=== PATIENT | female | born 1970 | race Caucasian/White ===

== ENCOUNTER 2017-09-13 10:20 | Inpatient (IN) | payer MEDICARE, MEDICAID ==
[2017-09-13] MEDS ORDERED: Lorazepam 2 MG/ML VIAL ONE (10:28)
[2017-09-13] MEDS ORDERED: Albuterol Sulfate 2.5 mg/0.5 ml Neb ONE (10:34)
[2017-09-13] MEDS ORDERED: Dexamethasone 10 MG/ML VIAL ONE (10:40)
[2017-09-13] MEDS ORDERED: Magnesium Sulfate 2 GM/100 ML BAG ONE (10:40)
[2017-09-13 10:48] LABS: Actual Bicarbonate (HCO3a) 28.8 mEq/L (22-26); Base Excess (BEa) -0.8 mEq/L (0 (+/-) 2.5); Calcium, Ionized 1.1 mmol/L (1.12-1.30); Hematocrit-ABG 44.6 % (36.0-47.0); O2 Tension (PaO2) 104.3 mmHg (80.0-100.0)
[2017-09-13 10:51] LABS: ALV-art Gradient 6.055 (0-20); Analyzer IN Cardio ER; CO2 Tension 72.1 mmHg (35.0-45.0); Puncture Site RRA; pH, Arterial 7.22 (7.35-7.45)
[2017-09-13 11:01] LABS: #Basophils 0.1 thou/uL (0.0-0.2); #Lymphocytes 1.6 thou/uL (1.20-3.40); #Monocytes 0.7 thou/uL (0.11-0.59); #Neutrophils 9.8 thou/uL (1.40-6.50); %Basophils 0.6 % (0.0-1.0); %Lymphocytes 13.2 % (21.0-51.0); %Monocytes 5.9 % (0.0-10.0); %Neutrophils 80.2 % (42.0-75.0); Hemoglobin 14.3 g/dL (12.0-16.0); Mean Corpuscular HGB CONC 32.9 g/dL (32.0-36.0); Mean Corpuscular Hemoglobin 33.5 pg (27.0-31.0); Mean Platelet Volume 6.7 fL (7.4-10.4); Platelet Count 288 thou/uL (130-400); RBC Distribution Width 11.6 % (11.5-14.5); Red Blood Cell (RBC) Count 4.27 mill/uL (4.20-5.40); White Blood Cell (WBC) Count 12.2 thou/uL (4.8-10.8)
[2017-09-13 11:11] LABS: INR-International Normal Ratio 0.9; Prothrombin Time 12.2 SEC (12.0-14.7)
[2017-09-13 11:24] LABS: ALT (SGPT) 34 U/L (8-55); AST (SGOT) 43 U/L (5-34); Albumin 3.8 g/dL (3.5-5.0); Alkaline Phosphatase 70 U/L (40-150); Anion Gap 13 mmol/L (10-20); BUN (Urea Nitrogen) 7 mg/dL (7.0-18.7); Bilirubin, Total 0.3 mg/dL (0.2-1.2); CK (CPK) 96 U/L (29-168); Calc. Creatinine Clearance 0 mL/min (70-130); Calcium 8.2 mg/dL (7.8-10.44); Carbon Dioxide 25 mmol/L (22-29); Chloride 102 mmol/L (98-107); Estimated GFR-MDRD Greater than 90; Globulin 2.3 g/dL (2.4-3.5); Glucose 153 mg/dL (70-105); Lipase 16 U/L (8-78); Potassium 3.7 mmol/L (3.5-5.1); Protein, Total 6.1 g/dL (6.0-8.3); Sodium 136 mmol/L (136-145)
[2017-09-13 11:28] LABS: CKMB 5.1 ng/mL (0-6.6); Troponin I 0.014 ng/mL (< 0.028)
[2017-09-13 11:57] LABS: Actual Bicarbonate (HCO3a) 27.9 mEq/L (22-26); Base Excess (BEa) -0.7 mEq/L (0 (+/-) 2.5); Calcium, Ionized 1.1 mmol/L (1.12-1.30); Hematocrit-ABG 42.5 % (36.0-47.0); Hemoglobin (Hb) 13.1 g/dL (12.0-16.0); O2 Tension (PaO2) 101.1 mmHg (80.0-100.0)
[2017-09-13 11:59] LABS: pH, Arterial 7.25 (7.35-7.45)
[2017-09-13 12:00] LABS: ALV-art Gradient 18.005 (0-20); Analyzer IN Cardio ER; CO2 Tension 65.1 mmHg (35.0-45.0); Puncture Site RRA
--- NOTE | 2017-09-13 12:56 | RAD ---
CHEST 1 VIEW: DATE:: 09/13/17 HISTORY: Dyspnea. COMPARISON: Chest 2 views dated 09/11/17. FINDINGS: Lungs are hyperinflated. Blunting of both costophrenic sulci, likely from lung hyperinflation. Area o f extensive bullous formation and scarring. Cardiac silhouette and mediastinal contours within normal limits. IMPRESSION: Severe emphysema. POS: [facility]
[2017-09-13] MEDS ORDERED: Ondansetron HCl/PF 4 MG/2 ML Vial IVP PRN (13:06)
[2017-09-13] MEDS ORDERED: Sodium Chloride 0.9% 1,000 ML IV SCH (13:15)
[2017-09-13] MEDS ORDERED: Enoxaparin Sodium 40 MG/0.4 ML SYRINGE SC SCH (13:30)
[2017-09-13] MEDS: Midazolam HCl 2 mg/2 ml Vial ONE ×2 (14:26→14:27)
[2017-09-13] MEDS ORDERED: Propofol 1,000 MG/100 ML VIAL IV ONE (14:32)
[2017-09-13] MEDS ORDERED: Sedation Protocol FS ONE (15:15)
[2017-09-13] MEDS: Levofloxacin 750 mg/D5W 500 MG in Premix Bag 1 BAG IVPB SCH (15:20)
[2017-09-13] MEDS: Sodium Chloride 0.9% 1,000 ML IV SCH ×2 (15:21→23:51)
[2017-09-13] MEDS ORDERED: Lorazepam 2 MG/ML VIAL SLOW IVP PRN (15:32)
[2017-09-13] MEDS ORDERED: Propofol 1,000 MG/100 ML VIAL IV PRN (15:32)
[2017-09-13] MEDS ORDERED: Fentanyl 20 MCG/ML 250 ML IVPB SCH (15:32)
[2017-09-13] MEDS ORDERED: DISCONTINUE PREVIOUS NARCOTIC PAIN MEDICATIONS AND BENZODIAZEPINES FS SCH (15:32)
[2017-09-13] MEDS ORDERED: Morphine 2 MG/ML SYRINGE SLOW IVP PRN (15:33)
[2017-09-13 15:44] LABS: ALV-art Gradient 61.675 (0-20); Actual Bicarbonate (HCO3a) 24.4 mEq/L (22-26); CO2 Tension 53.7 mmHg (35.0-45.0); Calcium, Ionized 1.1 mmol/L (1.12-1.30); Hematocrit-ABG 39.1 % (36.0-47.0); Hemoglobin (Hb) 12.6 g/dL (12.0-16.0); O2 Tension (PaO2) 229.2 mmHg (80.0-100.0); Puncture Site RBA; pH, Arterial 7.27 (7.35-7.45)
[2017-09-13] MEDS ORDERED: Mometasone/Formoterol 120 PUFF INHALER INH SCH (18:30)
--- NOTE | 2017-09-13 19:15 | HP ---
REASON FOR ADMISSION: Acute respiratory failure, acute on chronic obstructive pulmonary disease exacerbation, failure to thrive. HISTORY OF PRESENT ILLNESS: The patient gives history of having shortness of breath and coughing spells with wheezing for the last 1 week or so. This has been progressively getting worse. On Thursday, she went to [facility] where she was prescribed dexamethasone tapering, along with azithromycin. The patient has history of smoking and continues to smoke 2 to 3 cigarettes a day. This morning, patient's shortness of breath got worse and she became diaphoretic. The called EMS and patient was taken to [facility] from where she was transferred here. The patient states she has gone to see Dr. Baker last week and had a stress test in his office, which was negative as far as she knows. 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 CURRENT MEDICATIONS: The patient is on albuterol inhaler q.6 hourly p.r.n., Symbicort 160/4.5 mcg 2 puffs twice daily, albuterol nebulizer q.6 hourly p.r.n. , Nexium 40 mg p.o. daily, azithromycin 250 mg p.o. daily from last 2 days, methylprednisolone is on a taper Dosepak from Thursday, Flexeril p.r.n. ALLERGIES: Allergic to SULFA and ULTRAM. PERSONAL HISTORY: Smokes one pack a day, does not abuse alcohol or drugs. Lives with her . FAMILY HISTORY: Mother of unknown cancer in her 60s. Father has history of hypertension, dyslipidemia, coronary artery disease and also abuses drugs. REVIEW OF SYSTEMS: The following complete review of systems was negative, unless otherwise mentioned in the HPI or below: Constitutional: Weight loss or gain, ability to conduct usual activities. Skin: Rash, itching. Eyes: Double vision, pain. ENT/Mouth: Nose bleeding, neck stiffness, pain, tenderness. Cardiovascular: Palpitations, dyspnea on exertion, orthopnea. Respiratory: Shortness of breath, wheezing, cough, hemoptysis, fever or night sweats. Gastrointestinal: Poor appetite, abdominal pain, heartburn, nausea, vomiting, constipation, or diarrhea. Genitourinary: Urgency, frequency, dysuria, nocturia. Musculoskeletal: Pain, swelling. Neurologic/Psychiatric: Anxiety, depression. Allergy/Immunologic: Skin rash, bleeding tendency. PHYSICAL EXAMINATION: GENERAL: The patient is a 47-year-old female who is currently on BiPAP. VITAL SIGNS: Blood pressure is 126/74, pulse 90 per minute, respiratory rate is 24 per minute, temperature 96.6 degrees Fahrenheit, saturating 77% on room air and 97% on BiPAP. NECK: Supple, no elevated JVD. HEENT: Eyes: Extraocular muscles intact. Pupils reacting to light. Oral cavity mucous membranes are dry. No exudates or congestion. CARDIOVASCULAR SYSTEM: S1, S2 heard. Regular rhythm. RESPIRATORY SYSTEM: Air entry 1+ bilateral. Scattered wheezes plus bilateral. ABDOMEN: Soft, bowel sounds heard. No tenderness, rigidity, or guarding. EXTREMITIES: There is peripheral edema 1+ bilateral. No ischemic ulcerations or gangrene. Peripheral pulses are 1+ bilateral. CENTRAL NERVOUS SYSTEM: No gross focal deficits seen. The patient is lethargic , but oriented well. PSYCHIATRIC SYSTEM: The patient is bit anxious, otherwise no hallucinations or delusions. LABORATORY DATA: White count of 12, H an H 14 and 43, platelet count 288 with 80% neutrophils, MCV is 102, blood gas done prior to patient being on BiPAP showed a pH of 7.22, pCO2 of 72, pO2 of 104 and now on BiPAP. Repeat blood gas done showed more or less similar pH of 7.25, pCO2 of 65, and pO2 of 101. BUN is 7, creatinine 0.5. Electrolytes are stable. Glucose 153, albumin is 3.8, troponin I is 0.01. BNP is 32, lipase is 16. Influenza A and B antigens are negative. Chest x-ray done shows severe emphysema. CLINICAL IMPRESSION AND PLAN: The patient will be admitted to ICU for severe chronic obstructive pulmonary disease exacerbation and acute respiratory failure. We will continue her BiPAP. If patient were to worsen, she likely will need intubation. She has severe chronic obstructive pulmonary disease. We will place her on Solu-Medrol 40 mg IV q.6 hourly along with gentle hydration and Levaquin 500 mg IV daily. She will be on DuoNebs q.6 hourly. The patient is also cachectic with weighing nearly only 40 kilos likely due to her end-stage chronic obstructive pulmonary disease. We will continue to closely monitor her in ICU. I have spoken to Dr. Ruggiero for Pulmonology and Critical Care consultation. [facility]
[2017-09-13] MEDS: Famotidine/PF 20 mg/2ml Vial SLOW IVP SCH (21:06)
--- NOTE | 2017-09-14 03:49 | CON ---
DATE OF CONSULTATION: 09/13/2017 HISTORY OF PRESENT ILLNESS: Ms. Franks is a 47-year-old female. She has been intubated in the past. Dr. Salinas cared for her the last admission. She is a smoker. She has significant obstructive brandt ng disease. She presented with shortness of breath today and was noninvasively ventilated. Blood ga s showed a respiratory acidosis that did not improve with noninvasive ventilation. She arrived in e Intermediate Care Unit initially. I have actually told the Hospitalist to tell the emergency room that she needed to be intubated based on what I was hearing from the respiratory therapist in the [facility] department. They admitted her to IMU and she was immediately transferred to the ICU for intubation. Apparently she has been short of breath for over a week. She continues to smoke unfortunately. She initially presented to [facility] Emergency Department and subsequently was transfer red here. PAST MEDICAL HISTORY: 1. Remarkable for reflux disease. 2. History of a . 3. Hypertension. 4. Ulcer disease in the past. 5. History of anxiety. MEDICATONS: She is on albuterol, Symbicort, Nexium, she recently had Zithromax prescribed. She was on a Medrol taper. ALLERGIES: She reports SULFA and ULTRAM intolerance. SOCIAL HISTORY: She is a pack a day smoker. She has smoked all of her life. She does not drink or abuse drugs. She is . Her arrived after she was intubated. FAMILY HISTORY: Negative for lung disease at an early age. There is a history of malignancies, hype rtension and vascular disease. REVIEW OF SYSTEMS: Ten point of systems was otherwise negative beyond the shortness of breath. She denies hemoptysis or chest discomfort. PHYSICAL EXAMINATION: GENERAL: She was sitting bolt upright in bed with her arms extended out in front of her, pushing on the bed. She was using her shoulder muscles and her neck muscles to assist with respiration, even th ough she was on BiPAP. VITAL SIGNS: Blood pressure 129/69, heart rate was in the 90s. She is afebrile, respiratory rate wa s in the 20s. HEENT: Pupils are equal. Sclerae is anicteric. NECK: Supple. LUNGS: Remarkable for distant breath sounds, very distant wheezes. She had a long expiratory phase. HEART: Regular rhythm. Distant S1 and S2. ABDOMEN: Soft, no guarding or tenderness. EXTREMITIES: Without asymmetry. LABORATORY AND X-RAY FINDINGS: Chest radiograph was reviewed by me. I see no alveolar infiltrates s uggestive of pneumonia. She has extensive bullous disease and hyperinflation. White count 12.2, hemoglobin 14.3, platelets 288. Electrolytes are normal. Creatinine is 0.5, AST 43, ALT 34. Albumin 3.8. IMPRESSION: Chronic obstructive pulmonary disease exacerbation with acute respiratory failure. I discussed intubation. She was willing to proceed with intubation, but was not really excited about it. I have explained to her that she could suddenly pass away. She has pronounced signs of muscle fatigue. First blood gas 7.22, CO2 72, and pO2 of 104. Second blood gas; 7.25, CO2 65, pO2 101. Even when she was intubated mechanically her pH was 7.27, CO2 of 53, pO2 29. This was a ventilatory rate of 20. We could not turn the rate up any faster because she could not completely exhale. I hav e recommended intubation. This has been done. The intubation will be dictated in a separate note. This is a critical care note encompassing 45 minutes critical care independent of the procedure and c onsulting with the nurses at the bedside.
--- NOTE | 2017-09-14 04:10 | OP ---
PROCEDURE PERFORMED: Fiberoptic intubation. FREIGHT BRAKE OPERATOR: Darrin Ruggiero MD INDICATION: Respiratory failure, need for therapeutic suctioning, diagnostic bronchoscopy and intuba tion. Her upper airway prepped with Cetacaine spray. Bronchoscope was lubricated. Bite block was placed i n her mouth. Noninvasive ventilation was removed. Bronchoscope was easily passed through into her m outh down through her cords quickly with 7.5 endotracheal tubing and secured above the omar. As I went into her trachea through her glottis, copious amounts of clear secretions were encountered. No doubt she was not strong enough to cough these through her glottis into her mouth. It is fortunate that we intubated her when we did. Entire tracheobronchial tree was quickly inspecte d. No endobronchial lesions were seen in the right lower lobe, right upper lobe, right middle lobe, left lower lobe or left upper lobe. She was connected to mechanical ventilation. She does have sign ificantly prolonged expiratory phase, so a pH greater than 7.2 with an elevated CO2 will be adequate for ventilation for now. She will receive steroids, nebulizer treatments, and sedation and paralytic s if necessary. She was sedated with 4 mg of Versed. She was bolused with IV fluids as she was bein g intubated, tolerated all of the above well.
[2017-09-14 04:14] LABS: Anion Gap 15 mmol/L (10-20); BUN (Urea Nitrogen) 11 mg/dL (7.0-18.7); Calc. Creatinine Clearance 0 mL/min (70-130); Calcium 8.6 mg/dL (7.8-10.44); Carbon Dioxide 20 mmol/L (22-29); Chloride 106 mmol/L (98-107); Estimated GFR-MDRD Greater than 90; Glucose 118 mg/dL (70-105); Sodium 137 mmol/L (136-145)
[2017-09-14 05:35] LABS: Band 10 % (5-11); Hemoglobin 12.9 g/dL (12.0-16.0); Lymphocytes 11 % (21-51); MDiff Complete? YES; Mean Corpuscular HGB CONC 33.8 g/dL (32.0-36.0); Mean Corpuscular Hemoglobin 33.5 pg (27.0-31.0); Mean Corpuscular Volume 99.2 fl (81.0-99.0); Mean Platelet Volume 6.8 fL (7.4-10.4); Monocytes 4 % (0-10); Neutrophil 75 % (42-75); Platelet Count 274 thou/uL (130-400); RBC Distribution Width 11.5 % (11.5-14.5); Red Blood Cell (RBC) Count 3.86 mill/uL (4.20-5.40); White Blood Cell (WBC) Count 5.8 thou/uL (4.8-10.8)
[2017-09-14] MEDS ORDERED: Enoxaparin Sodium 40 MG/0.4 ML SYRINGE SC SCH (06:00)
[2017-09-14] MEDS: Sodium Chloride 0.9% 1,000 ML IV SCH ×3 (06:05→21:23)
[2017-09-14 07:28] LABS: Actual Bicarbonate (HCO3a) 20.8 mEq/L (22-26); Base Excess (BEa) -1.5 mEq/L (0 (+/-) 2.5); CO2 Tension 28.2 mmHg (35.0-45.0); Calcium, Ionized 1.2 mmol/L (1.12-1.30); Hematocrit-ABG 37.2 % (36.0-47.0); Hemoglobin (Hb) 12.1 g/dL (12.0-16.0); O2 Tension (PaO2) 168.6 mmHg (80.0-100.0); pH, Arterial 7.49 (7.35-7.45)
[2017-09-14 07:29] LABS: Puncture Site RBA
--- NOTE | 2017-09-14 07:44 | PDOC.PULCC ---
CCU Progress Note: Subj/Obj - Subjective Date: 09/14/17 Time: 07:43 Subjective: Resting comfortably on mechanical ventilation. Able to follow commands - ROS Review of Systems: shortness of breath - Objective Allergies/Adverse Reactions: Allergies Allergy/AdvReac Type Severity Reaction Status Date / Time tramadol Allergy Unknown Itching Verified 05/20/16 00:23 Sulfa (Sulfonamide Allergy Verified 05/19/16 16:52 Antibiotics) Medications: Current Medications Acetaminophen (Tylenol) 650 mg PO Q4H PRN PRN Reason: Headache/Fever or Pain Albuterol/Ipratropium (Duoneb) 3 ml NEB [id number] EM Last Admin: 09/14/17 02:44 Dose: 3 ml Enoxaparin Sodium (Lovenox) 40 mg SC 0900 EM Famotidine (Pepcid) 20 mg SLOW IVP Q12HR EM Last Admin: 09/13/17 21:06 Dose: 20 mg Guaifenesin/Dextromethorphan (Robitussin Dm) 15 ml PO Q4H PRN PRN Reason: Cough Levofloxacin 500 mg/ Device 100 mls @ 100 mls/hr IVPB Q24HR EM Last Admin: 09/13/17 15:20 Dose: 100 mls Sodium Chloride (Normal Saline 0.9%) 1,000 mls @ 125 mls/hr IV .Q8H EM Last Admin: 09/14/17 06:05 Dose: 1,000 mls Fentanyl (Fentanyl Cadd) 250 mls @ 0 mls/hr IVPB INF EM; Titrate PRN Reason: Protocol Stop: 10/13/17 15:32 Fentanyl Citrate (Fentanyl Bolus) 250 mls @ 0 mls/hr IVPB PRN PRN; As Directed PRN Reason: Breakthrough pain Stop: 10/13/17 15:32 Lorazepam (Ativan) 2 mg SLOW IVP Q2H PRN PRN Reason: Anxiety to achieve Zhang 2-3 Stop: 10/13/17 15:32 Methylprednisolone Sodium Succinate (Solu-Medrol) 40 mg IVP Q6HR EM Last Admin: 09/14/17 05:58 Dose: 40 mg Morphine Sulfate (Morphine) 2 mg SLOW IVP Q2H PRN PRN Reason: Breakthrough pain Stop: 10/13/17 15:34 Ondansetron HCl (Zofran) 4 mg IVP Q6H PRN PRN Reason: Nausea/Vomiting Propofol (Diprivan) 1,000 mg IV INF PRN; Protocol PRN Reason: TO ACHIEVE ZHANG SCORE 2-3 Stop: 10/13/17 15:32 Last Admin: 09/14/17 01:39 Dose: 1,000 mg MAR Reviewed: Yes Vital Signs and I&O: Vital Signs Temp 99.3 F 09/14/17 07:00 Pulse 77 09/14/17 07:14 Resp 20 09/14/17 06:00 BP 128/87 09/14/17 07:14 Pulse Ox 100 09/14/17 02:44 Intake & Output 09/13/17 09/14/17 09/14/17 18:59 06:59 18:59 Intake Total 509.9 1586 Output Total 435 240 10 Balance 74.9 1346 -10 Intake: Intake, IV Amount 509.9 1586 Propofol 1000 mg (See 28.9 78 Protocol) IV INF PRN Rx#: [id number] Sodium Chloride 0.9% 1, 481 1508 000 ml @ 125 mls/hr IV . Q8H [facility] Rx#:[id number] Output: Output, [place] 435 240 10 Other: Voiding Method Indwelling Catheter Indwelling Catheter Vent Setting: CPAP 5 PS10 25% Spontaneous Breathing Test: done CCU Progress Note: Exam - Physical Exam HEENT: PERRLA, oral pharynx no lesions Neck: no nodes, no JVD, supple Cardiovascular: RRR Respiratory: clear to auscultation anteriorly, prolonged expiratory phase Gastrointestinal: soft, non-tender, positive bowel sounds Musculoskeletal: no edema, pulses present Neurological: non-focal, moves all 4 limbs Lymphatic: no nodes Skin: no rash - Labs Result Diagrams: 09/14/17 03:43 09/14/17 03:43 Lab results: Laboratory Results - last 24 hr 09/13/17 09/14/17 09/14/17 15:15 03:43 03:43 WBC 5.8 RBC 3.86 L Hgb 12.9 Hct 38.3 MCV 99.2 H MCH 33.5 H MCHC 33.8 RDW 11.5 Plt Count 274 MPV 6.8 L Neutrophils % (Manual) 75 Band Neuts % (Manual) 10 Lymphocytes % (Manual) 11 L Monocytes % (Manual) 4 Specimen Type ARTERIAL Puncture Site RBA Bicarbonate Actual 24.4 ABG pH 7.27 L ABG pCO2 53.7 H ABG pO2 229.2 H ABG O2 Sat Calc/Arthur 99.5 ABG O2 Content 17.7 ABG Base Excess -3.0 L ABG Hematocrit 39.1 ABG Hemoglobin 12.6 ABG Oxyhemoglobin 97.5 H ABG Carboxyhemoglobin 1.3 ABG Methemoglobin 0.7 ABG Deoxyhemoglobin 0.5 Landon Test NOT DONE A-a O2 Gradient 61.675 H Sodium 139 137 Potassium 4.4 4.0 Chloride 102 106 Ionized Calcium 1.1 L Mode of Support SIMV/PSV Mechanical Rate 20 Inspired O2 50 Tidal Volume 450 Pressure Support 10 PEEP or CPAP 5.0 Carbon Dioxide 20 L Anion Gap 15 BUN 11 Creatinine 0.55 L Estimated GFR (MDRD) Greater than 90 Glucose 118 H Calcium 8.6 09/14/17 07:15 WBC RBC Hgb Hct MCV MCH MCHC RDW Plt Count MPV Neutrophils % (Manual) Band Neuts % (Manual) Lymphocytes % (Manual) Monocytes % (Manual) Specimen Type ARTERIAL Puncture Site RBA Bicarbonate Actual 20.8 L ABG pH 7.49 H ABG pCO2 28.2 L ABG pO2 168.6 H ABG O2 Sat Calc/Arthur 99.3 ABG O2 Content 17.0 L ABG Base Excess -1.5 ABG Hematocrit 37.2 ABG Hemoglobin 12.1 ABG Oxyhemoglobin 97.9 H ABG Carboxyhemoglobin 0.9 ABG Methemoglobin 0.6 ABG Deoxyhemoglobin 0.7 Alndon Test NOT DONE A-a O2 Gradient 48.150 H Sodium 137 Potassium 3.6 L Chloride 102 Ionized Calcium 1.2 Mode of Support SIMV/PSV Mechanical Rate 20 Inspired O2 35 Tidal Volume 500 Pressure Support 10 PEEP or CPAP 5.0 Carbon Dioxide Anion Gap BUN Creatinine Estimated GFR (MDRD) Glucose Calcium CCU Progress Note: A/P - Problems (1) COPD exacerbation Current Visit: No Status: Acute Code(s): J44.1 - CHRONIC OBSTRUCTIVE PULMONARY DISEASE W (ACUTE) EXACERBATION (2) Acute respiratory failure with hypercapnia Current Visit: Yes Status: Acute Code(s): J96.02 - ACUTE RESPIRATORY FAILURE WITH HYPERCAPNIA - Time Spent with Patient Time: 30 min CC time - Plan Plan: Spontaneous breathing trial extubate if she tolerates continue steroids, nebs, and abx
[2017-09-14] MEDS ORDERED: DC Sedation Protocol FS ONE (07:51)
[2017-09-14] MEDS: ALPRAZolam 1 MG TAB PO PRN ×3 (09:31→23:45)
[2017-09-14] MEDS: Famotidine/PF 20 mg/2ml Vial SLOW IVP SCH ×2 (09:52→21:16)
[2017-09-14] MEDS: Enoxaparin Sodium 40 MG/0.4 ML SYRINGE SC SCH (09:52)
--- NOTE | 2017-09-14 10:28 | PDOC.PN ---
- Subjective Encounter Start Date: 09/14/17 Encounter Start Time: 09:10 Subjective: got extubated just a short while back -: oriented, a bit anxious - Objective Resuscitation Status: Resuscitation Status FULL:Full Resuscitation MAR Reviewed: Yes Vital Signs & Weight: Vital Signs (12 hours) Temp Pulse Resp BP Pulse Ox 09/14/17 09:06 89 26 H 95 09/14/17 08:00 85 15 94 L 09/14/17 07:18 99.3 F 77 10 L 99 09/14/17 07:14 77 128/87 09/14/17 07:00 99.3 F 09/14/17 06:00 20 09/14/17 04:00 98.7 F 20 09/14/17 02:46 84 116/78 09/14/17 02:44 84 20 100 09/14/17 02:00 20 09/14/17 00:00 98.0 F 20 09/13/17 22:28 86 119/76 Most Recent Monitor Data Heart Rate from ECG 99 NIBP 146/81 NIBP BP-Mean 101 Respiration from ECG 26 SpO2 90 I&O: 09/13/17 09/14/17 09/15/17 06:59 06:59 06:59 Intake Total 2095.9 Output Total 675 120 Balance 1420.9 -120 Result Diagrams: 09/14/17 03:43 09/14/17 03:43 Phys Exam - Physical Examination HEENT: PERRLA, sclera anicteric Neck: no JVD, supple Respiratory: no wheezing, no rales rhonchi++ Cardiovascular: RRR, no significant murmur Gastrointestinal: soft, non-tender, positive bowel sounds Musculoskeletal: pulses present, edema present Neurological: non-focal, moves all 4 limbs Psychiatric: A&O x 3 Dx/Plan (1) COPD exacerbation Code(s): J44.1 - CHRONIC OBSTRUCTIVE PULMONARY DISEASE W (ACUTE) EXACERBATION Status: Acute (2) Acute respiratory failure with hypercapnia Code(s): J96.02 - ACUTE RESPIRATORY FAILURE WITH HYPERCAPNIA Status: Acute (3) FTT (failure to thrive) in adult Status: Chronic (4) Tobacco abuse Code(s): Z72.0 - TOBACCO USE Status: Chronic (5) Pulmonary cachexia due to chronic obstructive pulmonary disease Code(s): J44.9 - CHRONIC OBSTRUCTIVE PULMONARY DISEASE, UNSPECIFIED; R64 - [place] Status: Chronic - Plan extubated, doing well -: xanax for anxiety -: is on solumedrol, nebs and levaquin -: gentle iv hydration -: ensure 1 can tid, dietary consult in am * . Review of Systems - Medications/Allergies Allergies/Adverse Reactions: Allergies Allergy/AdvReac Type Severity Reaction Status Date / Time tramadol Allergy Unknown Itching Verified 05/20/16 00:23 Sulfa (Sulfonamide Allergy Verified 05/19/16 16:52 Antibiotics) Medications: Current Medications Acetaminophen (Tylenol) 650 mg PO Q4H PRN PRN Reason: Headache/Fever or Pain Albuterol/Ipratropium (Duoneb) 3 ml NEB [id number] [facility] Last Admin: 09/14/17 09:06 Dose: 3 ml Alprazolam (Xanax) 1 mg PO Q6H PRN PRN Reason: Anxiety Last Admin: 09/14/17 09:31 Dose: 1 mg Enoxaparin Sodium (Lovenox) 40 mg SC 0900 [facility] Last Admin: 09/14/17 09:52 Dose: 40 mg Famotidine (Pepcid) 20 mg SLOW IVP Q12HR EM Last Admin: 09/14/17 09:52 Dose: 20 mg Guaifenesin/Dextromethorphan (Robitussin Dm) 15 ml PO Q4H PRN PRN Reason: Cough Levofloxacin 500 mg/ Device 100 mls @ 100 mls/hr IVPB Q24HR [facility] Last Admin: 09/13/17 15:20 Dose: 100 mls Sodium Chloride (Normal Saline 0.9%) 1,000 mls @ 125 mls/hr IV .Q8H [facility] Last Admin: 09/14/17 06:05 Dose: 1,000 mls Methylprednisolone Sodium Succinate (Solu-Medrol) 40 mg IVP Q6HR EM Last Admin: 09/14/17 05:58 Dose: 40 mg Ondansetron HCl (Zofran) 4 mg IVP Q6H PRN PRN Reason: Nausea/Vomiting
--- NOTE | 2017-09-14 10:36 | RAD ---
AP VIEW CHEST: Date: 09/14/17 HISTORY: Ventilator dependent patient. FINDINGS: Comparison made to previous exam from 09/13/17. AP view of chest demonstrates hyperaeration and air trapping compatible with changes of COPD. There i s a nasogastric tube in place. The patient is intubated. Endotracheal tube is above omar. There are diffuse fibrobullous changes throughout both lungs. No evidence of hemo or pneumothorax see n. No evidence of mediastinal shift is seen. IMPRESSION: Air trapping and changes of COPD> POS: [facility]
[2017-09-14] MEDS: Levofloxacin 750 mg/D5W 500 MG in Premix Bag 1 BAG IVPB SCH (13:18)
[2017-09-15 05:35] LABS: Anisocytosis SLIGHT = 6-15 cells (100X) (0-5/hpf); Band 2 % (5-11); Hemoglobin 13.8 g/dL (12.0-16.0); Lymphocytes 10 % (21-51); MDiff Complete? YES; Mean Corpuscular HGB CONC 33.8 g/dL (32.0-36.0); Mean Corpuscular Hemoglobin 34.4 pg (27.0-31.0); Mean Platelet Volume 6.8 fL (7.4-10.4); Monocytes 2 % (0-10); Neutrophil 86 % (42-75); Platelet Count 279 thou/uL (130-400); RBC Distribution Width 11.6 % (11.5-14.5); White Blood Cell (WBC) Count 6.9 thou/uL (4.8-10.8)
[2017-09-15] MEDS: Sodium Chloride 0.9% 1,000 ML IV SCH ×3 (06:04→22:32)
--- NOTE | 2017-09-15 07:39 | PDOC.PULCC ---
CCU Progress Note: Subj/Obj - Subjective Date: 09/15/17 Time: 07:37 Subjective: She had to wear BiPAP last night. Feels a little better this AM - ROS Review of Systems: cough - Objective Allergies/Adverse Reactions: Allergies Allergy/AdvReac Type Severity Reaction Status Date / Time tramadol Allergy Unknown Itching Verified 05/20/16 00:23 Sulfa (Sulfonamide Allergy Verified 05/19/16 16:52 Antibiotics) Medications: Current Medications Acetaminophen (Tylenol) 650 mg PO Q4H PRN PRN Reason: Headache/Fever or Pain Albuterol/Ipratropium (Duoneb) 3 ml NEB [id number] [facility] Last Admin: 09/15/17 01:44 Dose: 3 ml Alprazolam (Xanax) 1 mg PO Q6H PRN PRN Reason: Anxiety Last Admin: 09/14/17 23:45 Dose: 1 mg Enoxaparin Sodium (Lovenox) 40 mg SC 0900 [facility] Last Admin: 09/14/17 09:52 Dose: 40 mg Famotidine (Pepcid) 20 mg SLOW IVP Q12HR [facility] Last Admin: 09/14/17 21:16 Dose: 20 mg Guaifenesin/Dextromethorphan (Robitussin Dm) 15 ml PO Q4H PRN PRN Reason: Cough Levofloxacin 500 mg/ Device 100 mls @ 100 mls/hr IVPB Q24HR [facility] Last Admin: 09/14/17 13:18 Dose: 100 mls Ondansetron HCl (Zofran) 4 mg IVP Q6H PRN PRN Reason: Nausea/Vomiting MAR Reviewed: Yes Vital Signs and I&O: Vital Signs Temp 98.2 F 09/15/17 04:00 Pulse 74 09/15/17 01:46 Resp 20 09/15/17 01:44 BP 128/87 09/14/17 07:14 Pulse Ox 100 09/15/17 02:50 Intake & Output 09/14/17 09/15/17 09/15/17 18:59 06:59 18:59 Intake Total 516.7 420 Output Total 1125 485 Balance -608.3 -65 Intake: Intake, IV Amount 16.7 Propofol 1000 mg (See 16.7 Protocol) IV INF PRN Rx#: [id number] Oral 500 420 Output: Output, [place] 1125 485 Other: Voiding Method Indwelling Catheter Indwelling Catheter # Bowel Movements 778 Vent Setting: BiPAP 08/25 Spontaneous Breathing Test: BIPAP/IPAP CCU Progress Note: Exam - Physical Exam Deviation from normal: respiratory discomfort HEENT: PERRLA, moist MMs, sclera anicteric, oral pharynx no lesions Neck: no nodes, no JVD Cardiovascular: RRR Focused Respiratory Location: decreased breath sounds: Right, Left Gastrointestinal: soft, non-tender, no distention, positive bowel sounds Musculoskeletal: no edema Neurological: non-focal, moves all 4 limbs Lymphatic: no nodes Psychiatric: normal affect, A&O x 3 Skin: no rash - Labs Result Diagrams: 09/15/17 04:29 09/14/17 03:43 Lab results: Laboratory Results - last 24 hr 09/15/17 04:29 WBC 6.9 RBC 4.00 L Hgb 13.8 Hct 40.7 MCV 102.0 H MCH 34.4 H MCHC 33.8 RDW 11.6 Plt Count 279 MPV 6.8 L Neutrophils % (Manual) 86 H Band Neuts % (Manual) 2 L Lymphocytes % (Manual) 10 L Monocytes % (Manual) 2 Anisocytosis SLIGHT = 6-15 cells CCU Progress Note: A/P - Problems (1) COPD exacerbation Current Visit: No Status: Acute Code(s): J44.1 - CHRONIC OBSTRUCTIVE PULMONARY DISEASE W (ACUTE) EXACERBATION (2) Acute respiratory failure with hypercapnia Current Visit: Yes Status: Acute Code(s): J96.02 - ACUTE RESPIRATORY FAILURE WITH HYPERCAPNIA - Time Spent with Patient Time: 30 min CC time - Plan Plan: Try off BiPAP this AM Reduced steroid dose Continue Nebs and Abx Consult PT Decrease IVF Leave in CCU
--- NOTE | 2017-09-15 08:37 | RAD ---
SINGLE VIEW OF CHEST: Date: 09/15/17 COMPARISON: 09/14/17. HISTORY: Ventilated patient with respiratory failure. FINDINGS: Single view of the chest shows a normal sized cardiomediastinal silhouette. Hyperexpansion of the christi gs is likely secondary to COPD. The endotracheal tube and NG tubes have been removed. There is no vu dence of consolidation, mass, or pleural effusion. IMPRESSION: Stable exam status post extubation. POS: [facility]
[2017-09-15] MEDS: Enoxaparin Sodium 40 MG/0.4 ML SYRINGE SC SCH (09:36)
[2017-09-15] MEDS: Famotidine/PF 20 mg/2ml Vial SLOW IVP SCH ×2 (09:36→20:23)
--- NOTE | 2017-09-15 11:23 | PDOC.PN ---
- Subjective Encounter Start Date: 09/15/17 Encounter Start Time: 10:00 Subjective: breathing better, still sob with wheezing -: a bit lethargic this am -: was on bipap last night - Objective Resuscitation Status: Resuscitation Status FULL:Full Resuscitation MAR Reviewed: Yes Vital Signs & Weight: Vital Signs (12 hours) Temp Pulse Resp Pulse Ox 09/15/17 11:06 97 09/15/17 11:05 84 21 H 97 09/15/17 08:00 98.6 F 72 20 93 L 09/15/17 07:00 98.6 F 09/15/17 04:00 98.2 F 09/15/17 02:50 100 09/15/17 01:46 74 09/15/17 01:44 76 20 100 09/15/17 00:00 97.7 F Weight Admit Weight 88 lb 2.958 oz Most Recent Monitor Data Heart Rate from ECG 89 NIBP 112/68 NIBP BP-Mean 79 Respiration from ECG 19 SpO2 97 I&O: 09/14/17 09/15/17 09/16/17 06:59 06:59 06:59 Intake Total 2095.9 936.7 50 Output Total 675 1610 215 Balance 1420.9 -673.3 -165 Result Diagrams: 09/15/17 04:29 09/14/17 03:43 Phys Exam - Physical Examination HEENT: PERRLA, sclera anicteric Neck: no JVD, supple Respiratory: no rales, wheezing present Cardiovascular: RRR, no significant murmur Gastrointestinal: soft, non-tender, positive bowel sounds Musculoskeletal: no edema, pulses present Neurological: non-focal, moves all 4 limbs Dx/Plan (1) COPD exacerbation Code(s): J44.1 - CHRONIC OBSTRUCTIVE PULMONARY DISEASE W (ACUTE) EXACERBATION Status: Acute (2) Acute respiratory failure with hypercapnia Code(s): J96.02 - ACUTE RESPIRATORY FAILURE WITH HYPERCAPNIA Status: Acute Comment: extubated 09/14/2017 (3) FTT (failure to thrive) in adult Status: Chronic (4) Tobacco abuse Code(s): Z72.0 - TOBACCO USE Status: Chronic (5) Pulmonary cachexia due to chronic obstructive pulmonary disease Code(s): J44.9 - CHRONIC OBSTRUCTIVE PULMONARY DISEASE, UNSPECIFIED; R64 - [place] Status: Chronic - Plan is on levaquin, steroids, and nebs -: bipap prn -: likely has end stage copd and is still wheezing -: encourage po intake, incentive spirometry as tolerated * . Review of Systems - Medications/Allergies Allergies/Adverse Reactions: Allergies Allergy/AdvReac Type Severity Reaction Status Date / Time tramadol Allergy Unknown Itching Verified 05/20/16 00:23 Sulfa (Sulfonamide Allergy Verified 05/19/16 16:52 Antibiotics) Medications: Current Medications Acetaminophen (Tylenol) 650 mg PO Q4H PRN PRN Reason: Headache/Fever or Pain Albuterol/Ipratropium (Duoneb) 3 ml NEB [id number] [facility] Last Admin: 09/15/17 11:05 Dose: 3 ml Alprazolam (Xanax) 1 mg PO Q6H PRN PRN Reason: Anxiety Last Admin: 09/14/17 23:45 Dose: 1 mg Enoxaparin Sodium (Lovenox) 40 mg SC 0900 [facility] Last Admin: 09/15/17 09:36 Dose: 40 mg Famotidine (Pepcid) 20 mg SLOW IVP Q12HR [facility] Last Admin: 09/15/17 09:36 Dose: 20 mg Guaifenesin/Dextromethorphan (Robitussin Dm) 15 ml PO Q4H PRN PRN Reason: Cough Levofloxacin 500 mg/ Device 100 mls @ 100 mls/hr IVPB Q24HR [facility] Last Admin: 09/14/17 13:18 Dose: 100 mls Sodium Chloride (Normal Saline 0.9%) 1,000 mls @ 50 mls/hr IV .Q20H [facility] Last Admin: 09/15/17 09:36 Dose: 1,000 mls Methylprednisolone Sodium Succinate (Solu-Medrol) 20 mg IVP Q6HR EM Ondansetron HCl (Zofran) 4 mg IVP Q6H PRN PRN Reason: Nausea/Vomiting
[2017-09-15] MEDS: Levofloxacin 750 mg/D5W 500 MG in Premix Bag 1 BAG IVPB SCH (12:03)
[2017-09-15 13:10] VITALS: BMI 17.2
[2017-09-15] MEDS: ALPRAZolam 1 MG TAB PO PRN ×2 (16:07→22:06)
[2017-09-15] MEDS: Guaifenesin DM 100-10/5 ML UDCUP PO PRN (22:05)
[2017-09-16 04:44] LABS: Anion Gap 8 mmol/L (10-20); BUN (Urea Nitrogen) 9 mg/dL (7.0-18.7); Calc. Creatinine Clearance 88 mL/min (70-130); Calcium 8.9 mg/dL (7.8-10.44); Carbon Dioxide 35 mmol/L (22-29); Chloride 101 mmol/L (98-107); Estimated GFR-MDRD Greater than 90; Glucose 148 mg/dL (70-105); Potassium 3.6 mmol/L (3.5-5.1); Sodium 140 mmol/L (136-145)
[2017-09-16] MEDS: Acetaminophen 325 MG TAB PO PRN (05:34)
[2017-09-16 05:57] LABS: Band 3 % (5-11); Hemoglobin 12.9 g/dL (12.0-16.0); Lymphocytes 8 % (21-51); MDiff Complete? YES; Macrocytosis SLIGHT = 6-15 cells (100X) (0-5/hpf); Mean Corpuscular HGB CONC 32.3 g/dL (32.0-36.0); Mean Corpuscular Hemoglobin 32.9 pg (27.0-31.0); Mean Platelet Volume 6.6 fL (7.4-10.4); Monocytes 3 % (0-10); Neutrophil 86 % (42-75); Platelet Count 291 thou/uL (130-400); RBC Distribution Width 11.6 % (11.5-14.5); Red Blood Cell (RBC) Count 3.93 mill/uL (4.20-5.40); White Blood Cell (WBC) Count 8.1 thou/uL (4.8-10.8)
--- NOTE | 2017-09-16 08:45 | PRG ---
DATE OF SERVICE: 09/16/2017 The patient has done reasonably well overnight, did not require BiPAP during the day yesterday and di d not sleep with it last night. PHYSICAL EXAMINATION: VITAL SIGNS: Temperature is 98.3, pulse 70, blood pressure 150/72, O2 saturation 100% on nasal cannu la, 24-hour intake 3636, output 2905. HEENT: Unremarkable. NECK: No JVD. LUNGS: Occasional end expiratory wheeze. CARDIOVASCULAR: S1, S2 regular. ABDOMEN: Soft, nontender, nondistended. EXTREMITIES: No clubbing, cyanosis, or edema. NEUROLOGIC: Nonfocal. LABORATORY DATA: White blood cell count 8.1, hematocrit 40, platelet count 291. Sodium 140, potassi um 3.6, chloride 101, CO2 35, BUN 9, creatinine 0.5, glucose 148. ASSESSMENT: 1. Acute respiratory failure related to chronic obstructive pulmonary disease exacerbation. 2. Tobacco abuse. PLAN: She will be transferred to the medical floor. PT has been consulted. Continue the steroids a nd nebulization therapy.
[2017-09-16] MEDS: Famotidine 20 MG TAB PO SCH ×2 (09:16→21:00)
[2017-09-16] MEDS: Enoxaparin Sodium 40 MG/0.4 ML SYRINGE SC SCH (09:16)
[2017-09-16] MEDS: ALPRAZolam 1 MG TAB PO PRN ×2 (10:01→14:54)
--- NOTE | 2017-09-16 10:54 | PDOC.PN ---
- Subjective Encounter Start Date: 09/16/17 Encounter Start Time: 09:30 Subjective: has sob, but better -: is off bipap, did not want to wear last night per staff - Objective Resuscitation Status: Resuscitation Status FULL:Full Resuscitation MAR Reviewed: Yes Vital Signs & Weight: Vital Signs (12 hours) Temp Pulse Resp Pulse Ox 09/16/17 10:00 80 16 98 09/16/17 08:00 98 F 09/16/17 04:00 98.3 F 09/16/17 03:05 99 09/16/17 02:57 61 17 99 09/16/17 00:00 98.0 F Weight Admit Weight 88 lb 2.958 oz Weight 88 lb Most Recent Monitor Data Heart Rate from ECG 73 NIBP 133/77 NIBP BP-Mean 90 Respiration from ECG 22 SpO2 94 I&O: 09/15/17 09/16/17 09/17/17 06:59 06:59 06:59 Intake Total 936.7 3636 165 Output Total 1610 2095 Balance -673.3 1541 165 Result Diagrams: 09/16/17 03:24 09/16/17 03:24 Phys Exam - Physical Examination HEENT: PERRLA, sclera anicteric Neck: no JVD, supple Respiratory: no wheezing, wheezing present Cardiovascular: RRR, no significant murmur, no rub Gastrointestinal: soft, non-tender, positive bowel sounds Musculoskeletal: no edema, pulses present Neurological: non-focal, moves all 4 limbs Psychiatric: A&O x 3 Dx/Plan (1) COPD exacerbation Code(s): J44.1 - CHRONIC OBSTRUCTIVE PULMONARY DISEASE W (ACUTE) EXACERBATION Status: Acute (2) Acute respiratory failure with hypercapnia Code(s): J96.02 - ACUTE RESPIRATORY FAILURE WITH HYPERCAPNIA Status: Acute Comment: extubated 09/14/2017 (3) FTT (failure to thrive) in adult Status: Chronic (4) Tobacco abuse Code(s): Z72.0 - TOBACCO USE Status: Chronic (5) Pulmonary cachexia due to chronic obstructive pulmonary disease Code(s): J44.9 - CHRONIC OBSTRUCTIVE PULMONARY DISEASE, UNSPECIFIED; R64 - [place] Status: Chronic - Plan ensure 1 can tid -: PT to mobilize as tolerated with oxygen -: likely has end stage copd with cachexia -: revisisted code status with pt and , they want everything done for n -: -ow, dietary consult. Is on steroids, nebs and levaquin * . Review of Systems - Medications/Allergies Allergies/Adverse Reactions: Allergies Allergy/AdvReac Type Severity Reaction Status Date / Time tramadol Allergy Unknown Itching Verified 05/20/16 00:23 Sulfa (Sulfonamide Allergy Verified 05/19/16 16:52 Antibiotics) Medications: Current Medications Acetaminophen (Tylenol) 650 mg PO Q4H PRN PRN Reason: Headache/Fever or Pain Last Admin: 09/16/17 05:34 Dose: 650 mg Albuterol/Ipratropium (Duoneb) 3 ml NEB [id number] [facility] Last Admin: 09/16/17 10:00 Dose: 3 ml Alprazolam (Xanax) 1 mg PO Q6H PRN PRN Reason: Anxiety Last Admin: 09/16/17 10:01 Dose: 1 mg Enoxaparin Sodium (Lovenox) 40 mg SC 0900 [facility] Last Admin: 09/16/17 09:16 Dose: 40 mg Famotidine (Pepcid) 20 mg PO BID [facility] Last Admin: 09/16/17 09:16 Dose: 20 mg Guaifenesin/Dextromethorphan (Robitussin Dm) 15 ml PO Q4H PRN PRN Reason: Cough Last Admin: 09/15/17 22:05 Dose: 15 ml Levofloxacin 500 mg/ Device 100 mls @ 100 mls/hr IVPB Q24HR [facility] Last Admin: 09/15/17 12:03 Dose: 100 mls Methylprednisolone Sodium Succinate (Solu-Medrol) 20 mg IVP Q6HR [facility] Last Admin: 09/16/17 05:34 Dose: 20 mg Ondansetron HCl (Zofran) 4 mg IVP Q6H PRN PRN Reason: Nausea/Vomiting
[2017-09-16] MEDS: Levofloxacin 750 mg/D5W 500 MG in Premix Bag 1 BAG IVPB SCH (11:53)
[2017-09-17] MEDS: Acetaminophen 325 MG TAB PO PRN (08:20)
[2017-09-17] MEDS: Enoxaparin Sodium 40 MG/0.4 ML SYRINGE SC SCH (08:20)
[2017-09-17] MEDS: Famotidine 20 MG TAB PO SCH ×2 (08:20→21:18)
--- NOTE | 2017-09-17 09:06 | PDOC.PULPN ---
Progress Note: Subj/Obj - Subjective Date: 09/17/17 Time: 09:04 Subjective: Continues to slowly improve - ROS All systems: reviewed and no additional remarkable complaints except as stated Respiratory: congestion, cough - Objective Allergies/Adverse Reactions: Allergies Allergy/AdvReac Type Severity Reaction Status Date / Time tramadol Allergy Unknown Itching Verified 05/20/16 00:23 Sulfa (Sulfonamide Allergy Verified 05/19/16 16:52 Antibiotics) Medications: Current Medications Acetaminophen (Tylenol) 650 mg PO Q4H PRN PRN Reason: Headache/Fever or Pain Last Admin: 09/17/17 08:20 Dose: 650 mg Albuterol/Ipratropium (Duoneb) 3 ml NEB [id number] [facility] Last Admin: 09/17/17 05:42 Dose: 3 ml Alprazolam (Xanax) 1 mg PO Q6H PRN PRN Reason: Anxiety Last Admin: 09/16/17 14:54 Dose: 1 mg Arformoterol Tartrate (Brovana) 15 mcg NEB BID-RT EM Budesonide (Pulmicort Neb Solution) 0.5 mg INH BID-RT [facility] Enoxaparin Sodium (Lovenox) 40 mg SC 0900 [facility] Last Admin: 09/17/17 08:20 Dose: 40 mg Famotidine (Pepcid) 20 mg PO BID [facility] Last Admin: 09/17/17 08:20 Dose: 20 mg Guaifenesin/Dextromethorphan (Robitussin Dm) 15 ml PO Q4H PRN PRN Reason: Cough Last Admin: 09/15/17 22:05 Dose: 15 ml Levofloxacin 500 mg/ Device 100 mls @ 100 mls/hr IVPB 1200 [facility] Ondansetron HCl (Zofran) 4 mg IVP Q6H PRN PRN Reason: Nausea/Vomiting Prednisone (Prednisone) 20 mg PO BID [facility] MAR Reviewed: Yes Vital Signs: Vital Signs Temp 98.3 F 09/17/17 07:55 Pulse 73 09/17/17 07:55 Resp 18 09/17/17 07:55 BP 148/86 H 09/17/17 07:55 Pulse Ox 100 09/17/17 07:55 Intake & Output 09/16/17 09/17/17 09/17/17 18:59 06:59 18:59 Intake Total 1765 Output Total 2600 1450 Balance -835 -1450 Intake: Intake, IV Amount 765 Sodium Chloride 0.9% 1, 165 000 ml @ 50 mls/hr IV . Q20H [facility] Rx#:[id number] Oral 1000 Output: Output, [place] 2600 1450 Other: Voiding Method Indwelling Catheter Indwelling Catheter Progress Note: Exam - Physical Exam Constitutional: NAD HEENT: PERRLA, moist MMs, sclera anicteric Neck: no nodes, no JVD Cardiovascular: RRR, no significant murmur Respiratory: decreased breath sounds Gastrointestinal: soft, non-tender, positive bowel sounds Musculoskeletal: no edema Neurological: non-focal Lymphatic: no nodes Psychiatric: normal affect, A&O x 3 Skin: no rash - Labs Result Diagrams: 09/16/17 03:24 09/16/17 03:24 Progress Note: A/P - Problems (1) COPD exacerbation Current Visit: Yes Status: Acute Code(s): J44.1 - CHRONIC OBSTRUCTIVE PULMONARY DISEASE W (ACUTE) EXACERBATION (2) Acute respiratory failure with hypercapnia Current Visit: Yes Status: Acute Code(s): J96.02 - ACUTE RESPIRATORY FAILURE WITH HYPERCAPNIA - Time Spent with Patient Time: 50% of the time was spent in coordination of care (as documented) at patient's floor/unit and/or counseling patient. - Plan Plan: change to oral steroids needs aggressive PT may need rehab if qualifies smoking cessation continue nebs. Adding Brovana / pulmicort
--- NOTE | 2017-09-17 10:11 | PDOC.PN ---
- Subjective Encounter Start Date: 09/17/17 Encounter Start Time: 07:00 Subjective: breathing better, no palp -: has not amb yet - Objective Resuscitation Status: Resuscitation Status FULL:Full Resuscitation MAR Reviewed: Yes Vital Signs & Weight: Vital Signs (12 hours) Temp Pulse Resp BP Pulse Ox 09/17/17 09:30 73 16 97 09/17/17 08:00 98.3 F 73 16 97 09/17/17 07:55 98.3 F 73 18 148/86 H 100 09/17/17 05:42 71 16 96 09/17/17 04:00 98.3 F 71 20 150/89 H 99 09/17/17 01:51 72 16 97 09/17/17 00:35 96 09/17/17 00:00 98.0 F 73 20 136/87 99 Weight Admit Weight 88 lb 2.958 oz Weight 88 lb Most Recent Monitor Data Heart Rate from ECG 73 NIBP 133/77 NIBP BP-Mean 90 Respiration from ECG 22 SpO2 94 I&O: 09/16/17 09/17/17 09/18/17 06:59 06:59 06:59 Intake Total 3636 1765 Output Total 2095 4050 Balance 1541 -2285 Result Diagrams: 09/16/17 03:24 09/16/17 03:24 Phys Exam - Physical Examination HEENT: PERRLA, sclera anicteric Neck: no JVD, supple Respiratory: no rales, wheezing present Cardiovascular: RRR, no significant murmur Gastrointestinal: soft, non-tender, positive bowel sounds Musculoskeletal: no edema, pulses present Neurological: non-focal, moves all 4 limbs Psychiatric: A&O x 3 Dx/Plan (1) COPD exacerbation Code(s): J44.1 - CHRONIC OBSTRUCTIVE PULMONARY DISEASE W (ACUTE) EXACERBATION Status: Acute (2) Acute respiratory failure with hypercapnia Code(s): J96.02 - ACUTE RESPIRATORY FAILURE WITH HYPERCAPNIA Status: Acute Comment: extubated 09/14/2017 (3) FTT (failure to thrive) in adult Status: Chronic (4) Tobacco abuse Code(s): Z72.0 - TOBACCO USE Status: Chronic (5) Pulmonary cachexia due to chronic obstructive pulmonary disease Code(s): J44.9 - CHRONIC OBSTRUCTIVE PULMONARY DISEASE, UNSPECIFIED; R64 - [place] Status: Chronic - Plan on levaquin -: steroids, nebs -: rehab eval/swing bed -: PT to mobilize pt as tolerated -: to drink ensure tid, follow dietary rec * . Review of Systems - Medications/Allergies Allergies/Adverse Reactions: Allergies Allergy/AdvReac Type Severity Reaction Status Date / Time tramadol Allergy Unknown Itching Verified 05/20/16 00:23 Sulfa (Sulfonamide Allergy Verified 05/19/16 16:52 Antibiotics) Medications: Current Medications Acetaminophen (Tylenol) 650 mg PO Q4H PRN PRN Reason: Headache/Fever or Pain Last Admin: 09/17/17 08:20 Dose: 650 mg Albuterol/Ipratropium (Duoneb) 3 ml NEB [id number] [facility] Last Admin: 09/17/17 09:30 Dose: 3 ml Alprazolam (Xanax) 1 mg PO Q6H PRN PRN Reason: Anxiety Last Admin: 09/16/17 14:54 Dose: 1 mg Arformoterol Tartrate (Brovana) 15 mcg NEB BID-RT EM Budesonide (Pulmicort Neb Solution) 0.5 mg INH BID-RT EM Enoxaparin Sodium (Lovenox) 40 mg SC 0900 [facility] Last Admin: 09/17/17 08:20 Dose: 40 mg Famotidine (Pepcid) 20 mg PO BID [facility] Last Admin: 09/17/17 08:20 Dose: 20 mg Guaifenesin/Dextromethorphan (Robitussin Dm) 15 ml PO Q4H PRN PRN Reason: Cough Last Admin: 09/15/17 22:05 Dose: 15 ml Levofloxacin 500 mg/ Device 100 mls @ 100 mls/hr IVPB 1200 [facility] Ondansetron HCl (Zofran) 4 mg IVP Q6H PRN PRN Reason: Nausea/Vomiting Prednisone (Prednisone) 20 mg PO BID EM
[2017-09-17] MEDS: ALPRAZolam 1 MG TAB PO PRN (11:55)
[2017-09-17] MEDS: Arformoterol 15 MCG/2 ML NEB NEB SCH (20:33)
[2017-09-17] MEDS: Budesonide 0.5 MG/2 ML NEB INH SCH (20:34)
[2017-09-17] MEDS: predniSONE 20 MG TAB PO SCH (21:18)
[2017-09-18] MEDS: Guaifenesin DM 100-10/5 ML UDCUP PO PRN (05:00)
[2017-09-18] MEDS: Budesonide 0.5 MG/2 ML NEB INH SCH ×2 (06:02→18:18)
[2017-09-18] MEDS: Arformoterol 15 MCG/2 ML NEB NEB SCH ×2 (06:13→18:14)
[2017-09-18] MEDS: ALPRAZolam 1 MG TAB PO PRN (09:11)
[2017-09-18] MEDS: Famotidine 20 MG TAB PO SCH ×2 (09:11→20:16)
[2017-09-18] MEDS: Enoxaparin Sodium 40 MG/0.4 ML SYRINGE SC SCH (09:12)
[2017-09-18] MEDS: predniSONE 20 MG TAB PO SCH ×2 (09:12→20:16)
--- NOTE | 2017-09-18 11:29 | PDOC.PN ---
- Subjective Encounter Start Date: 09/18/17 Encounter Start Time: 08:40 Subjective: breathing better, has amb 20ft with PT - Objective Resuscitation Status: Resuscitation Status FULL:Full Resuscitation MAR Reviewed: Yes Vital Signs & Weight: Vital Signs (12 hours) Temp Pulse Resp BP Pulse Ox 09/18/17 09:52 75 16 97 09/18/17 07:40 97.8 F 80 16 132/90 98 09/18/17 06:13 75 16 98 09/18/17 06:02 71 16 98 09/18/17 00:33 95 Weight Admit Weight 88 lb 2.958 oz Weight 88 lb Most Recent Monitor Data Heart Rate from ECG 73 NIBP 133/77 NIBP BP-Mean 90 Respiration from ECG 22 SpO2 94 I&O: 09/17/17 09/18/17 09/19/17 06:59 06:59 06:59 Intake Total 1765 2250 Output Total 4050 4300 Balance -2284 -2049 Result Diagrams: 09/16/17 03:24 09/16/17 03:24 Phys Exam - Physical Examination HEENT: PERRLA, moist MMs Neck: no JVD, supple Respiratory: no wheezing, no rales rhonchi++ Cardiovascular: RRR, no significant murmur Gastrointestinal: soft, non-tender, positive bowel sounds Musculoskeletal: no edema, pulses present Neurological: non-focal, moves all 4 limbs Psychiatric: A&O x 3 Dx/Plan (1) COPD exacerbation Code(s): J44.1 - CHRONIC OBSTRUCTIVE PULMONARY DISEASE W (ACUTE) EXACERBATION Status: Acute (2) Acute respiratory failure with hypercapnia Code(s): J96.02 - ACUTE RESPIRATORY FAILURE WITH HYPERCAPNIA Status: Acute Comment: extubated 09/14/2017 (3) FTT (failure to thrive) in adult Status: Chronic (4) Tobacco abuse Code(s): Z72.0 - TOBACCO USE Status: Chronic (5) Pulmonary cachexia due to chronic obstructive pulmonary disease Code(s): J44.9 - CHRONIC OBSTRUCTIVE PULMONARY DISEASE, UNSPECIFIED; R64 - [place] Status: Chronic - Plan clinically better this morning -: idris rodriguez -: is on levaq, steroids and nebs -: slow improvement, has end stage copd -: encourage po intake, to amb more with PT, rehab eval * . Review of Systems - Medications/Allergies Allergies/Adverse Reactions: Allergies Allergy/AdvReac Type Severity Reaction Status Date / Time tramadol Allergy Unknown Itching Verified 05/20/16 00:23 Sulfa (Sulfonamide Allergy Verified 05/19/16 16:52 Antibiotics) Medications: Current Medications Acetaminophen (Tylenol) 650 mg PO Q4H PRN PRN Reason: Headache/Fever or Pain Last Admin: 09/17/17 08:20 Dose: 650 mg Albuterol/Ipratropium (Duoneb) 3 ml NEB [id number] [facility] Last Admin: 09/18/17 09:52 Dose: 3 ml Alprazolam (Xanax) 1 mg PO Q6H PRN PRN Reason: Anxiety Last Admin: 09/18/17 09:11 Dose: 1 mg Arformoterol Tartrate (Brovana) 15 mcg NEB BID-RT EM Last Admin: 09/18/17 06:13 Dose: 15 mcg Budesonide (Pulmicort Neb Solution) 0.5 mg INH BID-RT [facility] Last Admin: 09/18/17 06:02 Dose: 0.5 mg Enoxaparin Sodium (Lovenox) 40 mg SC 0900 [facility] Last Admin: 09/18/17 09:12 Dose: 40 mg Famotidine (Pepcid) 20 mg PO BID [facility] Last Admin: 09/18/17 09:11 Dose: 20 mg Guaifenesin/Dextromethorphan (Robitussin Dm) 15 ml PO Q4H PRN PRN Reason: Cough Last Admin: 09/18/17 05:00 Dose: 15 ml Levofloxacin (Levaquin) 500 mg PO 0900 [facility] Stop: 09/18/17 12:00 Last Admin: 09/18/17 09:17 Dose: 500 mg Levofloxacin (Levaquin) 500 mg PO 0600 [facility] Ondansetron HCl (Zofran) 4 mg IVP Q6H PRN PRN Reason: Nausea/Vomiting Prednisone (Prednisone) 20 mg PO BID [facility] Last Admin: 09/18/17 09:12 Dose: 20 mg
--- NOTE | 2017-09-18 12:18 | PRG ---
DATE OF SERVICE: 09/18/2017. SUBJECTIVE: Patient is doing marginally better. OBJECTIVE: VITAL SIGNS: Temperature 97.8, pulse 75, respirations 16, O2 sat 97% on 3 liters, blood pressure 132 /90. HEENT: Unremarkable. NECK: No JVD. CHEST: Clear without wheezing. CARDIAC: S1 and S2 regular. ABDOMEN: Soft. EXTREMITIES: No edema. ASSESSMENT: Chronic obstructive pulmonary disease exacerbation. PLAN: Mainly rehabilitation placement issue at this point, not much further to offer. I think she i s ready for rehab or discharged home at the discretion of the Hospitalist.
[2017-09-19] MEDS: Acetaminophen 325 MG TAB PO PRN (04:57)
[2017-09-19] MEDS: Budesonide 0.5 MG/2 ML NEB INH SCH ×2 (06:35→18:38)
[2017-09-19] MEDS: Arformoterol 15 MCG/2 ML NEB NEB SCH ×2 (06:35→18:37)
[2017-09-19] MEDS: Famotidine 20 MG TAB PO SCH ×2 (08:47→20:27)
[2017-09-19] MEDS: Enoxaparin Sodium 40 MG/0.4 ML SYRINGE SC SCH (08:47)
[2017-09-19] MEDS: predniSONE 20 MG TAB PO SCH ×2 (08:47→20:27)
--- NOTE | 2017-09-19 11:45 | PDOC.PN ---
- Subjective Encounter Start Date: 09/19/17 Encounter Start Time: 09:40 Subjective: breathing better -: has amb 90ft with PT yesterday -: eating better - Objective Resuscitation Status: Resuscitation Status FULL:Full Resuscitation MAR Reviewed: Yes Vital Signs & Weight: Vital Signs (12 hours) Temp Pulse Resp BP Pulse Ox 09/19/17 11:24 98.2 F 82 16 127/79 94 L 09/19/17 10:15 79 16 97 09/19/17 08:00 97.0 F L 79 16 97 09/19/17 07:59 97.0 F L 79 16 122/79 97 09/19/17 06:34 92 16 98 09/19/17 03:00 95 09/19/17 01:06 95 16 95 Weight Admit Weight 88 lb 2.958 oz Weight 88 lb Most Recent Monitor Data Heart Rate from ECG 73 NIBP 133/77 NIBP BP-Mean 90 Respiration from ECG 22 SpO2 94 I&O: 09/18/17 09/19/17 09/20/17 06:59 06:59 06:59 Intake Total 2250 1680 Output Total 4300 3050 Balance -2050 -1370 Result Diagrams: 09/16/17 03:24 09/16/17 03:24 Phys Exam - Physical Examination HEENT: PERRLA, moist MMs Neck: no JVD, supple Respiratory: no rales, wheezing present rhonchi++ Cardiovascular: RRR, no significant murmur Gastrointestinal: soft, non-tender, positive bowel sounds Musculoskeletal: no edema, pulses present Neurological: non-focal, moves all 4 limbs Psychiatric: A&O x 3 Dx/Plan (1) COPD exacerbation Code(s): J44.1 - CHRONIC OBSTRUCTIVE PULMONARY DISEASE W (ACUTE) EXACERBATION Status: Acute (2) Acute respiratory failure with hypercapnia Code(s): J96.02 - ACUTE RESPIRATORY FAILURE WITH HYPERCAPNIA Status: Acute Comment: extubated 09/14/2017 (3) FTT (failure to thrive) in adult Status: Chronic (4) Tobacco abuse Code(s): Z72.0 - TOBACCO USE Status: Chronic (5) Pulmonary cachexia due to chronic obstructive pulmonary disease Code(s): J44.9 - CHRONIC OBSTRUCTIVE PULMONARY DISEASE, UNSPECIFIED; R64 - [place] Status: Chronic - Plan awaiting swing/rehab placement -: is improving slowly -: on oral levaquin and prednisone -: is eating and drinking better now -: may dc anytime placement is ready * . Review of Systems - Medications/Allergies Allergies/Adverse Reactions: Allergies Allergy/AdvReac Type Severity Reaction Status Date / Time tramadol Allergy Unknown Itching Verified 05/20/16 00:23 Sulfa (Sulfonamide Allergy Verified 05/19/16 16:52 Antibiotics) Medications: Current Medications Acetaminophen (Tylenol) 650 mg PO Q4H PRN PRN Reason: Headache/Fever or Pain Last Admin: 09/19/17 04:57 Dose: 650 mg Albuterol/Ipratropium (Duoneb) 3 ml NEB [id number] EM Last Admin: 09/19/17 10:15 Dose: 3 ml Alprazolam (Xanax) 1 mg PO Q6H PRN PRN Reason: Anxiety Last Admin: 09/18/17 09:11 Dose: 1 mg Arformoterol Tartrate (Brovana) 15 mcg NEB BID-RT EM Last Admin: 09/19/17 06:35 Dose: 15 mcg Budesonide (Pulmicort Neb Solution) 0.5 mg INH BID-RT EM Last Admin: 09/19/17 06:35 Dose: 0.5 mg Enoxaparin Sodium (Lovenox) [address] [facility] Last Admin: 09/19/17 08:47 Dose: 40 mg Famotidine (Pepcid) [address] [facility] Last Admin: 09/19/17 08:47 Dose: 20 mg Guaifenesin/Dextromethorphan (Robitussin Dm) 15 ml PO Q4H PRN PRN Reason: Cough Last Admin: 09/18/17 05:00 Dose: 15 ml Levofloxacin (Levaquin) [address] [facility] Last Admin: 09/19/17 04:55 Dose: 500 mg Ondansetron HCl (Zofran) 4 mg IVP Q6H PRN PRN Reason: Nausea/Vomiting Prednisone (Prednisone) [address] [facility] Last Admin: 09/19/17 08:47 Dose: 20 mg
--- NOTE | 2017-09-19 13:35 | PRG ---
DATE OF SERVICE: 09/19/2017 SUBJECTIVE: The patient feels better, had no acute complaints. OBJECTIVE: VITAL SIGNS: Temperature is 98.2, pulse 80, respirations 16, O2 sat 94%, blood pressure 127/79. HEENT: Unremarkable. NECK: No JVD. CHEST: Clear without wheezing. CARDIAC: S1 and S2 regular. ABDOMEN: Soft. EXTREMITIES: No edema. ASSESSMENT: 1. CO2 exacerbation. 2. Status post respiratory failure. PLAN: She is stable enough to go to rehabilitation at any time. She needs to finish up 7-10 days of antibiotics, her steroids tapered over 2 weeks. No further recommendations. I will sign off.
[2017-09-20] MEDS: Acetaminophen 325 MG TAB PO PRN (02:27)
[2017-09-20] MEDS: Budesonide 0.5 MG/2 ML NEB INH SCH ×2 (06:47→18:44)
[2017-09-20] MEDS: Arformoterol 15 MCG/2 ML NEB NEB SCH ×2 (06:47→18:45)
[2017-09-20] MEDS: Famotidine 20 MG TAB PO SCH ×2 (08:19→20:18)
[2017-09-20] MEDS: Enoxaparin Sodium 40 MG/0.4 ML SYRINGE SC SCH (08:19)
[2017-09-20] MEDS: predniSONE 20 MG TAB PO SCH ×2 (08:19→20:18)
[2017-09-20] MEDS ORDERED: Docusate 100 MG CAP PO SCH (11:00)
--- NOTE | 2017-09-20 14:12 | PDOC.PN ---
- Subjective Encounter Start Date: 09/20/17 Encounter Start Time: 14:11 Patient seen and examined. No new complaints. No overnight events. feels better. - Objective Resuscitation Status: Resuscitation Status FULL:Full Resuscitation MAR Reviewed: Yes Vital Signs & Weight: Vital Signs (12 hours) Temp Pulse Resp BP Pulse Ox 09/20/17 11:06 83 16 98 09/20/17 08:00 97.9 F 85 16 100 09/20/17 07:46 97.9 F 85 16 124/81 100 09/20/17 06:46 84 16 99 09/20/17 03:15 98.5 F 85 18 122/71 98 Weight Admit Weight 88 lb 2.958 oz Weight 88 lb Most Recent Monitor Data Heart Rate from ECG 73 NIBP 133/77 NIBP BP-Mean 90 Respiration from ECG 22 SpO2 94 I&O: 09/19/17 09/20/17 09/21/17 06:59 06:59 06:59 Intake Total 1680 740 Output Total 3050 Balance -1370 740 Result Diagrams: 09/16/17 03:24 09/16/17 03:24 Phys Exam - Physical Examination Constitutional: NAD HEENT: sclera anicteric Neck: supple reduced breath sounds Cardiovascular: RRR Gastrointestinal: soft Musculoskeletal: no edema Neurological: non-focal, moves all 4 limbs Psychiatric: normal affect, A&O x 3 Skin: no rash Dx/Plan (1) Acute respiratory failure with hypercapnia Code(s): J96.02 - ACUTE RESPIRATORY FAILURE WITH HYPERCAPNIA Status: Acute Comment: extubated 09/14/2017 (2) COPD exacerbation Code(s): J44.1 - CHRONIC OBSTRUCTIVE PULMONARY DISEASE W (ACUTE) EXACERBATION Status: Acute (3) Pulmonary cachexia due to chronic obstructive pulmonary disease Code(s): J44.9 - CHRONIC OBSTRUCTIVE PULMONARY DISEASE, UNSPECIFIED; R64 - [place] Status: Chronic (4) Tobacco abuse Code(s): Z72.0 - TOBACCO USE Status: Chronic - Plan cont current plan of care, continue antibiotics, respiratory therapy * . continue po steroids Rehab screen DC planning.
[2017-09-20] MEDS: Docusate 100 MG CAP PO SCH (20:18)
[2017-09-21 05:09] LABS: Anion Gap 13 mmol/L (10-20); BUN (Urea Nitrogen) 6 mg/dL (7.0-18.7); Calc. Creatinine Clearance 73 mL/min (70-130); Calcium 9.5 mg/dL (7.8-10.44); Carbon Dioxide 34 mmol/L (22-29); Chloride 96 mmol/L (98-107); Estimated GFR-MDRD Greater than 90; Glucose 134 mg/dL (70-105); Potassium 4.8 mmol/L (3.5-5.1); Sodium 138 mmol/L (136-145)
[2017-09-21 05:48] LABS: Band 1 % (5-11); Hemoglobin 14.8 g/dL (12.0-16.0); Lymphocytes 12 % (21-51); MDiff Complete? YES; Mean Corpuscular HGB CONC 32.1 g/dL (32.0-36.0); Mean Corpuscular Hemoglobin 32.5 pg (27.0-31.0); Mean Platelet Volume 6.1 fL (7.4-10.4); Monocytes 4 % (0-10); Neutrophil 83 % (42-75); PLT Morphology Comment Appears Increased; Platelet Count 435 thou/uL (130-400); RBC Distribution Width 11.6 % (11.5-14.5); Red Blood Cell (RBC) Count 4.56 mill/uL (4.20-5.40); White Blood Cell (WBC) Count 16.9 thou/uL (4.8-10.8)
[2017-09-21] MEDS: Docusate 100 MG CAP PO SCH (08:36)
[2017-09-21] MEDS: Famotidine 20 MG TAB PO SCH (08:36)
[2017-09-21] MEDS: predniSONE 20 MG TAB PO SCH (08:36)
[2017-09-21] MEDS: Enoxaparin Sodium 40 MG/0.4 ML SYRINGE SC SCH (08:36)
[2017-09-21 08:44] VITALS: BP 144/84; TEMP 98.6
[2017-09-21] MEDS: Budesonide 0.5 MG/2 ML NEB INH SCH (10:31)
[2017-09-21] MEDS: Arformoterol 15 MCG/2 ML NEB NEB SCH (10:35)
--- NOTE | 2017-09-21 13:14 | PDOC.PN ---
- Subjective Encounter Start Date: 09/21/17 Encounter Start Time: 13:12 Patient seen and examined. No new complaints. No overnight events. feels better. - Objective Resuscitation Status: Resuscitation Status FULL:Full Resuscitation MAR Reviewed: Yes Vital Signs & Weight: Vital Signs (12 hours) Temp Pulse Resp BP Pulse Ox 09/21/17 10:35 83 20 100 09/21/17 10:31 83 20 100 09/21/17 10:29 83 20 100 09/21/17 08:00 98.6 F 83 20 09/21/17 07:25 98.6 F 83 16 144/84 H 100 09/21/17 01:38 94 16 94 L Weight Admit Weight 88 lb 2.958 oz Weight 88 lb Most Recent Monitor Data Heart Rate from ECG 73 NIBP 133/77 NIBP BP-Mean 90 Respiration from ECG 22 SpO2 94 I&O: 09/20/17 09/21/17 09/22/17 06:59 06:59 06:59 Intake Total 740 1750 Output Total 50 Balance 740 1700 Result Diagrams: 09/21/17 04:41 09/21/17 04:41 Phys Exam - Physical Examination Constitutional: NAD HEENT: sclera anicteric Neck: supple reduced breath sounds Cardiovascular: RRR Gastrointestinal: soft Musculoskeletal: no edema Neurological: non-focal, moves all 4 limbs Psychiatric: normal affect, A&O x 3 Skin: no rash Dx/Plan (1) Acute respiratory failure with hypercapnia Code(s): J96.02 - ACUTE RESPIRATORY FAILURE WITH HYPERCAPNIA Status: Acute Comment: extubated 09/14/2017 (2) COPD exacerbation Code(s): J44.1 - CHRONIC OBSTRUCTIVE PULMONARY DISEASE W (ACUTE) EXACERBATION Status: Acute (3) Pulmonary cachexia due to chronic obstructive pulmonary disease Code(s): J44.9 - CHRONIC OBSTRUCTIVE PULMONARY DISEASE, UNSPECIFIED; R64 - CACHEXIA Status: Chronic (4) Tobacco abuse Code(s): Z72.0 - TOBACCO USE Status: Chronic - Plan cont current plan of care, plan discussed w/ family * . Dc to [facility] rehab continue steroids and po abx. finish the abx for a total of 10 days. wean off steroids in 2 weeks. f/u with pulmonology at outpt. continue nebs and inhalers.
[2017-09-21] MEDS: Acetaminophen 325 MG TAB PO PRN (15:31)
--- NOTE | 2017-09-21 22:16 | DIS ---
DATE OF ADMISSION: 09/13/2017 DATE OF DISCHARGE: 09/21/2017 DISCHARGE DIAGNOSES: 1. Acute hypoxic respiratory failure. 2. Acute on chronic obstructive pulmonary disease exacerbations and failure to thrive. 3. Pulmonary cachexia. 4. Gastroesophageal reflux disease. 5. History of hypertension. 6. History of peptic ulcer disease. 7. History of anxiety disorder. 8. History of tobacco use. CONSULTS: Pulmonology team, Dr. Ruggiero and Dr. Salinas. PROCEDURES: None. PROCEDURE: Fiberoptic intubation. HOSPITAL COURSE: This is a 47-year-old female with past medical history of COPD, tobacco use who cam e to the hospital with shortness of breath and COPD exacerbation and was having coughing spells and s hortness of breath was progressively getting worse. The patient was seen in the ER before admission and was sent home on dexamethasone and Zithromax, but no significant improvement and her condition go t worse and she was taken to the ER. The patient was initially admitted and started on conservative measures and she needed intubation and was successfully extubated. The patient was continued on anti biotics, steroids, and inhalers and got better. Pulmonology also signed off to finish her antibiotic s in 7-10 days and taper her steroids in 2 weeks. The patient was feeling better and was wanting to have some rehabilitation and she was approved for inpatient rehab and was transferred to [facility] in stable condition. DISPOSITION: To [facility]. CONDITION ON DISCHARGE: Stable. DISCHARGE MEDICATIONS: 1. Cyclobenzaprine 10 p.o. daily. 2. Prednisone 20 p.o. b.i.d. to be tapered off in 2 weeks. 3. Levofloxacin 500 mg daily for 3-4 more days. 4. Lactulose p.r.n. 5. Robitussin DM. 6. Pepcid 20 mg p.o. b.i.d. 7. Docusate 100 mg p.o. b.i.d. 8. Pulmicort nebulizer 0.5 mg inhalation b.i.d. 9. Brovana 15 mcg nebulization b.i.d. 10. Tylenol regular strength 650 p.o. q.4 hours p.r.n. 11. Xanax 1 p.o. q.6 hours p.r.n. The patient was given counseling to quit smoking. DISCHARGE FOLLOWUP: With primary care physician in 1-2 weeks. Follow up with Pulmonology in 2-3 wee ks after discharge.
== END 2017-09-21 16:11 | DRG 208 ==
LOC: ERS 10:20 → IMCU/EMU 12:06 → CCU 14:14 → T4-A 09-16 09:05
PROVIDERS: ADMIT Internal Medicine; ATTEND Internal Medicine
PROC: 5A1935Z Respiratory Ventilation, Less than 24 Consecutive Hours (ICD-10-PCS; principal; 2017-09-13)
PROC: 0BH18EZ Insertion of Endotracheal Airway into Trachea, Via Natural or Artificial Opening Endoscopic (ICD-10-PCS; 2017-09-13)
PROC: 0BJ08ZZ Inspection of Tracheobronchial Tree, Via Natural or Artificial Opening Endoscopic (ICD-10-PCS; 2017-09-13)
PROC: 0BP1XDZ Removal of Intraluminal Device from Trachea, External Approach (ICD-10-PCS; 2017-09-14)
DX: J96.01 Acute respiratory failure with hypoxia (principal); J44.1 Chronic obstructive pulmonary disease with (acute) exacerbation; R64 Cachexia; Z68.1 Body mass index [BMI] 19.9 or less, adult; J96.02 Acute respiratory failure with hypercapnia; F17.210 Nicotine dependence, cigarettes, uncomplicated; I10 Essential (primary) hypertension; R62.7 Adult failure to thrive; Z87.11 Personal history of peptic ulcer disease; Z88.5 Allergy status to narcotic agent; Z88.2 Allergy status to sulfonamides; Z82.49 Family history of ischemic heart disease and other diseases of the circulatory system; Z83.3 Family history of diabetes mellitus; Z81.3 Family history of other psychoactive substance abuse and dependence
CPT/HCPCS: 36415; 71010; 80048; 80053; 82550; 82553; 82805; 83605; 83690; 83880; 84484; 85007; 85025; 85027; 85610; 85730; 87040; 87070; 87205; 93005; 94002; 94003; 94640; 94660; 96365; 96368; 96375; G8978-GP-CN; G8979-GP-CK; G8987-GO-CK; G8988-GO-CI; J1100; J1650; J1956; J2060; J2250; J2704; J2920; J3475; J7506; J7611; J7620; J7626; S0028

== ENCOUNTER 2017-10-02 08:16 | Inpatient (IN) | payer MEDICARE, MEDICAID ==
[2017-10-02] MEDS ORDERED: methylPREDNISolone Sod Succ/PF 125 MG/2 ML VIAL ONE (08:57)
--- NOTE | 2017-10-02 09:15 | RAD ---
SINGLE VIEW OF THE CHEST: COMPARISON: 09/15/17. HISTORY: Cough and right rib pain with breathing. FINDINGS: A single view of the chest shows a normal-size cardiomediastinal silhouette. There is extensive cons olidation in the right lower lobe. No other infiltrates are seen. No pleural effusion is seen. IMPRESSION: Right lower lobe pneumonia. POS: [facility]
[2017-10-02 09:19] LABS: Hemoglobin 14.6 g/dL (12.0-16.0); Mean Corpuscular HGB CONC 34.5 g/dL (32.0-36.0); Mean Corpuscular Volume 98.6 fl (81.0-99.0); Mean Platelet Volume 6.9 fL (7.4-10.4); Platelet Count 248 thou/uL (130-400); RBC Distribution Width 11.8 % (11.5-14.5); Red Blood Cell (RBC) Count 4.29 mill/uL (4.20-5.40); White Blood Cell (WBC) Count 9.3 thou/uL (4.8-10.8)
[2017-10-02 09:32] LABS: ALT (SGPT) 58 U/L (8-55); AST (SGOT) 45 U/L (5-34); Albumin 3.2 g/dL (3.5-5.0); Alkaline Phosphatase 81 U/L (40-150); Anion Gap 13 mmol/L (10-20); BUN (Urea Nitrogen) 11 mg/dL (7.0-18.7); Bilirubin, Total 1.1 mg/dL (0.2-1.2); CK (CPK) 28 U/L (29-168); Calc. Creatinine Clearance 0 mL/min (70-130); Calcium 9.7 mg/dL (7.8-10.44); Carbon Dioxide 29 mmol/L (22-29); Chloride 88 mmol/L (98-107); Estimated GFR-MDRD Greater than 90; Glucose 103 mg/dL (70-105); Potassium 4.5 mmol/L (3.5-5.1); Protein, Total 6.2 g/dL (6.0-8.3); Sodium 125 mmol/L (136-145)
[2017-10-02 09:37] LABS: CKMB 3.3 ng/mL (0-6.6); Troponin I Less than 0.010 ng/mL (< 0.028)
[2017-10-02 09:39] LABS: Actual Bicarbonate (HCO3a) 25.6 mEq/L (22-26); Base Excess (BEa) 0.5 mEq/L (0 (+/-) 2.5); CO2 Tension 42.8 mmHg (35.0-45.0); Hemoglobin (Hb) 11.5 g/dL (12.0-16.0); pH, Arterial 7.39 (7.35-7.45)
[2017-10-02 09:40] LABS: Analyzer IN Cardio ER; Calcium, Ionized 1.1 mmol/L (1.12-1.30); Puncture Site LRA
--- NOTE | 2017-10-02 09:40 | CT ---
CTA OF CHEST WITH CONTRAST: Date: 10/02/17 COMPARISON: None. HISTORY: Productive cough with shortness of breath and right lower chest pain. TECHNIQUE: Multiple contiguous axial images were obtained in a CTA of the chest with contrast per pulmonary embo lism protocol. 3D oblique MIP reformats and direct coronal reformats were performed. FINDINGS: Emphysematous changes are seen in the lungs. There is extensive consolidation in the right lower lobe involving a majority of the right lower lobe. There are also subtle infiltrates in the right middle lobe. No infiltrates are seen on the left. No significant pleural effusion is seen. The pulmonary arteries are well opacified without filling defects to suggest pulmonary emboli. The he art is normal in size without focal cardiac abnormality. There is a small pericardial effusion. The visualized subdiaphragmatic structures are unremarkable. Mild degenerative changes are seen in th e spine. The chest wall soft tissues are unremarkable. IMPRESSION: 1. No evidence of pulmonary thromboembolism. 2. Severe right-sided pneumonia. 3. Emphysema. 4. Small pericardial effusion. POS: [facility]
[2017-10-02 09:41] LABS: Band 41 % (5-11); Lymphocytes 2 % (21-51); MDiff Complete? YES; Metamyelocyte 2 % (0-0); Monocytes 9 % (0-10); Neutrophil 43 % (42-75); PLT Morphology Comment Appears Adequate; Reactive Lymphocytes 3 % (0-10); Toxic Granulation SLIGHT; Vacuoles MARKED
[2017-10-02 09:41] LABS: Hematocrit-ABG 39.4 % (36.0-47.0); O2 Tension (PaO2) 75.5 mmHg (80.0-100.0)
[2017-10-02] MEDS ORDERED: Piperacillin/Tazobactam 4.5 GM in Sodium Chloride 0.9% 100 ML IVPB SCH (10:30)
[2017-10-02] MEDS ORDERED: Ondansetron HCl/PF 4 MG/2 ML Vial IVP PRN (11:14)
--- NOTE | 2017-10-02 11:45 | HP ---
PRIMARY CARE PROVIDER: Dr. Fco Lyn CHIEF COMPLAINT: Referred to the [facility] by [facility] for pn eumonia and sepsis. HISTORY OF PRESENT ILLNESS: The patient states 5 days ago she felt a pull in her right lower chest. She said the pain in her right lower chest, pulling sensation has persisted. In the past week she h as developed a cough worse, foul multi-colored sputum with apparently blood tinged. She states her s hortness of breath has been worse. She has been using DuoNeb q.4h. She has had no fever, no chills, no sweats. PAST MEDICAL HISTORY: Pertinent for severe COPD, gastroesophageal reflux disease, hypertension, anxi ety disorder, peptic ulcer disease. She has a history of a . CURRENT MEDICATIONS: Prednisone 20 mg twice a day, Levaquin 500 mg a day, lactulose 20 grams p.o. q. 4 hours p.r.n., DuoNeb 3 mL q.4h., Pepcid 20 mg twice a day, Pulmicort 0.5 mg inhaled b.i.d., Brovana 50 mcg neb tab twice a day, Xanax 1 mg p.o. q.6h. p.r.n. ALLERGIES: TRAMADOL, SULFA. SOCIAL HISTORY: Smokes 1 pack a day, but quit 2 weeks ago. No alcohol or drugs. Lives with . CODE STATUS: Full. is surrogate decision maker. FAMILY HISTORY: Mother of unknown cancer in her 60s. Father has history of hypertension, dysli pidemia, coronary artery disease. REVIEW OF SYSTEMS: GENERAL: Remarkably negative. No dizziness, fainting, headache. EYES: No double vision, blurred vision, flashing lights. ENT: No ear pain or drainage. No nasal bleeding. No trouble swallowing. CARDIAC: No pressure, chest pain, orthopnea or paroxysmal nocturnal dyspnea. RESPIRATIONS: See present illness. GASTROINTESTINAL: No nausea, vomiting, abdominal pain, diarrhea or constipation. GENITOURINARY: No hematuria or dysuria. MUSCULOSKELETAL: No pain or swelling in her arms or legs at this time. NEUROLOGIC: No strokes, seizures or focal weakness. PSYCHIATRIC: No current anxiety, depression. SKIN: Some mild bruising, no rash, bruising occurs with minor trauma. HEME/LYMPH: No tender or swollen lymph nodes in axilla, inguinal or cervical area. PHYSICAL EXAMINATION: GENERAL: She is an alert lady. VITAL SIGNS: Her first blood pressure was 181/102 but currently 120/76, pulse is 100+ or minus, resp irations 24-28, temperature 98.3, O2 sat 94% on 3 liters of O2. HEENT: Pupils equal and round. Extraocular movements are intact. Sclerae white. Tympanic membrane s clear. Nose clear. Oral mucous membranes are dry. NECK: No jugular venous distention, adenopathy or thyromegaly. CHEST: Hyperresonant to percussion. Decreased breath sounds in general. Rales over the bottom one half of the right thorax. HEART: Regular rate and rhythm. First and second heart sounds are clear. No appreciated murmurs or gallops. ABDOMEN: Soft, bowel sounds are normal. No hepatosplenomegaly, no mass, no rebound, no bruits. EXTREMITIES: Reveal no cyanosis, clubbing or edema. PULSES: Carotid, radial, femoral pulses intact, symmetric. Pedal pulses diminished. SKIN: Warm and dry without any active bruising or rash. HEME/LYMPH: No tender or swollen lymph nodes in the cervical, inguinal or axillary area. NEUROLOGICAL: Cranial nerves II-XII are intact. Deep tendon reflexes symmetric. EKG: Regular sinus rhythm, no acute changes. Grossly normal. X-RAY FINDINGS: Chest x-ray: Severe COPD with hyperinflation and right-sided pneumonia at the lower half of the thorax, reviewed by me. LABORATORY: Sodium 125, potassium 4.5, chloride 88, CO2 29, BUN 11, creatinine 0.5. Liver function tests mildly elevated, AST 45, ALT 58. Lactic acid 1.7. Arterial blood gas shows a pH of 7.39, with a CO2 of 43. White count 9.3 with a left shift, hemoglobin 14.6, platelet count 248,000. ADMITTING DIAGNOSES: 1. Right-sided pneumonia. 2. Severe chronic obstructive pulmonary disease. 3. Acute respiratory failure with hypoxemia. 4. Hyponatremia. 5. Elevated liver function tests consistent with a pneumococcal pneumonia. ASSESSMENT: Extensive pneumonia in a compromised patient with respiratory failure. Initial antibiot ics using cefepime and Zithromax will be started. However, her tree wrapper, Dr. Fabio Salinas, babita l be consulted for assistance. She will be on O2 to keep her oxygen saturation 92 or better. She wi ll be on IV fluids normal saline because of her hyponatremia. She will also be on q.4h. nebs. She i s not actively wheezing at the present time and will continue her on prednisone 20 mg p.o. b.i.d., un less Dr. Salinas chooses to change that.
[2017-10-02] MEDS ORDERED: ISOVUE-370 76%-LOCM 1 ML ONE (12:15)
[2017-10-02] MEDS ORDERED: Cefepime 2 GM in Sodium Chloride 0.9% 100 ML IVPB SCH (13:00)
[2017-10-02] MEDS ORDERED: Azithromycin 500 MG in Sodium Chloride 0.9% 250 ML 250 ML IVPB SCH (14:00)
[2017-10-02 14:19] VITALS: BMI 15.6
[2017-10-02] MEDS: Cefepime 2 GM, Syringe 2.5 ML in Sterile Water 10 ML SLOW IVP SCH (14:52)
[2017-10-02] MEDS: Sodium Chloride 0.9% 1,000 ML IV SCH (14:54)
[2017-10-02] MEDS: Mometasone/Formoterol 120 PUFF INHALER INH SCH (19:32)
[2017-10-02] MEDS: Doxycycline 100 MG CAP PO SCH (20:10)
--- NOTE | 2017-10-02 23:15 | CON ---
DATE OF CONSULTATION: 10/02/2017 HISTORY OF PRESENT ILLNESS: The patient is a 47-year-old female who has seen Dr. Salinas in the past provided, who is recently discharged from the hospital. She now presents with symptoms of worsening shortness of breath, cough, and grossly purulent sputum. She denies any chest pain, chills, or sweats. Long-term smoker, quit smoking in August up to a pac k a day. She is cachectic. Even prior to her illness, she could barely walk 500 feet without gettin g markedly short of breath. No recent history of pneumonia. No prior history of TB or asthma. HOME MEDICATION: Particularly included Levaquin 500 for 5 days, which she has just finished. X-ray shows impressive right-sided pneumonia with what looks like a bronchogram, CAT scan confirmed t his. Additionally, she noticed extensive bullous disease. PAST MEDICAL HISTORY: Pertinent for COPD, reflux. PAST SURGICAL HISTORY: . ALCOHOL: None. TOBACCO: Just recently quit. ALLERGIES: SULFA, TRAMADOL. REVIEW OF SYSTEMS: Ten-point negative. PHYSICAL EXAMINATION: VITAL SIGNS: Blood pressure 117/74, sats 95% on 3 liters, respiratory rate of 24, temperature 96. CHEST: Reveals rhonchi, crackles, right greater than left. CARDIAC: Normal S1, S2. No gallops. ABDOMEN: Soft. No masses. LABORATORY DATA: White count 9000, hemoglobin and hematocrit 14 and 42, platelet count is 248, big l eft shift, 43 segs, 41 bands. Sodium is low at 125, ALT/AST 45 and 58. Blood gas showed adequate ox ygenation, pO2 of 75, pCO2 of 47, pH 7.39 on 3 liters. Influenza was negative. IMPRESSION: 1. Respiratory failure. 2. Right-sided pneumonia. 3. Cachexia. 4. Hyponatremia. PLAN: Adding an anti-staph drug, sputum is being sent for Gram stain and C&S. Otherwise, continue M axipime, Zithromax, doxycycline, and steroids. We will follow. Greater than 50% of the time of 70 minutes spent at the bedside.
[2017-10-03] MEDS: Cefepime 2 GM, Syringe 2.5 ML in Sterile Water 10 ML SLOW IVP SCH ×2 (01:11→12:15)
[2017-10-03] MEDS: Sodium Chloride 0.9% 1,000 ML IV SCH ×3 (01:12→20:37)
[2017-10-03 05:26] LABS: Band 57 % (5-11); Hemoglobin 12.5 g/dL (12.0-16.0); Lymphocytes 3 % (21-51); MDiff Complete? YES; Macrocytosis SLIGHT = 6-15 cells (100X) (0-5/hpf); Mean Corpuscular HGB CONC 32.5 g/dL (32.0-36.0); Mean Corpuscular Hemoglobin 32.6 pg (27.0-31.0); Mean Platelet Volume 6.8 fL (7.4-10.4); Monocytes 11 % (0-10); Neutrophil 28 % (42-75); PLT Morphology Comment Appears Adequate; Platelet Count 246 thou/uL (130-400); Reactive Lymphocytes 1 % (0-10); Red Blood Cell (RBC) Count 3.82 mill/uL (4.20-5.40); White Blood Cell (WBC) Count 19.9 thou/uL (4.8-10.8)
[2017-10-03 05:32] LABS: BUN (Urea Nitrogen) 9 mg/dL (7.0-18.7); Calc. Creatinine Clearance 98 mL/min (70-130); Calcium 9.2 mg/dL (7.8-10.44); Carbon Dioxide 27 mmol/L (22-29); Chloride 93 mmol/L (98-107); Estimated GFR-MDRD Greater than 90; Glucose 121 mg/dL (70-105); Potassium 4.5 mmol/L (3.5-5.1); Sodium 128 mmol/L (136-145)
[2017-10-03 06:37] LABS: Anion Gap 13 mmol/L (10-20)
[2017-10-03] MEDS: Doxycycline 100 MG CAP PO SCH ×2 (09:14→20:33)
[2017-10-03] MEDS: predniSONE 20 MG TAB PO SCH (09:14)
[2017-10-03] MEDS: Enoxaparin Sodium 40 MG/0.4 ML SYRINGE SC SCH (09:15)
[2017-10-03] MEDS: Mometasone/Formoterol 120 PUFF INHALER INH SCH ×2 (12:22→19:24)
[2017-10-03] MEDS ORDERED: Linezolid 600 MG TAB PO SCH (13:15)
--- NOTE | 2017-10-03 13:57 | PRG ---
DATE OF SERVICE: 10/03/2017 SUBJECTIVE: Tiny is weak, still coughing some purulent sputum, apparently is growing Staph. We wi ll deescalate the antibiotics once we have the final identification. In the meantime, I will start s ome Zyvox. PHYSICAL EXAMINATION: VITAL SIGNS: Blood pressure is 120/70, sats are 97, respirations 18, temperature 97. CHEST: Bilateral crackles. CARDIAC: Normal S1, S2. ABDOMEN: Soft, no masses. IMPRESSION: Right lung pneumonia, probably Staphylococcus, hospital-acquired, she is on Maxipime, Zy vox, doxy. Continue PT and supportive care. We will follow.
--- NOTE | 2017-10-03 16:57 | PDOC.PN ---
- Subjective Encounter Start Date: 10/03/17 Encounter Start Time: 16:55 sob better no n/v no cp - Objective Resuscitation Status: Resuscitation Status FULL:Full Resuscitation MAR Reviewed: Yes Vital Signs & Weight: Vital Signs (12 hours) Temp Pulse Resp BP Pulse Ox 10/03/17 16:39 97.8 F 90 16 154/89 H 91 L 10/03/17 16:20 95 20 10/03/17 12:22 95 16 10/03/17 12:21 95 16 10/03/17 11:45 97.7 F 95 16 121/75 97 10/03/17 09:30 90 12 10/03/17 08:02 97.2 F L 90 16 107/69 95 10/03/17 08:00 97.2 F L 90 16 95 Weight Admit Weight 88 lb Weight 88 lb 2.958 oz I&O: 10/02/17 10/03/17 10/04/17 06:59 06:59 06:59 Intake Total 2980 Balance 2980 Result Diagrams: 10/03/17 04:32 10/03/17 04:32 Phys Exam - Physical Examination Constitutional: NAD appears frails HEENT: PERRLA Neck: no JVD coarse bs Cardiovascular: no significant murmur Gastrointestinal: non-tender Musculoskeletal: pulses present Neurological: moves all 4 limbs Psychiatric: A&O x 3 Dx/Plan (1) Severe protein-calorie malnutrition Code(s): E43 - UNSPECIFIED SEVERE PROTEIN-CALORIE MALNUTRITION Status: Acute (2) PNA (pneumonia) Code(s): J18.9 - PNEUMONIA, UNSPECIFIED ORGANISM Status: Acute (3) Hyponatremia Code(s): E87.1 - HYPO-OSMOLALITY AND HYPONATREMIA Status: Acute (4) COPD exacerbation Code(s): J44.1 - CHRONIC OBSTRUCTIVE PULMONARY DISEASE W (ACUTE) EXACERBATION Status: Acute (5) Tobacco abuse Code(s): Z72.0 - TOBACCO USE Status: Chronic - Plan * continue current rx * pulm plan appreciated * pt has home o2
[2017-10-03] MEDS: Linezolid 600 MG TAB PO SCH (20:33)
[2017-10-04] MEDS: Cefepime 2 GM, Syringe 2.5 ML in Sterile Water 10 ML SLOW IVP SCH ×2 (00:12→11:54)
[2017-10-04] MEDS: Mometasone/Formoterol 120 PUFF INHALER INH SCH ×2 (06:21→20:34)
[2017-10-04] MEDS: Enoxaparin Sodium 40 MG/0.4 ML SYRINGE SC SCH (08:51)
[2017-10-04] MEDS: Doxycycline 100 MG CAP PO SCH ×2 (08:52→19:29)
[2017-10-04] MEDS: Linezolid 600 MG TAB PO SCH ×2 (08:52→19:29)
[2017-10-04] MEDS: Sodium Chloride 0.9% 1,000 ML IV SCH ×2 (08:52→19:30)
[2017-10-04] MEDS: predniSONE 20 MG TAB PO SCH (08:52)
--- NOTE | 2017-10-04 12:30 | PDOC.PN ---
- Subjective Encounter Start Date: 10/04/17 Encounter Start Time: 12:29 Patient seen and examined. No new complaints. No overnight events breathing better c/o chest wall pain - Objective Resuscitation Status: Resuscitation Status FULL:Full Resuscitation MAR Reviewed: Yes Vital Signs & Weight: Vital Signs (12 hours) Temp Pulse Resp BP Pulse Ox 10/04/17 11:36 97.9 F 95 16 118/79 94 L 10/04/17 10:37 92 16 10/04/17 08:00 98.1 F 92 20 10/04/17 07:57 98.1 F 92 20 122/76 96 10/04/17 06:21 91 16 10/04/17 06:11 91 16 98 10/04/17 04:44 98 10/04/17 02:06 85 18 98 Weight Admit Weight 88 lb Weight 88 lb 2.958 oz I&O: 10/03/17 10/04/17 10/05/17 06:59 06:59 06:59 Intake Total 2980 1560 Balance 2980 1560 Result Diagrams: 10/03/17 04:32 10/03/17 04:32 Phys Exam - Physical Examination Constitutional: NAD HEENT: PERRLA Neck: no JVD coarse bs Cardiovascular: no significant murmur Gastrointestinal: no distention Musculoskeletal: pulses present Neurological: moves all 4 limbs Psychiatric: A&O x 3 Dx/Plan (1) Severe protein-calorie malnutrition Code(s): E43 - UNSPECIFIED SEVERE PROTEIN-CALORIE MALNUTRITION Status: Acute (2) PNA (pneumonia) Code(s): J18.9 - PNEUMONIA, UNSPECIFIED ORGANISM Status: Acute Comment: mrsa pna (3) Hyponatremia Code(s): E87.1 - HYPO-OSMOLALITY AND HYPONATREMIA Status: Acute (4) COPD exacerbation Code(s): J44.1 - CHRONIC OBSTRUCTIVE PULMONARY DISEASE W (ACUTE) EXACERBATION Status: Acute (5) Tobacco abuse Code(s): Z72.0 - TOBACCO USE Status: Chronic - Plan * cont abx * symptomatic rx * f/u pulm plan
--- NOTE | 2017-10-04 16:33 | PRG ---
DATE OF SERVICE: 10/04/2017 SUBJECTIVE: Carline Franks remains very weak, very short of breath, minimal exertion, sputum is growi ng MRSA. OBJECTIVE: VITAL SIGNS: Saturation 95%, blood pressure 180/79, temperature 97. CHEST: Chest revealed crackles, right lung. Left lung unremarkable. CARDIAC: Normal S1, S2. No gallops. ABDOMEN: Soft. IMPRESSION: 1. Extensive right-sided pneumonia, necrotizing Staph methicillin-resistant staphylococcus aureus. 2. Baseline underlying severe chronic obstructive pulmonary disease. Continue Zyvox, doxycycline, and Maxipime. Dr. Salinas to follow tomorrow.
[2017-10-05] MEDS: Cefepime 2 GM, Syringe 2.5 ML in Sterile Water 10 ML SLOW IVP SCH ×2 (00:11→11:39)
[2017-10-05 05:28] LABS: Albumin 2.3 g/dL (3.5-5.0); Anion Gap 10 mmol/L (10-20); BUN (Urea Nitrogen) 8 mg/dL (7.0-18.7); Calc. Creatinine Clearance 107 mL/min (70-130); Calcium 8.8 mg/dL (7.8-10.44); Carbon Dioxide 34 mmol/L (22-29); Chloride 89 mmol/L (98-107); Estimated GFR-MDRD Greater than 90; Glucose 83 mg/dL (70-105); Magnesium 1.5 mg/dL (1.6-2.6); Phosphorus 2.6 mg/dL (2.3-4.7); Potassium 4.5 mmol/L (3.5-5.1); Sodium 128 mmol/L (136-145)
[2017-10-05 05:31] LABS: Band 5 % (5-11); Hemoglobin 11.4 g/dL (12.0-16.0); Lymphocytes 9 % (21-51); MDiff Complete? YES; Mean Corpuscular HGB CONC 34.2 g/dL (32.0-36.0); Mean Corpuscular Hemoglobin 34.3 pg (27.0-31.0); Metamyelocyte 1 % (0-0); Monocytes 1 % (0-10); Myelocyte 1 % (0-0); Neutrophil 83 % (42-75); PLT Morphology Comment Appears Adequate; Platelet Count 254 thou/uL (130-400); RBC Distribution Width 12.1 % (11.5-14.5); Red Blood Cell (RBC) Count 3.33 mill/uL (4.20-5.40); White Blood Cell (WBC) Count 15.4 thou/uL (4.8-10.8)
[2017-10-05] MEDS: Mometasone/Formoterol 120 PUFF INHALER INH SCH ×2 (05:55→19:13)
[2017-10-05] MEDS: Enoxaparin Sodium 40 MG/0.4 ML SYRINGE SC SCH (08:30)
[2017-10-05] MEDS: Doxycycline 100 MG CAP PO SCH ×2 (08:30→20:02)
[2017-10-05] MEDS: Linezolid 600 MG TAB PO SCH ×2 (08:30→20:02)
[2017-10-05] MEDS: predniSONE 20 MG TAB PO SCH (08:30)
[2017-10-05] MEDS: Sodium Chloride 0.9% 1,000 ML IV SCH (08:37)
--- NOTE | 2017-10-05 09:07 | PDOC.PULPN ---
Progress Note: Subj/Obj - Subjective Date: 10/05/17 Time: 09:05 Narrative: better than 2 days ago, but still SOB - ROS All systems: reviewed and no additional remarkable complaints except as stated Constitutional: weakness Respiratory: congestion, cough, chest soreness, short of breath - Objective Allergies/Adverse Reactions: Allergies Allergy/AdvReac Type Severity Reaction Status Date / Time tramadol Allergy Unknown Itching Verified 10/02/17 14:09 Sulfa (Sulfonamide Allergy Verified 10/02/17 14:09 Antibiotics) Medications: Current Medications Acetaminophen (Tylenol) 650 mg PO Q4H PRN PRN Reason: Headache/Fever or Pain Albuterol/Ipratropium (Duoneb) 3 ml NEB [id number] [facility] Last Admin: 10/05/17 05:52 Dose: 3 ml Doxycycline Hyclate (Vibramycin) 100 mg PO BID [facility] Stop: 10/09/17 21:01 Last Admin: 10/05/17 08:30 Dose: 100 mg Enoxaparin Sodium (Lovenox) 40 mg SC 0900 [facility] Last Admin: 10/05/17 08:30 Dose: 40 mg Sodium Chloride (Normal Saline 0.9%) 1,000 mls @ 70 mls/hr IV .[id number] [facility] Last Admin: 10/05/17 08:37 Dose: 1,000 mls Cefepime HCl 2 gm/ Syringe 2.5 (ml/ Sterile Water) 12.5 mls @ 150 mls/hr SLOW IVP 0100,1300 [facility] Last Admin: 10/05/17 00:11 Dose: 12.5 mls Linezolid (Zyvox) 600 mg PO Q12HR [facility] Last Admin: 10/05/17 08:30 Dose: 600 mg Mometasone Furoate/Formoterol Fumar (Dulera 200 Mcg/5 Mcg Inhaler) 2 puff INH BID-RT [facility] Last Admin: 10/05/17 05:55 Dose: 2 puff Ondansetron HCl (Zofran) 4 mg IVP Q6H PRN PRN Reason: Nausea/Vomiting Prednisone (Prednisone) 40 mg PO QAM-WM [facility] Last Admin: 10/05/17 08:30 Dose: 40 mg MAR Reviewed: Yes Vital Signs: Vital Signs Temp 98.4 F 10/05/17 07:49 Pulse 92 10/05/17 07:49 Resp 22 H 10/05/17 07:49 BP 114/73 10/05/17 07:49 Pulse Ox 93 L 10/05/17 07:49 Intake & Output 10/04/17 10/05/17 10/05/17 18:59 06:59 18:59 Intake Total 1640 1320 Balance 1640 1320 Intake: Intake, IV Amount 840 840 Oral 800 480 Other: Voiding Method Bedside Commode Bedside Commode # Unmeasured Voids 4 2 # Bowel Movements 0 Progress Note: Exam - Physical Exam Constitutional: NAD HEENT: PERRLA, sclera anicteric Neck: no nodes, no JVD Cardiovascular: RRR, no significant murmur Respiratory: rhonchi Gastrointestinal: soft, non-tender Musculoskeletal: no edema Neurological: non-focal, normal sensation, moves all 4 limbs Lymphatic: no nodes Psychiatric: normal affect, A&O x 3 Skin: no rash - Labs Result Diagrams: 10/05/17 04:38 10/05/17 04:38 Lab results: Laboratory Results - last 24 hr 10/05/17 10/05/17 04:38 04:38 WBC 15.4 H RBC 3.33 L Hgb 11.4 L Hct 33.4 L MCV 100.0 H MCH 34.3 H MCHC 34.2 RDW 12.1 Plt Count 254 MPV 7.0 L Neutrophils % (Manual) 83 H Band Neuts % (Manual) 5 Lymphocytes % (Manual) 9 L Monocytes % (Manual) 1 Metamyelocytes % (Man) 1 H Myelocytes % 1 H Plt Morphology Comment Appears Adequate Sodium 128 L Potassium 4.5 Chloride 89 L Carbon Dioxide 34 H Anion Gap 10 BUN 8 Creatinine Less than 0.40 L Estimated GFR (MDRD) Greater than 90 BUN/Creatinine Ratio TNP Glucose 83 Calcium 8.8 Phosphorus 2.6 Magnesium 1.5 L Albumin 2.3 L Progress Note: A/P - Problems (1) Pneumonia due to methicillin resistant Staphylococcus aureus Current Visit: Yes Status: Acute Code(s): J15.212 - PNEUMONIA DUE TO METHICILLIN RESISTANT STAPHYLOCOCCUS AUREUS (2) Hyponatremia Current Visit: Yes Status: Acute Code(s): E87.1 - HYPO-OSMOLALITY AND HYPONATREMIA (3) Chronic obstructive pulmonary disease Current Visit: Yes Status: Acute Qualifiers: COPD type: chronic bronchitis Chronic bronchitis type: simple Qualified Code(s): J41.0 - Simple chronic bronchitis - Plan Plan: Continue ABX Likely to need at least 14 days Not sure if she will need some type of SNF
[2017-10-05] MEDS ORDERED: Magnesium Oxide 400 MG TAB PO SCH (11:45)
--- NOTE | 2017-10-05 17:33 | PDOC.PN ---
- Subjective Encounter Start Date: 10/05/17 Encounter Start Time: 17:32 Patient seen and examined. No new complaints. No overnight events - Objective Resuscitation Status: Resuscitation Status FULL:Full Resuscitation MAR Reviewed: Yes Vital Signs & Weight: Vital Signs (12 hours) Temp Pulse Resp BP Pulse Ox Pulse Ox Pulse Ox 10/05/17 15:17 93 L 93 L 10/05/17 13:46 82 16 96 10/05/17 09:32 92 18 95 10/05/17 08:00 98.4 F 92 22 H 10/05/17 07:49 98.4 F 92 22 H 114/73 93 L 10/05/17 05:55 87 16 99 10/05/17 05:52 87 16 99 10/05/17 05:37 100 Weight Admit Weight 88 lb Weight 88 lb 2.958 oz I&O: 10/04/17 10/05/17 10/06/17 06:59 06:59 06:59 Intake Total 1560 2960 Balance 1560 2960 Result Diagrams: 10/05/17 04:38 10/05/17 04:38 Phys Exam - Physical Examination Constitutional: NAD HEENT: PERRLA coarse bs Cardiovascular: no significant murmur Gastrointestinal: non-tender Musculoskeletal: pulses present Neurological: moves all 4 limbs Psychiatric: A&O x 3 Dx/Plan (1) Severe protein-calorie malnutrition Code(s): E43 - UNSPECIFIED SEVERE PROTEIN-CALORIE MALNUTRITION Status: Acute (2) PNA (pneumonia) Code(s): J18.9 - PNEUMONIA, UNSPECIFIED ORGANISM Status: Acute Comment: mrsa pna (3) Hyponatremia Code(s): E87.1 - HYPO-OSMOLALITY AND HYPONATREMIA Status: Acute (4) COPD exacerbation Code(s): J44.1 - CHRONIC OBSTRUCTIVE PULMONARY DISEASE W (ACUTE) EXACERBATION Status: Acute (5) Tobacco abuse Code(s): Z72.0 - TOBACCO USE Status: Chronic - Plan * cont current rx * case mx to help with placement
[2017-10-05] MEDS: Magnesium Oxide 400 MG TAB PO SCH (20:02)
[2017-10-06] MEDS: Cefepime 2 GM, Syringe 2.5 ML in Sterile Water 10 ML SLOW IVP SCH (01:35)
[2017-10-06] MEDS: Sodium Chloride 0.9% 1,000 ML IV SCH (01:38)
[2017-10-06 05:34] LABS: Band 10 % (5-11); Eosinophils 1 % (0-10); Hemoglobin 11.5 g/dL (12.0-16.0); Lymphocytes 9 % (21-51); MDiff Complete? YES; Mean Corpuscular HGB CONC 34.3 g/dL (32.0-36.0); Mean Corpuscular Hemoglobin 34.1 pg (27.0-31.0); Mean Corpuscular Volume 99.3 fl (81.0-99.0); Mean Platelet Volume 6.5 fL (7.4-10.4); Metamyelocyte 1 % (0-0); Monocytes 4 % (0-10); Neutrophil 75 % (42-75); PLT Morphology Comment Appears Adequate; Platelet Count 283 thou/uL (130-400); Red Blood Cell (RBC) Count 3.37 mill/uL (4.20-5.40); Stomatocytes SLIGHT = 2-5 cells (100X) (0-1/hpf); White Blood Cell (WBC) Count 15.9 thou/uL (4.8-10.8)
[2017-10-06 05:40] LABS: Albumin 2.3 g/dL (3.5-5.0); Anion Gap 9 mmol/L (10-20); BUN (Urea Nitrogen) 6 mg/dL (7.0-18.7); Calc. Creatinine Clearance 107 mL/min (70-130); Calcium 8.1 mg/dL (7.8-10.44); Carbon Dioxide 34 mmol/L (22-29); Chloride 90 mmol/L (98-107); Estimated GFR-MDRD Greater than 90; Glucose 77 mg/dL (70-105); Phosphorus 2.6 mg/dL (2.3-4.7); Potassium 4.1 mmol/L (3.5-5.1); Sodium 129 mmol/L (136-145)
[2017-10-06] MEDS: Mometasone/Formoterol 120 PUFF INHALER INH SCH ×2 (05:51→18:09)
[2017-10-06] MEDS: Doxycycline 100 MG CAP PO SCH ×2 (07:47→21:43)
[2017-10-06] MEDS: Linezolid 600 MG TAB PO SCH ×2 (07:48→21:42)
[2017-10-06] MEDS: Magnesium Oxide 400 MG TAB PO SCH ×2 (07:48→21:43)
[2017-10-06] MEDS: predniSONE 20 MG TAB PO SCH (07:48)
[2017-10-06] MEDS: Enoxaparin Sodium 40 MG/0.4 ML SYRINGE SC SCH (07:49)
--- NOTE | 2017-10-06 10:38 | PRG ---
DATE OF SERVICE: 10/06/2017 SUBJECTIVE: She is feeling marginally better. She is trying to get out of bed this morning with p hysical therapy. OBJECTIVE: VITAL SIGNS: Temperature 98.4, pulse 79, respiration 16, O2 sat 95% on 2 liters, blood pressure 124/ 75. HEENT: Unremarkable. NECK: No JVD. LUNGS: A few rhonchi in the bases. CARDIAC: S1 and S2 regular. ABDOMEN: Soft. EXTREMITIES: No edema. LABORATORY DATA: White blood cell count 15.9, hematocrit 33.5, platelet count 283. Sodium 129, pota ssium 4.1, chloride 90, CO2 34, BUN 6, creatinine 0.4, glucose 77. Microbiology results are noted. ASSESSMENT: 1. Hospital-acquired pneumonia from methicillin-resistant Staphylococcus aureus. 2. Hyponatremia. 3. Chronic obstructive pulmonary disease. RECOMMENDATIONS: 1. I think it would be safe for her to go ahead and stop the IV fluids. 2. Sodium level needs to be followed closely. She is probably experiencing some effects of syndrome of inappropriate antidiuretic hormone secretion. 3. Continue antibiotics for at least 2 weeks. 4. Should be stable to [facility]. 5. I think cefepime could safely be stopped since her methicillin-resistant Staphylococcus aureus se nsitive to doxycycline and linezolid.
--- NOTE | 2017-10-06 12:57 | PQF ---
AVE VAUGHAN LUZMARIA BUENO [id number] CLINICAL DOCUMENTATION IMPROVEMENT CLARIFICATION FORM: ICD-10 Updated PLEASE DO AN ADDENDUM TO THE PROGRESS NOTE WITH ANY DOCUMENTATION UPDATES OR ADDITIONS AND CARRY THROUGH TO DC SUMMARY. THANK YOU. DATE: 10-06-15 ATTN: DR. BUENO / DR. SCHMIDT Please exercise your independent, professional judgment in responding to the clarification form. Clinical indicators are provided on the bottom of this form for your review Please check appropriate box(s) to clarify if the following diagnosis has been ruled in our ruled out: SEPSIS [ x ] SEPSIS Ruled in [ x ] Continue to treat [ ] Resolved [ ] SEPSIS Ruled out diagnosis [ ] Cannot rule out diagnosis [ x ] Other diagnosis __PRESENT ON ADMIT [ ] Unable to determine For continuity of documentation, please document condition throughout progress notes and discharge summary. Thank You. CLINICAL INDICATORS - SIGNS / SYMPTOMS / LABS * ER: PULSE 96 - 106 * RESP 20 - 27 * ER: RIGHT LL PNA; BANDEMIA; HYPOXIA; SEPSIS * TEMP - WNL * LABS: WBC 1-12 9.3 10-03 19.9 * RLL PNA; PROBABLY STAPHYLOCOCCUS, HOSPITAL ACQUIRED, SHE IS ON MAXIPIME, ZYVOX, DOXY - DR. WILSON 10-03 * PNA D/T MRSA - DR. DIEZ 10-05 * HOSPITAL ACQUIRED PNA FROM MRSA - DR. DIEZ 10-06 RISK FACTORS * RECENTLY DISCHARGED FROM HOSPITAL - DR. WILSON CONSULT LEVAQUIN 500 FOR 5 DAYS, WHICH SHE HAS JUST FINISHED * HX COPD TREATMENTS CPOE - MAR: ZYVOX 10-03 MAXIPIME 10-03 PULM CONSULT THANK YOU, AURORA (This form is maintained as a part of the permanent medical record) 2014 [employer]. All Rights Reserved Aurora Douglas RN, [email or web address] [facility]
[2017-10-06] MEDS ORDERED: Ipratropium Bromide 2.5 ml Neb NEB SCH (13:00)
[2017-10-06] MEDS ORDERED: Chloraseptic Spray 180 ml Bottle PO PRN (13:46)
[2017-10-06] MEDS ORDERED: Lidocaine Viscous Sol 2% 15 ml UD Cup SSP PRN (13:47)
--- NOTE | 2017-10-06 16:30 | PDOC.PN ---
- Subjective Encounter Start Date: 10/06/17 Encounter Start Time: 16:28 c/o some diarrhea no n/v no f/c sob better - Objective Resuscitation Status: Resuscitation Status FULL:Full Resuscitation MAR Reviewed: Yes Vital Signs & Weight: Vital Signs (12 hours) Temp Pulse Resp BP Pulse Ox Pulse Ox Pulse Ox 10/06/17 13:44 89 16 96 10/06/17 13:08 83 L 89 L 10/06/17 09:50 79 16 95 10/06/17 08:00 98.4 F 92 22 H 124/75 93 L 10/06/17 05:51 90 17 97 10/06/17 05:49 90 17 97 Pulse Ox 10/06/17 13:44 10/06/17 13:08 93 L 10/06/17 09:50 10/06/17 08:00 10/06/17 05:51 10/06/17 05:49 Weight Admit Weight 88 lb Weight 88 lb 2.958 oz I&O: 10/05/17 10/06/17 10/07/17 06:59 06:59 06:59 Intake Total 2960 2550 Balance 2960 2550 Result Diagrams: 10/06/17 04:53 10/06/17 04:53 Phys Exam - Physical Examination Constitutional: NAD HEENT: PERRLA Neck: no JVD coarse bs Cardiovascular: no significant murmur Gastrointestinal: non-tender Musculoskeletal: pulses present Neurological: moves all 4 limbs Psychiatric: A&O x 3 Dx/Plan (1) Severe protein-calorie malnutrition Code(s): E43 - UNSPECIFIED SEVERE PROTEIN-CALORIE MALNUTRITION Status: Acute (2) PNA (pneumonia) Code(s): J18.9 - PNEUMONIA, UNSPECIFIED ORGANISM Status: Acute Comment: mrsa pna (3) Hyponatremia Code(s): E87.1 - HYPO-OSMOLALITY AND HYPONATREMIA Status: Acute (4) COPD exacerbation Code(s): J44.1 - CHRONIC OBSTRUCTIVE PULMONARY DISEASE W (ACUTE) EXACERBATION Status: Acute (5) Tobacco abuse Code(s): Z72.0 - TOBACCO USE Status: Chronic - Plan * f/u lytes * pt/ot * cont current care * case mx to help with placement * f/u renal rec's for low sodium
[2017-10-06] MEDS ORDERED: Loperamide HCl 2 MG CAP PO SCH (18:30)
[2017-10-06] MEDS ORDERED: Mometasone/Formoterol 120 PUFF INHALER INH SCH (18:30)
[2017-10-06] MEDS: Megestrol Acetate 40 MG TAB PO SCH (21:43)
[2017-10-07] MEDS: Mometasone/Formoterol 120 PUFF INHALER INH SCH ×2 (06:11→20:36)
[2017-10-07 06:25] LABS: Albumin 2.3 g/dL (3.5-5.0); Anion Gap 11 mmol/L (10-20); BUN (Urea Nitrogen) 5 mg/dL (7.0-18.7); Calc. Creatinine Clearance 107 mL/min (70-130); Carbon Dioxide 33 mmol/L (22-29); Chloride 88 mmol/L (98-107); Estimated GFR-MDRD Greater than 90; Glucose 68 mg/dL (70-105); Phosphorus 2.8 mg/dL (2.3-4.7); Potassium 4.1 mmol/L (3.5-5.1); Sodium 128 mmol/L (136-145)
[2017-10-07] MEDS: Megestrol Acetate 40 MG TAB PO SCH ×2 (08:13→21:32)
[2017-10-07] MEDS: Magnesium Oxide 400 MG TAB PO SCH ×2 (08:13→21:32)
[2017-10-07] MEDS: predniSONE 20 MG TAB PO SCH (08:13)
[2017-10-07] MEDS: Enoxaparin Sodium 40 MG/0.4 ML SYRINGE SC SCH (08:14)
[2017-10-07] MEDS: Linezolid 600 MG TAB PO SCH ×2 (08:14→21:32)
[2017-10-07] MEDS: Doxycycline 100 MG CAP PO SCH ×2 (08:14→21:34)
[2017-10-07] MEDS: Acetaminophen 325 MG TAB PO PRN (10:06)
--- NOTE | 2017-10-07 11:16 | CON ---
DATE OF CONSULTATION: 10/07/2017 REASON FOR CONSULTATION: Hyponatremia. HISTORY OF PRESENT ILLNESS: This is a very pleasant 47-year-old female who was admitted on for pneumonia and sepsis. The patient had a sodium that has ranged anywhere from 125-128. The pat iecordelia is drinking excessively. The patient at this time denies any nausea, vomiting or chest pain. PAST MEDICAL HISTORY: Significant for COPD, GERD, hypertension, anxiety, peptic ulcer disease, C-sec tion. HOME MEDICATIONS: List reviewed. ALLERGIES: Reviewed. REVIEW OF SYSTEMS: Fifteen point review of systems was performed and was negative except for positiv es noted above. GENERAL: Weakness-. HEAD: Headache-. NECK: No swelling or lumps NOSE: No epistaxis or discharge. EYES: No diplopia or pain. RESPIRATORY: Dyspnea-. CARDIOVASCULAR: Chest pain-. GASTROINTESTINAL: Nausea-. /COMMERCIAL CR[employer]BER: Hematuria-. MUSCULOSKELETAL: No joint pain. NEUROPSYCHIATIC SYSTEMS: No suicidal ideation. No ideation. SKIN: Denies any rash or ulcer. CONSTITUTIONAL: No fever or chills. FAMILY HISTORY: Negative for ESRD. PHYSICAL EXAMINATION: GENERAL: Patient is awake, alert. VITAL SIGNS: Afebrile, pulse 80, breathing at 16, blood pressure 136/83. GENERAL APPEARANCE AND MENTAL STATUS: Fair. HEAD/NECK: Normocephalic. Atraumatic. EYES: EOMI. No deformity. EARS: Clear. No ulcers. NOSE: Intact. No lesions. MOUTH: Clear. No discharge. THROAT: Clear. No exudate. LUNGS: Clear. No crackles. CARDIAC: S1, S2. No rub. ABDOMEN: Benign. BS+. GENITALIA/RECTUM: Pacheco absent. BACK/EXTREMITIES: Edema 0+ Ulcer-. NEUROLOGICAL: Alert and motor intact. SKIN: Rash- Bruise- LYMPHATICS: Edema- Ulcer-. LABORATORY DATA: Show sodium 128, bicarbonate 30. ASSESSMENT AND RECOMMENDATIONS: 1. Stage 1 chronic kidney disease, stable. 2. Hyponatremia, most likely because of syndrome of inappropriate antidiuretic hormone secretion due to multiple illnesses and decreased protein intake. We would recommend increase protein intake and restrict the fluid to 1000 mL. No indication for hypertonic saline. We will recheck sodium twice a day.
--- NOTE | 2017-10-07 11:23 | PRG ---
DATE OF SERVICE: 10/07/2017 SUBJECTIVE: Ms. Franks seems to be doing reasonably well. OBJECTIVE: VITAL SIGNS: Temperature 97.8, pulse 89, respiration rate 16, O2 sat 94% on 2 liters, blood pressure 136/83. HEENT: Unremarkable. NECK: No JVD. LUNGS: Reduced breath sounds. CARDIAC: S1 and S2 regular. ABDOMEN: Soft. EXTREMITIES: No edema. LABORATORY DATA: Sodium 122, potassium 4.1, chloride 80, CO2 33, BUN 5, creatinine 0.4, glucose 68. ASSESSMENT: 1. Hospital-acquired pneumonia from methicillin-resistant Staphylococcus aureus. 2. Hyponatremia. 3. Chronic obstructive pulmonary disease. PLAN: We would finish out 2 weeks of antibiotics. She just be able to go to a [place] [facility] it at any time to finish this up. Her hyponatremia needs further evaluation by the [facility].
--- NOTE | 2017-10-07 13:46 | PDOC.PN ---
- Subjective Encounter Start Date: 10/07/17 Encounter Start Time: 12:45 -: old records requested/rev Pt seen and exmained, case discussed with pt, . Questions answered. Chart reviewed in its entirety, this is my first visit with this patient. Pt sees Dr Salinsa, he was in earlier Pt admitted with AECOPD, LLL pneumonia. Nebs, steroids, Abx. Still with significant BRAXTON, weakenss. Deneis F/c, no N/V/d/C, no CP, some right side cramps with deep inspiration. 10 point ROs performed and neg for all systems except as per hPI - Objective Resuscitation Status: Resuscitation Status FULL:Full Resuscitation MAR Reviewed: Yes Vital Signs & Weight: Vital Signs (12 hours) Temp Pulse Resp BP Pulse Ox Pulse Ox Pulse Ox 10/07/17 13:31 85 16 95 10/07/17 09:40 90 L 87 L 10/07/17 09:30 89 16 94 L 10/07/17 08:02 97.8 F 98 16 136/83 92 L 10/07/17 08:00 97.8 F 98 16 92 L 10/07/17 06:11 86 16 96 10/07/17 06:07 86 16 96 10/07/17 02:31 86 16 95 Pulse Ox 10/07/17 13:31 10/07/17 09:40 92 L 10/07/17 09:30 10/07/17 08:02 10/07/17 08:00 10/07/17 06:11 10/07/17 06:07 10/07/17 02:31 Weight Admit Weight 88 lb Weight 88 lb 2.958 oz I&O: 10/06/17 10/07/17 10/08/17 06:59 06:59 06:59 Intake Total 2550 1500 Balance 2550 1500 Result Diagrams: 10/06/17 04:53 10/07/17 04:39 Radiology Reviewed by me: Yes EKG Reviewed by me: Yes Phys Exam - Physical Examination Constitutional: NAD cachectic, chronically ill-appearing, older than stated age HEENT: PERRLA, moist MMs, sclera anicteric, oral pharynx no lesions Neck: no nodes, no JVD, supple, full ROM Respiratory: no rales, no rhonchi prolonged expiration, poor air movement, end exp wheezes Cardiovascular: RRR, no significant murmur, no rub Gastrointestinal: soft, non-tender, no distention, positive bowel sounds Musculoskeletal: pulses present, edema present Neurological: non-focal, normal sensation, moves all 4 limbs Lymphatic: no nodes Psychiatric: normal affect, A&O x 3 Skin: no rash, normal turgor, cap refill <2 seconds Dx/Plan (1) Chronic obstructive pulmonary disease Status: Chronic Qualifiers: COPD type: chronic bronchitis Chronic bronchitis type: simple Qualified Code(s): J41.0 - Simple chronic bronchitis (2) Hyponatremia Code(s): E87.1 - HYPO-OSMOLALITY AND HYPONATREMIA Status: Resolved (3) Pneumonia due to methicillin resistant Staphylococcus aureus Code(s): J15.212 - PNEUMONIA DUE TO METHICILLIN RESISTANT STAPHYLOCOCCUS AUREUS Status: Acute Qualifiers: Laterality: right Lung location: lower lobe of lung Qualified Code(s): J15.212 - Pneumonia due to Methicillin resistant Staphylococcus aureus (4) Severe protein-calorie malnutrition Code(s): E43 - UNSPECIFIED SEVERE PROTEIN-CALORIE MALNUTRITION Status: Chronic (5) COPD exacerbation Code(s): J44.1 - CHRONIC OBSTRUCTIVE PULMONARY DISEASE W (ACUTE) EXACERBATION Status: Acute Comment: continue nebs, steroids, abx. Pulm following. 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 - Plan cont current plan of care, plan discussed w/ family, continue antibiotics, PT/OT , respiratory therapy, out of bed/ambulate, DVT proph w/lovenox * .
[2017-10-07 18:28] LABS: Sodium 127 mmol/L (136-145)
[2017-10-08 04:22] LABS: Band 8 % (5-11); Hemoglobin 11.7 g/dL (12.0-16.0); Lymphocytes 10 % (21-51); MDiff Complete? YES; Mean Corpuscular Hemoglobin 31.6 pg (27.0-31.0); Mean Corpuscular Volume 98.9 fl (81.0-99.0); Mean Platelet Volume 6.6 fL (7.4-10.4); Monocytes 3 % (0-10); Neutrophil 79 % (42-75); Platelet Count 401 thou/uL (130-400); RBC Distribution Width 12.4 % (11.5-14.5); Red Blood Cell (RBC) Count 3.69 mill/uL (4.20-5.40); White Blood Cell (WBC) Count 21.6 thou/uL (4.8-10.8)
[2017-10-08 04:29] LABS: Anion Gap 9 mmol/L (10-20); BUN (Urea Nitrogen) 6 mg/dL (7.0-18.7); Calc. Creatinine Clearance 98 mL/min (70-130); Calcium 8.3 mg/dL (7.8-10.44); Carbon Dioxide 36 mmol/L (22-29); Chloride 89 mmol/L (98-107); Estimated GFR-MDRD Greater than 90; Glucose 91 mg/dL (70-105); Magnesium 1.9 mg/dL (1.6-2.6); Potassium 4.3 mmol/L (3.5-5.1); Sodium 130 mmol/L (136-145)
[2017-10-08] MEDS: Mometasone/Formoterol 120 PUFF INHALER INH SCH ×2 (07:04→18:22)
[2017-10-08] MEDS: Linezolid 600 MG TAB PO SCH ×2 (07:49→23:02)
[2017-10-08] MEDS: Megestrol Acetate 40 MG TAB PO SCH ×2 (07:49→23:01)
[2017-10-08] MEDS: Magnesium Oxide 400 MG TAB PO SCH ×2 (07:49→23:01)
[2017-10-08] MEDS: predniSONE 20 MG TAB PO SCH (07:50)
[2017-10-08] MEDS: Doxycycline 100 MG CAP PO SCH ×2 (07:50→23:02)
[2017-10-08] MEDS: Enoxaparin Sodium 40 MG/0.4 ML SYRINGE SC SCH (07:50)
[2017-10-08] MEDS: Acetaminophen 325 MG TAB PO PRN (07:50)
--- NOTE | 2017-10-08 09:08 | PRG ---
DATE OF SERVICE: 10/08/2017 She feels better. She is still having some pain on the side. PHYSICAL EXAMINATION: VITAL SIGNS: Temperature 98.1, pulse 91, respirations 16, O2 sat 93%, blood pressure 115/75. HEENT: Unremarkable. NECK: No JVD. CHEST: Fairly clear. CARDIAC: S1 and S2 regular. ABDOMEN: Soft. EXTREMITIES: No edema. LABORATORY DATA: White blood cell count 21.6, hematocrit 36.5, platelet count 401. Sodium 130, pota ssium 4.3, chloride 89, CO2 36, BUN 6, creatinine 0.4, glucose 91. ASSESSMENT: 1. Methicillin-resistant Staphylococcus aureus pneumonia. 2. Hyponatremia that is improved with fluid restrictions. 3. Chronic obstructive pulmonary disease. 4. Elevated white count which is probably in some part due to the steroids given that she is clinica lly improved from an infectious standpoint, PLAN: I will go ahead and reduce her steroid dose. I think she is near the point where she can be d ischarged or sent to rehab.
--- NOTE | 2017-10-08 12:12 | PDOC.PN ---
- Subjective Encounter Start Date: 10/08/17 Encounter Start Time: 09:40 Pt feels about the same, no fever sor chills, some sputum production, no blood, no N/V/D/C. CP to right lateral lower chest continues. occasional sharp pains. no other complaints, no acute events. pt willing to got to rehab. Inpt Rehab screen ordered 10 point ROS performed and neg for all systems except as above - Objective Resuscitation Status: Resuscitation Status FULL:Full Resuscitation MAR Reviewed: Yes Vital Signs & Weight: Vital Signs (12 hours) Temp Pulse Resp BP Pulse Ox 10/08/17 10:23 94 20 93 L 10/08/17 08:00 98.1 F 91 16 115/75 93 L 10/08/17 07:09 94 L 10/08/17 07:05 91 20 94 L 10/08/17 04:41 97 10/08/17 02:02 84 18 96 Weight Admit Weight 88 lb Weight 88 lb 2.958 oz I&O: 10/07/17 10/08/17 10/09/17 06:59 06:59 06:59 Intake Total 1500 770 Output Total 4 Balance 1500 766 Result Diagrams: 10/08/17 03:30 10/08/17 03:30 Radiology Reviewed by me: Yes EKG Reviewed by me: Yes Phys Exam - Physical Examination Constitutional: NAD HEENT: PERRLA, moist MMs, sclera anicteric, oral pharynx no lesions Neck: no nodes, supple, full ROM 4cm JVD Respiratory: no wheezing, no rales, no rhonchi, clear to auscultation bilateral slightly prolonged expiratory phase Cardiovascular: RRR, no significant murmur, no rub Gastrointestinal: soft, non-tender, no distention, positive bowel sounds Musculoskeletal: pulses present, edema present improved Neurological: non-focal, normal sensation, moves all 4 limbs Lymphatic: no nodes Psychiatric: normal affect, A&O x 3 Skin: no rash, normal turgor, cap refill <2 seconds Dx/Plan (1) Chronic obstructive pulmonary disease Status: Chronic Qualifiers: COPD type: chronic bronchitis Chronic bronchitis type: simple Qualified Code(s): J41.0 - Simple chronic bronchitis (2) Hyponatremia Code(s): E87.1 - HYPO-OSMOLALITY AND HYPONATREMIA Status: Resolved (3) Pneumonia due to methicillin resistant Staphylococcus aureus Code(s): J15.212 - PNEUMONIA DUE TO METHICILLIN RESISTANT STAPHYLOCOCCUS AUREUS Status: Acute Qualifiers: Laterality: right Lung location: lower lobe of lung Qualified Code(s): J15.212 - Pneumonia due to Methicillin resistant Staphylococcus aureus (4) Severe protein-calorie malnutrition Code(s): E43 - UNSPECIFIED SEVERE PROTEIN-CALORIE MALNUTRITION Status: Chronic Comment: may need to get nutritional support (5) COPD exacerbation Code(s): J44.1 - CHRONIC OBSTRUCTIVE PULMONARY DISEASE W (ACUTE) EXACERBATION Status: Acute Comment: continue nebs, steroids, abx. Pulm following. 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 - Plan cont current plan of care, continue antibiotics, PT/OT, respiratory therapy, out of bed/ambulate, DVT proph w/lovenox * . add muscle relaxer for side splinting, ensure shes on mucinex. Pulm following, follow up on rehab referral
[2017-10-08] MEDS ORDERED: guaiFENesin ER 600 MG TAB PO SCH (12:30)
[2017-10-08] MEDS: Cyclobenzaprine 10 MG TAB PO PRN (12:38)
--- NOTE | 2017-10-08 13:09 | RAD ---
FRONTAL VIEW CHEST: Comparison: 10-02-17 Clinical history: COPD, pleurisy, right sided chest pain. FINDINGS: Progressive pleural based density at the inferior right hemithorax superimposed upon alveolar opacifi cation of the mid to inferior right chest with interspersed areas of lucency. The right upper lung zo ne remains clear. No consolidation in the left lung. Cardiac silhouette is stable. IMPRESSION: Progressive pleural based density in the right hemithorax indicating pleural fluid which is superimpo sed upon prominent region of opacification of the mid to inferior right chest with interspersed areas of lucency. This indicates prominent region of necrotizing pneumonia. Pulmonary Medicine consultatio n is warranted. Telephone call placed to patient's physician, Don Hamilton, at 1255 hours 10-08-16. Code CR. POS: ANGUS
--- NOTE | 2017-10-08 13:49 | PRG ---
DATE OF SERVICE: 10/08/2017 SUBJECTIVE: This is a 47-year-old female being seen for hyponatremia and poor protein intake. The p atient denies any nausea, vomiting or chest pain. PHYSICAL EXAMINATION: GENERAL: Patient is awake, alert. VITAL SIGNS: Afebrile, pulse 95, breathing at 16, blood pressure 115/75. OBJECTIVE: See above. Awake, alert, in no acute distress. GENERAL APPEARANCE AND MENTAL STATUS: Fair. HEAD/NECK: Normocephalic. Atraumatic. EYES: EOMI. No deformity. EARS: Clear. No ulcers. NOSE: Intact. No lesions. MOUTH: Clear. No discharge. THROAT: Clear. No exudate. LUNGS: Clear. No crackles. CARDIAC: S1, S2. No rub. ABDOMEN: Benign. BS+. GENITALIA/RECTUM: Pacheco absent. BACK/EXTREMITIES: Edema 0+ Ulcer- NEUROLOGICAL: Alert and motor intact. SKIN: Rash- Bruise- LYMPHATICS: Edema- Ulcer- LABORATORY: Sodium 130. ASSESSMENT AND RECOMMENDATIONS: 1. Hyponatremia, improved. 2. Anemia, stable. 3. Medications based on glomerular filtration rate are appropriate. I will sign off on this patient. Would recommend 1000 mL fluid restriction. Please reconsult as nee ded.
[2017-10-08] MEDS: guaiFENesin ER 600 MG TAB PO SCH (23:01)
[2017-10-09] MEDS: Doxycycline 100 MG CAP PO SCH ×2 (07:24→19:42)
[2017-10-09] MEDS: guaiFENesin ER 600 MG TAB PO SCH ×2 (07:25→19:42)
[2017-10-09] MEDS: Megestrol Acetate 40 MG TAB PO SCH ×2 (07:25→19:43)
[2017-10-09] MEDS: Mometasone/Formoterol 120 PUFF INHALER INH SCH ×2 (07:25→18:12)
[2017-10-09] MEDS: Linezolid 600 MG TAB PO SCH ×2 (07:26→19:43)
[2017-10-09] MEDS: Magnesium Oxide 400 MG TAB PO SCH ×2 (07:32→19:43)
[2017-10-09] MEDS: Enoxaparin Sodium 40 MG/0.4 ML SYRINGE SC SCH (07:32)
[2017-10-09] MEDS: Acetaminophen 325 MG TAB PO PRN ×2 (07:41→23:23)
[2017-10-09] MEDS ORDERED: predniSONE 20 MG TAB PO SCH ×2 (08:00→10:00)
--- NOTE | 2017-10-09 09:20 | PDOC.PULPN ---
Progress Note: Subj/Obj - Subjective Date: 10/09/17 Time: 09:19 Narrative: Feels better, c/o sore tongue - ROS All systems: reviewed and no additional remarkable complaints except as stated Respiratory: cough - Objective Allergies/Adverse Reactions: Allergies Allergy/AdvReac Type Severity Reaction Status Date / Time tramadol Allergy Unknown Itching Verified 10/02/17 14:09 Sulfa (Sulfonamide Allergy Verified 10/02/17 14:09 Antibiotics) Medications: Current Medications Acetaminophen (Tylenol) 650 mg PO Q4H PRN PRN Reason: Headache/Fever or Pain Last Admin: 10/09/17 07:41 Dose: 650 mg Albuterol/Ipratropium (Duoneb) 3 ml NEB [id number] [facility] Last Admin: 10/09/17 07:27 Dose: 3 ml Cyclobenzaprine HCl (Flexeril) 10 mg PO TID PRN PRN Reason: Muscle Spasm Last Admin: 10/08/17 12:38 Dose: 10 mg Doxycycline Hyclate (Vibramycin) 100 mg PO BID [facility] Stop: 10/09/17 21:01 Last Admin: 10/09/17 07:24 Dose: 100 mg Enoxaparin Sodium (Lovenox) 40 mg SC 0900 [facility] Last Admin: 10/09/17 07:32 Dose: 40 mg Guaifenesin (Mucinex) 1,200 mg PO Q12HR [facility] Last Admin: 10/09/17 07:25 Dose: 1,200 mg Lidocaine HCl (Xylocaine 2% Viscous) 20 ml SSP PC PRN PRN Reason: PAIN IN MOUTH Last Admin: 10/06/17 16:22 Dose: 20 ml Linezolid (Zyvox) 600 mg PO Q12HR [facility] Last Admin: 10/09/17 07:26 Dose: 600 mg Loperamide HCl (Imodium) 2 mg PO .AFTER Bm EM Magnesium Oxide (Magnesium Oxide) 400 mg PO BID [facility] Last Admin: 10/09/17 07:32 Dose: 400 mg Megestrol Acetate (Megace) 20 mg PO BID [facility] Last Admin: 10/09/17 07:25 Dose: 20 mg Mometasone Furoate/Formoterol Fumar (Dulera 200 Mcg/5 Mcg Inhaler) 2 puff INH BID-RT [facility] Last Admin: 10/09/17 07:25 Dose: 2 puff Ondansetron HCl (Zofran) 4 mg IVP Q6H PRN PRN Reason: Nausea/Vomiting Phenol (Chloraseptic [place] 180 Ml Bot) 0 ml PO Q4H PRN PRN Reason: Sore Throat Last Admin: 10/06/17 16:21 Dose: 1 spr Prednisone (Prednisone) 20 mg PO QAM-WM EM Last Admin: 10/09/17 07:26 Dose: 20 mg MAR Reviewed: Yes Vital Signs: Vital Signs Temp 98.4 F 10/09/17 08:00 Pulse 85 10/09/17 08:00 Resp 20 10/09/17 08:00 BP 109/71 10/09/17 07:24 Pulse Ox 94 L 10/09/17 07:27 Intake & Output 10/08/17 10/09/17 10/09/17 18:59 06:59 18:59 Intake Total 770 Balance 770 Weight 88 lb 2.958 oz Intake: Intake, IV Amount 10 Oral 760 Other: Voiding Method Bedside Commode Bedside Commode Bedside Commode # Unmeasured Voids 1 # Bowel Movements 3 Progress Note: Exam - Physical Exam Constitutional: NAD Deviation from normal: thrush Neck: no nodes, no JVD Cardiovascular: RRR Focused Respiratory Location: rales: Right Gastrointestinal: soft, non-tender, positive bowel sounds Musculoskeletal: no edema Neurological: non-focal, moves all 4 limbs Lymphatic: no nodes Psychiatric: normal affect, A&O x 3 Skin: no rash Progress Note: Data - Labs Result Diagrams: 10/08/17 03:30 10/08/17 03:30 Lab results: Laboratory Results 10/07/17 10/07/17 10/07/17 10:52 12:30 18:08 WBC RBC Hgb Hct MCV MCH MCHC RDW Plt Count MPV Neutrophils % (Manual) Band Neuts % (Manual) Lymphocytes % (Manual) Monocytes % (Manual) Sodium 127 L Potassium Chloride Carbon Dioxide Anion Gap BUN Creatinine Estimated GFR (MDRD) Glucose Serum Osmolality 258 L Calcium Magnesium Urine Osmolality 329 10/08/17 10/08/17 03:30 03:30 WBC 21.6 H RBC 3.69 L Hgb 11.7 L Hct 36.5 MCV 98.9 MCH 31.6 H MCHC 32.0 RDW 12.4 Plt Count 401 H MPV 6.6 L Neutrophils % (Manual) 79 H Band Neuts % (Manual) 8 Lymphocytes % (Manual) 10 L Monocytes % (Manual) 3 Sodium 130 L Potassium 4.3 Chloride 89 L Carbon Dioxide 36 H Anion Gap 9 L BUN 6 L Creatinine 0.44 L Estimated GFR (MDRD) Greater than 90 Glucose 91 Serum Osmolality Calcium 8.3 Magnesium 1.9 Urine Osmolality - Radiology Interpretation Chest x-ray Status: image reviewed by me (RLL PNA) Progress Note: A/P - Problems (1) Pneumonia due to methicillin resistant Staphylococcus aureus Current Visit: Yes Status: Acute Code(s): J15.212 - PNEUMONIA DUE TO METHICILLIN RESISTANT STAPHYLOCOCCUS AUREUS Qualifiers: Laterality: right Lung location: lower lobe of lung Qualified Code(s): J15.212 - Pneumonia due to Methicillin resistant Staphylococcus aureus (2) Hyponatremia Current Visit: Yes Status: Resolved Code(s): E87.1 - HYPO-OSMOLALITY AND HYPONATREMIA (3) Chronic obstructive pulmonary disease Current Visit: Yes Status: Chronic Qualifiers: COPD type: chronic bronchitis Chronic bronchitis type: simple Qualified Code(s): J41.0 - Simple chronic bronchitis (4) Thrush, oral Current Visit: Yes Status: Acute Code(s): B37.0 - CANDIDAL STOMATITIS - Plan Plan: Add diflucan for thrush Continue ABX for PNA Should be OK to go to rehab or skilled
[2017-10-09] MEDS: Fluconazole 100 MG TAB PO SCH (10:21)
[2017-10-09] MEDS ORDERED: Lidocaine Viscous Sol 2% 15 ml UD Cup SSW PRN (11:37)
[2017-10-09 11:42] LABS: Anion Gap 12 mmol/L (10-20); BUN (Urea Nitrogen) 9 mg/dL (7.0-18.7); Calc. Creatinine Clearance 100 mL/min (70-130); Calcium 8.3 mg/dL (7.8-10.44); Carbon Dioxide 32 mmol/L (22-29); Chloride 91 mmol/L (98-107); Estimated GFR-MDRD Greater than 90; Glucose 104 mg/dL (70-105); Potassium 4.4 mmol/L (3.5-5.1); Sodium 131 mmol/L (136-145)
[2017-10-09] MEDS ORDERED: Albuterol Sulfate 2.5 mg/3 ml Neb NEB PRN (11:42)
--- NOTE | 2017-10-09 16:52 | PDOC.PN ---
- Subjective Encounter Start Date: 10/09/17 Encounter Start Time: 09:15 PT about the same, pain somewhat better. Up earlier. No f/C, no N/V/d/c, no SOB except when moving. Case discussed with Dr Salinas, cleared for rehab when arranged 10 point ROs performed and neg for all systems except as above - Objective Resuscitation Status: Resuscitation Status FULL:Full Resuscitation MAR Reviewed: Yes Vital Signs & Weight: Vital Signs (12 hours) Temp Pulse Resp BP Pulse Ox Pulse Ox Pulse Ox 10/09/17 14:53 85 20 95 10/09/17 14:15 90 L 86 L 10/09/17 10:54 90 16 94 L 10/09/17 08:00 98.4 F 85 20 10/09/17 07:27 85 20 94 L 10/09/17 07:25 85 20 94 L 10/09/17 07:24 98.4 F 80 16 109/71 98 Pulse Ox 10/09/17 14:53 10/09/17 14:15 94 L 10/09/17 10:54 10/09/17 08:00 10/09/17 07:27 10/09/17 07:25 10/09/17 07:24 Weight Admit Weight 88 lb Weight 88 lb 2.958 oz I&O: 10/08/17 10/09/17 10/10/17 06:59 06:59 06:59 Intake Total 770 770 Output Total 4 Balance 766 770 Result Diagrams: 10/08/17 03:30 10/09/17 10:53 Radiology Reviewed by me: Yes EKG Reviewed by me: Yes Phys Exam - Physical Examination Constitutional: NAD HEENT: PERRLA, moist MMs, sclera anicteric thrush stable Neck: no nodes, no JVD, supple Respiratory: no wheezing, no rales prolonged expiration, no rales Cardiovascular: RRR, no significant murmur, no rub Gastrointestinal: soft, non-tender, no distention, positive bowel sounds Musculoskeletal: pulses present, edema present Neurological: non-focal, normal sensation, moves all 4 limbs Lymphatic: no nodes Psychiatric: normal affect, A&O x 3 Skin: no rash, normal turgor, cap refill <2 seconds Dx/Plan (1) Pneumonia due to methicillin resistant Staphylococcus aureus Code(s): J15.212 - PNEUMONIA DUE TO METHICILLIN RESISTANT STAPHYLOCOCCUS AUREUS Status: Acute Qualifiers: Laterality: right Lung location: lower lobe of lung Qualified Code(s): J15.212 - Pneumonia due to Methicillin resistant Staphylococcus aureus Comment: necrotizing pneumonia, rpesent on admit. on zyvox and doxy. planning 14 days total abx rx. Bcx negative. pulm following (2) Chronic obstructive pulmonary disease Status: Chronic Qualifiers: COPD type: chronic bronchitis Chronic bronchitis type: simple Qualified Code(s): J41.0 - Simple chronic bronchitis Comment: with acute exacerbation (3) Severe protein-calorie malnutrition Code(s): E43 - UNSPECIFIED SEVERE PROTEIN-CALORIE MALNUTRITION Status: Chronic Comment: may need to get nutritional support. Ensure TID, removed from fluid count (4) COPD exacerbation Code(s): J44.1 - CHRONIC OBSTRUCTIVE PULMONARY DISEASE W (ACUTE) EXACERBATION Status: Acute Comment: continue nebs, steroids, abx. Pulm following. (5) Pulmonary cachexia due to chronic obstructive pulmonary disease Code(s): J44.9 - CHRONIC OBSTRUCTIVE PULMONARY DISEASE, UNSPECIFIED; R64 - CACHEXIA Status: Chronic (6) Tobacco abuse Code(s): Z72.0 - TOBACCO USE Status: Chronic Comment: no cigarettes since . (7) Hyponatremia Code(s): E87.1 - HYPO-OSMOLALITY AND HYPONATREMIA Status: Resolved - Plan * .
[2017-10-10] MEDS: Mometasone/Formoterol 120 PUFF INHALER INH SCH ×2 (06:43→18:34)
[2017-10-10] MEDS: Fluconazole 100 MG TAB PO SCH (08:04)
[2017-10-10] MEDS: guaiFENesin ER 600 MG TAB PO SCH ×2 (08:04→19:38)
[2017-10-10] MEDS: predniSONE 20 MG TAB PO SCH (08:05)
[2017-10-10] MEDS: Magnesium Oxide 400 MG TAB PO SCH ×2 (08:06→19:39)
[2017-10-10] MEDS: Enoxaparin Sodium 40 MG/0.4 ML SYRINGE SC SCH (08:06)
[2017-10-10] MEDS: Megestrol Acetate 40 MG TAB PO SCH ×2 (09:29→19:39)
[2017-10-10] MEDS: Linezolid 600 MG TAB PO SCH ×2 (09:29→19:39)
[2017-10-10] MEDS: Acetaminophen 325 MG TAB PO PRN (11:02)
[2017-10-10] MEDS: Cyclobenzaprine 10 MG TAB PO PRN (14:15)
--- NOTE | 2017-10-10 16:53 | PDOC.PN ---
- Subjective Encounter Start Date: 10/10/17 Encounter Start Time: 09:15 no newcoimpalitns, feels about the same. informed of pending [facility] [place]. No f/C, no N/V/D/C, drinking ensure more. right lateral CP a little better 10 point ROS performed and neg for all systems except as per hPI - Objective Resuscitation Status: Resuscitation Status FULL:Full Resuscitation MAR Reviewed: Yes Vital Signs & Weight: Vital Signs (12 hours) Temp Pulse Resp BP Pulse Ox 10/10/17 14:50 93 16 80 L 10/10/17 11:30 104 H 18 96 10/10/17 08:00 98.5 F 89 18 90 L 10/10/17 07:32 98.5 F 89 18 124/69 90 L 10/10/17 06:45 85 16 97 10/10/17 06:43 86 16 97 Weight Admit Weight 88 lb Weight 88 lb 2.958 oz I&O: 10/09/17 10/10/17 10/11/17 06:59 06:59 06:59 Intake Total 770 720 320 Balance 770 720 320 Result Diagrams: 10/08/17 03:30 10/09/17 10:53 Radiology Reviewed by me: Yes EKG Reviewed by me: Yes Phys Exam - Physical Examination Constitutional: NAD HEENT: PERRLA, moist MMs, sclera anicteric, TM's clear Neck: no nodes, no JVD, supple, full ROM Respiratory: no wheezing, no rales, no rhonchi, clear to auscultation bilateral alightly iproved air movement, symmetrical chest movement Cardiovascular: RRR, no significant murmur, no rub Gastrointestinal: soft, non-tender, no distention, positive bowel sounds Musculoskeletal: pulses present, edema present Neurological: non-focal, normal sensation, moves all 4 limbs Lymphatic: no nodes Psychiatric: normal affect, A&O x 3 Skin: no rash, normal turgor, cap refill <2 seconds Dx/Plan (1) Chronic obstructive pulmonary disease Status: Chronic Qualifiers: COPD type: chronic bronchitis Chronic bronchitis type: simple Qualified Code(s): J41.0 - Simple chronic bronchitis Comment: with acute exacerbation (2) Hyponatremia Code(s): E87.1 - HYPO-OSMOLALITY AND HYPONATREMIA Status: Resolved (3) Pneumonia due to methicillin resistant Staphylococcus aureus Code(s): J15.212 - PNEUMONIA DUE TO METHICILLIN RESISTANT STAPHYLOCOCCUS AUREUS Status: Acute Qualifiers: Laterality: right Lung location: lower lobe of lung Qualified Code(s): J15.212 - Pneumonia due to Methicillin resistant Staphylococcus aureus Comment: necrotizing pneumonia, rpesent on admit. on zyvox and doxy. planning 14 days total abx rx. Bcx negative. pulm following (4) Severe protein-calorie malnutrition Code(s): E43 - UNSPECIFIED SEVERE PROTEIN-CALORIE MALNUTRITION Status: Chronic Comment: may need to get nutritional support. Ensure TID, removed from fluid count (5) COPD exacerbation Code(s): J44.1 - CHRONIC OBSTRUCTIVE PULMONARY DISEASE W (ACUTE) EXACERBATION Status: Acute Comment: continue nebs, steroids, abx. Pulm following. 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 - Plan * .
[2017-10-11] MEDS: Cyclobenzaprine 10 MG TAB PO PRN (00:10)
[2017-10-11] MEDS: Mometasone/Formoterol 120 PUFF INHALER INH SCH ×2 (06:31→18:45)
[2017-10-11] MEDS: Linezolid 600 MG TAB PO SCH ×2 (07:54→21:07)
[2017-10-11] MEDS: Enoxaparin Sodium 40 MG/0.4 ML SYRINGE SC SCH (07:54)
[2017-10-11] MEDS: Megestrol Acetate 40 MG TAB PO SCH ×2 (07:55→21:06)
[2017-10-11] MEDS: Magnesium Oxide 400 MG TAB PO SCH ×2 (07:55→21:07)
[2017-10-11] MEDS: guaiFENesin ER 600 MG TAB PO SCH ×2 (07:55→21:07)
[2017-10-11] MEDS: Fluconazole 100 MG TAB PO SCH (07:55)
[2017-10-11] MEDS: predniSONE 20 MG TAB PO SCH (07:56)
[2017-10-11 07:58] LABS: Anion Gap 13 mmol/L (10-20); BUN (Urea Nitrogen) 8 mg/dL (7.0-18.7); Calc. Creatinine Clearance 105 mL/min (70-130); Calcium 8.3 mg/dL (7.8-10.44); Carbon Dioxide 26 mmol/L (22-29); Chloride 92 mmol/L (98-107); Estimated GFR-MDRD Greater than 90; Glucose 115 mg/dL (70-105); Magnesium 1.9 mg/dL (1.6-2.6); Potassium 4.8 mmol/L (3.5-5.1); Sodium 126 mmol/L (136-145)
[2017-10-11 08:16] LABS: Band 11 % (5-11); Hemoglobin 13.2 g/dL (12.0-16.0); Lymphocytes 3 % (21-51); MDiff Complete? YES; Mean Corpuscular HGB CONC 32.3 g/dL (32.0-36.0); Mean Corpuscular Hemoglobin 32.5 pg (27.0-31.0); Mean Platelet Volume 6.4 fL (7.4-10.4); Neutrophil 86 % (42-75); Platelet Count 540 thou/uL (130-400); RBC Distribution Width 12.7 % (11.5-14.5); Red Blood Cell (RBC) Count 4.07 mill/uL (4.20-5.40); White Blood Cell (WBC) Count 42.3 thou/uL (4.8-10.8)
--- NOTE | 2017-10-11 08:37 | RAD ---
SINGLE VIEW OF THE CHEST: COMPARISON: 10/08/17. HISTORY: COPD and worsening dyspnea. Necrotizing MRSA pneumonia. FINDINGS: A single view of the chest shows a normal size cardiomediastinal silhouette. There is enlargement of the right pleural effusion which is now moderate in size. An infiltrate is again seen in the right lower lobe. There appears to be lucency in this area of infiltration consistent with a necrotizing p rocess. IMPRESSION: Worsening right lower lobe pneumonia and pleural effusion. POS: [facility]
[2017-10-11] MEDS ORDERED: Magnesium 2 GM/NS 0.9% 100 ML 2 GM in Premix Bag 1 BAG IVPB SCH (12:15)
--- NOTE | 2017-10-11 12:15 | PDOC.PN ---
- Subjective Encounter Start Date: 10/11/17 Encounter Start Time: 08:00 Pt seen and examined earlier on rounds, since then i9 have revisited the patient and discussed the case face to face with Dr Ruggiero. Pt stated she didnt feel right today, more sOB, persistent BLE edema and now feels like her belly is full. right sided CP about the same. No F/C, no N/V/D/C, no chills or rigors. stat labs ordered and reviewed. After discussion with Dr Ruggiero, we decided to transfer her to the ICU for closer monitoring 10 point ROS performed and neg for all systems except as above - Objective Resuscitation Status: Resuscitation Status FULL:Full Resuscitation MAR Reviewed: Yes Vital Signs & Weight: Vital Signs (12 hours) Temp Pulse Resp BP Pulse Ox 10/11/17 11:45 98.7 F 96 21 H 97 10/11/17 08:00 97.5 F L 105 H 22 H 119/84 95 10/11/17 06:32 94 L 10/11/17 06:31 91 16 94 L 10/11/17 06:29 91 16 94 L 10/11/17 03:25 95 10/11/17 02:33 95 16 95 Weight Admit Weight 88 lb Weight 88 lb 2.958 oz Most Recent Monitor Data Heart Rate from ECG 99 NIBP 125/77 NIBP BP-Mean 93 Respiration from ECG 29 SpO2 94 I&O: 10/10/17 10/11/17 10/12/17 06:59 06:59 06:59 Intake Total 720 560 Balance 720 560 Result Diagrams: 10/11/17 07:37 10/11/17 07:37 Radiology Reviewed by me: Yes Phys Exam - Physical Examination mod resp distress, cold rag on her forhead, huffing HEENT: PERRLA, moist MMs, sclera anicteric thrush improved Neck: no nodes, supple, full ROM 4cm JVD Respiratory: wheezing present poor air movement, dullness to right lateral/base Cardiovascular: RRR, no significant murmur, no rub Gastrointestinal: soft, non-tender, no distention, positive bowel sounds no fluid wave, no shifting dullness Musculoskeletal: pulses present, edema present Neurological: non-focal, normal sensation, moves all 4 limbs Lymphatic: no nodes Psychiatric: normal affect, A&O x 3 Skin: no rash, normal turgor, cap refill <2 seconds Dx/Plan (1) Chronic obstructive pulmonary disease Status: Chronic Qualifiers: COPD type: chronic bronchitis Chronic bronchitis type: simple Qualified Code(s): J41.0 - Simple chronic bronchitis Comment: with acute exacerbation (2) Hyponatremia Code(s): E87.1 - HYPO-OSMOLALITY AND HYPONATREMIA Status: Resolved (3) Pneumonia due to methicillin resistant Staphylococcus aureus Code(s): J15.212 - PNEUMONIA DUE TO METHICILLIN RESISTANT STAPHYLOCOCCUS AUREUS Status: Acute Qualifiers: Laterality: right Lung location: lower lobe of lung Qualified Code(s): J15.212 - Pneumonia due to Methicillin resistant Staphylococcus aureus Comment: necrotizing pneumonia, rpesent on admit. on zyvox and doxy. planning 14 days total abx rx. Bcx negative. pulm following (4) Severe protein-calorie malnutrition Code(s): E43 - UNSPECIFIED SEVERE PROTEIN-CALORIE MALNUTRITION Status: Chronic Comment: may need to get nutritional support. Ensure TID, removed from fluid count (5) COPD exacerbation Code(s): J44.1 - CHRONIC OBSTRUCTIVE PULMONARY DISEASE W (ACUTE) EXACERBATION Status: Acute Comment: continue nebs, steroids, abx. Pulm following. 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 (8) Acute hypoxemic respiratory failure Code(s): J96.01 - ACUTE RESPIRATORY FAILURE WITH HYPOXIA Status: Acute (9) Empyema of right pleural space Code(s): J86.9 - PYOTHORAX WITHOUT FISTULA Status: Acute - Plan continue antibiotics, PT/OT, respiratory therapy * . transfer to ICU, tune up resp status, may need CT or decort
--- NOTE | 2017-10-11 13:38 | PRG ---
DATE OF SERVICE: 10/11/2017 SUBJECTIVE: Ms. Franks apparently did not do well overnight. I was contacted by Dr. Hamilton, and he asked me to look at her. He did a repeat radiograph this morning, which shows a loculated effusion o n the right. She was in more respiratory distress when I evaluated her. I recommended moving her back down to the Critical Care Unit. She was very tachypneic when I arrived to see her upstairs. OBJECTIVE: VITAL SIGNS: Afebrile, heart rate 105, respiratory rate was in the 30s, oximetry is 95 on 2.5 liters . LUNGS: She has decreased breath sounds on the right. Left lung was clear. HEART: Regular rhythm. Her expiratory phase is slightly prolonged. ABDOMEN: Soft and nontender. LABORATORY DATA: White count is up to 42.3, hemoglobin 13.2, platelets 540,000. Sodium 126, potassi um 4.8, chloride 92, bicarbonate 26, BUN 8, creatinine 0.41. IMPRESSION: 1. Chronic obstructive pulmonary disease. 2. Cachexia. 3. Recent pneumonia. 4. Organizing pleural effusion on the right. PLAN: She was transferred down to the Critical Care Unit. After she was reexamined, she actually lo oks more comfortable at this point in time. She will need central line placement. She is so cachect ic, I will most likely place a femoral vein line. We will continue with antimicrobial therapy. I will increase her steroids given her respiratory deco mpensation. She will continue with q.4 hour nebulizer treatments. She will receive 1 dose of IV mag nesium. Cardiothoracic surgery will likely need to be consulted. Based on the radiograph, I doubt a chest tube will lead a resolution of this problem, but it may be a first alternative. Critical care time was 30 minutes.
[2017-10-12 06:08] LABS: Anion Gap 14 mmol/L (10-20); BUN (Urea Nitrogen) 10 mg/dL (7.0-18.7); Calc. Creatinine Clearance 98 mL/min (70-130); Calcium 8.4 mg/dL (7.8-10.44); Carbon Dioxide 31 mmol/L (22-29); Chloride 90 mmol/L (98-107); Estimated GFR-MDRD Greater than 90; Glucose 171 mg/dL (70-105); Sodium 130 mmol/L (136-145)
[2017-10-12 06:28] LABS: Hemoglobin 10.4 g/dL (12.0-16.0); Mean Corpuscular HGB CONC 31.7 g/dL (32.0-36.0); Mean Corpuscular Hemoglobin 31.8 pg (27.0-31.0); Mean Platelet Volume 6.4 fL (7.4-10.4); Platelet Count 580 thou/uL (130-400); RBC Distribution Width 12.6 % (11.5-14.5); Red Blood Cell (RBC) Count 3.28 mill/uL (4.20-5.40)
[2017-10-12] MEDS: Mometasone/Formoterol 120 PUFF INHALER INH SCH ×2 (07:31→18:26)
[2017-10-12 07:44] LABS: Band 15 % (5-11); Lymphocytes 2 % (21-51); MDiff Complete? YES; Myelocyte 1 % (0-0); Neutrophil 82 % (42-75); PLT Morphology Comment Appears Increased; Toxic Granulation SLIGHT
[2017-10-12] MEDS ORDERED: VANCOMYCIN IVPB PRN (07:58)
--- NOTE | 2017-10-12 08:01 | PDOC.PULCC ---
CCU Progress Note: Subj/Obj - Subjective Date: 10/12/17 Time: 08:00 Narrative: Right sided chest pain. Anxious - ROS Review of Systems: cough, shortness of breath - Objective Allergies/Adverse Reactions: Allergies Allergy/AdvReac Type Severity Reaction Status Date / Time tramadol Allergy Unknown Itching Verified 10/02/17 14:09 Sulfa (Sulfonamide Allergy Verified 10/02/17 14:09 Antibiotics) Medications: Current Medications Acetaminophen (Tylenol) 650 mg PO Q4H PRN PRN Reason: Headache/Fever or Pain Last Admin: 10/10/17 11:02 Dose: 650 mg Albuterol Sulfate (Ventolin) 2.5 mg NEB Q2H PRN PRN Reason: Wheezing Albuterol/Ipratropium (Duoneb) 3 ml NEB [id number] [facility] Last Admin: 10/12/17 07:31 Dose: 3 ml Cyclobenzaprine HCl (Flexeril) 10 mg PO TID PRN PRN Reason: Muscle Spasm Last Admin: 10/11/17 00:10 Dose: 10 mg Enoxaparin Sodium (Lovenox) 40 mg SC 0900 [facility] Last Admin: 10/11/17 07:54 Dose: 40 mg Guaifenesin (Mucinex) 1,200 mg PO Q12HR EM Last Admin: 10/11/17 21:07 Dose: 1,200 mg Lidocaine HCl (Xylocaine 2% Viscous) 20 ml SSP PC PRN PRN Reason: PAIN IN MOUTH Last Admin: 10/06/17 16:22 Dose: 20 ml Lidocaine HCl (Xylocaine 2% Viscous) 15 ml SSW Q4H PRN PRN Reason: odynophagia Loperamide HCl (Imodium) 2 mg PO .AFTER Bm [facility] Last Admin: 10/10/17 19:39 Dose: 2 mg Magnesium Oxide (Magnesium Oxide) 400 mg PO BID [facility] Last Admin: 10/11/17 21:07 Dose: 400 mg Megestrol Acetate (Megace) 20 mg PO BID [facility] Last Admin: 10/11/17 21:06 Dose: 20 mg Methylprednisolone Sodium Succinate (Solu-Medrol) 20 mg IVP Q8HR [facility] Last Admin: 10/12/17 06:12 Dose: 20 mg Mometasone Furoate/Formoterol Fumar (Dulera 200 Mcg/5 Mcg Inhaler) 2 puff INH BID-RT [facility] Last Admin: 10/12/17 07:31 Dose: 2 puff Ondansetron HCl (Zofran) 4 mg IVP Q6H PRN PRN Reason: Nausea/Vomiting Phenol (Chloraseptic [place] 180 Ml Bot) 0 ml PO Q4H PRN PRN Reason: Sore Throat Last Admin: 10/06/17 16:21 Dose: 1 spr MAR Reviewed: Yes Vital Signs and I&O: Vital Signs Temp 98.1 F 10/12/17 04:00 Pulse 93 10/12/17 07:31 Resp 17 10/12/17 07:31 BP 119/84 10/11/17 08:00 Pulse Ox 97 10/12/17 07:32 Intake & Output 10/11/17 10/12/17 10/12/17 18:59 06:59 18:59 Intake Total 200 540 Output Total 675 620 Balance -475 -80 Intake: Intake, IV Amount 100 Magnesium 2 GM/NS 0.9% 100 100 ML 2 gm In Premix Bag 1 bag @ 400 mls/hr IVPB NOW [facility] Rx#:[id number] Oral 100 540 Output: Output, [place] 675 620 Other: Voiding Method Indwelling Catheter Indwelling Catheter Vent Setting: Last recorded order % Fraction of Inspired Oxygen 30 (FIO2) CCU Progress Note: Exam - Physical Exam Constitutional: NAD HEENT: PERRLA, sclera anicteric Neck: no nodes, no JVD Cardiovascular: RRR Focused Respiratory Location: decreased breath sounds: Right, dullness to percussion: Right Gastrointestinal: soft, non-tender Musculoskeletal: no edema Neurological: non-focal, normal sensation, moves all 4 limbs Lymphatic: no nodes Psychiatric: normal affect, A&O x 3 Skin: no rash CCU Progress Note: Data - Labs Result Diagrams: 10/12/17 05:15 10/12/17 05:15 Lab results: Laboratory Results 10/11/17 10/11/17 10/11/17 07:37 07:37 07:37 WBC 42.3 H* RBC 4.07 L Hgb 13.2 Hct 40.9 MCV 100.0 H MCH 32.5 H MCHC 32.3 RDW 12.7 Plt Count 540 H MPV 6.4 L Neutrophils % (Manual) 86 H Band Neuts % (Manual) 11 Lymphocytes % (Manual) 3 L Myelocytes % Toxic Granulation Plt Morphology Comment Sodium 126 L Potassium 4.8 Chloride 92 L Carbon Dioxide 26 Anion Gap 13 BUN 8 Creatinine 0.41 L Estimated GFR (MDRD) Greater than 90 Glucose 115 H Calcium 8.3 Magnesium 1.9 B-Natriuretic Peptide 25.6 10/12/17 10/12/17 05:15 05:15 WBC 35.0 H RBC 3.28 L Hgb 10.4 L Hct 32.9 L MCV 100.0 H MCH 31.8 H MCHC 31.7 L RDW 12.6 Plt Count 580 H MPV 6.4 L Neutrophils % (Manual) 82 H Band Neuts % (Manual) 15 H Lymphocytes % (Manual) 2 L Myelocytes % 1 H Toxic Granulation SLIGHT Plt Morphology Comment Appears Increased H Sodium 130 L Potassium 5.0 Chloride 90 L Carbon Dioxide 31 H Anion Gap 14 BUN 10 Creatinine 0.44 L Estimated GFR (MDRD) Greater than 90 Glucose 171 H Calcium 8.4 Magnesium 2.0 B-Natriuretic Peptide - ABG Interpretation ABG Results: ABG pH 7.39 (7.35-7.45) 10/02/17 09:19 ABG pCO2 42.8 mmHg (35.0-45.0) 10/02/17 09:19 ABG O2 Sat Calc/Arthur 95.3 % (94.0-100.0) 10/02/17 09:19 ABG Base Excess 0.5 mEq/L (0 (+/-) 2.5) 10/02/17 09:19 - Radiology Interpretation Chest x-ray Status: image reviewed by me (loculated, but layering Right effusion) CCU Progress Note: A/P - Problems (1) Pneumonia due to methicillin resistant Staphylococcus aureus Current Visit: Yes Status: Acute Code(s): J15.212 - PNEUMONIA DUE TO METHICILLIN RESISTANT STAPHYLOCOCCUS AUREUS Qualifiers: Laterality: right Lung location: lower lobe of lung Qualified Code(s): J15.212 - Pneumonia due to Methicillin resistant Staphylococcus aureus (2) Hyponatremia Current Visit: Yes Status: Resolved Code(s): E87.1 - HYPO-OSMOLALITY AND HYPONATREMIA (3) Chronic obstructive pulmonary disease Current Visit: Yes Status: Chronic Qualifiers: COPD type: chronic bronchitis Chronic bronchitis type: simple Qualified Code(s): J41.0 - Simple chronic bronchitis (4) Thrush, oral Current Visit: Yes Status: Acute Code(s): B37.0 - CANDIDAL STOMATITIS (5) Empyema of right pleural space Current Visit: Yes Status: Acute Code(s): J86.9 - PYOTHORAX WITHOUT FISTULA - Time Spent with Patient Time (minutes): 30 (cc time) - Plan Plan: Discussed with Dr. Rodriguez. Pt has loculated R effusion from MRSA pneumonia. Will need thorascopic decortication. Discussed with patient and she understands that she may need to remain intubated post-op I have changed ABX to zosyn and vanc Keep in CCU
[2017-10-12] MEDS: Lorazepam 2 MG/ML VIAL SLOW IVP PRN (08:39)
[2017-10-12] MEDS: guaiFENesin ER 600 MG TAB PO SCH (08:43)
[2017-10-12] MEDS: Megestrol Acetate 40 MG TAB PO SCH (08:43)
[2017-10-12] MEDS: Enoxaparin Sodium 40 MG/0.4 ML SYRINGE SC SCH (08:43)
[2017-10-12] MEDS: Magnesium Oxide 400 MG TAB PO SCH (08:43)
[2017-10-12] MEDS: Vancomycin HCl 500 MG in Sodium Chloride 0.9% 100 ML IVPB SCH ×2 (09:12→16:45)
[2017-10-12] MEDS ORDERED: Midazolam HCl 2 mg/2 ml Vial ONE (09:33)
[2017-10-12] MEDS ORDERED: Fentanyl 100 MCG/2 ML VIAL ONE (09:33)
[2017-10-12] MEDS ORDERED: Bupivacaine 0.25% HCL 30 ML VIAL ONE (09:53)
--- NOTE | 2017-10-12 10:06 | RAD ---
SINGLE VIEW OF THE CHEST: COMPARISON: 10/11/17. HISTORY: Necrotizing MRSA pneumonia. FINDINGS: A single view of the chest shows a normal-size cardiomediastinal silhouette. There is again worsenin g of the previously seen right lower lobe infiltrate with significant enlargement of the right pleura l effusion. This may be loculated on the lateral aspect of the right chest wall. IMPRESSION: Worsening right pleural effusion and adjacent infiltrate. POS: OFF
--- NOTE | 2017-10-12 10:07 | PDOC.PN ---
- Subjective Encounter Start Date: 10/12/17 Encounter Start Time: 13:08 CC: dyspnea Sub: Pt had thoracoscopy done this am. currently on vent support - Objective Resuscitation Status: Resuscitation Status FULL:Full Resuscitation Vital Signs & Weight: Vital Signs (12 hours) Temp Pulse Resp Pulse Ox 10/12/17 07:32 97 10/12/17 07:31 93 17 97 10/12/17 07:00 98.6 F 10/12/17 04:00 98.1 F 10/12/17 03:00 94 L 10/12/17 00:00 98.4 F Weight Admit Weight 88 lb Weight 88 lb 2.958 oz Most Recent Monitor Data Heart Rate from ECG 97 NIBP 120/69 NIBP BP-Mean 92 Respiration from ECG 16 SpO2 91 I&O: 10/11/17 10/12/17 10/13/17 06:59 06:59 06:59 Intake Total 560 740 Output Total 1295 110 Balance 560 -555 -110 Result Diagrams: 10/12/17 05:15 10/12/17 05:15 Phys Exam - Physical Examination Constitutional: NAD HEENT: moist MMs Neck: no JVD positive crackles, positive chest tube, positive rhonchi Gastrointestinal: soft, non-tender no guarding Musculoskeletal: no edema Neurological: non-focal lethargic Skin: no rash Dx/Plan - Plan (1) Chronic obstructive pulmonary disease Status: Chronic Qualifiers: COPD type: chronic bronchitis Chronic bronchitis type: simple Qualified Code(s): J41.0 - Simple chronic bronchitis Comment: with acute exacerbation Management per pulmonary, appreciate their input (2) Hyponatremia Code(s): E87.1 - HYPO-OSMOLALITY AND HYPONATREMIA Status: Resolved (3) Pneumonia due to methicillin resistant Staphylococcus aureus Code(s): J15.212 - PNEUMONIA DUE TO METHICILLIN RESISTANT STAPHYLOCOCCUS AUREUS Status: Acute Qualifiers: Laterality: right Lung location: lower lobe of lung Qualified Code(s): J15.212 - Pneumonia due to Methicillin resistant Staphylococcus aureus Comment: necrotizing pneumonia, present on admit. Off zyvox. Continue zosyn s/o thoracotomy, CTVS on board (4) Severe protein-calorie malnutrition Code(s): E43 - UNSPECIFIED SEVERE PROTEIN-CALORIE MALNUTRITION Status: Chronic Comment: may need to get nutritional support. Ensure TID, removed from fluid count (5) COPD exacerbation Code(s): J44.1 - CHRONIC OBSTRUCTIVE PULMONARY DISEASE W (ACUTE) EXACERBATION Status: Acute Comment: continue nebs, steroids, abx. Pulm following. 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 (8) Acute hypoxemic respiratory failure Code(s): J96.01 - ACUTE RESPIRATORY FAILURE WITH HYPOXIA Status: Acute (9) Empyema of right pleural space Code(s): J86.9 - PYOTHORAX WITHOUT FISTULA Status: Acute - Plan continue antibiotics, PT/OT, respiratory therapy
--- NOTE | 2017-10-12 10:46 | CON ---
DATE OF CONSULTATION: 10/12/2017 HISTORY OF PRESENT ILLNESS: This is a 47-year-old female who appears chronically ill, who was hospit alized in August following a hospitalization and then transferred to rehabilitation. Her hospital stay in August was due to respiratory insufficiency with severe COPD. She required intubation at t hat time. She was placed on antibiotics and steroids, sent to rehabilitation; however, after initial ly doing well, she began to decline functionally complaining of right-sided chest pain and weight los s from her normal weight of 89 to about 80 pounds. She was admitted to this hospital where her initi al chest x-ray was suggestive of right lung pneumonia with no pleural effusion by CT scan. Her white count bridget to about 40,000 and chest x-ray showed pleural fluid yesterday and today appeared to be l oculated. She continues to complain of some right-sided chest pain. MEDICATIONS: Prior to admission included prednisone 20 b.i.d., Levaquin, DuoNeb, Pepcid, Brovana, an d Pulmicort inhalers. Currently, she is on inhalers, Solu-Medrol 20 mg IV q.8 hours, piperacillin q. 6 hours and vancomycin 3 times a day. ALLERGIES: She reports allergies to TRAMADOL and SULFA. PAST SURGICAL HISTORY: Includes . PHYSICAL EXAMINATION: GENERAL: She is a thin lady appearing much much older than her stated age. NECK: Without adenopathy or carotid bruits. LUNGS: Bilateral expiratory wheezes. CARDIAC: Distant heart sounds. No murmur. ABDOMEN: Scaphoid. EXTREMITIES: She has 1-2+ edema in both lower extremities below the knees. She has palpable femoral and popliteal pulses and I do not palpate pedal pulses, but she does have significant edema. IMAGING: Cardiac echo shows normal left ventricular systolic function. Chest x-ray shows a loculate d right pleural effusion with basilar infiltrate and probable emphysematous lung disease with a marke dly increased AP diameter. PLAN: At this time is for thoracoscopy/thoracotomy, placement of a central line and informed consent has been obtained from the patient and son.
[2017-10-12] MEDS: Piperacillin/Tazobactam 3.375 GM in Sodium Chloride 0.9% 100 ML IVPB SCH ×2 (11:34→18:07)
--- NOTE | 2017-10-12 12:26 | OP ---
PREOPERATIVE DIAGNOSIS: Loculated empyema, right chest. POSTOPERATIVE DIAGNOSIS: Loculated empyema, right chest. PROCEDURE: Right thoracoscopy with total lung decortication. DESCRIPTION OF PROCEDURE: After adequate anesthesia had been obtained with a double lumen tube, the patient was placed in the left lateral decubitus position with padding. Trocar site was selected and performed. A 10 mm trocar and scope were then inserted. A second site was chosen for instrumentati on and using grasping forceps, the multiple areas of loculation and debris were freed up. Between ir rigation and removal of loose debris, after about 3 liters of irrigation, the chest cavity appeared t o be clear. There were no further loculations. Specimens were sent for culture. Two chest tubes we re then placed, one at the diaphragm and one at the apex, following which Marcaine was used to infilt rate the trocar sites and chest tubes were then secured to the skin. The patient tolerated the proce dure.
[2017-10-12] MEDS ORDERED: HYDROcodone/Acetaminophen 5/325 mg Tablet PO PRN (13:11)
[2017-10-12] MEDS ORDERED: Fentanyl 100 MCG/2 ML VIAL SLOW IVP PRN (13:11)
[2017-10-12] MEDS: Sodium Chloride 0.9% 1,000 ML IV SCH (13:44)
[2017-10-12 13:57] LABS: Actual Bicarbonate (HCO3a) 32.6 mEq/L (22-26); Base Excess (BEa) 6.7 mEq/L (0 (+/-) 2.5); CO2 Tension 53.5 mmHg (35.0-45.0); Hematocrit-ABG 35.3 % (36.0-47.0); Hemoglobin (Hb) 10.1 g/dL (12.0-16.0); O2 Tension (PaO2) 87.2 mmHg (80.0-100.0)
[2017-10-12 13:58] LABS: ALV-art Gradient 129.125 (0-20); Calcium, Ionized 1.1 mmol/L (1.12-1.30); Puncture Site ALINE
--- NOTE | 2017-10-12 15:34 | RAD ---
PORTABLE SUPINE CHEST: HISTORY: Assess line placement. Post decortication. COMPARISON: Comparison is made to the film earlier this morning taken at 5:20 a.m. FINDINGS: An ET tube is in place with tip well above omar. There are 2 right-sided chest tubes now in place. A central line via the right subclavian vein has its tip overlying the right atrium. There continu es to be opacification of the right lung base and evidence of right effusion. The loculated fluid al claire the right lateral chest wall noted on the earlier film is no longer present. No evidence of sign ificant pneumothorax. The left lung remains clear. IMPRESSION: Post decortication changes as described above. POS: [facility]
[2017-10-12] MEDS ORDERED: PROPOFOL 200 MG/20 ML VIAL ONE (15:55)
[2017-10-12] MEDS ORDERED: Hydrocortisone Sod Succ/PF 100 mg/2 ml Vial ONE (15:55)
[2017-10-12] MEDS ORDERED: Lidocaine 1% PF 5 ML VIAL ONE (15:55)
[2017-10-12] MEDS ORDERED: Glycopyrrolate 0.2 MG/ML 5 ML SYRINGE ONE (15:55)
[2017-10-12] MEDS ORDERED: Ondansetron HCl/PF 4 MG/2 ML Vial ONE (15:55)
[2017-10-12] MEDS ORDERED: Sedation Protocol FS ONE (16:10)
[2017-10-12] MEDS ORDERED: Lorazepam 2 MG/ML VIAL SLOW IVP PRN (16:14)
[2017-10-12] MEDS ORDERED: Propofol 1,000 MG/100 ML VIAL IV PRN (16:14)
[2017-10-12] MEDS ORDERED: Morphine 2 MG/ML SYRINGE SLOW IVP PRN (16:14)
[2017-10-12] MEDS ORDERED: DISCONTINUE PREVIOUS NARCOTIC PAIN MEDICATIONS AND BENZODIAZEPINES FS SCH (16:14)
[2017-10-12] MEDS ORDERED: Fentanyl BOLUS 250 ML IVPB PRN (16:14)
[2017-10-13] MEDS: Piperacillin/Tazobactam 3.375 GM in Sodium Chloride 0.9% 100 ML IVPB SCH ×4 (00:28→17:45)
[2017-10-13] MEDS: guaiFENesin ER 600 MG TAB PO SCH ×3 (01:06→21:19)
[2017-10-13] MEDS: Magnesium Oxide 400 MG TAB PO SCH ×3 (01:06→21:19)
[2017-10-13] MEDS: Megestrol Acetate 40 MG TAB PO SCH ×3 (01:06→21:22)
[2017-10-13] MEDS: Vancomycin HCl 500 MG in Sodium Chloride 0.9% 100 ML IVPB SCH ×2 (01:45→09:24)
[2017-10-13 05:04] LABS: Anion Gap 12 mmol/L (10-20); BUN (Urea Nitrogen) 16 mg/dL (7.0-18.7); Calc. Creatinine Clearance 95 mL/min (70-130); Calcium 8.2 mg/dL (7.8-10.44); Carbon Dioxide 31 mmol/L (22-29); Chloride 94 mmol/L (98-107); Estimated GFR-MDRD Greater than 90; Glucose 128 mg/dL (70-105); Potassium 4.8 mmol/L (3.5-5.1); Sodium 132 mmol/L (136-145)
[2017-10-13 05:07] LABS: Band 7 % (5-11); Hemoglobin 9.4 g/dL (12.0-16.0); Lymphocytes 2 % (21-51); MDiff Complete? YES; Mean Corpuscular HGB CONC 32.2 g/dL (32.0-36.0); Mean Corpuscular Volume 99.2 fl (81.0-99.0); Mean Platelet Volume 6.5 fL (7.4-10.4); Myelocyte 2 % (0-0); Neutrophil 89 % (42-75); Platelet Count 547 thou/uL (130-400); RBC Distribution Width 12.5 % (11.5-14.5); Red Blood Cell (RBC) Count 2.94 mill/uL (4.20-5.40); White Blood Cell (WBC) Count 22.4 thou/uL (4.8-10.8)
[2017-10-13] MEDS: Mometasone/Formoterol 120 PUFF INHALER INH SCH ×2 (06:44→18:55)
[2017-10-13 07:00] LABS: Actual Bicarbonate (HCO3a) 31.9 mEq/L (22-26); Base Excess (BEa) 7.8 mEq/L (0 (+/-) 2.5); O2 Tension (PaO2) 82.2 mmHg (80.0-100.0); pH, Arterial 7.49 (7.35-7.45)
[2017-10-13 07:01] LABS: Calcium, Ionized 1.1 mmol/L (1.12-1.30); Hematocrit-ABG 30.4 % (36.0-47.0); Hemoglobin (Hb) 8.8 g/dL (12.0-16.0); Puncture Site ALINE
[2017-10-13] MEDS ORDERED: DC Sedation Protocol FS ONE (07:39)
--- NOTE | 2017-10-13 07:58 | PRG ---
DATE OF SERVICE: 10/13/2017 SUBJECTIVE: The patient was extubated on the protocol around 7:00 a.m. this morning, and has so far done well. She is awake and alert. OBJECTIVE: VITAL SIGNS: On exam, temperature 99.0, pulse 85, blood pressure 138/63. A 24-hour intake 1435 and output 1062. HEENT: Unremarkable. NECK: No JVD. LUNGS: Clear to auscultation without wheezing. She has 2 chest tubes on the right. CARDIOVASCULAR: S1, S2, slightly tachycardic. ABDOMEN: Soft, nontender. EXTREMITIES: No clubbing, cyanosis, or edema. LABORATORY DATA: White blood cell count 22.4, hemoglobin 9.4, hematocrit 29.1, platelet count 547, p H 7.49, pCO2 of 43, PO2 of 82. Sodium 132, potassium 4.8, chloride 94, CO2 of 31, BUN 16, creatinine 0.4, glucose 128. Micro fluid shows no growth to date. ASSESSMENT: 1. Right-sided empyema. 2. Methicillin-resistant Staphylococcus aureus pneumonia. 3. Severe underlying chronic obstructive pulmonary disease. 4. Acute respiratory failure postoperatively. PLAN: 1. Extubation was performed without difficulty. 2. Continue antibiotics. 3. Increase activity. 4. Continue chest tube drainage. 5. Follow up micro results.
--- NOTE | 2017-10-13 08:22 | RAD ---
FRONTAL RADIOGRAPH CHEST: Date: 10-13-17 Comparison: 10-12-17 History: Re-evaluate lung parenchyma. History of empyema. FINDINGS: Two right sided chest tubes are in stable position. Stable endotracheal tube and right vascular shaka ter. There is increased linear interstitial densities throughout both lungs. There is hazy increased density in the right lung base, stable, which may be on the basis of right ba silar pleural or parenchymal opacity. Aeration in the right lung base has improved since the 10-12-17 exam. Continued follow up is advised. Osseous structures are stable. IMPRESSION: Lines and tubes as above. Persistent density noted in the right lung base suggesting a combination of pleural and parenchymal opacity, improved. Continued follow up advised. POS: [facility]
[2017-10-13 08:24] LABS: Vancomycin, Trough 6.9 ug/mL
[2017-10-13] MEDS: Enoxaparin Sodium 40 MG/0.4 ML SYRINGE SC SCH (09:20)
[2017-10-13] MEDS: Vancomycin HCl 1 GM in Premix Bag 1 BAG IVPB SCH ×3 (10:16→17:16)
[2017-10-13] MEDS: Sodium Chloride 0.9% 1,000 ML IV SCH (10:16)
[2017-10-14] MEDS: Piperacillin/Tazobactam 3.375 GM in Sodium Chloride 0.9% 100 ML IVPB SCH ×6 (00:07→23:46)
[2017-10-14] MEDS: Vancomycin HCl 1 GM in Premix Bag 1 BAG IVPB SCH (01:43)
[2017-10-14 04:51] LABS: Anion Gap 10 mmol/L (10-20); BUN (Urea Nitrogen) 10 mg/dL (7.0-18.7); Calc. Creatinine Clearance 105 mL/min (70-130); Calcium 7.8 mg/dL (7.8-10.44); Carbon Dioxide 32 mmol/L (22-29); Chloride 92 mmol/L (98-107); Estimated GFR-MDRD Greater than 90; Glucose 217 mg/dL (70-105); Potassium 4.3 mmol/L (3.5-5.1); Sodium 130 mmol/L (136-145)
[2017-10-14 05:29] LABS: Band 11 % (5-11); Hemoglobin 8.6 g/dL (12.0-16.0); Lymphocytes 6 % (21-51); MDiff Complete? YES; Mean Corpuscular HGB CONC 32.3 g/dL (32.0-36.0); Mean Corpuscular Hemoglobin 32.2 pg (27.0-31.0); Mean Corpuscular Volume 99.5 fl (81.0-99.0); Mean Platelet Volume 6.3 fL (7.4-10.4); Monocytes 1 % (0-10); Neutrophil 82 % (42-75); Platelet Count 510 thou/uL (130-400); RBC Distribution Width 12.6 % (11.5-14.5); Red Blood Cell (RBC) Count 2.66 mill/uL (4.20-5.40); White Blood Cell (WBC) Count 12.7 thou/uL (4.8-10.8)
[2017-10-14] MEDS: Sodium Chloride 0.9% 1,000 ML IV SCH (06:52)
--- NOTE | 2017-10-14 07:55 | PDOC.PULPN ---
Progress Note: Subj/Obj - Subjective Date: 10/14/17 Time: 07:54 Narrative: not much pain. breathing well - ROS All systems: reviewed and no additional remarkable complaints except as stated - Objective Allergies/Adverse Reactions: Allergies Allergy/AdvReac Type Severity Reaction Status Date / Time tramadol Allergy Unknown Itching Verified 10/02/17 14:09 Sulfa (Sulfonamide Allergy Verified 10/02/17 14:09 Antibiotics) Medications: Current Medications Acetaminophen (Tylenol) 650 mg PO Q4H PRN PRN Reason: Headache/Fever or Pain Last Admin: 10/10/17 11:02 Dose: 650 mg Hydrocodone Bitart/Acetaminophen ([place] 5/325) 1 tab PO Q4H PRN PRN Reason: Pain 1ST LINE Hydrocodone Bitart/Acetaminophen ([place] 5/325) 2 tab PO Q4H PRN PRN Reason: Pain 2ND LINE Albuterol Sulfate (Ventolin) 2.5 mg NEB Q2H PRN PRN Reason: Wheezing Albuterol/Ipratropium (Duoneb) 3 ml NEB [id number] [facility] Last Admin: 10/14/17 03:13 Dose: 3 ml Cyclobenzaprine HCl (Flexeril) 10 mg PO TID PRN PRN Reason: Muscle Spasm Last Admin: 10/11/17 00:10 Dose: 10 mg Enoxaparin Sodium (Lovenox) 40 mg SC 0900 [facility] Last Admin: 10/13/17 09:20 Dose: 40 mg Fentanyl (Sublimaze) 25 mcg SLOW IVP Q2H PRN PRN Reason: Pain 3RD LINE Guaifenesin (Mucinex) 1,200 mg PO Q12HR [facility] Last Admin: 10/13/17 21:19 Dose: 1,200 mg Piperacillin Sod/Tazobactam (Sod 3.375 gm/ Sodium Chloride) 100 mls @ 200 mls/ hr IVPB Q6HR [facility] Last Admin: 10/14/17 05:04 Dose: 100 mls Sodium Chloride (Normal Saline 0.9%) 1,000 mls @ 50 mls/hr IV .Q20H [facility] Last Admin: 10/14/17 06:52 Dose: Not Given Vancomycin HCl 1 gm/ Device 200 mls @ 200 mls/hr IVPB 0200,1000,1800 [facility] Lidocaine HCl (Xylocaine 2% Viscous) 20 ml SSP PC PRN PRN Reason: PAIN IN MOUTH Last Admin: 10/06/17 16:22 Dose: 20 ml Lidocaine HCl (Xylocaine 2% Viscous) 15 ml SSW Q4H PRN PRN Reason: odynophagia Loperamide HCl (Imodium) 2 mg PO .AFTER Bm [facility] Last Admin: 10/10/17 19:39 Dose: 2 mg Lorazepam (Ativan) 1 mg SLOW IVP Q4H PRN PRN Reason: Anxiety/Agitation Last Admin: 10/12/17 08:39 Dose: 1 mg Magnesium Oxide (Magnesium Oxide) 400 mg PO BID [facility] Last Admin: 10/13/17 21:19 Dose: 400 mg Megestrol Acetate (Megace) 20 mg PO BID [facility] Last Admin: 10/13/17 21:22 Dose: 20 mg Methylprednisolone Sodium Succinate (Solu-Medrol) 20 mg IVP Q8HR [facility] Last Admin: 10/14/17 05:04 Dose: 20 mg Miscellaneous Medication (Pharmacy To Dose) 0 each IVPB DAILYPRN PRN PRN Reason: LABS Mometasone Furoate/Formoterol Fumar (Dulera 200 Mcg/5 Mcg Inhaler) 2 puff INH BID-RT [facility] Last Admin: 10/13/17 18:55 Dose: 2 puff Ondansetron HCl (Zofran) 4 mg IVP Q6H PRN PRN Reason: Nausea/Vomiting Last Admin: 10/13/17 13:23 Dose: 4 mg Phenol (Chloraseptic [address] 180 Ml Bot) 0 ml PO Q4H PRN PRN Reason: Sore Throat Last Admin: 10/06/17 16:21 Dose: 1 spr MAR Reviewed: Yes Vital Signs: Vital Signs Temp 97.7 F 10/14/17 07:00 Pulse 89 10/14/17 03:13 Resp 22 H 10/14/17 03:13 BP 126/75 10/13/17 10:31 Pulse Ox 98 10/14/17 03:13 Intake & Output 10/13/17 10/14/17 10/14/17 18:59 06:59 18:59 Intake Total 3166 1870 Output Total 1005 1530 450 Balance 2161 340 -450 Weight 88 lb 2.958 oz Intake: Intake, IV Amount 2025 1269 Piperacillin/Tazobactam 3 200 100 .375 gm In Sodium Chloride 0.9% 100 ml @ 200 mls/hr IVPB Q6HR [facility] Rx#:[id number] Sodium Chloride 0.9% 1, 1326 1170 000 ml @ 50 mls/hr IV . Q20H [facility] Rx#:[id number] Vancomycin HCl 1 gm In 400 Premix Bag 1 bag @ 200 mls/hr IVPB 0200,1000, 1800 [facility] Rx#:[id number] Vancomycin HCl 500 mg In 100 Sodium Chloride 0.9% 100 ml @ 100 mls/hr IVPB 0100 ,0900,1700 [facility] Rx#: [id number] Oral 1140 600 Output: Chest Tube Drainage 270 150 0 Right Lower Mid-Axillary 270 150 0 Chest Output, [place] 735 1380 450 Other: Voiding Method Indwelling Catheter Indwelling Catheter Progress Note: Exam - Physical Exam Constitutional: NAD HEENT: PERRLA, sclera anicteric Neck: no nodes, no JVD Cardiovascular: RRR, no significant murmur Respiratory: clear to auscultation bilaterally Gastrointestinal: soft, no distention Musculoskeletal: no edema Neurological: non-focal, moves all 4 limbs Lymphatic: no nodes Psychiatric: normal affect, A&O x 3 Skin: no rash Progress Note: Data - Labs Result Diagrams: 10/14/17 04:20 10/14/17 04:20 Lab results: Laboratory Results 10/12/17 10/12/17 10/13/17 09:20 13:50 04:20 WBC 22.4 H RBC 2.94 L Hgb 9.4 L Hct 29.1 L MCV 99.2 H MCH 32.0 H MCHC 32.2 RDW 12.5 Plt Count 547 H MPV 6.5 L Neutrophils % (Manual) 89 H Band Neuts % (Manual) 7 Lymphocytes % (Manual) 2 L Monocytes % (Manual) Myelocytes % 2 H Specimen Type ARTERIAL Puncture Site ALVIN Bicarbonate Actual 32.6 H ABG pH 7.40 ABG pCO2 53.5 H ABG pO2 87.2 ABG O2 Sat Calc/Arthur 97.2 ABG O2 Content 13.6 L ABG Base Excess 6.7 H ABG Hematocrit 35.3 L ABG Hemoglobin 10.1 L ABG Oxyhemoglobin 95.1 ABG Carboxyhemoglobin 1.5 ABG Methemoglobin 0.6 A-a O2 Gradient 129.125 H Sodium 130 L Potassium 4.5 Chloride 91 L Ionized Calcium 1.1 L Mode of Support SIMV Mechanical Rate 12 Spontaneous Rate Inspired O2 40 Tidal Volume 400 Spontaneous Tidal Vol Pressure Support 10 PEEP or CPAP 5.0 Carbon Dioxide Anion Gap BUN Creatinine Estimated GFR (MDRD) Glucose Calcium Vancomycin Trough Blood Type A POSITIVE Antibody Screen NEGATIVE 10/13/17 10/13/17 10/13/17 04:20 06:45 08:00 WBC RBC Hgb Hct MCV MCH MCHC RDW Plt Count MPV Neutrophils % (Manual) Band Neuts % (Manual) Lymphocytes % (Manual) Monocytes % (Manual) Myelocytes % Specimen Type ARTERIAL Puncture Site ALVIN Bicarbonate Actual 31.9 H ABG pH 7.49 H ABG pCO2 43.0 ABG pO2 82.2 ABG O2 Sat Calc/Arthur 97.3 ABG O2 Content 11.9 L ABG Base Excess 7.8 H ABG Hematocrit 30.4 L ABG Hemoglobin 8.8 L ABG Oxyhemoglobin 95.2 ABG Carboxyhemoglobin 1.6 ABG Methemoglobin 0.6 A-a O2 Gradient 90.610 H Sodium 132 L 131 L Potassium 4.8 4.5 Chloride 94 L 93 L Ionized Calcium 1.1 L Mode of Support PSV Mechanical Rate Spontaneous Rate 12 Inspired O2 32 Tidal Volume Spontaneous Tidal Vol 512 Pressure Support 10 PEEP or CPAP 5.0 Carbon Dioxide 31 H Anion Gap 12 BUN 16 Creatinine 0.45 L Estimated GFR (MDRD) Greater than 90 Glucose 128 H Calcium 8.2 Vancomycin Trough 6.9 Blood Type Antibody Screen 10/14/17 10/14/17 10/14/17 01:57 04:20 04:20 WBC 12.7 H RBC 2.66 L Hgb 8.6 L Hct 26.5 L MCV 99.5 H MCH 32.2 H MCHC 32.3 RDW 12.6 Plt Count 510 H MPV 6.3 L Neutrophils % (Manual) 82 H Band Neuts % (Manual) 11 Lymphocytes % (Manual) 6 L Monocytes % (Manual) 1 Myelocytes % Specimen Type Puncture Site Bicarbonate Actual ABG pH ABG pCO2 ABG pO2 ABG O2 Sat Calc/Arthur ABG O2 Content ABG Base Excess ABG Hematocrit ABG Hemoglobin ABG Oxyhemoglobin ABG Carboxyhemoglobin ABG Methemoglobin A-a O2 Gradient Sodium 130 L Potassium 4.3 Chloride 92 L Ionized Calcium Mode of Support Mechanical Rate Spontaneous Rate Inspired O2 Tidal Volume Spontaneous Tidal Vol Pressure Support PEEP or CPAP Carbon Dioxide 32 H Anion Gap 10 BUN 10 Creatinine 0.41 L Estimated GFR (MDRD) Greater than 90 Glucose 217 H Calcium 7.8 Vancomycin Trough 12.0 Blood Type Antibody Screen Progress Note: A/P - Problems (1) Pneumonia due to methicillin resistant Staphylococcus aureus Current Visit: Yes Status: Acute Code(s): J15.212 - PNEUMONIA DUE TO METHICILLIN RESISTANT STAPHYLOCOCCUS AUREUS Qualifiers: Laterality: right Lung location: lower lobe of lung Qualified Code(s): J15.212 - Pneumonia due to Methicillin resistant Staphylococcus aureus Assessment and Plan: Improved. Continuing IV ABX (2) Hyponatremia Current Visit: Yes Status: Resolved Code(s): E87.1 - HYPO-OSMOLALITY AND HYPONATREMIA (3) Chronic obstructive pulmonary disease Current Visit: Yes Status: Chronic Qualifiers: COPD type: chronic bronchitis Chronic bronchitis type: simple Qualified Code(s): J41.0 - Simple chronic bronchitis (4) Thrush, oral Current Visit: Yes Status: Acute Code(s): B37.0 - CANDIDAL STOMATITIS (5) Empyema of right pleural space Current Visit: Yes Status: Acute Code(s): J86.9 - PYOTHORAX WITHOUT FISTULA Assessment and Plan: Continuing Chest tube drainage - Plan Plan: Transfer to floor when GATO Rodriguez
[2017-10-14] MEDS: Mometasone/Formoterol 120 PUFF INHALER INH SCH ×2 (08:17→19:25)
[2017-10-14] MEDS: Magnesium Oxide 400 MG TAB PO SCH ×2 (08:57→21:43)
[2017-10-14] MEDS: guaiFENesin ER 600 MG TAB PO SCH ×2 (08:57→21:43)
[2017-10-14] MEDS: Megestrol Acetate 40 MG TAB PO SCH ×2 (08:57→21:47)
[2017-10-14] MEDS: Enoxaparin Sodium 40 MG/0.4 ML SYRINGE SC SCH (08:58)
[2017-10-14 09:47] LABS: Vancomycin, Random 10.1 ug/mL (See Comment)
[2017-10-14] MEDS ORDERED: Vancomycin HCl 1 GM in Premix Bag 1 BAG IVPB SCH (10:00)
[2017-10-14] MEDS: Vancomycin HCl 750 MG in Sodium Chloride 0.9% 250 ML 250 ML IVPB SCH ×3 (11:07→22:23)
[2017-10-14] MEDS ORDERED: Pantoprazole 40 MG VIAL IVP SCH (11:15)
[2017-10-14] MEDS: HYDROcodone/Acetaminophen 5/325 mg Tablet PO PRN ×2 (12:25→21:41)
[2017-10-14] MEDS: Calcium Carbonate 500 MG ChewTAB PO PRN ×2 (12:25→21:41)
--- NOTE | 2017-10-14 16:28 | PDOC.PN ---
- Subjective Encounter Start Date: 10/13/17 Encounter Start Time: 10:00 Patient is Extubated this morning she is doing fine, no other Concenr snoted. She tolerated breakfast . - Objective Resuscitation Status: Resuscitation Status FULL:Full Resuscitation MAR Reviewed: Yes Vital Signs & Weight: Vital Signs (12 hours) Temp Pulse Pulse Pulse Pulse Resp BP 10/14/17 14:41 82 19 10/14/17 12:00 98.3 F 10/14/17 11:04 92 91 91 117/63 10/14/17 10:31 86 17 10/14/17 08:19 10/14/17 08:15 85 24 H 10/14/17 07:25 97.7 F 78 20 10/14/17 07:00 97.7 F BP BP Pulse Ox Pulse Ox Pulse Ox Pulse Ox 10/14/17 14:41 99 10/14/17 12:00 10/14/17 11:04 97/75 116/62 90 L 95 92 L 10/14/17 10:31 98 10/14/17 08:19 96 10/14/17 08:15 98 10/14/17 07:25 98 10/14/17 07:00 Weight Admit Weight 88 lb Weight 88 lb 2.958 oz Most Recent Monitor Data Heart Rate from ECG 87 NIBP 116/65 NIBP BP-Mean 78 Respiration from ECG 18 SpO2 98 I&O: 10/13/17 10/14/17 10/15/17 06:59 06:59 06:59 Intake Total 1435 5036 940 Output Total 1062 2535 1407 Balance 373 1627 -521 Result Diagrams: 10/14/17 04:20 10/14/17 04:20 Radiology Reviewed by me: Yes Phys Exam - Physical Examination HEENT: PERRLA, moist MMs Neck: no nodes, no JVD Respiratory: no rales (Reduced breath soudns to Right Lung with Chest tube with Suction) Cardiovascular: RRR, no significant murmur Gastrointestinal: soft, non-tender Musculoskeletal: no edema Neurological: non-focal, normal sensation Lymphatic: no nodes Psychiatric: normal affect, A&O x 3 Dx/Plan (1) Pneumonia due to methicillin resistant Staphylococcus aureus Code(s): J15.212 - PNEUMONIA DUE TO METHICILLIN RESISTANT STAPHYLOCOCCUS AUREUS Status: Acute Qualifiers: Laterality: right Lung location: lower lobe of lung Qualified Code(s): J15.212 - Pneumonia due to Methicillin resistant Staphylococcus aureus Comment: necrotizing pneumonia, rpesent on admit. on zyvox and doxy. planning 14 days total abx rx. Bcx negative. pulm following (2) Acute hypoxemic respiratory failure Code(s): J96.01 - ACUTE RESPIRATORY FAILURE WITH HYPOXIA Status: Acute Comment: improving now, with Extubation and on nsal canula, pt saturating well. (3) Empyema of right pleural space Code(s): J86.9 - PYOTHORAX WITHOUT FISTULA Status: Acute Comment: Pt has chest Tube with Suction underwater seal. (4) Chronic obstructive pulmonary disease Status: Chronic Qualifiers: COPD type: chronic bronchitis Chronic bronchitis type: simple Qualified Code(s): J41.0 - Simple chronic bronchitis Comment: with acute exacerbation (5) Severe protein-calorie malnutrition Code(s): E43 - UNSPECIFIED SEVERE PROTEIN-CALORIE MALNUTRITION Status: Chronic Comment: may need to get nutritional support. Ensure TID, removed from fluid count (6) Hyponatremia Code(s): E87.1 - HYPO-OSMOLALITY AND HYPONATREMIA Status: Resolved - Plan cont current plan of care, plan discussed w/ family, continue antibiotics, PT/OT , social work specialist, respiratory therapy, incentive spirometry, DVT proph w/ lovenox * . - Discharge Day Encounter end time: 10:35 Review of Systems - Review of Systems Constitutional: negative: fever, chills, sweats, weakness, malaise, other Eyes: negative: Pain, Vision Change, Conjunctivae Inflammation, Eyelid Inflammation, Redness, Other ENT: negative: Ear Pain, Ear Discharge, Nose Pain, Nose Discharge, Nose Congestion, Mouth Pain, Mouth Swelling, Throat Pain, Throat Swelling, Other Respiratory: Cough, Shortness of Breath, Pleuritic Pain Cardiovascular: negative: chest pain, palpitations, orthopnea, paroxysmal nocturnal dyspnea, edema, light headedness, other Gastrointestinal: negative: Nausea, Vomiting, Abdominal Pain, Diarrhea, Constipation, Melena, Hematochezia, Other Genitourinary: negative: Dysuria, Frequency, Incontinence, Hematuria, Retention , Other Musculoskeletal: negative: Neck Pain, Shoulder Pain, Arm Pain, Back Pain, Hand Pain, Leg Pain, Foot Pain, Other Skin: negative: Rash, Lesions, Jun, Bruising, Other - Medications/Allergies Allergies/Adverse Reactions: Allergies Allergy/AdvReac Type Severity Reaction Status Date / Time tramadol Allergy Unknown Itching Verified 10/02/17 14:09 Sulfa (Sulfonamide Allergy Verified 10/02/17 14:09 Antibiotics) Medications: Current Medications Acetaminophen (Tylenol) 650 mg PO Q4H PRN PRN Reason: Headache/Fever or Pain Last Admin: 10/10/17 11:02 Dose: 650 mg Hydrocodone Bitart/Acetaminophen ([place] 5/325) 1 tab PO Q4H PRN PRN Reason: Pain 1ST LINE Last Admin: 10/14/17 12:25 Dose: 1 tab Hydrocodone Bitart/Acetaminophen ([place] 5/325) 2 tab PO Q4H PRN PRN Reason: Pain 2ND LINE Albuterol Sulfate (Ventolin) 2.5 mg NEB Q2H PRN PRN Reason: Wheezing Albuterol/Ipratropium (Duoneb) 3 ml NEB [id number] [facility] Last Admin: 10/14/17 14:41 Dose: 3 ml Calcium Carbonate (Tums) 1,000 mg PO Q6H PRN PRN Reason: INDIGESTION Last Admin: 10/14/17 12:25 Dose: 1,000 mg Cyclobenzaprine HCl (Flexeril) 10 mg PO TID PRN PRN Reason: Muscle Spasm Last Admin: 10/11/17 00:10 Dose: 10 mg Enoxaparin Sodium (Lovenox) 40 mg SC 0900 [facility] Last Admin: 10/14/17 08:58 Dose: 40 mg Fentanyl (Sublimaze) 25 mcg SLOW IVP Q2H PRN PRN Reason: Pain 3RD LINE Guaifenesin (Mucinex) 1,200 mg PO Q12HR [facility] Last Admin: 10/14/17 08:57 Dose: 1,200 mg Piperacillin Sod/Tazobactam (Sod 3.375 gm/ Sodium Chloride) 100 mls @ 200 mls/ hr IVPB Q6HR [facility] Last Admin: 10/14/17 12:25 Dose: 100 mls Vancomycin HCl 750 mg/ Sodium (Chloride) 250 mls @ 250 mls/hr IVPB 0500,1100, 1700,2300 [facility] Last Admin: 10/14/17 11:07 Dose: 250 mls Lidocaine HCl (Xylocaine 2% Viscous) 15 ml SSW Q4H PRN PRN Reason: odynophagia Loperamide HCl (Imodium) 2 mg PO .AFTER Bm [facility] Last Admin: 10/10/17 19:39 Dose: 2 mg Lorazepam (Ativan) 1 mg SLOW IVP Q4H PRN PRN Reason: Anxiety/Agitation Last Admin: 10/12/17 08:39 Dose: 1 mg Magnesium Oxide (Magnesium Oxide) 400 mg PO BID [facility] Last Admin: 10/14/17 08:57 Dose: 400 mg Megestrol Acetate (Megace) 20 mg PO BID [facility] Last Admin: 10/14/17 08:57 Dose: 20 mg Methylprednisolone Sodium Succinate (Solu-Medrol) 20 mg IVP Q12HR [facility] Miscellaneous Medication (Pharmacy To Dose) 0 each IVPB DAILYPRN PRN PRN Reason: LABS Mometasone Furoate/Formoterol Fumar (Dulera 200 Mcg/5 Mcg Inhaler) 2 puff INH BID-RT [facility] Last Admin: 10/14/17 08:17 Dose: 2 puff Ondansetron HCl (Zofran) 4 mg IVP Q6H PRN PRN Reason: Nausea/Vomiting Last Admin: 10/13/17 13:23 Dose: 4 mg Pantoprazole Sodium (Protonix) 40 mg IVP DAILY [facility] Phenol (Chloraseptic [place] 180 Ml Bot) 0 ml PO Q4H PRN PRN Reason: Sore Throat Last Admin: 10/06/17 16:21 Dose: 1 spr
--- NOTE | 2017-10-14 16:31 | PDOC.PN ---
- Subjective Encounter Start Date: 10/14/17 Encounter Start Time: 15:00 Patient is seen today, Doing much better with persistant right Chest pain pleuritic type. No diarrhea. - Objective Resuscitation Status: Resuscitation Status FULL:Full Resuscitation MAR Reviewed: Yes Vital Signs & Weight: Vital Signs (12 hours) Temp Pulse Pulse Pulse Pulse Resp BP 10/14/17 14:41 82 19 10/14/17 12:00 98.3 F 10/14/17 11:04 92 91 91 117/63 10/14/17 10:31 86 17 10/14/17 08:19 10/14/17 08:15 85 24 H 10/14/17 07:25 97.7 F 78 20 10/14/17 07:00 97.7 F BP BP Pulse Ox Pulse Ox Pulse Ox Pulse Ox 10/14/17 14:41 99 10/14/17 12:00 10/14/17 11:04 97/75 116/62 90 L 95 92 L 10/14/17 10:31 98 10/14/17 08:19 96 10/14/17 08:15 98 10/14/17 07:25 98 10/14/17 07:00 Weight Admit Weight 88 lb Weight 88 lb 2.958 oz Most Recent Monitor Data Heart Rate from ECG 87 NIBP 116/65 NIBP BP-Mean 78 Respiration from ECG 18 SpO2 98 I&O: 10/13/17 10/14/17 10/15/17 06:59 06:59 06:59 Intake Total 1435 5036 940 Output Total 1062 2535 1407 Balance 373 0611 -467 Result Diagrams: 10/14/17 04:20 10/14/17 04:20 Radiology Reviewed by me: Yes Phys Exam - Physical Examination HEENT: PERRLA, moist MMs Neck: no nodes, no JVD Respiratory: wheezing present Cardiovascular: RRR, no significant murmur Gastrointestinal: soft, non-tender Musculoskeletal: no edema, pulses present Neurological: non-focal, normal sensation Lymphatic: no nodes Psychiatric: normal affect, A&O x 3 Dx/Plan (1) Hyponatremia Code(s): E87.1 - HYPO-OSMOLALITY AND HYPONATREMIA Status: Resolved Comment: Persistant, Will start on NS at 75 Ml/hr, 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 (2) Pneumonia due to methicillin resistant Staphylococcus aureus Code(s): J15.212 - PNEUMONIA DUE TO METHICILLIN RESISTANT STAPHYLOCOCCUS AUREUS Status: Acute Qualifiers: Laterality: right Lung location: lower lobe of lung Qualified Code(s): J15.212 - Pneumonia due to Methicillin resistant Staphylococcus aureus Comment: necrotizing pneumonia, rpesent on admit. on zyvox and doxy. planning 14 days total abx rx. Bcx negative. pulm following (3) Acute hypoxemic respiratory failure Code(s): J96.01 - ACUTE RESPIRATORY FAILURE WITH HYPOXIA Status: Acute Comment: improving now, with Extubation and on nsal canula, pt saturating well. (4) Empyema of right pleural space Code(s): J86.9 - PYOTHORAX WITHOUT FISTULA Status: Acute Comment: Pt has chest Tube with Suction underwater seal. (5) Chronic obstructive pulmonary disease Status: Chronic Qualifiers: COPD type: chronic bronchitis Chronic bronchitis type: simple Qualified Code(s): J41.0 - Simple chronic bronchitis Comment: with acute exacerbation (6) Severe protein-calorie malnutrition Code(s): E43 - UNSPECIFIED SEVERE PROTEIN-CALORIE MALNUTRITION Status: Chronic Comment: may need to get nutritional support. Ensure TID, removed from fluid count - Plan * . - Discharge Day Encounter end time: 15:35 Review of Systems - Review of Systems Eyes: negative: Pain, Vision Change, Conjunctivae Inflammation, Eyelid Inflammation, Redness, Other ENT: negative: Ear Pain, Ear Discharge, Nose Pain, Nose Discharge, Nose Congestion, Mouth Pain, Mouth Swelling, Throat Pain, Throat Swelling, Other Respiratory: Cough, Pleuritic Pain Cardiovascular: negative: chest pain, palpitations, orthopnea, paroxysmal nocturnal dyspnea, edema, light headedness, other Gastrointestinal: negative: Nausea, Vomiting, Abdominal Pain, Diarrhea, Constipation, Melena, Hematochezia, Other Genitourinary: negative: Dysuria, Frequency, Incontinence, Hematuria, Retention , Other Musculoskeletal: negative: Neck Pain, Shoulder Pain, Arm Pain, Back Pain, Hand Pain, Leg Pain, Foot Pain, Other Neurological: negative: Weakness, Numbness, Incoordination, Change in Speech, Confusion, Seizures, Other - Medications/Allergies Allergies/Adverse Reactions: Allergies Allergy/AdvReac Type Severity Reaction Status Date / Time tramadol Allergy Unknown Itching Verified 10/02/17 14:09 Sulfa (Sulfonamide Allergy Verified 10/02/17 14:09 Antibiotics) Medications: Current Medications Acetaminophen (Tylenol) 650 mg PO Q4H PRN PRN Reason: Headache/Fever or Pain Last Admin: 10/10/17 11:02 Dose: 650 mg Hydrocodone Bitart/Acetaminophen ([place] 5/325) 1 tab PO Q4H PRN PRN Reason: Pain 1ST LINE Last Admin: 10/14/17 12:25 Dose: 1 tab Hydrocodone Bitart/Acetaminophen ([place] 5/325) 2 tab PO Q4H PRN PRN Reason: Pain 2ND LINE Albuterol Sulfate (Ventolin) 2.5 mg NEB Q2H PRN PRN Reason: Wheezing Albuterol/Ipratropium (Duoneb) 3 ml NEB [id number] [facility] Last Admin: 10/14/17 14:41 Dose: 3 ml Calcium Carbonate (Tums) 1,000 mg PO Q6H PRN PRN Reason: INDIGESTION Last Admin: 10/14/17 12:25 Dose: 1,000 mg Cyclobenzaprine HCl (Flexeril) 10 mg PO TID PRN PRN Reason: Muscle Spasm Last Admin: 10/11/17 00:10 Dose: 10 mg Enoxaparin Sodium (Lovenox) 40 mg SC 0900 [facility] Last Admin: 10/14/17 08:58 Dose: 40 mg Fentanyl (Sublimaze) 25 mcg SLOW IVP Q2H PRN PRN Reason: Pain 3RD LINE Guaifenesin (Mucinex) 1,200 mg PO Q12HR [facility] Last Admin: 10/14/17 08:57 Dose: 1,200 mg Piperacillin Sod/Tazobactam (Sod 3.375 gm/ Sodium Chloride) 100 mls @ 200 mls/ hr IVPB Q6HR [facility] Last Admin: 10/14/17 12:25 Dose: 100 mls Vancomycin HCl 750 mg/ Sodium (Chloride) 250 mls @ 250 mls/hr IVPB 0500,1100, 1700,2300 [facility] Last Admin: 10/14/17 11:07 Dose: 250 mls Lidocaine HCl (Xylocaine 2% Viscous) 15 ml SSW Q4H PRN PRN Reason: odynophagia Loperamide HCl (Imodium) 2 mg PO .AFTER Bm [facility] Last Admin: 10/10/17 19:39 Dose: 2 mg Lorazepam (Ativan) 1 mg SLOW IVP Q4H PRN PRN Reason: Anxiety/Agitation Last Admin: 10/12/17 08:39 Dose: 1 mg Magnesium Oxide (Magnesium Oxide) 400 mg PO BID [facility] Last Admin: 10/14/17 08:57 Dose: 400 mg Megestrol Acetate (Megace) 20 mg PO BID [facility] Last Admin: 10/14/17 08:57 Dose: 20 mg Methylprednisolone Sodium Succinate (Solu-Medrol) 20 mg IVP Q12HR [facility] Miscellaneous Medication (Pharmacy To Dose) 0 each IVPB DAILYPRN PRN PRN Reason: LABS Mometasone Furoate/Formoterol Fumar (Dulera 200 Mcg/5 Mcg Inhaler) 2 puff INH BID-RT [facility] Last Admin: 10/14/17 08:17 Dose: 2 puff Ondansetron HCl (Zofran) 4 mg IVP Q6H PRN PRN Reason: Nausea/Vomiting Last Admin: 10/13/17 13:23 Dose: 4 mg Pantoprazole Sodium (Protonix) 40 mg IVP DAILY [facility] Phenol (Chloraseptic [place] 180 Ml Bot) 0 ml PO Q4H PRN PRN Reason: Sore Throat Last Admin: 10/06/17 16:21 Dose: 1 spr
[2017-10-14 16:37] LABS: Vancomycin, Random 8.1 ug/mL (See Comment)
[2017-10-15 05:59] LABS: Band 3 % (5-11); Hemoglobin 9.7 g/dL (12.0-16.0); Lymphocytes 5 % (21-51); MDiff Complete? YES; Macrocytosis MODERATE=16-30 cells (100X) (0-5/hpf); Mean Corpuscular HGB CONC 32.3 g/dL (32.0-36.0); Mean Corpuscular Hemoglobin 32.5 pg (27.0-31.0); Mean Platelet Volume 6.3 fL (7.4-10.4); Monocytes 2 % (0-10); Neutrophil 90 % (42-75); Nucleated RBC 1 % (0); Platelet Count 565 thou/uL (130-400); RBC Distribution Width 12.4 % (11.5-14.5); Red Blood Cell (RBC) Count 2.99 mill/uL (4.20-5.40); Vancomycin, Trough 10.9 ug/mL; White Blood Cell (WBC) Count 13.6 thou/uL (4.8-10.8)
[2017-10-15 06:00] LABS: Anion Gap 7 mmol/L (10-20); BUN (Urea Nitrogen) 9 mg/dL (7.0-18.7); Calc. Creatinine Clearance 105 mL/min (70-130); Carbon Dioxide 37 mmol/L (22-29); Chloride 93 mmol/L (98-107); Estimated GFR-MDRD Greater than 90; Glucose 141 mg/dL (70-105); Potassium 4.5 mmol/L (3.5-5.1); Sodium 132 mmol/L (136-145)
[2017-10-15] MEDS: Piperacillin/Tazobactam 3.375 GM in Sodium Chloride 0.9% 100 ML IVPB SCH (06:08)
[2017-10-15] MEDS: Vancomycin HCl 1 GM in Premix Bag 1 BAG IVPB SCH ×4 (06:54→23:48)
[2017-10-15] MEDS: Vancomycin HCl 750 MG in Sodium Chloride 0.9% 250 ML 250 ML IVPB SCH (07:36)
--- NOTE | 2017-10-15 08:34 | RAD ---
CHEST 1 VIEW: Date: 10/15/17 HISTORY: Empyema. Follow-up. COMPARISON: 10/13/17. FINDINGS: Cardiac silhouette is magnified by projection. Lungs remain hyperinflated. Parenchymal opacity at the right base is similar in appearance to the prior study. Two right thoracostomy tubes remain in place . No significant residual pneumothorax is apparent. Endotracheal catheter is no longer visible. Other lines and tubes are unchanged in position. IMPRESSION: Interval extubation. Otherwise stable post-traumatic appearance of the chest. POS: ANGUS
[2017-10-15] MEDS: guaiFENesin ER 600 MG TAB PO SCH ×2 (08:51→21:31)
[2017-10-15] MEDS: Magnesium Oxide 400 MG TAB PO SCH ×2 (08:51→21:31)
[2017-10-15] MEDS: Megestrol Acetate 40 MG TAB PO SCH ×2 (08:51→21:31)
[2017-10-15] MEDS: Enoxaparin Sodium 40 MG/0.4 ML SYRINGE SC SCH (08:51)
[2017-10-15] MEDS ORDERED: Pantoprazole 40 MG VIAL IVP SCH (09:00)
[2017-10-15] MEDS: Mometasone/Formoterol 120 PUFF INHALER INH SCH ×2 (09:39→19:16)
--- NOTE | 2017-10-15 09:45 | PRG ---
DATE OF SERVICE: 10/15/2017 The patient is feeling better. She wants to go home. PHYSICAL EXAMINATION: VITAL SIGNS: Temperature 97.3, pulse 86, respiration 16, O2 sat 92%, blood pressure 126/69. HEENT: Unremarkable. NECK: No JVD. CHEST: Fairly clear. She has chest tubes in place. CARDIAC: S1 and S2 regular. ABDOMEN: Soft. EXTREMITIES: Trace edema. LABORATORY DATA: White blood cell count 13.6, hemoglobin 9.7, hematocrit 30, platelet count 565. So dium 132, potassium 4.5, chloride 93, CO2 37, BUN 9, creatinine 0.4, glucose 141. ASSESSMENT: 1. Status post evacuation of a right-sided empyema. 2. Status post acute respiratory failure. 3. Pneumonia. 4. Underlying severe chronic obstructive pulmonary disease. 5. Hyponatremia. PLAN: 1. Continue Pleurovac drainage. 2. Methicillin-resistant Staphylococcus aureus is growing from her cultures. Therefore, I think we can continue the vancomycin and stop the Zosyn. 3. Consider rehab placement. 4. She will need at least 14 total days of vancomycin.
[2017-10-15 10:22] LABS: Fungus Stain Final report (.)
[2017-10-15] MEDS: HYDROcodone/Acetaminophen 5/325 mg Tablet PO PRN (21:52)
[2017-10-16 05:21] LABS: Vancomycin, Trough 15.1 ug/mL
[2017-10-16] MEDS: Vancomycin HCl 1 GM in Premix Bag 1 BAG IVPB SCH ×3 (05:56→17:58)
--- NOTE | 2017-10-16 07:42 | RAD ---
CHEST 1 VIEW: Date: 10/16/17 HISTORY: Empyema. COMPARISON: Chest 1 view from prior day. FINDINGS: There are two thoracostomy tubes in place, similar appearance. No large pneumothorax. There is volume loss right lower and right middle lobes. Small effusion. Left lung base has some atelectasis. Cardiac silhouette and mediastinal contour similar. Central venous catheter tip in cavoatrial junctio n. IMPRESSION: Similar appearance of the chest. POS: [facility]
[2017-10-16] MEDS: Megestrol Acetate 40 MG TAB PO SCH ×2 (08:08→20:34)
[2017-10-16] MEDS: Enoxaparin Sodium 40 MG/0.4 ML SYRINGE SC SCH (08:09)
[2017-10-16] MEDS: guaiFENesin ER 600 MG TAB PO SCH ×2 (08:09→20:35)
[2017-10-16] MEDS: Magnesium Oxide 400 MG TAB PO SCH ×2 (08:09→20:35)
[2017-10-16] MEDS: Mometasone/Formoterol 120 PUFF INHALER INH SCH ×2 (09:13→19:55)
--- NOTE | 2017-10-16 09:52 | PRG ---
DATE OF SERVICE: 10/16/2017 SUBJECTIVE: She is in good spirit, so she is starting to feel much better. OBJECTIVE: VITAL SIGNS: Temperature is 98.5, pulse 92, respiration 20, O2 saturation 92% on 2.5 liters, and blo od pressure 115/66. HEENT: Unremarkable. NECK: No JVD. LUNGS: Clear, two chest tubes are place in the right. CARDIAC: S1 and S2, regular. ABDOMEN: Soft. EXTREMITIES: No edema. IMAGING: Chest x-ray is stable. LABORATORY DATA: No new labs were done today. ASSESSMENT: 1. Status post evacuation of a right-sided empyema that is methicillin-resistant staphylococcus nato us. 2. Underlying severe chronic obstructive pulmonary disease. 3. Status post acute respiratory failure. PLAN: The patient will remain in the hospital until the chest tubes are out. She is continuing the vancomycin. She will likely need vancomycin for a total of 14 days and this may need to be done in t he rehabilitation setting, following with you.
--- NOTE | 2017-10-16 15:45 | PDOC.PN ---
- Subjective Encounter Start Date: 10/15/17 Encounter Start Time: 09:00 Patient is seen today , hiuband at Bedside, No other concenrsnoted, pt with chest tube with pleurovac. - Objective Resuscitation Status: Resuscitation Status FULL:Full Resuscitation MAR Reviewed: Yes Vital Signs & Weight: Vital Signs (12 hours) Temp Pulse Resp BP BP Pulse Ox 10/16/17 15:20 98.8 F 105 H 16 114/65 95 10/16/17 12:08 100 24 H 10/16/17 11:47 98.5 F 101 H 20 115/69 94 L 10/16/17 09:13 92 20 95 10/16/17 09:00 95 10/16/17 08:57 92 20 95 10/16/17 08:09 98.5 F 80 16 97 10/16/17 08:08 98.5 F 80 16 115/66 97 10/16/17 04:18 98.9 F 80 17 120/76 99 Weight Admit Weight 88 lb Weight 88 lb 2.958 oz Most Recent Monitor Data Heart Rate from ECG 87 NIBP 116/65 NIBP BP-Mean 78 Respiration from ECG 18 SpO2 98 I&O: 10/15/17 10/16/17 10/17/17 06:59 06:59 06:59 Intake Total 1190 2613 640 Output Total 1567 4690 1300 [facility] -377 -2077 -660 Result Diagrams: 10/15/17 04:10 10/15/17 04:10 Radiology Reviewed by me: Yes Phys Exam - Physical Examination HEENT: PERRLA, moist MMs Neck: no nodes, no JVD Respiratory: wheezing present Cardiovascular: RRR, no significant murmur Gastrointestinal: soft, non-tender Musculoskeletal: no edema, pulses present Neurological: non-focal, normal sensation Lymphatic: no nodes Dx/Plan (1) Hyponatremia Code(s): E87.1 - HYPO-OSMOLALITY AND HYPONATREMIA Status: Resolved Comment: Persistant, Will continue on NS at 75 Ml/hr, 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 (2) Pneumonia due to methicillin resistant Staphylococcus aureus Code(s): J15.212 - PNEUMONIA DUE TO METHICILLIN RESISTANT STAPHYLOCOCCUS AUREUS Status: Acute Qualifiers: Laterality: right Lung location: lower lobe of lung Qualified Code(s): J15.212 - Pneumonia due to Methicillin resistant Staphylococcus aureus Comment: necrotizing pneumonia, rpesent on admit. on zyvox and doxy. planning 14 days total abx rx. Bcx negative. pulm following (3) Acute hypoxemic respiratory failure Code(s): J96.01 - ACUTE RESPIRATORY FAILURE WITH HYPOXIA Status: Acute Comment: improving now, with Extubation and on nsal canula, pt saturating well. (4) Empyema of right pleural space Code(s): J86.9 - PYOTHORAX WITHOUT FISTULA Status: Acute Comment: Pt has chest Tube with Suction underwater seal. (5) Chronic obstructive pulmonary disease Status: Chronic Qualifiers: COPD type: chronic bronchitis Chronic bronchitis type: simple Qualified Code(s): J41.0 - Simple chronic bronchitis Comment: with acute exacerbation (6) Severe protein-calorie malnutrition Code(s): E43 - UNSPECIFIED SEVERE PROTEIN-CALORIE MALNUTRITION Status: Chronic Comment: may need to get nutritional support. Ensure TID, removed from fluid count - Plan cont current plan of care, plan discussed w/ family, continue antibiotics, PT/OT , social research assistant, incentive spirometry, DVT proph w/lovenox * . - Discharge Day Encounter end time: 09:35 Review of Systems - Review of Systems Eyes: negative: Pain, Vision Change, Conjunctivae Inflammation, Eyelid Inflammation, Redness, Other ENT: negative: Ear Pain, Ear Discharge, Nose Pain, Nose Discharge, Nose Congestion, Mouth Pain, Mouth Swelling, Throat Pain, Throat Swelling, Other Respiratory: negative: Cough, Dry, Shortness of Breath, Hemoptysis, SOB with Excertion, Pleuritic Pain, Sputum, Wheezing Cardiovascular: negative: chest pain, palpitations, orthopnea, paroxysmal nocturnal dyspnea, edema, light headedness, other Gastrointestinal: negative: Nausea, Vomiting, Abdominal Pain, Diarrhea, Constipation, Melena, Hematochezia, Other Musculoskeletal: negative: Neck Pain, Shoulder Pain, Arm Pain, Back Pain, Hand Pain, Leg Pain, Foot Pain, Other - Medications/Allergies Allergies/Adverse Reactions: Allergies Allergy/AdvReac Type Severity Reaction Status Date / Time tramadol Allergy Unknown Itching Verified 10/02/17 14:09 Sulfa (Sulfonamide Allergy Verified 10/02/17 14:09 Antibiotics) Medications: Current Medications Acetaminophen (Tylenol) 650 mg PO Q4H PRN PRN Reason: Headache/Fever or Pain Last Admin: 10/10/17 11:02 Dose: 650 mg Hydrocodone Bitart/Acetaminophen ([place] 5/325) 1 tab PO Q4H PRN PRN Reason: Pain 1ST LINE Last Admin: 10/15/17 21:52 Dose: 1 tab Hydrocodone Bitart/Acetaminophen ([place] 5/325) 2 tab PO Q4H PRN PRN Reason: Pain 2ND LINE Albuterol Sulfate (Ventolin) 2.5 mg NEB Q2H PRN PRN Reason: Wheezing Albuterol/Ipratropium (Duoneb) 3 ml NEB [id number] [facility] Last Admin: 10/16/17 12:08 Dose: 3 ml Calcium Carbonate (Tums) 1,000 mg PO Q6H PRN PRN Reason: INDIGESTION Last Admin: 10/14/17 21:41 Dose: 1,000 mg Cyclobenzaprine HCl (Flexeril) 10 mg PO TID PRN PRN Reason: Muscle Spasm Last Admin: 10/11/17 00:10 Dose: 10 mg Enoxaparin Sodium (Lovenox) 40 mg SC 0900 [facility] Last Admin: 10/16/17 08:09 Dose: 40 mg Fentanyl (Sublimaze) 25 mcg SLOW IVP Q2H PRN PRN Reason: Pain 3RD LINE Guaifenesin (Mucinex) 1,200 mg PO Q12HR [facility] Last Admin: 10/16/17 08:09 Dose: 1,200 mg Vancomycin HCl 1 gm/ Device 200 mls @ 200 mls/hr IVPB Q6HR [facility] Last Admin: 10/16/17 12:45 Dose: 200 mls Lidocaine HCl (Xylocaine 2% Viscous) 15 ml SSW Q4H PRN PRN Reason: odynophagia Loperamide HCl (Imodium) 2 mg PO .AFTER Bm [facility] Last Admin: 10/10/17 19:39 Dose: 2 mg Lorazepam (Ativan) 1 mg SLOW IVP Q4H PRN PRN Reason: Anxiety/Agitation Last Admin: 10/12/17 08:39 Dose: 1 mg Magnesium Oxide (Magnesium Oxide) 400 mg PO BID [facility] Last Admin: 10/16/17 08:09 Dose: 400 mg Megestrol Acetate (Megace) 20 mg PO BID [facility] Last Admin: 10/16/17 08:08 Dose: 20 mg Methylprednisolone Sodium Succinate (Solu-Medrol) 20 mg IVP Q12HR [facility] Last Admin: 10/16/17 08:08 Dose: 20 mg Miscellaneous Medication (Pharmacy To Dose) 0 each IVPB DAILYPRN PRN PRN Reason: LABS Mometasone Furoate/Formoterol Fumar (Dulera 200 Mcg/5 Mcg Inhaler) 2 puff INH BID-RT [facility] Last Admin: 10/16/17 09:13 Dose: 2 puff Ondansetron HCl (Zofran) 4 mg IVP Q6H PRN PRN Reason: Nausea/Vomiting Last Admin: 10/13/17 13:23 Dose: 4 mg Pantoprazole Sodium (Protonix) 40 mg PO DAILY [facility] Last Admin: 10/16/17 08:08 Dose: 40 mg Phenol (Chloraseptic [place] 180 Ml Bot) 0 ml PO Q4H PRN PRN Reason: Sore Throat Last Admin: 10/06/17 16:21 Dose: 1 spr
--- NOTE | 2017-10-16 15:47 | PDOC.PN ---
- Subjective Encounter Start Date: 10/16/17 Encounter Start Time: 11:00 Patient is seen today, alert and oriented. No other concenr snoted. Discussed with her explained about blood cultures needing to make sure no sytemic infection. - Objective Resuscitation Status: Resuscitation Status FULL:Full Resuscitation MAR Reviewed: Yes Vital Signs & Weight: Vital Signs (12 hours) Temp Pulse Resp BP BP Pulse Ox 10/16/17 15:20 98.8 F 105 H 16 114/65 95 10/16/17 12:08 100 24 H 10/16/17 11:47 98.5 F 101 H 20 115/69 94 L 10/16/17 09:13 92 20 95 10/16/17 09:00 95 10/16/17 08:57 92 20 95 10/16/17 08:09 98.5 F 80 16 97 10/16/17 08:08 98.5 F 80 16 115/66 97 10/16/17 04:18 98.9 F 80 17 120/76 99 Weight Admit Weight 88 lb Weight 88 lb 2.958 oz Most Recent Monitor Data Heart Rate from ECG 87 NIBP 116/65 NIBP BP-Mean 78 Respiration from ECG 18 SpO2 98 I&O: 10/15/17 10/16/17 10/17/17 06:59 06:59 06:59 Intake Total 1190 2613 640 Output Total 1567 4690 1300 Balance -377 -2077 -660 Result Diagrams: 10/15/17 04:10 10/15/17 04:10 Radiology Reviewed by me: Yes Phys Exam - Physical Examination HEENT: PERRLA, moist MMs Neck: no nodes, no JVD Respiratory: wheezing present (crackles in right lung) Cardiovascular: RRR, no significant murmur Gastrointestinal: soft Musculoskeletal: no edema, pulses present Neurological: non-focal, normal sensation Psychiatric: normal affect, A&O x 3 Dx/Plan (1) Hyponatremia Code(s): E87.1 - HYPO-OSMOLALITY AND HYPONATREMIA Status: Resolved Comment: Persistant, Will continue on NS at 75 Ml/hr, 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 (2) Pneumonia due to methicillin resistant Staphylococcus aureus Code(s): J15.212 - PNEUMONIA DUE TO METHICILLIN RESISTANT STAPHYLOCOCCUS AUREUS Status: Acute Qualifiers: Laterality: right Lung location: lower lobe of lung Qualified Code(s): J15.212 - Pneumonia due to Methicillin resistant Staphylococcus aureus Comment: necrotizing pneumonia, rpesent on admit. on zyvox and doxy. planning 14 days total abx rx. Bcx negative. pulm following, will do blood Cultures today. (3) Acute hypoxemic respiratory failure Code(s): J96.01 - ACUTE RESPIRATORY FAILURE WITH HYPOXIA Status: Acute Comment: improving now, with Extubation and on nsal canula, pt saturating well. (4) Empyema of right pleural space Code(s): J86.9 - PYOTHORAX WITHOUT FISTULA Status: Acute Comment: Pt has chest Tube with Suction underwater seal. (5) Chronic obstructive pulmonary disease Status: Chronic Qualifiers: COPD type: chronic bronchitis Chronic bronchitis type: simple Qualified Code(s): J41.0 - Simple chronic bronchitis Comment: with acute exacerbation (6) Severe protein-calorie malnutrition Code(s): E43 - UNSPECIFIED SEVERE PROTEIN-CALORIE MALNUTRITION Status: Chronic Comment: may need to get nutritional support. Ensure TID, removed from fluid count - Plan cont current plan of care, plan discussed w/ family, continue antibiotics, PT/OT , incentive spirometry, DVT proph w/lovenox * . - Discharge Day Encounter end time: 11:35 Review of Systems - Review of Systems Constitutional: negative: fever, chills, sweats, weakness, malaise, other Eyes: negative: Pain, Vision Change, Conjunctivae Inflammation, Eyelid Inflammation, Redness, Other ENT: negative: Ear Pain, Ear Discharge, Nose Pain, Nose Discharge, Nose Congestion, Mouth Pain, Mouth Swelling, Throat Pain, Throat Swelling, Other Respiratory: Cough, Shortness of Breath, Pleuritic Pain, Wheezing Cardiovascular: negative: chest pain, palpitations, orthopnea, paroxysmal nocturnal dyspnea, edema, light headedness, other Musculoskeletal: negative: Neck Pain, Shoulder Pain, Arm Pain, Back Pain, Hand Pain, Leg Pain, Foot Pain, Other Skin: negative: Rash, Lesions, Jun, Bruising, Other - Medications/Allergies Allergies/Adverse Reactions: Allergies Allergy/AdvReac Type Severity Reaction Status Date / Time tramadol Allergy Unknown Itching Verified 10/02/17 14:09 Sulfa (Sulfonamide Allergy Verified 10/02/17 14:09 Antibiotics) Medications: Current Medications Acetaminophen (Tylenol) 650 mg PO Q4H PRN PRN Reason: Headache/Fever or Pain Last Admin: 10/10/17 11:02 Dose: 650 mg Hydrocodone Bitart/Acetaminophen ([place] 5/325) 1 tab PO Q4H PRN PRN Reason: Pain 1ST LINE Last Admin: 10/15/17 21:52 Dose: 1 tab Hydrocodone Bitart/Acetaminophen ([place] 5/325) 2 tab PO Q4H PRN PRN Reason: Pain 2ND LINE Albuterol Sulfate (Ventolin) 2.5 mg NEB Q2H PRN PRN Reason: Wheezing Albuterol/Ipratropium (Duoneb) 3 ml NEB [id number] [facility] Last Admin: 10/16/17 12:08 Dose: 3 ml Calcium Carbonate (Tums) 1,000 mg PO Q6H PRN PRN Reason: INDIGESTION Last Admin: 10/14/17 21:41 Dose: 1,000 mg Cyclobenzaprine HCl (Flexeril) 10 mg PO TID PRN PRN Reason: Muscle Spasm Last Admin: 10/11/17 00:10 Dose: 10 mg Enoxaparin Sodium (Lovenox) 40 mg SC 0900 [facility] Last Admin: 10/16/17 08:09 Dose: 40 mg Fentanyl (Sublimaze) 25 mcg SLOW IVP Q2H PRN PRN Reason: Pain 3RD LINE Guaifenesin (Mucinex) 1,200 mg PO Q12HR [facility] Last Admin: 10/16/17 08:09 Dose: 1,200 mg Vancomycin HCl 1 gm/ Device 200 mls @ 200 mls/hr IVPB Q6HR [facility] Last Admin: 10/16/17 12:45 Dose: 200 mls Lidocaine HCl (Xylocaine 2% Viscous) 15 ml SSW Q4H PRN PRN Reason: odynophagia Loperamide HCl (Imodium) 2 mg PO .AFTER Bm [facility] Last Admin: 10/10/17 19:39 Dose: 2 mg Lorazepam (Ativan) 1 mg SLOW IVP Q4H PRN PRN Reason: Anxiety/Agitation Last Admin: 10/12/17 08:39 Dose: 1 mg Magnesium Oxide (Magnesium Oxide) 400 mg PO BID [facility] Last Admin: 10/16/17 08:09 Dose: 400 mg Megestrol Acetate (Megace) 20 mg PO BID [facility] Last Admin: 10/16/17 08:08 Dose: 20 mg Methylprednisolone Sodium Succinate (Solu-Medrol) 20 mg IVP Q12HR [facility] Last Admin: 10/16/17 08:08 Dose: 20 mg Miscellaneous Medication (Pharmacy To Dose) 0 each IVPB DAILYPRN PRN PRN Reason: LABS Mometasone Furoate/Formoterol Fumar (Dulera 200 Mcg/5 Mcg Inhaler) 2 puff INH BID-RT [facility] Last Admin: 10/16/17 09:13 Dose: 2 puff Ondansetron HCl (Zofran) 4 mg IVP Q6H PRN PRN Reason: Nausea/Vomiting Last Admin: 10/13/17 13:23 Dose: 4 mg Pantoprazole Sodium (Protonix) 40 mg PO DAILY [facility] Last Admin: 10/16/17 08:08 Dose: 40 mg Phenol (Chloraseptic [place] 180 Ml Bot) 0 ml PO Q4H PRN PRN Reason: Sore Throat Last Admin: 10/06/17 16:21 Dose: 1 spr
[2017-10-16] MEDS: HYDROcodone/Acetaminophen 5/325 mg Tablet PO PRN (20:37)
[2017-10-16] MEDS: Cyclobenzaprine 10 MG TAB PO PRN (20:37)
[2017-10-17] MEDS: Vancomycin HCl 1 GM in Premix Bag 1 BAG IVPB SCH ×5 (00:16→23:08)
--- NOTE | 2017-10-17 08:36 | RAD ---
CHEST 1 VIEW: Date: 10/17/17 HISTORY: Empyema. COMPARISON: Chest 1 view prior day. FINDINGS: The two right thoracostomy tubes are similar. Opacity in the right mid lung is similar. Small effusio ns. No large pneumothorax is appreciated. Central venous catheter tip unchanged in position. There appear to be emphysematous changes of the lungs. IMPRESSION: No significant change in radiographic appearance of the chest. POS: [facility]
[2017-10-17] MEDS: Mometasone/Formoterol 120 PUFF INHALER INH SCH ×2 (09:34→19:57)
[2017-10-17] MEDS: HYDROcodone/Acetaminophen 5/325 mg Tablet PO PRN ×2 (09:49→14:38)
[2017-10-17] MEDS: guaiFENesin ER 600 MG TAB PO SCH ×2 (09:50→20:11)
[2017-10-17] MEDS: Magnesium Oxide 400 MG TAB PO SCH ×2 (09:50→20:11)
[2017-10-17] MEDS: Megestrol Acetate 40 MG TAB PO SCH ×2 (09:50→20:11)
[2017-10-17] MEDS: Enoxaparin Sodium 40 MG/0.4 ML SYRINGE SC SCH (09:51)
[2017-10-17 11:21] LABS: Vancomycin, Trough 18.2 ug/mL
--- NOTE | 2017-10-17 11:44 | PRG ---
DATE OF SERVICE: 10/17/2017 SUBJECTIVE: The patient is doing okay except for developing air leak yesterday. OBJECTIVE: VITAL SIGNS: Temperature 98.3, pulse 106, respirations 24, O2 sat 96% on 2.5 liters. HEENT: Unremarkable. NECK: No JVD. LUNGS: Clear, but distant breath sounds. CARDIAC: S1 and S2, regular. ABDOMEN: Soft. EXTREMITIES: No edema. Chest x-ray demonstrates the 2 chest tubes in the right are still in place. I do not see any pneumot horax. LABORATORY DATA: No labs were obtained today. ASSESSMENT: 1. Status post decortication for empyema caused by methicillin-resistant Staphylococcus aureus. 2. Small bronchopleural fistula. PLAN: Await healing of the fistula before removing chest tube.
--- NOTE | 2017-10-17 14:52 | PDOC.PN ---
- Subjective Encounter Start Date: 10/17/17 Encounter Start Time: 10:00 Patient is seen today, alert and oriented. No other concerns noted. pt is receive total 2 weeks of IV abntiobiotics for MRSA pneumonia. blood cultures are pending. - Objective Resuscitation Status: Resuscitation Status FULL:Full Resuscitation MAR Reviewed: Yes Vital Signs & Weight: Vital Signs (12 hours) Temp Pulse Resp BP BP Pulse Ox 10/17/17 12:40 100 24 H 10/17/17 11:15 98 F 112 H 16 116/76 94 L 10/17/17 09:34 106 H 24 H 96 10/17/17 09:21 96 10/17/17 09:18 106 H 24 H 96 10/17/17 07:50 98.3 F 106 H 24 H 96 10/17/17 07:00 98.3 F 89 14 104/66 95 10/17/17 04:33 99.6 F 94 16 109/70 97 10/17/17 02:52 98 20 95 Weight Admit Weight 88 lb Weight 88 lb 2.958 oz Most Recent Monitor Data Heart Rate from ECG 87 NIBP 116/65 NIBP BP-Mean 78 Respiration from ECG 18 SpO2 98 I&O: 10/16/17 10/17/17 10/18/17 06:59 06:59 06:59 Intake Total 2613 3020 240 Output Total 4604 6628 Balance -0690 -5773 240 Result Diagrams: 10/15/17 04:10 10/15/17 04:10 Radiology Reviewed by me: Yes Phys Exam - Physical Examination HEENT: PERRLA, moist MMs Neck: no nodes, no JVD Respiratory: wheezing present Cardiovascular: RRR, no significant murmur Gastrointestinal: soft, non-tender Musculoskeletal: no edema, pulses present Dx/Plan (1) Hyponatremia Code(s): E87.1 - HYPO-OSMOLALITY AND HYPONATREMIA Status: Resolved Comment: Persistant, Will continue on NS at 75 Ml/hr, 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 (2) Pneumonia due to methicillin resistant Staphylococcus aureus Code(s): J15.212 - PNEUMONIA DUE TO METHICILLIN RESISTANT STAPHYLOCOCCUS AUREUS Status: Acute Qualifiers: Laterality: right Lung location: lower lobe of lung Qualified Code(s): J15.212 - Pneumonia due to Methicillin resistant Staphylococcus aureus Comment: necrotizing pneumonia, rpesent on admit. on zyvox and doxy. planning 14 days total abx rx. Bcx negative. pulm following, will do blood Cultures today. (3) Acute hypoxemic respiratory failure Code(s): J96.01 - ACUTE RESPIRATORY FAILURE WITH HYPOXIA Status: Acute Comment: improving now, with Extubation and on nsal canula, pt saturating well. (4) Empyema of right pleural space Code(s): J86.9 - PYOTHORAX WITHOUT FISTULA Status: Acute Comment: Pt has chest Tube with Suction underwater seal. (5) Chronic obstructive pulmonary disease Status: Chronic Qualifiers: COPD type: chronic bronchitis Chronic bronchitis type: simple Qualified Code(s): J41.0 - Simple chronic bronchitis Comment: with acute exacerbation (6) Severe protein-calorie malnutrition Code(s): E43 - UNSPECIFIED SEVERE PROTEIN-CALORIE MALNUTRITION Status: Chronic Comment: may need to get nutritional support. Ensure TID, removed from fluid count - Plan cont current plan of care, rodriguez catheter, continue antibiotics, PT/OT, high school social studies teacher, respiratory therapy, incentive spirometry, out of bed/ambulate, DVT proph w/lovenox * . - Discharge Day Encounter end time: 10:35 Review of Systems - Review of Systems Constitutional: negative: fever, chills, sweats, weakness, malaise, other Eyes: negative: Pain, Vision Change, Conjunctivae Inflammation, Eyelid Inflammation, Redness, Other ENT: negative: Ear Pain, Ear Discharge, Nose Pain, Nose Discharge, Nose Congestion, Mouth Pain, Mouth Swelling, Throat Pain, Throat Swelling, Other Respiratory: Cough, Shortness of Breath Cardiovascular: negative: chest pain, palpitations, orthopnea, paroxysmal nocturnal dyspnea, edema, light headedness, other Gastrointestinal: negative: Nausea, Vomiting, Abdominal Pain, Diarrhea, Constipation, Melena, Hematochezia, Other Genitourinary: negative: Dysuria, Frequency, Incontinence, Hematuria, Retention , Other Musculoskeletal: negative: Neck Pain, Shoulder Pain, Arm Pain, Back Pain, Hand Pain, Leg Pain, Foot Pain, Other Skin: negative: Rash, Lesions, Jun, Bruising, Other - Medications/Allergies Allergies/Adverse Reactions: Allergies Allergy/AdvReac Type Severity Reaction Status Date / Time tramadol Allergy Unknown Itching Verified 10/02/17 14:09 Sulfa (Sulfonamide Allergy Verified 01/12/18 14:09 Antibiotics) Medications: Current Medications Acetaminophen (Tylenol) 650 mg PO Q4H PRN PRN Reason: Headache/Fever or Pain Last Admin: 10/10/17 11:02 Dose: 650 mg Hydrocodone Bitart/Acetaminophen ([place] 5/325) 1 tab PO Q4H PRN PRN Reason: Pain 1ST LINE Last Admin: 10/17/17 14:38 Dose: 1 tab Hydrocodone Bitart/Acetaminophen ([place] 5/325) 2 tab PO Q4H PRN PRN Reason: Pain 2ND LINE Albuterol Sulfate (Ventolin) 2.5 mg NEB Q2H PRN PRN Reason: Wheezing Albuterol/Ipratropium (Duoneb) 3 ml NEB [id number] [facility] Last Admin: 10/17/17 12:40 Dose: 3 ml Calcium Carbonate (Tums) 1,000 mg PO Q6H PRN PRN Reason: INDIGESTION Last Admin: 10/14/17 21:41 Dose: 1,000 mg Cyclobenzaprine HCl (Flexeril) 10 mg PO TID PRN PRN Reason: Muscle Spasm Last Admin: 10/16/17 20:37 Dose: 10 mg Enoxaparin Sodium (Lovenox) 40 mg SC 0900 [facility] Last Admin: 10/17/17 09:51 Dose: 40 mg Fentanyl (Sublimaze) 25 mcg SLOW IVP Q2H PRN PRN Reason: Pain 3RD LINE Guaifenesin (Mucinex) 1,200 mg PO Q12HR [facility] Last Admin: 10/17/17 09:50 Dose: 1,200 mg Vancomycin HCl 1 gm/ Device 200 mls @ 200 mls/hr IVPB Q6HR [facility] Last Admin: 10/17/17 12:29 Dose: 200 mls Lidocaine HCl (Xylocaine 2% Viscous) 15 ml SSW Q4H PRN PRN Reason: odynophagia Loperamide HCl (Imodium) 2 mg PO .AFTER Bm [facility] Last Admin: 10/10/17 19:39 Dose: 2 mg Lorazepam (Ativan) 1 mg SLOW IVP Q4H PRN PRN Reason: Anxiety/Agitation Last Admin: 10/12/17 08:39 Dose: 1 mg Magnesium Oxide (Magnesium Oxide) 400 mg PO BID [facility] Last Admin: 10/17/17 09:50 Dose: 400 mg Megestrol Acetate (Megace) 20 mg PO BID [facility] Last Admin: 10/17/17 09:50 Dose: 20 mg Methylprednisolone Sodium Succinate (Solu-Medrol) 20 mg IVP Q12HR [facility] Last Admin: 10/17/17 09:50 Dose: 20 mg Miscellaneous Medication (Pharmacy To Dose) 0 each IVPB DAILYPRN PRN PRN Reason: LABS Mometasone Furoate/Formoterol Fumar (Dulera 200 Mcg/5 Mcg Inhaler) 2 puff INH BID-RT [facility] Last Admin: 10/17/17 09:34 Dose: 2 puff Ondansetron HCl (Zofran) 4 mg IVP Q6H PRN PRN Reason: Nausea/Vomiting Last Admin: 10/13/17 13:23 Dose: 4 mg Pantoprazole Sodium (Protonix) 40 mg PO DAILY [facility] Last Admin: 10/17/17 09:50 Dose: 40 mg Phenol (Chloraseptic [place] 180 Ml Bot) 0 ml PO Q4H PRN PRN Reason: Sore Throat Last Admin: 10/06/17 16:21 Dose: 1 spr
[2017-10-18] MEDS: Vancomycin HCl 1 GM in Premix Bag 1 BAG IVPB SCH (05:44)
[2017-10-18] MEDS: Enoxaparin Sodium 40 MG/0.4 ML SYRINGE SC SCH (08:25)
[2017-10-18] MEDS: guaiFENesin ER 600 MG TAB PO SCH ×2 (08:26→21:19)
[2017-10-18] MEDS: Magnesium Oxide 400 MG TAB PO SCH ×2 (08:26→21:19)
[2017-10-18] MEDS: Megestrol Acetate 40 MG TAB PO SCH ×2 (08:26→21:19)
[2017-10-18] MEDS: Mometasone/Formoterol 120 PUFF INHALER INH SCH ×2 (09:17→22:41)
[2017-10-18 11:23] LABS: Vancomycin, Trough 21.5 ug/mL
[2017-10-18] MEDS: Vancomycin HCl 750 MG in Sodium Chloride 0.9% 250 ML 250 ML IVPB SCH ×3 (12:26→23:57)
--- NOTE | 2017-10-18 13:54 | PDOC.PN ---
- Subjective Encounter Start Date: 10/18/17 Encounter Start Time: 10:30 patient is seen today, alert an oriebnted. at the bedside, pt has suction removed from mpleurovac. likely remove Chest tube tomorrow. - Objective Resuscitation Status: Resuscitation Status FULL:Full Resuscitation MAR Reviewed: Yes Vital Signs & Weight: Vital Signs (12 hours) Temp Pulse Resp BP BP Pulse Ox 10/18/17 12:39 96 24 H 10/18/17 12:37 98.4 F 99 18 126/75 94 L 10/18/17 09:17 84 24 H 96 10/18/17 09:00 96 10/18/17 08:54 84 24 H 96 10/18/17 08:40 98.5 F 84 24 H 96 10/18/17 08:31 98.5 F 93 16 124/74 96 10/18/17 03:20 98.4 F 90 16 111/71 96 10/18/17 02:39 89 20 97 Weight Admit Weight 88 lb Weight 88 lb 2.958 oz Most Recent Monitor Data Heart Rate from ECG 87 NIBP 116/65 NIBP BP-Mean 78 Respiration from ECG 18 SpO2 98 I&O: 10/17/17 10/18/17 10/19/17 06:59 06:59 06:59 Intake Total 3020 1960 Output Total 6695 4330 Balance -9267 -4786 Result Diagrams: 10/15/17 04:10 10/15/17 04:10 Radiology Reviewed by me: Yes Phys Exam - Physical Examination HEENT: PERRLA, moist MMs Neck: no nodes, no JVD Respiratory: no wheezing, no rales, no rhonchi Cardiovascular: RRR, no significant murmur Gastrointestinal: soft, non-tender Musculoskeletal: no edema, pulses present Neurological: non-focal, normal sensation Lymphatic: no nodes Psychiatric: normal affect, A&O x 3 Skin: no rash Dx/Plan (1) Hyponatremia Code(s): E87.1 - HYPO-OSMOLALITY AND HYPONATREMIA Status: Resolved Comment: Persistant, Will continue on NS at 75 Ml/hr, 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 (2) Pneumonia due to methicillin resistant Staphylococcus aureus Code(s): J15.212 - PNEUMONIA DUE TO METHICILLIN RESISTANT STAPHYLOCOCCUS AUREUS Status: Acute Qualifiers: Laterality: right Lung location: lower lobe of lung Qualified Code(s): J15.212 - Pneumonia due to Methicillin resistant Staphylococcus aureus Comment: necrotizing pneumonia, rpesent on admit. on zyvox and doxy. planning 14 days total abx rx. Bcx negative. pulm following, Cultures from Blood no growth. (3) Acute hypoxemic respiratory failure Code(s): J96.01 - ACUTE RESPIRATORY FAILURE WITH HYPOXIA Status: Acute Comment: Pt has home oxygen , can go to ehab once chest tube is out to continue IV Vamncomyin for total 14 days (4) Empyema of right pleural space Code(s): J86.9 - PYOTHORAX WITHOUT FISTULA Status: Acute Comment: Pt has chest Tube with Suction underwater seal. Suction is removed by pulmonary today. likel remove chest tube on thursday. (5) Chronic obstructive pulmonary disease Status: Resolved Qualifiers: COPD type: chronic bronchitis Chronic bronchitis type: simple Qualified Code(s): J41.0 - Simple chronic bronchitis Comment: with acute exacerbation (6) Severe protein-calorie malnutrition Code(s): E43 - UNSPECIFIED SEVERE PROTEIN-CALORIE MALNUTRITION Status: Chronic Comment: may need to get nutritional support. Ensure TID, removed from fluid count - Plan cont current plan of care, plan discussed w/ family, continue antibiotics, PT/OT , social media content specialist, respiratory therapy, incentive spirometry, DVT proph w/ lovenox * . - Discharge Day Encounter end time: 10:50 Review of Systems - Review of Systems Constitutional: negative: fever, chills, sweats, weakness, malaise, other Eyes: negative: Pain, Vision Change, Conjunctivae Inflammation, Eyelid Inflammation, Redness, Other ENT: negative: Ear Pain, Ear Discharge, Nose Pain, Nose Discharge, Nose Congestion, Mouth Pain, Mouth Swelling, Throat Pain, Throat Swelling, Other Respiratory: Cough, Shortness of Breath Cardiovascular: negative: chest pain, palpitations, orthopnea, paroxysmal nocturnal dyspnea, edema, light headedness, other Gastrointestinal: negative: Nausea, Vomiting, Abdominal Pain, Diarrhea, Constipation, Melena, Hematochezia, Other Genitourinary: negative: Dysuria, Frequency, Incontinence, Hematuria, Retention , Other Musculoskeletal: negative: Neck Pain, Shoulder Pain, Arm Pain, Back Pain, Hand Pain, Leg Pain, Foot Pain, Other Skin: negative: Rash, Lesions, Jun, Bruising, Other - Medications/Allergies Allergies/Adverse Reactions: Allergies Allergy/AdvReac Type Severity Reaction Status Date / Time tramadol Allergy Unknown Itching Verified 10/02/17 14:09 Sulfa (Sulfonamide Allergy Verified 10/02/17 14:09 Antibiotics) Medications: Current Medications Acetaminophen (Tylenol) 650 mg PO Q4H PRN PRN Reason: Headache/Fever or Pain Last Admin: 10/10/17 11:02 Dose: 650 mg Hydrocodone Bitart/Acetaminophen ([place] 5/325) 1 tab PO Q4H PRN PRN Reason: Pain 1ST LINE Last Admin: 10/17/17 14:38 Dose: 1 tab Hydrocodone Bitart/Acetaminophen ([place] 5/325) 2 tab PO Q4H PRN PRN Reason: Pain 2ND LINE Albuterol Sulfate (Ventolin) 2.5 mg NEB Q2H PRN PRN Reason: Wheezing Albuterol/Ipratropium (Duoneb) 3 ml NEB [id number] [facility] Last Admin: 10/18/17 12:39 Dose: 3 ml Calcium Carbonate (Tums) 1,000 mg PO Q6H PRN PRN Reason: INDIGESTION Last Admin: 10/14/17 21:41 Dose: 1,000 mg Cyclobenzaprine HCl (Flexeril) 10 mg PO TID PRN PRN Reason: Muscle Spasm Last Admin: 10/16/17 20:37 Dose: 10 mg Enoxaparin Sodium (Lovenox) 40 mg SC 0900 [facility] Last Admin: 10/18/17 08:25 Dose: 40 mg Fentanyl (Sublimaze) 25 mcg SLOW IVP Q2H PRN PRN Reason: Pain 3RD LINE Guaifenesin (Mucinex) 1,200 mg PO Q12HR [facility] Last Admin: 10/18/17 08:26 Dose: 1,200 mg Vancomycin HCl 750 mg/ Sodium (Chloride) 250 mls @ 250 mls/hr IVPB Q6HR [facility] Last Admin: 10/18/17 12:26 Dose: 250 mls Lidocaine HCl (Xylocaine 2% Viscous) 15 ml SSW Q4H PRN PRN Reason: odynophagia Loperamide HCl (Imodium) 2 mg PO .AFTER Bm [facility] Last Admin: 10/10/17 19:39 Dose: 2 mg Lorazepam (Ativan) 1 mg SLOW IVP Q4H PRN PRN Reason: Anxiety/Agitation Last Admin: 10/12/17 08:39 Dose: 1 mg Magnesium Oxide (Magnesium Oxide) 400 mg PO BID [facility] Last Admin: 10/18/17 08:26 Dose: 400 mg Megestrol Acetate (Megace) 20 mg PO BID [facility] Last Admin: 10/18/17 08:26 Dose: 20 mg Methylprednisolone Sodium Succinate (Solu-Medrol) 20 mg IVP Q12HR [facility] Last Admin: 10/18/17 08:26 Dose: 20 mg Miscellaneous Medication (Pharmacy To Dose) 0 each IVPB DAILYPRN PRN PRN Reason: LABS Mometasone Furoate/Formoterol Fumar (Dulera 200 Mcg/5 Mcg Inhaler) 2 puff INH BID-RT [facility] Last Admin: 10/18/17 09:17 Dose: 2 puff Ondansetron HCl (Zofran) 4 mg IVP Q6H PRN PRN Reason: Nausea/Vomiting Last Admin: 10/13/17 13:23 Dose: 4 mg Pantoprazole Sodium (Protonix) 40 mg PO DAILY [facility] Last Admin: 10/18/17 08:25 Dose: 40 mg Phenol (Chloraseptic [place] 180 Ml Bot) 0 ml PO Q4H PRN PRN Reason: Sore Throat Last Admin: 10/06/17 16:21 Dose: 1 spr
--- NOTE | 2017-10-18 15:00 | PRG ---
DATE OF SERVICE: 10/18/2017 SUBJECTIVE: The patient is about the same, had no acute complaints. PHYSICAL EXAMINATION: VITAL SIGNS: Temperature is 98.4, pulse 96, respirations 24, O2 sat 94%, blood pressure 126/75. HEENT: Unremarkable. NECK: No JVD. LUNGS: Fairly clear. CARDIAC: S1 and S2 regular. ABDOMEN: Soft. EXTREMITIES: No edema. She has small air leak noted when she coughs. ASSESSMENT: Small air leak unchanged from yesterday. PLAN: Continuing chest tube drainage. She is continuing vancomycin.
[2017-10-18] MEDS: Lorazepam 2 MG/ML VIAL SLOW IVP PRN (17:08)
[2017-10-19] MEDS: Vancomycin HCl 750 MG in Sodium Chloride 0.9% 250 ML 250 ML IVPB SCH ×3 (05:32→17:59)
[2017-10-19 06:05] LABS: Vancomycin, Trough 15.1 ug/mL
[2017-10-19] MEDS: guaiFENesin ER 600 MG TAB PO SCH ×2 (08:59→22:05)
[2017-10-19] MEDS: Enoxaparin Sodium 40 MG/0.4 ML SYRINGE SC SCH (08:59)
[2017-10-19] MEDS: Magnesium Oxide 400 MG TAB PO SCH ×2 (08:59→22:04)
[2017-10-19] MEDS: Megestrol Acetate 40 MG TAB PO SCH (08:59)
--- NOTE | 2017-10-19 09:20 | RAD ---
FRONTAL VIEW CHEST: COMPARISON: Several radiographs of chest dating back to 10/08/17. CLINICAL HISTORY: Status post decortication. FINDINGS: Two right chest tubes and right subclavian venous catheter remain. There is a complex region of cons olidation of the right lower lung zone containing internal air locules compatible with previously andrae gnosed necrotizing pneumonia. No pneumothorax of significance visualized. Mediastinum remains at mi dline. Nipple shadow overlies the left lower chest. IMPRESSION: Redemonstration of right side necrotizing pneumonia with numerous internal air locules remaining with in dense consolidation. POS: [facility]
--- NOTE | 2017-10-19 10:17 | PRG ---
DATE OF SERVICE: 10/19/2017 SUBJECTIVE: The patient is doing okay. Still having a little bit of air leak when she coughs. X-ra y shows small apical pneumothorax on the right. OBJECTIVE: HEENT: Unremarkable. NECK: Supple. No JVD. CHEST: Clear. CARDIAC: S1 and S2 regular. ABDOMEN: Soft. EXTREMITIES: No edema. ASSESSMENT: 1. Status post decortication for empyema. 2. Staphylococcal pneumonia. PLAN: She is continuing antibiotics and chest tube drainage.
[2017-10-19] MEDS: Mometasone/Formoterol 120 PUFF INHALER INH SCH ×2 (10:38→20:22)
--- NOTE | 2017-10-19 15:43 | PDOC.PN ---
- Subjective Encounter Start Date: 10/19/17 Encounter Start Time: 15:42 Subjective: feels better but still very weak.breathing better - Objective Resuscitation Status: Resuscitation Status FULL:Full Resuscitation MAR Reviewed: Yes Vital Signs & Weight: Vital Signs (12 hours) Temp Pulse Resp BP BP Pulse Ox Pulse Ox 10/19/17 13:21 98 F 104 H 18 156/72 H 97 10/19/17 11:20 94 L 10/19/17 10:36 89 20 98 10/19/17 08:45 98.1 F 89 20 98 10/19/17 08:44 98.1 F 87 16 120/77 98 10/19/17 04:16 98.1 F 93 16 120/74 94 L Pulse Ox Pulse Ox 10/19/17 13:21 10/19/17 11:20 90 L 96 10/19/17 10:36 10/19/17 08:45 10/19/17 08:44 10/19/17 04:16 Weight Admit Weight 88 lb Weight 88 lb 2.958 oz Most Recent Monitor Data Heart Rate from ECG 87 NIBP 116/65 NIBP BP-Mean 78 Respiration from ECG 18 SpO2 98 I&O: 10/18/17 10/19/17 10/20/17 06:59 06:59 06:59 Intake Total 1960 3860 Output Total 4330 4270 Balance -2370 -410 Result Diagrams: 10/15/17 04:10 10/15/17 04:10 Additional Labs: Microbiology 10/12/17 11:32 Pleural fluid Body Fluid Culture - Final Methicillin resistant S.aureus 10/06/17 13:30 Stool Stool Culture - Final Yeast species 10/06/17 13:30 Stool Campylobacter Antigen Assay - Final 10/06/17 13:30 Stool Shiga Toxin Test - Final 10/06/17 13:30 Stool C. difficile GDH Antigen & Toxins - Final 10/02/17 16:50 Sputum Respiratory Culture - Final Methicillin resistant S.aureus Yeast species 10/02/17 10:10 Nasal swab Influenza Types A,B Direct EIA - Final 10/02/17 09:06 Venous blood - Left Hand Blood Culture - Final NO GROWTH IN 5 DAYS 10/02/17 08:56 Venous blood - Right Arm Blood Culture - Final NO GROWTH IN 5 DAYS 10/16/17 11:38 Venous blood - Left Arm Blood Culture - Preliminary NO GROWTH AT 48 HOURS 10/16/17 10:30 A-Line - Right Subclavian Vein Blood Culture - Preliminary NO GROWTH AT 48 HOURS Dx/Plan (1) Acute hypoxemic respiratory failure Code(s): J96.01 - ACUTE RESPIRATORY FAILURE WITH HYPOXIA Status: Acute Comment: Pt has home oxygen , can go to ehab once chest tube is out to continue IV Vamncomyin for total 14 days (2) Empyema of right pleural space Code(s): J86.9 - PYOTHORAX WITHOUT FISTULA Status: Acute Comment: Pt has chest Tube with Suction underwater seal. Suction is removed by pulmonary today. likel remove chest tube today.CTS following (3) Pneumonia due to methicillin resistant Staphylococcus aureus Code(s): J15.212 - PNEUMONIA DUE TO METHICILLIN RESISTANT STAPHYLOCOCCUS AUREUS Status: Acute Qualifiers: Laterality: right Lung location: lower lobe of lung Qualified Code(s): J15.212 - Pneumonia due to Methicillin resistant Staphylococcus aureus Comment: necrotizing pneumonia, rpesent on admit. on Iv vancomycin. planning 14 days total abx rx. Bcx negative. pulm following, Cultures from Blood no growth. (4) Severe protein-calorie malnutrition Code(s): E43 - UNSPECIFIED SEVERE PROTEIN-CALORIE MALNUTRITION Status: Chronic Comment: may need to get nutritional support. Ensure TID, removed from fluid count (5) COPD exacerbation Code(s): J44.1 - CHRONIC OBSTRUCTIVE PULMONARY DISEASE W (ACUTE) EXACERBATION Status: Acute Comment: continue nebs, steroids, abx. Pulm following. (6) FTT (failure to thrive) in adult Status: Chronic (7) Tobacco abuse Code(s): Z72.0 - TOBACCO USE Status: Chronic Comment: no cigarettes since . - Plan PT/OT, social service agency director, incentive spirometry, out of bed/ambulate, DVT proph w/ SCDs CT per CTS.PCCM following.Cont IV Vancomycin. -: DC to rehab when CT is out.cont supportive care -: nebs,O2 ,stroids. etc. -: AM labs.sodium has improved. * . Review of Systems - Review of Systems Constitutional: weakness, malaise Respiratory: SOB with Excertion. negative: Cough, Dry, Shortness of Breath, Hemoptysis, Pleuritic Pain, Sputum, Wheezing Cardiovascular: negative: chest pain, palpitations, orthopnea, paroxysmal nocturnal dyspnea, edema, light headedness, other Gastrointestinal: negative: Nausea, Vomiting, Abdominal Pain, Diarrhea, Constipation, Melena, Hematochezia, Other Genitourinary: negative: Dysuria, Frequency, Incontinence, Hematuria, Retention , Other Musculoskeletal: negative: Neck Pain, Shoulder Pain, Arm Pain, Back Pain, Hand Pain, Leg Pain, Foot Pain, Other Neurological: negative: Weakness, Numbness, Incoordination, Change in Speech, Confusion, Seizures, Other - Medications/Allergies Allergies/Adverse Reactions: Allergies Allergy/AdvReac Type Severity Reaction Status Date / Time tramadol Allergy Unknown Itching Verified 10/02/17 14:09 Sulfa (Sulfonamide Allergy Verified 10/02/17 14:09 Antibiotics) Medications: Current Medications Acetaminophen (Tylenol) 650 mg PO Q4H PRN PRN Reason: Headache/Fever or Pain Last Admin: 10/10/17 11:02 Dose: 650 mg Hydrocodone Bitart/Acetaminophen ([place] 5/325) 1 tab PO Q4H PRN PRN Reason: Pain 1ST LINE Last Admin: 10/17/17 14:38 Dose: 1 tab Hydrocodone Bitart/Acetaminophen ([place] 5/325) 2 tab PO Q4H PRN PRN Reason: Pain 2ND LINE Albuterol Sulfate (Ventolin) 2.5 mg NEB Q2H PRN PRN Reason: Wheezing Albuterol/Ipratropium (Duoneb) 3 ml NEB [id number] [facility] Last Admin: 10/19/17 10:36 Dose: 3 ml Calcium Carbonate (Tums) 1,000 mg PO Q6H PRN PRN Reason: INDIGESTION Last Admin: 10/14/17 21:41 Dose: 1,000 mg Cyclobenzaprine HCl (Flexeril) 10 mg PO TID PRN PRN Reason: Muscle Spasm Last Admin: 10/16/17 20:37 Dose: 10 mg Enoxaparin Sodium (Lovenox) 40 mg SC 0900 [facility] Last Admin: 10/19/17 08:59 Dose: 40 mg Fentanyl (Sublimaze) 25 mcg SLOW IVP Q2H PRN PRN Reason: Pain 3RD LINE Guaifenesin (Mucinex) 1,200 mg PO Q12HR [facility] Last Admin: 10/19/17 08:59 Dose: 1,200 mg Vancomycin HCl 750 mg/ Sodium (Chloride) 250 mls @ 250 mls/hr IVPB Q6HR [facility] Last Admin: 10/19/17 11:21 Dose: 250 mls Lidocaine HCl (Xylocaine 2% Viscous) 15 ml SSW Q4H PRN PRN Reason: odynophagia Loperamide HCl (Imodium) 2 mg PO .AFTER Bm [facility] Last Admin: 10/10/17 19:39 Dose: 2 mg Lorazepam (Ativan) 1 mg SLOW IVP Q4H PRN PRN Reason: Anxiety/Agitation Last Admin: 10/18/17 17:08 Dose: 1 mg Magnesium Oxide (Magnesium Oxide) 400 mg PO BID [facility] Last Admin: 10/19/17 08:59 Dose: 400 mg Megestrol Acetate (Megace) 20 mg PO BID [facility] Last Admin: 10/19/17 08:59 Dose: 20 mg Methylprednisolone Sodium Succinate (Solu-Medrol) 20 mg IVP Q12HR [facility] Last Admin: 10/19/17 09:00 Dose: 20 mg Miscellaneous Medication (Pharmacy To Dose) 0 each IVPB DAILYPRN PRN PRN Reason: LABS Mometasone Furoate/Formoterol Fumar (Dulera 200 Mcg/5 Mcg Inhaler) 2 puff INH BID-RT [facility] Last Admin: 10/19/17 10:38 Dose: 2 puff Ondansetron HCl (Zofran) 4 mg IVP Q6H PRN PRN Reason: Nausea/Vomiting Last Admin: 10/13/17 13:23 Dose: 4 mg Pantoprazole Sodium (Protonix) 40 mg PO DAILY [facility] Last Admin: 10/19/17 08:59 Dose: 40 mg Phenol (Chloraseptic [place] 180 Ml Bot) 0 ml PO Q4H PRN PRN Reason: Sore Throat Last Admin: 10/06/17 16:21 Dose: 1 spr
[2017-10-19] MEDS: HYDROcodone/Acetaminophen 5/325 mg Tablet PO PRN (22:03)
[2017-10-20] MEDS: Megestrol Acetate 40 MG TAB PO SCH ×3 (00:17→20:57)
[2017-10-20] MEDS: Vancomycin HCl 750 MG in Sodium Chloride 0.9% 250 ML 250 ML IVPB SCH ×4 (00:17→17:47)
[2017-10-20 05:51] LABS: Vancomycin, Trough 15.8 ug/mL
[2017-10-20 05:53] LABS: Anion Gap 7 mmol/L (10-20); BUN (Urea Nitrogen) 9 mg/dL (7.0-18.7); Calc. Creatinine Clearance 102 mL/min (70-130); Calcium 7.9 mg/dL (7.8-10.44); Carbon Dioxide 32 mmol/L (22-29); Chloride 96 mmol/L (98-107); Estimated GFR-MDRD Greater than 90; Glucose 169 mg/dL (70-105); Sodium 131 mmol/L (136-145)
[2017-10-20 06:03] LABS: Band 14 % (5-11); Hemoglobin 9.3 g/dL (12.0-16.0); Lymphocytes 9 % (21-51); MDiff Complete? YES; Mean Corpuscular HGB CONC 33.1 g/dL (32.0-36.0); Mean Corpuscular Volume 99.7 fl (81.0-99.0); Mean Platelet Volume 6.2 fL (7.4-10.4); Metamyelocyte 3 % (0-0); Monocytes 4 % (0-10); Neutrophil 70 % (42-75); PLT Morphology Comment Appears Increased; Platelet Count 512 thou/uL (130-400); Red Blood Cell (RBC) Count 2.82 mill/uL (4.20-5.40); White Blood Cell (WBC) Count 17.8 thou/uL (4.8-10.8)
[2017-10-20] MEDS: Mometasone/Formoterol 120 PUFF INHALER INH SCH ×2 (07:39→22:01)
[2017-10-20] MEDS: Magnesium Oxide 400 MG TAB PO SCH ×2 (09:01→20:56)
[2017-10-20] MEDS: guaiFENesin ER 600 MG TAB PO SCH ×2 (09:01→20:56)
[2017-10-20] MEDS: Enoxaparin Sodium 40 MG/0.4 ML SYRINGE SC SCH (09:01)
[2017-10-20] MEDS: Acetaminophen 325 MG TAB PO PRN ×2 (09:07→20:58)
--- NOTE | 2017-10-20 10:12 | PRG ---
DATE OF SERVICE: 10/20/2017 The patient is doing reasonably well. She still has an air leak. PHYSICAL EXAMINATION: VITAL SIGNS: Temperature 98.2, pulse 95, respirations 15, O2 sat 95%, blood pressure 125/76. HEENT: Unremarkable. NECK: No JVD. LUNGS: Clear. CARDIAC: S1 and S2 regular. ABDOMEN: Soft. EXTREMITIES: No edema. ASSESSMENT: 1. Status post necrotizing pneumonia. 2. Continued air leak. PLAN: 1. Continue chest tube drainage. 2. Continue antibiotics.
--- NOTE | 2017-10-20 17:23 | PDOC.PN ---
- Subjective Encounter Start Date: 10/20/17 Encounter Start Time: 17:21 Subjective: pain at CT site and SOB .no new complaints - Objective Resuscitation Status: Resuscitation Status FULL:Full Resuscitation MAR Reviewed: Yes Vital Signs & Weight: Vital Signs (12 hours) Temp Pulse Resp BP Pulse Ox Pulse Ox Pulse Ox 10/20/17 15:54 98.7 F 99 14 122/70 96 10/20/17 15:00 100 14 10/20/17 13:35 94 L 84 L 10/20/17 12:12 98.4 F 96 16 127/76 95 10/20/17 10:33 110 H 16 10/20/17 08:50 98.2 F 95 15 95 10/20/17 08:10 98.2 F 95 15 125/76 95 10/20/17 07:39 90 14 Pulse Ox 10/20/17 15:54 10/20/17 15:00 10/20/17 13:35 94 L 10/20/17 12:12 10/20/17 10:33 10/20/17 08:50 10/20/17 08:10 10/20/17 07:39 Weight Admit Weight 88 lb Weight 88 lb 2.958 oz Most Recent Monitor Data Heart Rate from ECG 87 NIBP 116/65 NIBP BP-Mean 78 Respiration from ECG 18 SpO2 98 I&O: 10/19/17 10/20/17 10/21/17 06:59 06:59 06:59 Intake Total 3860 1690 Output Total 4270 2670 Balance -410 -980 Result Diagrams: 10/20/17 05:00 10/20/17 05:00 Additional Labs: Microbiology 10/12/17 11:32 Pleural fluid Body Fluid Culture - Final Methicillin resistant S.aureus 10/06/17 13:30 Stool Stool Culture - Final Yeast species 10/06/17 13:30 Stool Campylobacter Antigen Assay - Final 10/06/17 13:30 Stool Shiga Toxin Test - Final 10/06/17 13:30 Stool C. difficile GDH Antigen & Toxins - Final 10/02/17 16:50 Sputum Respiratory Culture - Final Methicillin resistant S.aureus Yeast species 10/02/17 10:10 Nasal swab Influenza Types A,B Direct EIA - Final 10/02/17 09:06 Venous blood - Left Hand Blood Culture - Final NO GROWTH IN 5 DAYS 10/02/17 08:56 Venous blood - Right Arm Blood Culture - Final NO GROWTH IN 5 DAYS 10/16/17 11:38 Venous blood - Left Arm Blood Culture - Preliminary NO GROWTH AT 48 HOURS 10/16/17 10:30 A-Line - Right Subclavian Vein Blood Culture - Preliminary NO GROWTH AT 48 HOURS Phys Exam - Physical Examination Constitutional: NAD cachectic HEENT: PERRLA, moist MMs, sclera anicteric, oral pharynx no lesions Neck: no JVD Respiratory: wheezing present R Chest tube Cardiovascular: RRR, no significant murmur Gastrointestinal: soft, non-tender, no distention, positive bowel sounds Musculoskeletal: no edema, pulses present Neurological: non-focal, normal sensation, moves all 4 limbs Psychiatric: normal affect, A&O x 3 Dx/Plan (1) Acute hypoxemic respiratory failure Code(s): J96.01 - ACUTE RESPIRATORY FAILURE WITH HYPOXIA Status: Acute Comment: Pt has home oxygen , can go to rehab once chest tube is out to continue IV Vamncomyin for total 14 days (2) Empyema of right pleural space Code(s): J86.9 - PYOTHORAX WITHOUT FISTULA Status: Acute Comment: Pt has chest Tube with Suction underwater seal. Suction is removed by pulmonary today. likel remove chest tube today.CTS following (3) Pneumonia due to methicillin resistant Staphylococcus aureus Code(s): J15.212 - PNEUMONIA DUE TO METHICILLIN RESISTANT STAPHYLOCOCCUS AUREUS Status: Acute Qualifiers: Laterality: right Lung location: lower lobe of lung Qualified Code(s): J15.212 - Pneumonia due to Methicillin resistant Staphylococcus aureus Comment: necrotizing pneumonia, rpesent on admit. on Iv vancomycin. planning 14 days total abx rx. Bcx negative. pulm following, Cultures from Blood no growth. (4) Severe protein-calorie malnutrition Code(s): E43 - UNSPECIFIED SEVERE PROTEIN-CALORIE MALNUTRITION Status: Chronic Comment: may need to get nutritional support. Ensure TID, removed from fluid count (5) COPD exacerbation Code(s): J44.1 - CHRONIC OBSTRUCTIVE PULMONARY DISEASE W (ACUTE) EXACERBATION Status: Acute Comment: continue nebs, steroids, abx. Pulm following. (6) FTT (failure to thrive) in adult Status: Chronic (7) Tobacco abuse Code(s): Z72.0 - TOBACCO USE Status: Chronic Comment: no cigarettes since . - Plan PT/OT, social sciences department chair, respiratory therapy, incentive spirometry, DVT proph w/ SCDs Cont CT per CTS.small PTX.PCCM following as well -: cont IV Vancomycin Xtotal 14 days. -: rehab when Ct is out.cont OT,PT.nebs,O2 prn -: meds as below. am labs * . Review of Systems - Review of Systems Constitutional: weakness, malaise. negative: fever, chills, sweats, other Respiratory: Shortness of Breath, SOB with Excertion. negative: Cough, Dry, Hemoptysis, Pleuritic Pain, Sputum, Wheezing Cardiovascular: negative: chest pain, palpitations, orthopnea, paroxysmal nocturnal dyspnea, edema, light headedness, other Gastrointestinal: negative: Nausea, Vomiting, Abdominal Pain, Diarrhea, Constipation, Melena, Hematochezia, Other Genitourinary: negative: Dysuria, Frequency, Incontinence, Hematuria, Retention , Other Musculoskeletal: Other. negative: Neck Pain, Shoulder Pain, Arm Pain, Back Pain , Hand Pain, Leg Pain, Foot Pain Neurological: negative: Weakness, Numbness, Incoordination, Change in Speech, Confusion, Seizures, Other - Medications/Allergies Allergies/Adverse Reactions: Allergies Allergy/AdvReac Type Severity Reaction Status Date / Time tramadol Allergy Unknown Itching Verified 10/02/17 14:09 Sulfa (Sulfonamide Allergy Verified 10/02/17 14:09 Antibiotics) Medications: Current Medications Acetaminophen (Tylenol) 650 mg PO Q4H PRN PRN Reason: Headache/Fever or Pain Last Admin: 10/20/17 09:07 Dose: 650 mg Hydrocodone Bitart/Acetaminophen ([place] 5/325) 1 tab PO Q4H PRN PRN Reason: Pain 1ST LINE Last Admin: 10/19/17 22:03 Dose: 1 tab Hydrocodone Bitart/Acetaminophen ([place] 5/325) 2 tab PO Q4H PRN PRN Reason: Pain 2ND LINE Albuterol Sulfate (Ventolin) 2.5 mg NEB Q2H PRN PRN Reason: Wheezing Albuterol/Ipratropium (Duoneb) 3 ml NEB [id number] Last Admin: 10/20/17 15:00 Dose: 3 ml Calcium Carbonate (Tums) 1,000 mg PO Q6H PRN PRN Reason: INDIGESTION Last Admin: 10/14/17 21:41 Dose: 1,000 mg Cyclobenzaprine HCl (Flexeril) 10 mg PO TID PRN PRN Reason: Muscle Spasm Last Admin: 10/16/17 20:37 Dose: 10 mg Enoxaparin Sodium (Lovenox) 40 mg SC 0900 [facility] Last Admin: 10/20/17 09:01 Dose: 40 mg Fentanyl (Sublimaze) 25 mcg SLOW IVP Q2H PRN PRN Reason: Pain 3RD LINE Guaifenesin (Mucinex) 1,200 mg PO Q12HR [facility] Last Admin: 10/20/17 09:01 Dose: 1,200 mg Vancomycin HCl 750 mg/ Sodium (Chloride) 250 mls @ 250 mls/hr IVPB Q6HR [facility] Last Admin: 10/20/17 12:21 Dose: 250 mls Lidocaine HCl (Xylocaine 2% Viscous) 15 ml SSW Q4H PRN PRN Reason: odynophagia Loperamide HCl (Imodium) 2 mg PO .AFTER Bm [facility] Last Admin: 10/10/17 19:39 Dose: 2 mg Lorazepam (Ativan) 1 mg SLOW IVP Q4H PRN PRN Reason: Anxiety/Agitation Last Admin: 10/18/17 17:08 Dose: 1 mg Magnesium Oxide (Magnesium Oxide) 400 mg PO BID [facility] Last Admin: 10/20/17 09:01 Dose: 400 mg Megestrol Acetate (Megace) 20 mg PO BID [facility] Last Admin: 10/20/17 09:02 Dose: 20 mg Methylprednisolone Sodium Succinate (Solu-Medrol) 20 mg IVP Q12HR [facility] Last Admin: 10/20/17 09:01 Dose: 20 mg Miscellaneous Medication (Pharmacy To Dose) 0 each IVPB DAILYPRN PRN PRN Reason: LABS Mometasone Furoate/Formoterol Fumar (Dulera 200 Mcg/5 Mcg Inhaler) 2 puff INH BID-RT [facility] Last Admin: 10/20/17 07:39 Dose: 2 puff Ondansetron HCl (Zofran) 4 mg IVP Q6H PRN PRN Reason: Nausea/Vomiting Last Admin: 10/13/17 13:23 Dose: 4 mg Pantoprazole Sodium (Protonix) 40 mg PO DAILY [facility] Last Admin: 10/20/17 09:01 Dose: 40 mg Phenol (Chloraseptic [place] 180 Ml Bot) 0 ml PO Q4H PRN PRN Reason: Sore Throat Last Admin: 10/06/17 16:21 Dose: 1 spr
[2017-10-20] MEDS: Cyclobenzaprine 10 MG TAB PO PRN (20:58)
[2017-10-21] MEDS: Vancomycin HCl 750 MG in Sodium Chloride 0.9% 250 ML 250 ML IVPB SCH ×5 (00:08→23:12)
[2017-10-21 06:21] LABS: Anion Gap 8 mmol/L (10-20); BUN (Urea Nitrogen) 10 mg/dL (7.0-18.7); Calc. Creatinine Clearance 95 mL/min (70-130); Calcium 8.1 mg/dL (7.8-10.44); Carbon Dioxide 31 mmol/L (22-29); Chloride 97 mmol/L (98-107); Estimated GFR-MDRD Greater than 90; Glucose 108 mg/dL (70-105); Potassium 4.3 mmol/L (3.5-5.1); Sodium 132 mmol/L (136-145)
[2017-10-21 06:51] LABS: Anisocytosis SLIGHT = 6-15 cells (100X) (0-5/hpf); Band 4 % (5-11); Hemoglobin 11.5 g/dL (12.0-16.0); Lymphocytes 10 % (21-51); MDiff Complete? YES; Macrocytosis SLIGHT = 6-15 cells (100X) (0-5/hpf); Mean Corpuscular HGB CONC 32.2 g/dL (32.0-36.0); Mean Corpuscular Hemoglobin 32.6 pg (27.0-31.0); Mean Platelet Volume 6.6 fL (7.4-10.4); Monocytes 3 % (0-10); Neutrophil 83 % (42-75); PLT Morphology Comment Appears Increased; Platelet Count 458 thou/uL (130-400); RBC Distribution Width 14.6 % (11.5-14.5); Red Blood Cell (RBC) Count 3.53 mill/uL (4.20-5.40); White Blood Cell (WBC) Count 22.1 thou/uL (4.8-10.8)
--- NOTE | 2017-10-21 07:37 | RAD ---
CHEST ONE VIEW: History: Chest tube. Follow up. Comparison: 10-19-17 FINDINGS: Cardiac silhouette is magnified. Lungs remain hyperinflated. Right thoracostomy tubes are in place, u nchanged in position. Right chest wall gas remains. No significant residual pneumothorax. Parenchymal opacity at the right base is stable. Right subclavian central venous catheter is unchanged in position. IMPRESSION: Stable radiographic appearance of the chest. POS: [facility]
[2017-10-21] MEDS: Mometasone/Formoterol 120 PUFF INHALER INH SCH ×2 (08:22→19:28)
[2017-10-21] MEDS: guaiFENesin ER 600 MG TAB PO SCH ×2 (08:52→20:26)
[2017-10-21] MEDS: Megestrol Acetate 40 MG TAB PO SCH ×2 (08:52→20:27)
[2017-10-21] MEDS: Magnesium Oxide 400 MG TAB PO SCH ×2 (08:53→20:27)
[2017-10-21] MEDS: Enoxaparin Sodium 40 MG/0.4 ML SYRINGE SC SCH (08:53)
[2017-10-21] MEDS: Lorazepam 2 MG/ML VIAL SLOW IVP PRN (08:53)
--- NOTE | 2017-10-21 11:25 | PDOC.PN ---
- Subjective Encounter Start Date: 10/21/17 Encounter Start Time: 08:15 Subjective: no sob, feels better - Objective Resuscitation Status: Resuscitation Status FULL:Full Resuscitation MAR Reviewed: Yes Vital Signs & Weight: Vital Signs (12 hours) Temp Pulse Resp BP BP Pulse Ox 10/21/17 08:18 96 19 10/21/17 07:45 98.5 F 91 20 112/73 97 10/21/17 04:52 83 20 100 10/21/17 04:25 99.0 F 88 19 120/74 96 10/21/17 00:00 99.2 F 92 16 128/44 L 96 Weight Admit Weight 88 lb Weight 88 lb 2.958 oz Most Recent Monitor Data Heart Rate from ECG 87 NIBP 116/65 NIBP BP-Mean 78 Respiration from ECG 18 SpO2 98 I&O: 10/20/17 10/21/17 10/22/17 06:59 06:59 06:59 Intake Total 1690 3100 Output Total 2670 4400 Balance -980 -1300 Result Diagrams: 10/21/17 05:30 10/21/17 05:30 Phys Exam - Physical Examination HEENT: PERRLA, moist MMs Neck: no JVD, supple Respiratory: no wheezing, no rales right chest tube in place Cardiovascular: RRR, no significant murmur Gastrointestinal: soft, non-tender, positive bowel sounds Musculoskeletal: no edema, pulses present Neurological: non-focal, moves all 4 limbs Psychiatric: A&O x 3 Dx/Plan (1) Empyema of right pleural space Code(s): J86.9 - PYOTHORAX WITHOUT FISTULA Status: Acute (2) Pneumonia due to methicillin resistant Staphylococcus aureus Code(s): J15.212 - PNEUMONIA DUE TO METHICILLIN RESISTANT STAPHYLOCOCCUS AUREUS Status: Acute Qualifiers: Laterality: right Lung location: lower lobe of lung Qualified Code(s): J15.212 - Pneumonia due to Methicillin resistant Staphylococcus aureus Comment: necrotizing pneumonia, pesent on admit. on IV vancomycin. planning 14 days total abx rx. Bcx negative. pulm following, Cultures from Blood no growth. (3) Severe protein-calorie malnutrition Code(s): E43 - UNSPECIFIED SEVERE PROTEIN-CALORIE MALNUTRITION Status: Chronic Comment: may need to get nutritional support. Ensure TID (4) Chronic obstructive pulmonary disease Status: Chronic Qualifiers: COPD type: chronic bronchitis Chronic bronchitis type: simple Qualified Code(s): J41.0 - Simple chronic bronchitis (5) Hyponatremia Code(s): E87.1 - HYPO-OSMOLALITY AND HYPONATREMIA Status: Chronic (6) FTT (failure to thrive) in adult Status: Chronic (7) Pulmonary cachexia due to chronic obstructive pulmonary disease Code(s): J44.9 - CHRONIC OBSTRUCTIVE PULMONARY DISEASE, UNSPECIFIED; R64 - [place] Status: Chronic (8) Tobacco abuse Code(s): Z72.0 - TOBACCO USE Status: Chronic Comment: no cigarettes since . - Plan wbc around 22k -: likely will have chest tube removed today -: on vanc 750mg iv q6h -: duonebs, megace, is eating well now -: norco, fentanyl prn pain * . Review of Systems - Medications/Allergies Allergies/Adverse Reactions: Allergies Allergy/AdvReac Type Severity Reaction Status Date / Time tramadol Allergy Unknown Itching Verified 10/02/17 14:09 Sulfa (Sulfonamide Allergy Verified 10/02/17 14:09 Antibiotics) Medications: Current Medications Acetaminophen (Tylenol) 650 mg PO Q4H PRN PRN Reason: Headache/Fever or Pain Last Admin: 10/20/17 20:58 Dose: 650 mg Hydrocodone Bitart/Acetaminophen ([place] 5/325) 1 tab PO Q4H PRN PRN Reason: Pain 1ST LINE Last Admin: 10/19/17 22:03 Dose: 1 tab Hydrocodone Bitart/Acetaminophen ([place] 5/325) 2 tab PO Q4H PRN PRN Reason: Pain 2ND LINE Albuterol Sulfate (Ventolin) 2.5 mg NEB Q2H PRN PRN Reason: Wheezing Albuterol/Ipratropium (Duoneb) 3 ml NEB [id number] Last Admin: 10/21/17 08:18 Dose: 3 ml Calcium Carbonate (Tums) 1,000 mg PO Q6H PRN PRN Reason: INDIGESTION Last Admin: 10/14/17 21:41 Dose: 1,000 mg Cyclobenzaprine HCl (Flexeril) 10 mg PO TID PRN PRN Reason: Muscle Spasm Last Admin: 10/20/17 20:58 Dose: 10 mg Enoxaparin Sodium (Lovenox) 40 mg SC 0900 [facility] Last Admin: 10/21/17 08:53 Dose: 40 mg Fentanyl (Sublimaze) 25 mcg SLOW IVP Q2H PRN PRN Reason: Pain 3RD LINE Guaifenesin (Mucinex) 1,200 mg PO Q12HR [facility] Last Admin: 10/21/17 08:52 Dose: 1,200 mg Vancomycin HCl 750 mg/ Sodium (Chloride) 250 mls @ 250 mls/hr IVPB Q6HR [facility] Last Admin: 10/21/17 05:46 Dose: 250 mls Lidocaine HCl (Xylocaine 2% Viscous) 15 ml SSW Q4H PRN PRN Reason: odynophagia Loperamide HCl (Imodium) 2 mg PO .AFTER Bm [facility] Last Admin: 10/10/17 19:39 Dose: 2 mg Lorazepam (Ativan) 1 mg SLOW IVP Q4H PRN PRN Reason: Anxiety/Agitation Last Admin: 10/21/17 08:53 Dose: 1 mg Magnesium Oxide (Magnesium Oxide) 400 mg PO BID [facility] Last Admin: 10/21/17 08:53 Dose: 400 mg Megestrol Acetate (Megace) 20 mg PO BID [facility] Last Admin: 10/21/17 08:52 Dose: 20 mg Methylprednisolone Sodium Succinate (Solu-Medrol) 20 mg IVP Q12HR [facility] Last Admin: 10/21/17 08:54 Dose: 20 mg Miscellaneous Medication (Pharmacy To Dose) 0 each IVPB DAILYPRN PRN PRN Reason: LABS Mometasone Furoate/Formoterol Fumar (Dulera 200 Mcg/5 Mcg Inhaler) 2 puff INH BID-RT [facility] Last Admin: 10/21/17 08:22 Dose: 2 puff Ondansetron HCl (Zofran) 4 mg IVP Q6H PRN PRN Reason: Nausea/Vomiting Last Admin: 10/13/17 13:23 Dose: 4 mg Pantoprazole Sodium (Protonix) 40 mg PO DAILY [facility] Last Admin: 10/21/17 08:52 Dose: 40 mg Phenol (Chloraseptic [place] 180 Ml Bot) 0 ml PO Q4H PRN PRN Reason: Sore Throat Last Admin: 10/06/17 16:21 Dose: 1 spr
[2017-10-21 11:43] LABS: Vancomycin, Trough 15.6 ug/mL
[2017-10-22] MEDS: Vancomycin HCl 750 MG in Sodium Chloride 0.9% 250 ML 250 ML IVPB SCH ×3 (06:24→17:56)
[2017-10-22] MEDS: Mometasone/Formoterol 120 PUFF INHALER INH SCH ×2 (08:57→18:31)
--- NOTE | 2017-10-22 08:57 | RAD ---
PORTABLE CHEST 1 VIEW: Date: 10/22/17 Time: 0746 hours HISTORY: Chest tube removal. FINDINGS/IMPRESSION: There has been interval removal of two right-sided chest tubes since the previous day's exam. Right s ubclavian central line remains in place. The heart size is normal. Changes of COPD are again seen. Op acity in the right lower lung is again noted. There has been interval improvement in the subcutaneous emphysema in the right chest wall. No definite pneumothorax is seen. POS: [facility]
[2017-10-22] MEDS: Magnesium Oxide 400 MG TAB PO SCH ×2 (09:40→20:32)
[2017-10-22] MEDS: Megestrol Acetate 40 MG TAB PO SCH ×2 (09:41→20:32)
[2017-10-22] MEDS: guaiFENesin ER 600 MG TAB PO SCH ×2 (09:41→20:32)
[2017-10-22] MEDS: Enoxaparin Sodium 40 MG/0.4 ML SYRINGE SC SCH (09:51)
--- NOTE | 2017-10-22 10:55 | PRG ---
DATE OF SERVICE: 10/22/2017 She is complaining of yeast infection on her tongue. PHYSICAL EXAMINATION: VITAL SIGNS: One exam temperature is 98.5, pulse 93, respiration rate 16, O2 sat 99% on 2 liters. HEENT: Remarkable for oral thrush. NECK: No adenopathy or JVD. LUNGS: Clear. Chest tubes were removed on the right. CARDIAC: S1, S2 regular. ABDOMEN: Soft. EXTREMITIES: No edema. ASSESSMENT: Methicillin-resistant Staphylococcus aureus empyema. RECOMMENDATIONS: Complete 2 total weeks of antibiotics - I assume she has probably got 3-4 more days left to make her 14. Other than that, I think she is clear for discharge. I have written for 3 day s of Diflucan.
[2017-10-22] MEDS ORDERED: Fluconazole 100 MG TAB PO SCH (11:00)
[2017-10-22] MEDS: Sodium Chloride 0.9% 30 ML ONE (20:35)
[2017-10-23] MEDS: Sodium Chloride 0.9% 30 ML ONE (00:15)
[2017-10-23] MEDS: Vancomycin HCl 750 MG in Sodium Chloride 0.9% 250 ML 250 ML IVPB SCH ×3 (00:15→12:57)
--- NOTE | 2017-10-23 07:20 | PDOC.PN ---
- Subjective Encounter Start Date: 10/22/17 Encounter Start Time: 11:00 Subjective: pt chest tube was removed yesterday evening, she has been using ICS approx -: 800cc consistently per her report. family @ bedside. no new c/o, still feel -: overall rather weak. understands plan for rehab - Objective Resuscitation Status: Resuscitation Status FULL:Full Resuscitation Vital Signs & Weight: Vital Signs (12 hours) Temp Pulse Resp BP Pulse Ox 10/23/17 04:00 98.7 F 90 14 130/77 98 10/23/17 03:08 98 10/23/17 00:00 99.3 F 97 19 128/78 97 10/22/17 22:26 96 20 99 10/22/17 20:00 98.6 F 97 19 127/72 98 Weight Admit Weight 88 lb Weight 88 lb 2.958 oz Most Recent Monitor Data Heart Rate from ECG 87 NIBP 116/65 NIBP BP-Mean 78 Respiration from ECG 18 SpO2 98 I&O: 10/22/17 10/23/17 10/24/17 06:59 06:59 06:59 Intake Total 1300 2790 Output Total 2430 Balance -1130 2790 Result Diagrams: 10/21/17 05:30 10/21/17 05:30 Phys Exam - Physical Examination Constitutional: NAD thin HEENT: PERRLA slightly dry mm Respiratory: no wheezing, no rales, no rhonchi coarse and diminished throughout Cardiovascular: RRR, no significant murmur, no rub Gastrointestinal: soft, non-tender, no distention, positive bowel sounds Musculoskeletal: no edema, pulses present Psychiatric: normal affect, A&O x 3 Dx/Plan (1) Empyema of right pleural space Code(s): J86.9 - PYOTHORAX WITHOUT FISTULA Status: Acute (2) PNA (pneumonia) Code(s): J18.9 - PNEUMONIA, UNSPECIFIED ORGANISM Status: Acute Qualifiers: Pneumonia type: due to methicillin-resistant Staphylococcus aureus (MRSA) Laterality: right Lung location: lower lobe of lung Qualified Code(s): J15.212 - Pneumonia due to Methicillin resistant Staphylococcus aureus Comment: mrsa pna (3) Pneumonia due to methicillin resistant Staphylococcus aureus Code(s): J15.212 - PNEUMONIA DUE TO METHICILLIN RESISTANT STAPHYLOCOCCUS AUREUS Status: Acute Qualifiers: Laterality: right Lung location: lower lobe of lung Qualified Code(s): J15.212 - Pneumonia due to Methicillin resistant Staphylococcus aureus Comment: necrotizing pneumonia, pesent on admit. on IV vancomycin. planning 14 days total abx rx. Bcx negative. pulm following, Cultures from Blood no growth. (4) Thrush, oral Code(s): B37.0 - CANDIDAL STOMATITIS Status: Acute (5) Chronic obstructive pulmonary disease Status: Chronic Qualifiers: COPD type: chronic bronchitis Chronic bronchitis type: simple Qualified Code(s): J41.0 - Simple chronic bronchitis (6) Hyponatremia Code(s): E87.1 - HYPO-OSMOLALITY AND HYPONATREMIA Status: Chronic (7) Severe protein-calorie malnutrition Code(s): E43 - UNSPECIFIED SEVERE PROTEIN-CALORIE MALNUTRITION Status: Chronic Comment: may need to get nutritional support. Ensure TID (8) Acute respiratory failure with hypercapnia Code(s): J96.02 - ACUTE RESPIRATORY FAILURE WITH HYPERCAPNIA Status: Acute Comment: extubated 09/14/2017 (9) COPD exacerbation Code(s): J44.1 - CHRONIC OBSTRUCTIVE PULMONARY DISEASE W (ACUTE) EXACERBATION Status: Acute Comment: continue nebs, steroids, abx. Pulm following. (10) Streptococcus pneumoniae Status: Acute - Plan cont current plan of care, plan discussed w/ family, continue antibiotics * initial presentation of necrotizing pneumonia with concern for both streptococcus and MRSA as causative organisms complicated by a pulmonary empyema for which chest tube was placed and removed 10/21 * continue with IV abx for a total 14d course * will need continued physical therapy and respiratory therapy for severe deconditioning related to the severe inpatient illness as above * continue incentive spirometry and to wean O2 as tolerated * * diet: encourage, as tolerated * activity: PT . Review of Systems - Medications/Allergies Allergies/Adverse Reactions: Allergies Allergy/AdvReac Type Severity Reaction Status Date / Time tramadol Allergy Unknown Itching Verified 10/02/17 14:09 Sulfa (Sulfonamide Allergy Verified 10/02/17 14:09 Antibiotics) Medications: Current Medications Acetaminophen (Tylenol) 650 mg PO Q4H PRN PRN Reason: Headache/Fever or Pain Last Admin: 10/20/17 20:58 Dose: 650 mg Hydrocodone Bitart/Acetaminophen ([place] 5/325) 1 tab PO Q4H PRN PRN Reason: Pain 1ST LINE Last Admin: 10/19/17 22:03 Dose: 1 tab Hydrocodone Bitart/Acetaminophen ([place] 5/325) 2 tab PO Q4H PRN PRN Reason: Pain 2ND LINE Albuterol Sulfate (Ventolin) 2.5 mg NEB Q2H PRN PRN Reason: Wheezing Albuterol/Ipratropium (Duoneb) 3 ml NEB [id number] [facility] Last Admin: 10/23/17 03:08 Dose: 3 ml Calcium Carbonate (Tums) 1,000 mg PO Q6H PRN PRN Reason: INDIGESTION Last Admin: 10/14/17 21:41 Dose: 1,000 mg Cyclobenzaprine HCl (Flexeril) 10 mg PO TID PRN PRN Reason: Muscle Spasm Last Admin: 10/20/17 20:58 Dose: 10 mg Enoxaparin Sodium (Lovenox) 40 mg SC 0900 [facility] Last Admin: 10/22/17 09:51 Dose: 40 mg Fentanyl (Sublimaze) 25 mcg SLOW IVP Q2H PRN PRN Reason: Pain 3RD LINE Fluconazole (Diflucan) 200 mg PO DAILY [facility] Stop: 10/24/17 09:01 Guaifenesin (Mucinex) 1,200 mg PO Q12HR [facility] Last Admin: 10/22/17 20:32 Dose: 1,200 mg Vancomycin HCl 750 mg/ Sodium (Chloride) 250 mls @ 250 mls/hr IVPB Q6HR [facility] Last Admin: 10/23/17 06:13 Dose: 250 mls Lidocaine HCl (Xylocaine 2% Viscous) 15 ml SSW Q4H PRN PRN Reason: odynophagia Loperamide HCl (Imodium) 2 mg PO .AFTER Bm [facility] Last Admin: 10/10/17 19:39 Dose: 2 mg Magnesium Oxide (Magnesium Oxide) 400 mg PO BID [facility] Last Admin: 10/22/17 20:32 Dose: 400 mg Megestrol Acetate (Megace) 20 mg PO BID [facility] Last Admin: 10/22/17 20:32 Dose: 20 mg Methylprednisolone Sodium Succinate (Solu-Medrol) 20 mg IVP Q12HR [facility] Last Admin: 10/22/17 20:33 Dose: 20 mg Miscellaneous Medication (Pharmacy To Dose) 0 each IVPB DAILYPRN PRN PRN Reason: LABS Mometasone Furoate/Formoterol Fumar (Dulera 200 Mcg/5 Mcg Inhaler) 2 puff INH BID-RT [facility] Last Admin: 10/22/17 18:31 Dose: 2 puff Ondansetron HCl (Zofran) 4 mg IVP Q6H PRN PRN Reason: Nausea/Vomiting Last Admin: 10/13/17 13:23 Dose: 4 mg Pantoprazole Sodium (Protonix) 40 mg PO DAILY [facility] Last Admin: 10/22/17 09:40 Dose: 40 mg Phenol (Chloraseptic [place] 180 Ml Bot) 0 ml PO Q4H PRN PRN Reason: Sore Throat Last Admin: 10/06/17 16:21 Dose: 1 spr
[2017-10-23] MEDS ORDERED: Fluconazole 100 MG TAB PO SCH (09:00)
[2017-10-23] MEDS: Magnesium Oxide 400 MG TAB PO SCH (09:10)
[2017-10-23] MEDS: guaiFENesin ER 600 MG TAB PO SCH (09:10)
[2017-10-23] MEDS: Enoxaparin Sodium 40 MG/0.4 ML SYRINGE SC SCH (09:10)
[2017-10-23] MEDS: Megestrol Acetate 40 MG TAB PO SCH (09:11)
--- NOTE | 2017-10-23 10:23 | PRG ---
DATE OF SERVICE: 10/23/2017 She feels better. She is having some transudative drainage out of her chest tube site. PHYSICAL EXAMINATION: VITAL SIGNS: Temperature 99.1, pulse 76, respirations 20, O2 saturation 97% on 2 liters, blood press ure 131/77. HEENT: Unremarkable. NECK: No JVD. CHEST: Clear without wheezing. CARDIAC: S1 and S2 regular. ABDOMEN: Soft. EXTREMITIES: No edema. ASSESSMENT: Staphylococcal empyema. PLAN: She is transferring to a swing bed. She will complete 14 days of vancomycin. Her central yulissa e can be pulled out and she can use a peripheral line.
[2017-10-23] MEDS: Mometasone/Formoterol 120 PUFF INHALER INH SCH (10:30)
[2017-10-23 12:42] VITALS: BP 146/81; TEMP 97.7
--- NOTE | 2017-10-26 13:24 | DIS ---
DISCHARGE DIAGNOSES: 1. Complicated pneumonia with methicillin-resistant Staphylococcus aureus. 2. Empyema of the right pleural space, status post chest tube placement and removal. 3. Chronic obstructive pulmonary disease exacerbation, improved. 4. Acute respiratory failure with hypercapnia, resolved. 5. Streptococcal pneumonia. 6. Severe protein calorie malnutrition. 7. Hyponatremia, resolved. 8. Oral thrush. BRIEF SUMMARY OF HOSPITAL COURSE: This is a 47-year-old female with a known history of COPD, who initially presented with shortness of breath. Please see the original history and physical for full details surrounding admission. At the time of discharge, the patient in retrospect found to have sustained a pneumonia with causative organism concern for both MRSA and Streptococcus. She had developed a necrotizing pneumonia with pulmonary empyema for which a chest tube was placed and subsequently removed on 10/21/2017. She was seen also by CT Surgery in consultation. The patient was placed on IV vancomycin initially along with IV Solu-Medrol. At the time of discharge, the patient does have continued deconditioning and weakness; however, from a respiratory standpoint, she is improved and able to tolerate using incentive spirometry as well. At the time of discharge, the patient is discharged to an inpatient swing bed. CONSULTATIONS: 1. CT surgery. 2. Pulmonary Critical Care. DISCHARGE MEDICATIONS: Please see the EMR for full detail. The patient's discharge medications including her home regimen with the addition of doxycycline 100 mg p.o. b.i.d., fluconazole 100 mg p.o. daily and linezolid 600 mg p.o. q.12 hours along with prednisone 10 mg p.o. q.a.m. to complete a taper. The patient will be continued on these medications at her swing bed. The patient will otherwise continue on her home regimen including acetaminophen , famotidine, DuoNebs, Spiriva, Symbicort, and megestrol. DISCHARGE FOLLOWUP INSTRUCTIONS: The patient has been asked to follow up closely with her outpatient primary care team along with physical therapy and occupational therapy. PATIENT'S CONDITION AT DISCHARGE: VITAL SIGNS: At the time of discharge, the patient's vital signs were stable. GENERAL: The patient is awake, alert, and appropriate, in no acute distress. HEAD: Normocephalic, atraumatic. CARDIOVASCULAR: S1, S2. No murmurs, rubs or gallops. Pulses 2+ bilateral upper extremities. RESPIRATORY: No overt wheezes, rales or rhonchi, but it is coarse and diminished throughout. GASTROINTESTINAL: Positive bowel sounds, soft, nontender to palpation. [facility]. On 10/21/2017, WBC 22.1, hemoglobin 11.5, hematocrit 35.8, platelets 458. Please note that this is an improved leukocytosis compared to on presentation and it is felt that the patient's utilization of corticosteroids is currently contributing to her leukocytosis persisted as she has had clinical improvement. 2. Sodium 132, potassium 4.3, chloride 97, bicarbonate 31, BUN 10, creatinine 0.45, glucose 108, calcium 8.1 3. Blood cultures on 10/02/2017 and 10/16/2017 have both been no growth in 5 days. This includes a peripherally drawn blood cultures x2 along with an A- line subclavian vein and venous left arm blood culture. Pleural fluid is positive for MRSA and sputum culture is also consistent with MRSA. Thank you for asking me to care for the patient. Questions or concerns, please contact me at [facility]. JACI
[2017-11-10 15:21] LABS: Fungus Culture Final report (.)
== END 2017-10-23 13:50 | DRG 853 ==
LOC: ERS 08:16 → ERHOLD 10:54 → T4-A 13:48 → CCU 10-11 11:24 → SURG B 10-14 15:51
PROVIDERS: ADMIT Internal Medicine; ATTEND Internal Medicine
PROC: 0BNK4ZZ Release Right Lung, Percutaneous Endoscopic Approach (ICD-10-PCS; principal; 2017-10-12)
PROC: 0W9930Z Drainage of Right Pleural Cavity with Drainage Device, Percutaneous Approach (ICD-10-PCS; 2017-10-12)
PROC: 02H633Z Insertion of Infusion Device into Right Atrium, Percutaneous Approach (ICD-10-PCS; 2017-10-12)
DX: A41.9 Sepsis, unspecified organism (principal); J86.9 Pyothorax without fistula; J96.01 Acute respiratory failure with hypoxia; E43 Unspecified severe protein-calorie malnutrition; J15.212 Pneumonia due to Methicillin resistant Staphylococcus aureus; B37.0 Candidal stomatitis; J44.1 Chronic obstructive pulmonary disease with (acute) exacerbation; J95.812 Postprocedural air leak; Z68.1 Body mass index [BMI] 19.9 or less, adult; E22.2 Syndrome of inappropriate secretion of antidiuretic hormone; K21.9 Gastro-esophageal reflux disease without esophagitis; I10 Essential (primary) hypertension; F41.9 Anxiety disorder, unspecified; R62.7 Adult failure to thrive; Z87.11 Personal history of peptic ulcer disease; Z88.5 Allergy status to narcotic agent; Z88.2 Allergy status to sulfonamides; Z79.899 Other long term (current) drug therapy
CPT/HCPCS: 36415; 71045; 71275; 80048; 80053; 80069; 80202; 82550; 82553; 82805; 83605; 83735; 83880; 83930; 83935; 84484; 85007; 85025; 85027; 85060; 86850; 86900; 86901; 87040; 87045; 87046; 87070; 87077; 87102; 87186; 87205; 87206; 87324; 87449; 87804; 87899; 93005; 93306; 94002; 94003; 94150; 94640; 94664; 96361; 96365; 96367; 96375; 99406; A4216; C9113; G8978-GP-CL; G8978-GP-CM; G8979-GP-CK; J0456; J0692; J1650; J1720; J1956; J2001; J2060; J2250; J2405; J2543; J2704; J2920; J2930; J3010; J3370; J3475; J7050; J7506; J7620; S0020; S0179

== ENCOUNTER 2017-12-01 15:31 | Outpatient (CLI) | payer MEDICARE, MEDICAID ==
--- NOTE | 2017-12-01 16:20 | RAD ---
CHEST TWO VIEWS: History: Emphysema. Fistula. Pneumothorax. Comparison: Earlier exam, same date. FINDINGS: Cardiac silhouette and pulmonary vasculature unremarkable. Mediastinum is midline. Lungs remain hyper inflated with flattening of the hemidiaphragm. Pleural based mass with adjacent spiculation at the po sterior aspect of the right hemithorax is unchanged in appearance from the most recent exam but has i mproved significantly from the 11-09-17 study. IMPRESSION: 1. COPD. 2. Improvement in radiographic appearance of the pleural based right posterior thoracic process. POS: [facility]
== END 2017-12-01 15:32 | disposition home or self-care (01) ==
LOC: RAD 15:31
PROVIDERS: ATTEND Thoracic Surgery (Cardiothoracic Vascular Surgery)
DX: J86.9 Pyothorax without fistula (principal); J44.9 Chronic obstructive pulmonary disease, unspecified
CPT/HCPCS: 71046

== ENCOUNTER 2018-03-15 10:29 | Outpatient (CLI) | payer MEDICARE, MEDICAID ==
--- NOTE | 2018-03-15 11:28 | RAD ---
TWO VIEWS OF THE CHEST: DATE: 03/15/18. COMPARISON: 12/08/17. HISTORY: Dyspnea. FINDINGS: There has been interval development of a nodular density overlying the right upper lobe measuring 1.2 cm. Increased linear interstitial density and pulmonary hyperinflation suggests COPD, unchanged. T here is a linear area of increased density in the posteromedial right lung base suggesting scar/volum e loss. IMPRESSION: Interval development of a 1.2 cm nodular density overlying the right upper lobe. Recommend CT examin ation for evaluation of possible underlying pulmonary parenchymal mass. CODE T Dr. Salinas made aware on the morning of 03/17/18 at 9:30am POS: [facility]
== END 2018-03-15 10:30 | disposition home or self-care (01) ==
LOC: RAD 10:29
PROVIDERS: ATTEND Internal Medicine Critical Care Medicine
DX: R06.00 Dyspnea, unspecified (principal); J98.4 Other disorders of lung
CPT/HCPCS: 71046

== ENCOUNTER 2018-03-29 10:49 | Outpatient (CLI) | payer MEDICARE, MEDICAID ==
--- NOTE | 2018-03-29 12:51 | CT ---
CT OF THE CHEST WITH CONTRAST: Date: 03/29/18 COMPARISON: Chest x-ray dated 03/15/18. HISTORY: Pulmonary nodule seen on chest x-ray. Follow-up exam. FINDINGS: There is a spiculated mass in the right upper lobe measuring 1.0 cm in size. This corresponds to the abnormality seen on chest x-ray. Emphysematous changes are seen in the lungs. There is consolidation in the right lower lobe, which could potentially represent scarring or atelectasis. No other pulmonar y nodules are identified. No pleural effusion or pneumothorax are seen. The heart is normal in size without focal cardiac abnormality. No hilar or mediastinal lymphadenopath y are seen. The visualized subdiaphragmatic structures are unremarkable. Degenerative changes are see n in the spine. The chest wall soft tissues are unremarkable. IMPRESSION: There is a spiculated mass in the right upper lobe which corresponds to the chest x-ray abnormality a nd is concerning for primary pulmonary malignancy. Appropriate action should be taken. CODE T. POS: [facility]
[2018-03-29] MEDS ORDERED: Iopamidol 370 76% 100 ML VIAL ONE (13:03)
== END 2018-03-29 10:50 | disposition home or self-care (01) ==
LOC: CT 10:49
PROVIDERS: ATTEND Internal Medicine Critical Care Medicine
DX: R91.1 Solitary pulmonary nodule (principal); R91.8 Other nonspecific abnormal finding of lung field
CPT/HCPCS: 71260

== ENCOUNTER 2018-04-08 07:24 | Day surgery (SDC) | payer MEDICARE, MEDICAID ==
[2018-04-07 14:16] VITALS: BMI 19.6
[2018-04-08 07:40] LABS: #Basophils 0.1 thou/uL (0.0-0.2); #Eosinphils 0.1 thou/uL (0.0-0.7); #Lymphocytes 2.8 thou/uL (1.20-3.40); #Monocytes 0.6 thou/uL (0.11-0.59); #Neutrophils 2.4 thou/uL (1.40-6.50); %Basophils 1.7 % (0.0-1.0); %Eosinophils 1.4 % (0.0-10.0); %Lymphocytes 47.2 % (21.0-51.0); %Neutrophils 39.6 % (42.0-75.0); Hemoglobin 13.5 g/dL (12.0-16.0); Mean Corpuscular HGB CONC 32.6 g/dL (32.0-36.0); Mean Corpuscular Hemoglobin 28.9 pg (27.0-31.0); Mean Corpuscular Volume 88.5 fL (78.0-98.0); Mean Platelet Volume 6.9 fL (7.4-10.4); Platelet Count 321 thou/uL (130-400); RBC Distribution Width 16.8 % (11.5-14.5); Red Blood Cell (RBC) Count 4.67 mill/uL (4.20-5.40)
[2018-04-08 07:47] LABS: INR-International Normal Ratio 0.9; Prothrombin Time 12.3 SEC (12.0-14.7)
[2018-04-08 07:52] LABS: PTT 27.7 SEC (22.9-36.1)
[2018-04-08 09:58] VITALS: BP 157/74; TEMP 98.1
--- NOTE | 2018-04-08 13:22 | RAD ---
INSPIRATORY AND EXPIRATORY VIEWS OF CHEST: Date: 04/08/18 INDICATION: Status post right lung biopsy. COMPARISON: CT guided lung biopsy evaluation of 04/08/18. FINDINGS: Submitted inspiratory and expiratory images demonstrate small, stable right apical pneumothorax. Aminata re COPD change is similar. Right upper lobe spiculated nodule is unchanged. Chronic osseous changes a re similar. Heart size normal. IMPRESSION: Stable small right apical pneumothorax. Follow-up examination is to be performed in 1 hour to documen t stability of the size of the pneumothorax. POS: [facility]
--- NOTE | 2018-04-08 13:32 | CT ---
CT GUIDED RIGHT LUNG BIOPSY CT GUIDED FNA OF RIGHT PULMONARY NODULE: CLINICAL HISTORY: Right side pulmonary nodule. PROCEDURE: Informed consent was obtained. The patient was escorted to the procedural suite. The patient was pl aced in the supine position. The nodule at the right upper lobe was localized with CT fluoroscopic i maging as well as CT ammonia solution preparer imaging. Subsequently, the right upper ventral chest wall was prepped and draped in a standard sterile fashion. Topical anesthesia with 1% Lidocaine was performed. The dylan ent was administered conscious sedation by the radiology nurse, Terri Gore, and was monitored ac cordingly, in stable condition throughout the duration of the exam. A small skin incision was made t hrough which a 19-gauge trocar was advanced to the leading edge of the nodule of interest. The inner stylette of the trocar was removed and exchanged for a 20-gauge biopsy needle. Subsequently, 2 core specimens were acquired. These were submitted for the pathologist, Dr. Crispin Shah and deemed jaclyn quate for interpretation. Subsequent to the core biopsies, a separate FNA procedure of the nodule was performed with sampling p roducts provided to the pathologist for interpretation. The needle was then removed from the patient . The patient tolerated the procedure well. Postprocedural imaging revealed a small volume postproc edural right-side pneumothorax which will be monitored accordingly. FINDINGS: Right side pulmonary nodule. IMPRESSION: 1. Technically successful CT-guided biopsy of a right pulmonary nodule yielding 2 core specimens. 2. Technically successful CT-guided FNA of right pulmonary nodule. Pathology results are pending. POS: [facility]
--- NOTE | 2018-04-08 14:04 | RAD ---
INSPIRATORY AND EXPIRATORY VIEWS OF CHEST: Date: 04/08/18 INDICATION: Status post right-sided lung biopsy. COMPARISON: Prior exam dated 04/08/18 at 1107 hours. FINDINGS: The small right apical pneumothorax is unchanged. The extent of the right chest wall emphysema appear s slightly more pronounced than on the comparison examination. IMPRESSION: 1. Stable small right apical pneumothorax. 2. Worsening right chest wall subcutaneous emphysema. 3. Stable severe COPD change. POS: [facility]
--- NOTE | 2018-04-08 15:14 | RAD ---
TWO VIEW INSPIRATORY AND EXPIRATORY CHEST RADIOGRAPH SERIES: INDICATION: Status post right lung biopsy. FINDINGS: Slight interval decrease in size of small volume right apical pneumothorax noted. There is soft tiss ue emphysema of the right superior chest and neck. Nodular density of the right upper lung zone roel esponds to the recently biopsied pulmonary nodule. IMPRESSION: Slight interval decrease in volume of small right side pneumothorax. POS: [facility]
--- NOTE | 2018-04-08 15:25 | RAD ---
TWO VIEW INSPIRATORY AND EXPIRATORY CHEST SERIES: COMPARISON: Reference is made to prior radiographs, same date. CLINICAL HISTORY: Status post right lung biopsy. Pneumothorax, followup. FINDINGS: There is a stable small volume right pneumothorax. Soft tissue emphysema of the right neck and chest is again seen, similar-appearing. Underlying nodular density from the patient's recently biopsied r ight pulmonary nodule remains. IMPRESSION: Stable small volume pneumothorax, right-sided, predominantly localizing to the apex. POS: [facility]
--- NOTE | 2018-04-12 12:51 | CT ---
CT GUIDED RIGHT LUNG BIOPSY CT GUIDED FNA OF RIGHT PULMONARY NODULE: CLINICAL HISTORY: Right side pulmonary nodule. PROCEDURE: Informed consent was obtained. The patient was escorted to the procedural suite. The patient was pl aced in the supine position. The nodule at the right upper lobe was localized with CT fluoroscopic i maging as well as CT trial attorney imaging. Subsequently, the right upper ventral chest wall was prepped and draped in a standard sterile fashion. Topical anesthesia with 1% Lidocaine was performed. The dylan ent was administered conscious sedation by the radiology nurse, Terri Gore, and was monitored ac cordingly, in stable condition throughout the duration of the exam. A small skin incision was made t hrough which a 19-gauge trocar was advanced to the leading edge of the nodule of interest. The inner stylette of the trocar was removed and exchanged for a 20-gauge biopsy needle. Subsequently, 2 core specimens were acquired. These were submitted for the pathologist, Dr. Crispin Shah and deemed jaclyn quate for interpretation. Subsequent to the core biopsies, a separate FNA procedure of the nodule was performed with sampling p roducts provided to the pathologist for interpretation. The needle was then removed from the patient . The patient tolerated the procedure well. Postprocedural imaging revealed a small volume postproc edural right-side pneumothorax which will be monitored accordingly. FINDINGS: Right side pulmonary nodule. IMPRESSION: 1. Technically successful CT-guided biopsy of a right pulmonary nodule yielding 2 core specimens. 2. Technically successful CT-guided FNA of right pulmonary nodule. Pathology results are pending.
== END 2018-04-08 14:00 | disposition home or self-care (01) ==
LOC: CP 07:24
PROVIDERS: ATTEND Internal Medicine Critical Care Medicine
PROC: 0BBK3ZX Excision of Right Lung, Percutaneous Approach, Diagnostic (ICD-10-PCS; principal; 2018-04-08)
DX: R91.1 Solitary pulmonary nodule (principal); J44.9 Chronic obstructive pulmonary disease, unspecified; F32.9 Major depressive disorder, single episode, unspecified; F41.0 Panic disorder [episodic paroxysmal anxiety]; I73.9 Peripheral vascular disease, unspecified; E46 Unspecified protein-calorie malnutrition; Z88.2 Allergy status to sulfonamides; Z87.891 Personal history of nicotine dependence
CPT/HCPCS: 32405; 36415; 71045; 77012; 85025; 85610; 85730; 88305; 88312; 88333; 88334; 94060; 94727; 94729; 99152; 99153

== ENCOUNTER 2018-09-09 10:27 | Outpatient (CLI) | payer MEDICARE, MEDICAID ==
--- NOTE | 2018-09-09 12:24 | RAD ---
PA AND LATERAL CHEST: History: Dyspnea. FINDINGS: Comparison is made with exam dated 03-15-18. Changes of COPD are again seen. No lobar consolidation, pneumothoraces, or pleural effusions are iden tified. Density in the right upper lobe again noted. IMPRESSION: No acute process. POS: ANGUS
== END 2018-09-09 10:28 | disposition home or self-care (01) ==
LOC: RAD 10:27
PROVIDERS: ATTEND Internal Medicine Critical Care Medicine
DX: R06.00 Dyspnea, unspecified (principal)
CPT/HCPCS: 71046

== ENCOUNTER 2018-11-03 13:11 | Outpatient (CLI) | payer MEDICARE, MEDICAID | END 2018-11-03 13:12 | disposition home or self-care (01) | LOC: BICMAMMO 13:11 | PROVIDERS: ATTEND Family Medicine | DX: Z12.31 Encounter for screening mammogram for malignant neoplasm of breast (principal); R92.1 Mammographic calcification found on diagnostic imaging of breast; Z80.3 Family history of malignant neoplasm of breast | CPT/HCPCS: 77063; 77067 ==

== ENCOUNTER 2019-03-08 12:51 | Outpatient (CLI) | payer MEDICARE, MEDICAID ==
--- NOTE | 2019-03-08 14:13 | RAD ---
CHEST TWO VIEW: 03/08/19 HISTORY: Dyspnea. Comparison radiograph 09/09/18. FINDINGS: There is linear scarring within the right middle lobe and lingula. There is a nodule on the right upp er lobe. Emphysematous changes. IMPRESSION: 1. Similar appearance to the scarring in right middle lobe. 2. Nodule in the right upper lobe similar to the comparison examinations. Nonemergent follow-up CT of the chest may be beneficial to evaluate for change. POS: TPC
== END 2019-03-08 12:52 | disposition home or self-care (01) ==
LOC: RAD 12:51
PROVIDERS: ATTEND Internal Medicine Critical Care Medicine
DX: R06.00 Dyspnea, unspecified (principal); R91.1 Solitary pulmonary nodule; J98.4 Other disorders of lung
CPT/HCPCS: 71046

== ENCOUNTER 2019-03-14 09:29 | Outpatient (CLI) | payer MEDICARE, MEDICAID ==
--- NOTE | 2019-03-14 10:12 | BD ---
EXAM: DEXA bone density examination HISTORY: 49-year-old postmenopausal female for screening COMPARISON: None FINDINGS: L1--bone mineral density 0.802 g/sq cm; T score -1.7 L2--bone mineral density 0.862 g/sq cm; T score -1.5 L3--bone mineral density 0.879 g/sq cm; T score -1.9 L4--bone mineral density 0.806 g/sq cm; T score -2.3 Total L1-L4--bone mineral density 0.838 g/sq cm; T score -1.9 Left femoral neck--bone mineral density0.552; T score -2.7 Total proximal left femur--bone mineral density 0.723; T score -1.8 IMPRESSION: Osteopenia
== END 2019-03-14 09:30 | disposition home or self-care (01) ==
LOC: BICMAMMO 09:29
PROVIDERS: ATTEND Nurse Practitioner Family
DX: Z13.820 Encounter for screening for osteoporosis (principal); Z78.0 Asymptomatic menopausal state; M85.852 Other specified disorders of bone density and structure, left thigh
CPT/HCPCS: 77080

== ENCOUNTER 2019-06-15 11:18 | Outpatient (CLI) | payer MEDICARE, MEDICAID | END 2019-06-15 11:19 | disposition home or self-care (01) | LOC: CTENTCT 11:18 | PROVIDERS: ATTEND Specialist | DX: R68.89 Other general symptoms and signs (principal) | CPT/HCPCS: 70486 ==

== ENCOUNTER 2019-06-30 12:32 | Day surgery (SDC) | payer MEDICARE, MEDICAID ==
[2019-06-29 13:18] VITALS: BMI 23.0
[2019-06-30] MEDS ORDERED: Ondansetron PF 4 MG/2 ML Vial ONE (12:42)
[2019-06-30] MEDS ORDERED: Succinylcholine Chloride 20 MG/ML 10 ml SYRINGE FS ONE (12:42)
[2019-06-30] MEDS ORDERED: ePHEDrine 50 MG/ML VIAL ONE (12:42)
[2019-06-30] MEDS ORDERED: PROPOFOL 200 MG/20 ML VIAL ONE (12:42)
[2019-06-30] MEDS ORDERED: Dexamethasone 20 MG/5 ML VIAL ONE (12:42)
[2019-06-30] MEDS ORDERED: Rocuronium Bromide 10 MG/ML (10ML VIAL) ONE (12:42)
[2019-06-30] MEDS ORDERED: Lidocaine 2% PF 5 ML VIAL ONE (12:42)
[2019-06-30] MEDS ORDERED: Oxymetazoline HCl 0.05% ( 15 ML ) ONE ×2 (13:26→13:59)
[2019-06-30] MEDS ORDERED: Lidocaine 1% w/Epinephrine 1:100K 20 ML VIAL ONE (13:59)
[2019-06-30] MEDS ORDERED: EPINEPHrine 1 MG/ML AMP ONE (13:59)
[2019-06-30] MEDS ORDERED: Sodium Chloride 0.9% 0 ML ONE (13:59)
[2019-06-30] MEDS ORDERED: Bacitracin Zinc Ointment 30 gm TUBE ONE (14:00)
[2019-06-30] MEDS ORDERED: Fentanyl 100 MCG/2 ML VIAL ONE ×2 (14:05→15:57)
[2019-06-30] MEDS ORDERED: HYDROcodone/Acetaminophen 5/325 mg Tablet ONE (16:44)
--- NOTE | 2019-06-30 23:53 | EKG ---
Test Reason : PREOP Blood Pressure : / mmHG Vent. Rate : 067 BPM Atrial Rate : 067 BPM P-R Int : 138 ms QRS Dur : 082 ms QT Int : 402 ms P-R-T Axes : 082 072 072 degrees QTc Int : 424 ms Normal sinus rhythm Normal ECG When compared with ECG of 02-OCT-2017 09:08, Sinus rhythm has replaced Atrial flutter Confirmed by Xiomara WHITE ([id number]) on 06/30/2019 11:53:25 PM Referred By: CARMELA Confirmed By:Xiomara WHITE
--- NOTE | 2019-07-01 11:04 | OP ---
DATE OF PROCEDURE: 06/30/2019 PREOPERATIVE DIAGNOSES: 1. Chronic sinusitis. 2. Recurrent sinusitis. 3. Hypertrophic inferior turbinates. POSTOPERATIVE DIAGNOSES: 1. Chronic sinusitis. 2. Recurrent sinusitis. 3. Hypertrophic inferior turbinates. PROCEDURE PERFORMED: 1. Bilateral nasal endoscopy with maxillary antrostomy. 2. Bilateral nasal endoscopy with total ethmoidectomy. 3. Bilateral nasal endoscopy with frontal sinusotomy. 4. Bilateral nasal endoscopy with sphenoidotomy. 5. Bilateral nasal endoscopy with submucosal resection of inferior turbinates. FINDINGS: The patient was found to have very large hypertrophic inferior turbinates and markedly narrow ostiomeatal complex with purulence encountered in the maxillary sinuses and ethmoid sinuses and inflammation in the frontal sinus. DESCRIPTION OF PROCEDURE: BILATERAL NASAL ENDOSCOPY WITH MAXILLARY ANTROSTOMY: The uncinate was then identified and the extent of the uncinate was appreciated by out-fracturing the uncinate with the ball-tip probe. We then used the sickle blade to disarticulate the uncinate from the lateral nasal wall. This was then removed with straight biting and upbiting punches with the remaining shrouds of mucosa and bony septum removed with the micro-debrider. The natural os of the maxillary sinus was then identified and enlarged with the maxillary punches and back biting forceps. BILATERAL NASAL ENDOSCOPY WITH TOTAL ETHMOIDECTOMY: The anterior face of the ethmoid bulla was entered and with the micro-debrider, dissection continued posteriorly to the ground lamella. The limits of dissection included the insertion of the middle turbinate, medial orbital wall, and base of skull. We similarly identified the frontal recess and removed shrouds of bone and debris in that region to obtain patency into the agger nasi region and frontal recess. We then entered the ground lamella and its anteroinferior aspect and proceeded posteriorly, opening the posterior ethmoid air-cell system. Again, the limits of dissection included the base of skull and medial orbital wall. BILATERAL NASAL ENDOSCOPY WITH FRONTAL SINUSOTOMY: Following the ethmoidectomy, we then turned our attention to the frontal nasal recess. The agger nasi cells were addressed and the frontal recess was exposed. The natural opening to the frontal sinus was identified. At this point, any obstructing shrouds of mucosa and bony fragments were removed with a curved microdebrider. The wound was then examined and found to be free of any obstructing debris. We then turned our attention to the contralateral side and performed a similar procedure again under endoscopic visualization using a 45-degree scope. We were able to visualize the frontal recess. Obstructing shrouds of mucosa and bone were removed with a microdebrider. The natural os of frontal sinus was identified and enlarged and irrigated. At this point, the frontal sinusotomy was completed and we turned to the next area of concern. BILATERAL NASAL ENDOSCOPY WITH SPHENOIDOTOMY: The anterior face of the sphenoid was identified and entered in its extreme anteroinferior aspect. A sphenoid punch was then used to enlarge the sphenoidotomy and no injury to the optic nerve or internal carotid artery occurred. BILATERAL NASAL ENDOSCOPY WITH SUBMUCOSAL RESECTION OF INFERIOR TURBINATES: After consent was obtained, the patient was identified, brought to the operating room, and placed on the operating room table in the supine position. Consent was obtained, notifying the patient of the possibility of additional infections, bleeding, brain injury, and eye/orbital injury. The patient was placed on the operating room table, and general endotracheal anesthesia and intravenous access was obtained. The patient was then positioned, prepped and draped for endoscopic sinus surgery. Nasal preparation included trimming nasal vestibular hairs and spraying in topical Afrin. We then placed Afrin topical solution on nasal pledgets and strategically located them intranasally. The perinasal mucosa was injected with 1% lidocaine with 1:100,000 epinephrine in the submucoperichondrial plane of the septum, lateral nasal wall, and anterior to the uncinate. The patient was then prepped and draped in a sterile fashion and positioned for endoscopic sinus surgery. With the 0-degree endoscope, the patient underwent systematic nasal endoscopy. There were no suspicious internasal masses or lesions identified. We then focused our attention to the osteomeatal complex region under the middle turbinate. The inferior turbinates were visualized with a 0 degree endoscope and outfractured with a [place] elevator. The inferior medial aspect was cauterized with the electrocautery. Hemostasis was obtained . After adequate airway was established, we turned our attention to the contralateral side and used a similar procedure. Again, a [place] elevator was used to outfracture inferior turbinates under endoscopic visualization. With a suction cautery, the free inferior medial aspect was cauterized under direct visualization along the length of the inferior turbinate. At this point, we then turned our attention to the contralateral side and proceeded with endoscopic sinus surgery. At the completion of the case, Rice keel splints were placed in the ethmoid cavities after the ethmoidectomy. There were no complications. The patient tolerated the procedure well and was discharged to the recovery room in stable condition prior to return to the preoperative day stay with ultimate discharge home. Prescriptions for pain medication and antibiotics were provided. The patient received intramuscular Depo-Medrol during the case. Job ID: [id number]
== END 2019-06-30 17:36 | disposition home or self-care (01) ==
LOC: SDC 12:32
PROVIDERS: ATTEND Specialist
PROC: 099R8ZZ Drainage of Left Maxillary Sinus, Via Natural or Artificial Opening Endoscopic (ICD-10-PCS; principal; 2019-06-30)
PROC: 099Q8ZZ Drainage of Right Maxillary Sinus, Via Natural or Artificial Opening Endoscopic (ICD-10-PCS; 2019-06-30)
PROC: 09TL8ZZ Resection of Nasal Turbinate, Via Natural or Artificial Opening Endoscopic (ICD-10-PCS; 2019-06-30)
PROC: 09TV8ZZ Resection of Left Ethmoid Sinus, Via Natural or Artificial Opening Endoscopic (ICD-10-PCS; 2019-06-30)
PROC: 09TU8ZZ Resection of Right Ethmoid Sinus, Via Natural or Artificial Opening Endoscopic (ICD-10-PCS; 2019-06-30)
PROC: 09BT8ZZ Excision of Left Frontal Sinus, Via Natural or Artificial Opening Endoscopic (ICD-10-PCS; 2019-06-30)
PROC: 09BS8ZZ Excision of Right Frontal Sinus, Via Natural or Artificial Opening Endoscopic (ICD-10-PCS; 2019-06-30)
PROC: 09CX8ZZ Extirpation of Matter from Left Sphenoid Sinus, Via Natural or Artificial Opening Endoscopic (ICD-10-PCS; 2019-06-30)
PROC: 09CW8ZZ Extirpation of Matter from Right Sphenoid Sinus, Via Natural or Artificial Opening Endoscopic (ICD-10-PCS; 2019-06-30)
DX: J32.0 Chronic maxillary sinusitis (principal); J34.2 Deviated nasal septum; J34.3 Hypertrophy of nasal turbinates; J34.89 Other specified disorders of nose and nasal sinuses; J44.9 Chronic obstructive pulmonary disease, unspecified; Z79.899 Other long term (current) drug therapy; Z88.8 Allergy status to other drugs, medicaments and biological substances
CPT/HCPCS: 36415; 85014; 93005; 93010; J0131; J0171; J1100; J2001; J2405; J2704; J3010; J3490

== ENCOUNTER 2019-10-12 14:26 | Outpatient (CLI) | payer MEDICARE, MEDICAID ==
--- NOTE | 2019-10-12 14:45 | RAD ---
CHEST TWO VIEWS: HISTORY: Dyspnea. COMPARISON: Radiograph from 03/08/2019. FINDINGS: There is some scarring within the lingula and right middle lobe. The lungs are hyperinflated. There a re severe emphysematous changes in the upper lobes. No acute osseous abnormality. IMPRESSION: 1. Chronic findings. No acute intrathoracic abnormality. Obstructive pulmonary disease. 2. Similar appearance of the right upper and right middle lobe nodular density. POS: TPC
== END 2019-10-12 14:27 | disposition home or self-care (01) ==
LOC: RAD 14:26
PROVIDERS: ATTEND Internal Medicine Critical Care Medicine
DX: R06.00 Dyspnea, unspecified (principal); J43.9 Emphysema, unspecified; J98.4 Other disorders of lung; R91.8 Other nonspecific abnormal finding of lung field
CPT/HCPCS: 71046

== ENCOUNTER 2019-11-04 10:15 | Outpatient (CLI) | payer MEDICARE, MEDICAID ==
--- NOTE | 2019-11-04 12:03 | MMO ---
Bilateral MAMMO Bilat Screen DDI+BRE. CLINICAL HISTORY: Patient is 49 years old and is seen for screening. The patient has the following family history of breast cancer: maternal aunt, malignant (generic). The patient has no personal history of cancer. VIEWS: The views performed were: bilateral craniocaudal with tomosynthesis and bilateral mediolateral oblique with tomosynthesis. FILMS COMPARED: The present examination has been compared to prior imaging studies performed at [facility] on 06/13/2015 and 11/03/2018. This study has been interpreted with the assistance of computer-aided detection. MAMMOGRAM FINDINGS: The breasts are heterogeneously dense, which could obscure a lesion on mammography. There are benign appearing calcifications seen in both breasts. There are no suspicious masses, suspicious calcifications, or new areas of architectural distortion. IMPRESSION: THERE IS NO MAMMOGRAPHIC EVIDENCE OF MALIGNANCY. A ROUTINE FOLLOW-UP MAMMOGRAM IN 1 YEAR IS RECOMMENDED. THE RESULTS OF THIS EXAM WERE SENT TO THE PATIENT. ACR BI-RADS Category 2 - Benign finding MAMMOGRAPHY NOTE: 1. A negative mammogram report should not delay a biopsy if a dominant of clinically suspicious mass is present. 2. Approximately 10% to 15% of breast cancers are not detected by mammography. 3. Adenosis and dense breasts may obscure an underlying neoplasm. Reported by: RITO LOPEZ MD Electonically Signed: [id number]
== END 2019-11-04 10:16 | disposition home or self-care (01) ==
LOC: BICMAMMO 10:15
PROVIDERS: ATTEND Family Medicine
DX: Z12.31 Encounter for screening mammogram for malignant neoplasm of breast (principal); Z80.3 Family history of malignant neoplasm of breast
CPT/HCPCS: 77063; 77067

== ENCOUNTER 2020-09-25 09:59 | Outpatient (CLI) | payer MEDICARE, MEDICAID ==
--- NOTE | 2020-09-25 10:38 | RAD ---
EXAM: Two views chest PROVIDED CLINICAL HISTORY: Dyspnea COMPARISON: 10/12/2019 FINDINGS: Cardiac and mediastinal silhouette appears within normal limits. Spiculated nodule involving the righ t upper lung zone is redemonstrated, similar to prior studies. Lungs appear otherwise free of significant opacity. No pleural fluid or pneumothorax apparent. Extensive emphysematous changes are r edemonstrated. IMPRESSION: No evidence for an acute cardiopulmonary process.
== END 2020-09-25 10:00 | disposition home or self-care (01) ==
LOC: BICRAD 09:59
PROVIDERS: ATTEND Internal Medicine Critical Care Medicine
DX: R06.00 Dyspnea, unspecified (principal); Z01.84 Encounter for antibody response examination; J44.9 Chronic obstructive pulmonary disease, unspecified
CPT/HCPCS: 36415; 71046; 86769

== ENCOUNTER 2020-11-13 10:03 | Outpatient (CLI) | payer MEDICARE, MEDICAID ==
--- NOTE | 2020-11-13 11:50 | MMO ---
Bilateral MAMMO Bilat Screen DDI+BRE. CLINICAL HISTORY: Patient is 50 years old and is seen for screening. The patient has the following family history of breast cancer: maternal aunt, malignant (generic). The patient has no personal history of cancer. VIEWS: The views performed were: bilateral craniocaudal with tomosynthesis and bilateral mediolateral oblique with tomosynthesis. FILMS COMPARED: The present examination has been compared to prior imaging studies performed at [facility] on 06/13/2015, 11/03/2018 and 11/04/2019. This study has been interpreted with the assistance of computer-aided detection. MAMMOGRAM FINDINGS: The breasts are heterogeneously dense, which could obscure a lesion on mammography. There are stable benign appearing calcifications seen in both breasts. There are no suspicious masses, suspicious calcifications, or new areas of architectural distortion. IMPRESSION: THERE IS NO MAMMOGRAPHIC EVIDENCE OF MALIGNANCY. A ROUTINE FOLLOW-UP MAMMOGRAM IN 1 YEAR IS RECOMMENDED. THE RESULTS OF THIS EXAM WERE SENT TO THE PATIENT. ACR BI-RADS Category 2 - Benign finding MAMMOGRAPHY NOTE: 1. A negative mammogram report should not delay a biopsy if a dominant of clinically suspicious mass is present. 2. Approximately 10% to 15% of breast cancers are not detected by mammography. 3. Adenosis and dense breasts may obscure an underlying neoplasm. Reported by: LISA PRINCE MD Electonically Signed: [id number]
== END 2020-11-13 10:04 | disposition home or self-care (01) ==
LOC: BICMAMMO 10:03
PROVIDERS: ATTEND Family Medicine
DX: Z12.31 Encounter for screening mammogram for malignant neoplasm of breast (principal); Z80.3 Family history of malignant neoplasm of breast
CPT/HCPCS: 77063; 77067

== ENCOUNTER 2020-11-30 13:50 | Inpatient (IN) | payer MEDICARE, MEDICAID ==
[2020-11-30] MEDS ORDERED: Acetaminophen 500 MG TAB ONE (14:10)
[2020-11-30] MEDS ORDERED: methylPREDNISolone Sod Succ/PF 125 MG/2 ML VIAL ONE (14:39)
[2020-11-30] MEDS ORDERED: Cefepime 2 GM VIAL ONE (14:39)
[2020-11-30 14:56] LABS: Hemoglobin 14.1 g/dL (12.0-16.0); Mean Corpuscular HGB CONC 33.6 g/dL (32.0-36.0); Mean Corpuscular Volume 98.3 fL (78.0-98.0); Mean Platelet Volume 6.8 fL (7.4-10.4); Platelet Count 284 thou/uL (130-400); RBC Distribution Width 11.6 % (11.5-14.5); Red Blood Cell (RBC) Count 4.28 mill/uL (4.20-5.40); White Blood Cell (WBC) Count 27.4 thou/uL (4.8-10.8)
[2020-11-30 15:15] LABS: ALT (SGPT) 25 U/L (8-55); AST (SGOT) 22 U/L (5-34); Albumin 4.2 g/dL (3.5-5.0); Alkaline Phosphatase 82 U/L (40-110); Anion Gap 16 mmol/L (10-20); BUN (Urea Nitrogen) 7 mg/dL (9.8-20.1); Bilirubin, Total 1.2 mg/dL (0.2-1.2); Calc. Creatinine Clearance 0 mL/min (70-130); Calcium 9.1 mg/dL (7.8-10.44); Carbon Dioxide 21 mmol/L (22-29); Chloride 95 mmol/L (98-107); Globulin 2.8 g/dL (2.4-3.5); Glucose 94 mg/dL (70-105); Sodium 128 mmol/L (136-145)
[2020-11-30 15:22] LABS: Band 33 % (5-11); Hypochromia SLIGHT = 6-15 cells (100X) (0-5/hpf); Lymphocytes 1 % (21-51); MDiff Complete? YES; Monocytes 5 % (0-10); Neutrophil 59 % (42-75); Platelet Morphology Comment Appears Adequate; Polychromasia SLIGHT = 2-3 cells (100X) (0-2/hpf); Reactive Lymphocytes 2 % (0-10)
[2020-11-30] MEDS ORDERED: Albuterol 200 PUFF (6.7GM INHALER) ONE (15:29)
[2020-11-30] MEDS ORDERED: Ondansetron ODT 4 MG TAB PO PRN (17:16)
[2020-11-30] MEDS ORDERED: Ondansetron PF 4 MG/2 ML Vial IVP PRN (17:16)
[2020-11-30] MEDS ORDERED: Senokot S 8.6-50 MG TAB PO PRN (17:16)
[2020-11-30] MEDS ORDERED: Loperamide HCl 2 MG CAP PO PRN (17:16)
[2020-11-30] MEDS ORDERED: Calcium Carbonate 500 MG ChewTAB PO PRN (17:16)
[2020-11-30] MEDS ORDERED: Bisacodyl 10 MG SUPP PR PRN (17:16)
[2020-11-30] MEDS ORDERED: Guaifenesin DM 100-10/5 ML UDCUP PO PRN (17:16)
[2020-11-30] MEDS ORDERED: Zolpidem Tartrate 5 MG TAB PO PRN (17:16)
[2020-11-30 17:27] LABS: SARS-CoV-2 NAA Rapid Test Not Detected (NotDetected)
[2020-11-30] MEDS: Mometasone 200 MCG/Formoterol 5 MCG 120 PUFF INHALER INH SCH (19:00)
[2020-11-30] MEDS: guaiFENesin ER 600 MG TAB PO SCH (20:00)
[2020-11-30] MEDS: Famotidine 20 MG TAB PO SCH (20:00)
[2020-11-30] MEDS: Sodium Chloride 0.9% 1,000 ML IV SCH (20:00)
[2020-11-30] MEDS ORDERED: VANCOMYCIN 1.25 GM/250 ML BAG 1.25 GM in Premix Bag 1 BAG IVPB SCH (21:00)
[2020-11-30 21:18] LABS: Bilirubin Negative (Negative); Blood, Urine Trace (Negative); Clarity Turbid (Clear); Glucose, Urine (Dipstick) 70 mg/dL (Negative); Ketone, Urine Negative (Negative); Leukocyte 500 Leu/uL (Negative); Nitrite Negative (Negative); Protein, Urine (Dipstick) Negative (Neg-Trace); Specific Gravity, Urine 1.006 (1.002-1.036); Urobilinogen Normal mg/dL (Less than 2); WBC/HPF Greater than 50 HPF (0-3); pH, Urine 6.5 (5.0-9.0)
[2020-11-30 21:29] LABS: Bacteria/HPF 1+ HPF (None Seen)
[2020-11-30 21:30] LABS: Urine Culture Reflex No No
[2020-11-30] MEDS: methylPREDNISolone Sod Succ 40 MG VIAL IVP SCH (22:19)
[2020-12-01] MEDS: Acetaminophen 325 MG TAB PO PRN ×2 (01:15→17:48)
[2020-12-01] MEDS: Cefepime 1 GM in Sodium Chloride 0.9% 100 ML IVPB SCH ×2 (03:21→17:53)
[2020-12-01] MEDS: Sodium Chloride 0.9% 1,000 ML IV SCH ×2 (04:48→19:54)
[2020-12-01] MEDS: methylPREDNISolone Sod Succ 40 MG VIAL IVP SCH ×3 (05:16→21:45)
[2020-12-01] MEDS: Mometasone 200 MCG/Formoterol 5 MCG 120 PUFF INHALER INH SCH ×2 (06:28→18:37)
[2020-12-01 06:38] LABS: Hemoglobin 11.5 g/dL (12.0-16.0); Mean Corpuscular HGB CONC 33.7 g/dL (32.0-36.0); Mean Corpuscular Hemoglobin 33.4 pg (27.0-31.0); Mean Corpuscular Volume 99.1 fL (78.0-98.0); Mean Platelet Volume 7.4 fL (7.4-10.4); Platelet Count 233 thou/uL (130-400); RBC Distribution Width 11.7 % (11.5-14.5); Red Blood Cell (RBC) Count 3.45 mill/uL (4.20-5.40)
[2020-12-01 06:52] LABS: ALT (SGPT) 17 U/L (8-55); AST (SGOT) 13 U/L (5-34); Albumin 3.4 g/dL (3.5-5.0); Alkaline Phosphatase 50 U/L (40-110); Anion Gap 12 mmol/L (10-20); BUN (Urea Nitrogen) 10 mg/dL (9.8-20.1); Bilirubin, Total 0.5 mg/dL (0.2-1.2); Calc. Creatinine Clearance 95 mL/min (70-130); Calcium 8.5 mg/dL (7.8-10.44); Carbon Dioxide 20 mmol/L (22-29); Chloride 103 mmol/L (98-107); Globulin 2.1 g/dL (2.4-3.5); Glucose 174 mg/dL (70-105); Potassium 3.2 mmol/L (3.5-5.1); Protein, Total 5.5 g/dL (6.0-8.3); Sodium 132 mmol/L (136-145)
[2020-12-01 07:08] LABS: Band 23 % (5-11); Lymphocytes 1 % (21-51); MDiff Complete? YES; Monocytes 6 % (0-10); Neutrophil 70 % (42-75)
[2020-12-01] MEDS: guaiFENesin ER 600 MG TAB PO SCH ×2 (08:16→19:54)
[2020-12-01] MEDS: Famotidine 20 MG TAB PO SCH ×2 (08:16→19:53)
[2020-12-01] MEDS: Enoxaparin Sodium 40 MG/0.4 ML SYRINGE SC SCH (08:16)
[2020-12-01] MEDS ORDERED: Potassium Chloride 20 MEQ TAB PO SCH (08:45)
[2020-12-01] MEDS: HYDROcodone/Acetaminophen 5/325 mg Tablet PO PRN (09:00)
[2020-12-01] MEDS: Vancomycin HCl 750 MG in Sodium Chloride 0.9% 250 ML 250 ML IVPB SCH ×2 (10:36→19:53)
[2020-12-01 12:19] LABS: Magnesium 1.6 mg/dL (1.6-2.6)
[2020-12-01 12:22] LABS: Phosphorus 1.9 mg/dL (2.3-4.7)
[2020-12-01] MEDS ORDERED: Cyclobenzaprine 10 MG TAB PO PRN (12:36)
[2020-12-01] MEDS ORDERED: K-Phos Neutral 250 MG TAB PO SCH (12:45)
[2020-12-01] MEDS ORDERED: Magnesium Sulfate 4 GM in Sodium Chloride 0.9% 250 ML 250 ML IVPB SCH (12:45)
[2020-12-01] MEDS: Potassium Chloride 20 MEQ TAB PO SCH (17:49)
[2020-12-01] MEDS: K-Phos Neutral 250 MG TAB PO SCH (17:50)
[2020-12-02] MEDS: Cefepime 1 GM in Sodium Chloride 0.9% 100 ML IVPB SCH ×2 (03:35→14:47)
[2020-12-02] MEDS: methylPREDNISolone Sod Succ 40 MG VIAL IVP SCH ×3 (05:24→22:04)
[2020-12-02] MEDS: HYDROcodone/Acetaminophen 5/325 mg Tablet PO PRN (05:25)
[2020-12-02 07:05] LABS: Anion Gap 14 mmol/L (10-20); BUN (Urea Nitrogen) 7 mg/dL (9.8-20.1); Calc. Creatinine Clearance 102 mL/min (70-130); Calcium 8.3 mg/dL (7.8-10.44); Carbon Dioxide 20 mmol/L (22-29); Chloride 103 mmol/L (98-107); Glucose 191 mg/dL (70-105); Potassium 4.2 mmol/L (3.5-5.1); Sodium 133 mmol/L (136-145)
[2020-12-02] MEDS: Mometasone 200 MCG/Formoterol 5 MCG 120 PUFF INHALER INH SCH ×2 (07:10→19:18)
[2020-12-02 08:05] LABS: Band 28 % (5-11); Hemoglobin 11.3 g/dL (12.0-16.0); Lymphocytes 2 % (21-51); MDiff Complete? YES; Mean Corpuscular HGB CONC 33.6 g/dL (32.0-36.0); Mean Corpuscular Hemoglobin 33.4 pg (27.0-31.0); Mean Corpuscular Volume 99.4 fL (78.0-98.0); Mean Platelet Volume 7.4 fL (7.4-10.4); Neutrophil 70 % (42-75); Platelet Count 218 thou/uL (130-400); RBC Distribution Width 11.8 % (11.5-14.5); Red Blood Cell (RBC) Count 3.37 mill/uL (4.20-5.40)
[2020-12-02 08:12] LABS: Vancomycin, Trough 1.4 ug/mL
[2020-12-02] MEDS: Potassium Chloride 20 MEQ TAB PO SCH (08:39)
[2020-12-02] MEDS: Saccharomyces boulardii 250 MG CAP PO SCH (08:39)
[2020-12-02] MEDS: Famotidine 20 MG TAB PO SCH ×2 (08:39→20:18)
[2020-12-02] MEDS: Multivit, Therapeutic 1 TAB PO SCH (08:40)
[2020-12-02] MEDS: guaiFENesin ER 600 MG TAB PO SCH ×2 (08:40→20:18)
[2020-12-02] MEDS: K-Phos Neutral 250 MG TAB PO SCH ×3 (08:41→16:33)
[2020-12-02] MEDS: Enoxaparin Sodium 40 MG/0.4 ML SYRINGE SC SCH (08:41)
[2020-12-02] MEDS: VANCOMYCIN 2 GRAM/400 ML BAG 2 GM in Premix Bag 1 BAG IVPB SCH ×2 (09:16→16:34)
[2020-12-02] MEDS: Sodium Chloride 0.9% 1,000 ML IV SCH ×2 (09:24→22:03)
[2020-12-02] MEDS: Acetaminophen 325 MG TAB PO PRN ×2 (14:45→20:17)
[2020-12-03] MEDS: VANCOMYCIN 2 GRAM/400 ML BAG 2 GM in Premix Bag 1 BAG IVPB SCH ×2 (00:35→09:57)
[2020-12-03] MEDS: Acetaminophen 325 MG TAB PO PRN ×2 (03:29→14:13)
[2020-12-03] MEDS: Cefepime 1 GM in Sodium Chloride 0.9% 100 ML IVPB SCH ×2 (03:30→14:14)
[2020-12-03] MEDS: methylPREDNISolone Sod Succ 40 MG VIAL IVP SCH ×3 (05:26→22:10)
[2020-12-03 06:06] LABS: #Basophils 0.1 thou/uL (0.0-0.2); #Lymphocytes 0.5 thou/uL (1.20-3.40); #Monocytes 0.7 thou/uL (0.11-0.59); #Neutrophils 17.5 thou/uL (1.40-6.50); %Basophils 0.4 % (0.0-1.0); %Lymphocytes 2.5 % (21.0-51.0); %Monocytes 3.5 % (0.0-10.0); %Neutrophils 93.7 % (42.0-75.0); Hemoglobin 11.7 g/dL (12.0-16.0); Mean Corpuscular HGB CONC 33.6 g/dL (32.0-36.0); Mean Corpuscular Hemoglobin 33.8 pg (27.0-31.0); Mean Platelet Volume 7.2 fL (7.4-10.4); Platelet Count 260 thou/uL (130-400); Red Blood Cell (RBC) Count 3.46 mill/uL (4.20-5.40); White Blood Cell (WBC) Count 18.7 thou/uL (4.8-10.8)
[2020-12-03 06:30] LABS: Anion Gap 12 mmol/L (10-20); BUN (Urea Nitrogen) 7 mg/dL (9.8-20.1); Calc. Creatinine Clearance 104 mL/min (70-130); Calcium 8.7 mg/dL (7.8-10.44); Carbon Dioxide 25 mmol/L (22-29); Chloride 102 mmol/L (98-107); Glucose 138 mg/dL (70-105); Magnesium 1.8 mg/dL (1.6-2.6); Potassium 3.9 mmol/L (3.5-5.1); Sodium 135 mmol/L (136-145)
[2020-12-03] MEDS: Mometasone 200 MCG/Formoterol 5 MCG 120 PUFF INHALER INH SCH ×2 (06:33→18:11)
[2020-12-03 06:57] LABS: Phosphorus 2.6 mg/dL (2.3-4.7)
[2020-12-03] MEDS ORDERED: Magnesium 2 GM/50 ML 2 GM in Premix Bag 1 BAG IVPB SCH (07:45)
[2020-12-03] MEDS: guaiFENesin ER 600 MG TAB PO SCH ×2 (08:49→20:00)
[2020-12-03] MEDS: Saccharomyces boulardii 250 MG CAP PO SCH (08:49)
[2020-12-03] MEDS: Multivit, Therapeutic 1 TAB PO SCH (08:49)
[2020-12-03] MEDS: Famotidine 20 MG TAB PO SCH ×2 (08:49→20:00)
[2020-12-03] MEDS: K-Phos Neutral 250 MG TAB PO SCH ×3 (08:50→19:03)
[2020-12-03] MEDS: Enoxaparin Sodium 40 MG/0.4 ML SYRINGE SC SCH (08:51)
[2020-12-03 09:41] LABS: Vancomycin, Trough 20.2 ug/mL
[2020-12-03] MEDS ORDERED: Gabapentin 300 MG CAP PO SCH (10:00)
[2020-12-03] MEDS ORDERED: Losartan 25 MG TAB PO SCH (10:00)
[2020-12-03] MEDS: VANCOMYCIN 1.75 GM/350 ML BAG 1.75 GM in Premix Bag 1 BAG IVPB SCH ×2 (11:14→19:04)
[2020-12-03] MEDS: Losartan 25 MG TAB PO SCH (11:14)
[2020-12-03] MEDS: Fluticasone Propionate Nasal Spray 16 gm Bottle NASAL SCH ×3 (11:22→20:00)
[2020-12-03] MEDS: Sodium Chloride 0.65% Nasal 44 ML BOT EA NARE SCH ×3 (12:05→20:01)
[2020-12-03] MEDS: Atorvastatin Calcium 40 MG TAB PO SCH (20:00)
[2020-12-04] MEDS: Sodium Chloride 0.65% Nasal 44 ML BOT EA NARE SCH ×6 (01:02→20:32)
[2020-12-04] MEDS: VANCOMYCIN 1.75 GM/350 ML BAG 1.75 GM in Premix Bag 1 BAG IVPB SCH ×4 (01:02→17:20)
[2020-12-04] MEDS: Acetaminophen 325 MG TAB PO PRN ×3 (01:10→22:52)
[2020-12-04] MEDS: Cefepime 1 GM in Sodium Chloride 0.9% 100 ML IVPB SCH ×2 (03:56→14:05)
[2020-12-04] MEDS: methylPREDNISolone Sod Succ 40 MG VIAL IVP SCH ×3 (04:59→20:42)
[2020-12-04 06:59] LABS: Hemoglobin 12.2 g/dL (12.0-16.0); Mean Corpuscular HGB CONC 33.1 g/dL (32.0-36.0); Mean Corpuscular Volume 99.7 fL (78.0-98.0); Mean Platelet Volume 6.9 fL (7.4-10.4); Platelet Count 305 thou/uL (130-400); White Blood Cell (WBC) Count 18.2 thou/uL (4.8-10.8)
[2020-12-04] MEDS: Mometasone 200 MCG/Formoterol 5 MCG 120 PUFF INHALER INH SCH ×2 (07:05→18:40)
[2020-12-04 07:12] LABS: Anion Gap 12 mmol/L (10-20); BUN (Urea Nitrogen) 6 mg/dL (9.8-20.1); Calc. Creatinine Clearance 100 mL/min (70-130); Calcium 8.8 mg/dL (7.8-10.44); Carbon Dioxide 29 mmol/L (22-29); Chloride 97 mmol/L (98-107); Glucose 154 mg/dL (70-105); Potassium 3.9 mmol/L (3.5-5.1); Sodium 134 mmol/L (136-145)
[2020-12-04 08:17] LABS: Band 11 % (5-11); Lymphocytes 5 % (21-51); MDiff Complete? YES; Monocytes 7 % (0-10); Neutrophil 76 % (42-75); RBC Morphology Normal; Reactive Lymphocytes 1 % (0-10)
[2020-12-04] MEDS: Fluticasone Propionate Nasal Spray 16 gm Bottle NASAL SCH ×2 (08:41→20:32)
[2020-12-04] MEDS: Famotidine 20 MG TAB PO SCH ×2 (08:42→20:29)
[2020-12-04] MEDS: Gabapentin 300 MG CAP PO SCH (08:43)
[2020-12-04] MEDS: Saccharomyces boulardii 250 MG CAP PO SCH (08:43)
[2020-12-04] MEDS: Enoxaparin Sodium 40 MG/0.4 ML SYRINGE SC SCH (08:45)
[2020-12-04] MEDS: guaiFENesin ER 600 MG TAB PO SCH ×2 (08:45→20:30)
[2020-12-04] MEDS: Losartan 25 MG TAB PO SCH (08:46)
[2020-12-04] MEDS: Multivit, Therapeutic 1 TAB PO SCH (08:46)
[2020-12-04] MEDS ORDERED: HYDROcodone/Chlorphen Polis 5 ML UDCUP PO PRN (09:05)
[2020-12-04 10:07] LABS: Vancomycin, Trough 19.4 ug/mL
[2020-12-04] MEDS: Nystatin 500,000 UNITS/5 ML UDCUP SSW SCH ×2 (17:21→20:30)
[2020-12-04] MEDS: Atorvastatin Calcium 40 MG TAB PO SCH (20:30)
[2020-12-05] MEDS: Cefepime 1 GM in Sodium Chloride 0.9% 100 ML IVPB SCH ×2 (01:36→15:16)
[2020-12-05] MEDS: Sodium Chloride 0.65% Nasal 44 ML BOT EA NARE SCH ×6 (01:37→21:15)
[2020-12-05] MEDS: VANCOMYCIN 1.75 GM/350 ML BAG 1.75 GM in Premix Bag 1 BAG IVPB SCH ×3 (01:37→17:08)
[2020-12-05] MEDS: methylPREDNISolone Sod Succ 40 MG VIAL IVP SCH (05:53)
[2020-12-05] MEDS: Acetaminophen 325 MG TAB PO PRN ×3 (06:17→18:54)
[2020-12-05] MEDS: Mometasone 200 MCG/Formoterol 5 MCG 120 PUFF INHALER INH SCH ×2 (06:49→18:20)
[2020-12-05 06:56] LABS: Hemoglobin 11.3 g/dL (12.0-16.0); Mean Corpuscular HGB CONC 33.4 g/dL (32.0-36.0); Mean Corpuscular Hemoglobin 33.2 pg (27.0-31.0); Mean Corpuscular Volume 99.2 fL (78.0-98.0); Mean Platelet Volume 7.1 fL (7.4-10.4); Platelet Count 298 thou/uL (130-400); RBC Distribution Width 11.8 % (11.5-14.5); Red Blood Cell (RBC) Count 3.42 mill/uL (4.20-5.40); White Blood Cell (WBC) Count 18.2 thou/uL (4.8-10.8)
[2020-12-05 07:17] LABS: Anion Gap 12 mmol/L (10-20); BUN (Urea Nitrogen) 4 mg/dL (9.8-20.1); Calc. Creatinine Clearance 114 mL/min (70-130); Calcium 8.5 mg/dL (7.8-10.44); Carbon Dioxide 30 mmol/L (22-29); Chloride 97 mmol/L (98-107); Glucose 147 mg/dL (70-105); Potassium 3.5 mmol/L (3.5-5.1); Sodium 135 mmol/L (136-145)
[2020-12-05 07:20] LABS: Band 2 % (5-11); Lymphocytes 7 % (21-51); MDiff Complete? YES; Monocytes 10 % (0-10); Neutrophil 81 % (42-75); Platelet Morphology Comment Appears Adequate; RBC Morphology Normal
[2020-12-05] MEDS: Gabapentin 300 MG CAP PO SCH (08:59)
[2020-12-05] MEDS: Losartan 25 MG TAB PO SCH (09:00)
[2020-12-05] MEDS: Multivit, Therapeutic 1 TAB PO SCH (09:00)
[2020-12-05] MEDS: Enoxaparin Sodium 40 MG/0.4 ML SYRINGE SC SCH (09:00)
[2020-12-05] MEDS: Famotidine 20 MG TAB PO SCH ×2 (09:00→21:16)
[2020-12-05] MEDS: guaiFENesin ER 600 MG TAB PO SCH ×2 (09:00→21:17)
[2020-12-05] MEDS: Saccharomyces boulardii 250 MG CAP PO SCH (09:00)
[2020-12-05] MEDS: Fluticasone Propionate Nasal Spray 16 gm Bottle NASAL SCH ×2 (09:01→21:16)
[2020-12-05] MEDS: Nystatin 500,000 UNITS/5 ML UDCUP SSW SCH ×4 (09:22→21:18)
[2020-12-05] MEDS: Atorvastatin Calcium 40 MG TAB PO SCH (21:16)
[2020-12-05] MEDS: Cyclobenzaprine 10 MG TAB PO PRN (23:14)
[2020-12-06] MEDS: VANCOMYCIN 1.75 GM/350 ML BAG 1.75 GM in Premix Bag 1 BAG IVPB SCH (01:32)
[2020-12-06] MEDS: Acetaminophen 325 MG TAB PO PRN ×2 (01:46→10:43)
[2020-12-06] MEDS: Sodium Chloride 0.65% Nasal 44 ML BOT EA NARE SCH ×6 (02:42→21:11)
[2020-12-06] MEDS: Cefepime 1 GM in Sodium Chloride 0.9% 100 ML IVPB SCH ×2 (03:47→15:11)
[2020-12-06] MEDS: HYDROcodone/Acetaminophen 5/325 mg Tablet PO PRN ×2 (04:09→22:17)
[2020-12-06] MEDS: Mometasone 200 MCG/Formoterol 5 MCG 120 PUFF INHALER INH SCH ×2 (06:51→18:47)
[2020-12-06] MEDS: predniSONE 20 MG TAB PO SCH (09:02)
[2020-12-06] MEDS: Losartan 25 MG TAB PO SCH (09:03)
[2020-12-06] MEDS: Multivit, Therapeutic 1 TAB PO SCH (09:03)
[2020-12-06] MEDS: Famotidine 20 MG TAB PO SCH ×2 (09:03→21:10)
[2020-12-06] MEDS: Saccharomyces boulardii 250 MG CAP PO SCH (09:03)
[2020-12-06] MEDS: guaiFENesin ER 600 MG TAB PO SCH ×2 (09:03→21:10)
[2020-12-06] MEDS: Gabapentin 300 MG CAP PO SCH (09:03)
[2020-12-06] MEDS: Nystatin 500,000 UNITS/5 ML UDCUP SSW SCH ×4 (09:04→21:09)
[2020-12-06] MEDS: Fluticasone Propionate Nasal Spray 16 gm Bottle NASAL SCH ×2 (09:05→21:10)
[2020-12-06] MEDS: Enoxaparin Sodium 40 MG/0.4 ML SYRINGE SC SCH (09:05)
[2020-12-06 09:32] LABS: Vancomycin, Trough 21.2 ug/mL
[2020-12-06] MEDS: Vancomycin 1.5 GRAM/300 ML BAG 1.5 GM in Premix Bag 1 BAG IVPB SCH ×2 (10:42→17:02)
[2020-12-06] MEDS: Atorvastatin Calcium 40 MG TAB PO SCH (21:10)
[2020-12-07] MEDS: Vancomycin 1.5 GRAM/300 ML BAG 1.5 GM in Premix Bag 1 BAG IVPB SCH ×2 (01:24→09:50)
[2020-12-07] MEDS: Sodium Chloride 0.65% Nasal 44 ML BOT EA NARE SCH ×6 (02:13→19:55)
[2020-12-07] MEDS: Cefepime 1 GM in Sodium Chloride 0.9% 100 ML IVPB SCH ×2 (03:45→15:48)
[2020-12-07] MEDS: Mometasone 200 MCG/Formoterol 5 MCG 120 PUFF INHALER INH SCH ×2 (07:23→19:05)
[2020-12-07] MEDS: predniSONE 20 MG TAB PO SCH (08:36)
[2020-12-07] MEDS: guaiFENesin ER 600 MG TAB PO SCH ×2 (08:37→19:54)
[2020-12-07] MEDS: Losartan 25 MG TAB PO SCH (08:37)
[2020-12-07] MEDS: Famotidine 20 MG TAB PO SCH ×2 (08:37→19:54)
[2020-12-07] MEDS: Multivit, Therapeutic 1 TAB PO SCH (08:38)
[2020-12-07] MEDS: Gabapentin 300 MG CAP PO SCH (08:38)
[2020-12-07] MEDS: Saccharomyces boulardii 250 MG CAP PO SCH (08:40)
[2020-12-07] MEDS: Enoxaparin Sodium 40 MG/0.4 ML SYRINGE SC SCH (08:40)
[2020-12-07] MEDS: Acetaminophen 325 MG TAB PO PRN (08:46)
[2020-12-07] MEDS: Nystatin 500,000 UNITS/5 ML UDCUP SSW SCH ×4 (09:29→19:54)
[2020-12-07] MEDS: Fluticasone Propionate Nasal Spray 16 gm Bottle NASAL SCH ×2 (09:30→20:01)
[2020-12-07 09:31] LABS: Mean Corpuscular HGB CONC 31.7 g/dL (32.0-36.0); Mean Corpuscular Hemoglobin 31.8 pg (27.0-31.0); Mean Platelet Volume 6.8 fL (7.4-10.4); Platelet Count 464 thou/uL (130-400); RBC Distribution Width 12.1 % (11.5-14.5); Red Blood Cell (RBC) Count 4.39 mill/uL (4.20-5.40); White Blood Cell (WBC) Count 36.4 thou/uL (4.8-10.8)
[2020-12-07 09:48] LABS: Anion Gap 11 mmol/L (10-20); BUN (Urea Nitrogen) 16 mg/dL (9.8-20.1); Calc. Creatinine Clearance 90 mL/min (70-130); Calcium 8.1 mg/dL (7.8-10.44); Carbon Dioxide 30 mmol/L (22-29); Chloride 93 mmol/L (98-107); Glucose 75 mg/dL (70-105); Potassium 3.8 mmol/L (3.5-5.1); Sodium 130 mmol/L (136-145); Vancomycin, Trough 25.1 ug/mL
[2020-12-07 11:51] LABS: Band 40 % (5-11); Lymphocytes 3 % (21-51); MDiff Complete? YES; Metamyelocyte 1 % (0-0); Monocytes 4 % (0-10); Neutrophil 51 % (42-75); Platelet Morphology Comment Appears Increased; Polychromasia SLIGHT = 2-3 cells (100X) (0-2/hpf); Reactive Lymphocytes 1 % (0-10); Vacuoles MODERATE
[2020-12-07] MEDS: methylPREDNISolone Sod Succ 40 MG VIAL IVP SCH ×2 (13:00→17:39)
[2020-12-07] MEDS: Vancomycin 1 GM in Premix Bag 1 BAG IVPB SCH (17:39)
[2020-12-07] MEDS: Atorvastatin Calcium 40 MG TAB PO SCH (19:54)
[2020-12-08] MEDS: methylPREDNISolone Sod Succ 40 MG VIAL IVP SCH ×4 (00:18→18:43)
[2020-12-08] MEDS: Sodium Chloride 0.65% Nasal 44 ML BOT EA NARE SCH ×6 (00:20→20:29)
[2020-12-08] MEDS: Cefepime 1 GM in Sodium Chloride 0.9% 100 ML IVPB SCH (02:17)
[2020-12-08 06:37] LABS: Anion Gap 17 mmol/L (10-20); BUN (Urea Nitrogen) 34 mg/dL (9.8-20.1); Calc. Creatinine Clearance 59 mL/min (70-130); Calcium 7.9 mg/dL (7.8-10.44); Carbon Dioxide 23 mmol/L (22-29); Chloride 91 mmol/L (98-107); Glucose 106 mg/dL (70-105); Potassium 4.1 mmol/L (3.5-5.1); Sodium 127 mmol/L (136-145)
[2020-12-08 06:39] LABS: Band 39 % (5-11); Hemoglobin 13.3 g/dL (12.0-16.0); Lymphocytes 1 % (21-51); MDiff Complete? YES; Mean Corpuscular HGB CONC 32.8 g/dL (32.0-36.0); Mean Corpuscular Hemoglobin 33.3 pg (27.0-31.0); Mean Platelet Volume 6.9 fL (7.4-10.4); Monocytes 3 % (0-10); Neutrophil 57 % (42-75); Platelet Count 515 thou/uL (130-400); Platelet Morphology Comment Appears Increased; RBC Distribution Width 12.1 % (11.5-14.5); Red Blood Cell (RBC) Count 3.99 mill/uL (4.20-5.40); White Blood Cell (WBC) Count 38.5 thou/uL (4.8-10.8)
[2020-12-08] MEDS: Vancomycin 1 GM in Premix Bag 1 BAG IVPB SCH ×2 (06:40→18:43)
[2020-12-08] MEDS: Mometasone 200 MCG/Formoterol 5 MCG 120 PUFF INHALER INH SCH ×2 (07:11→18:20)
[2020-12-08] MEDS: Enoxaparin Sodium 40 MG/0.4 ML SYRINGE SC SCH (09:08)
[2020-12-08] MEDS: Famotidine 20 MG TAB PO SCH ×2 (09:08→20:20)
[2020-12-08] MEDS: Fluticasone Propionate Nasal Spray 16 gm Bottle NASAL SCH ×2 (09:09→20:29)
[2020-12-08] MEDS: Gabapentin 300 MG CAP PO SCH (09:09)
[2020-12-08] MEDS: guaiFENesin ER 600 MG TAB PO SCH ×2 (09:09→20:21)
[2020-12-08] MEDS: Saccharomyces boulardii 250 MG CAP PO SCH (09:10)
[2020-12-08] MEDS: Nystatin 500,000 UNITS/5 ML UDCUP SSW SCH ×2 (09:10→12:02)
[2020-12-08] MEDS: Multivit, Therapeutic 1 TAB PO SCH (09:10)
[2020-12-08] MEDS: Losartan 25 MG TAB PO SCH (09:15)
[2020-12-08] MEDS: Sodium Chloride 0.9% 1,000 ML IV SCH (12:21)
[2020-12-08] MEDS: Meropenem 2 GM in Sodium Chloride 0.9% 100 ML IVPB SCH ×2 (15:08→22:03)
[2020-12-08] MEDS: Micafungin 100 MG in Sodium Chloride 0.9% 100 ML IVPB SCH (15:56)
[2020-12-08] MEDS: Acetaminophen 325 MG TAB PO PRN (18:44)
[2020-12-08] MEDS: Atorvastatin Calcium 40 MG TAB PO SCH (20:21)
[2020-12-09] MEDS: methylPREDNISolone Sod Succ 40 MG VIAL IVP SCH ×4 (00:25→18:04)
[2020-12-09] MEDS: Sodium Chloride 0.9% 1,000 ML IV SCH ×3 (02:10→14:52)
[2020-12-09] MEDS: Sodium Chloride 0.65% Nasal 44 ML BOT EA NARE SCH ×6 (02:24→21:43)
[2020-12-09 05:40] LABS: Anion Gap 16 mmol/L (10-20); BUN (Urea Nitrogen) 44 mg/dL (9.8-20.1); Calc. Creatinine Clearance 48 mL/min (70-130); Calcium 7.5 mg/dL (7.8-10.44); Carbon Dioxide 21 mmol/L (22-29); Chloride 90 mmol/L (98-107); Glucose 109 mg/dL (70-105); Potassium 4.1 mmol/L (3.5-5.1); Sodium 123 mmol/L (136-145)
[2020-12-09 05:42] LABS: Vancomycin, Trough 33.6 ug/mL
[2020-12-09] MEDS: Meropenem 2 GM in Sodium Chloride 0.9% 100 ML IVPB SCH ×2 (05:58→13:23)
[2020-12-09 06:09] LABS: Hemoglobin 12.3 g/dL (12.0-16.0); Lymphocytes 2 % (21-51); MDiff Complete? YES; Mean Corpuscular HGB CONC 30.5 g/dL (32.0-36.0); Mean Corpuscular Hemoglobin 30.9 pg (27.0-31.0); Mean Platelet Volume 6.8 fL (7.4-10.4); Monocytes 3 % (0-10); Neutrophil 95 % (42-75); Platelet Count 456 thou/uL (130-400); Platelet Morphology Comment Appears Increased; RBC Distribution Width 12.3 % (11.5-14.5); Red Blood Cell (RBC) Count 3.99 mill/uL (4.20-5.40); White Blood Cell (WBC) Count 28.7 thou/uL (4.8-10.8)
[2020-12-09] MEDS: Mometasone 200 MCG/Formoterol 5 MCG 120 PUFF INHALER INH SCH ×2 (07:22→18:31)
[2020-12-09] MEDS: Enoxaparin Sodium 40 MG/0.4 ML SYRINGE SC SCH (09:36)
[2020-12-09] MEDS: Fluticasone Propionate Nasal Spray 16 gm Bottle NASAL SCH ×2 (09:37→21:43)
[2020-12-09] MEDS: Famotidine 20 MG TAB PO SCH ×3 (09:37→22:11)
[2020-12-09] MEDS: Gabapentin 300 MG CAP PO SCH (09:38)
[2020-12-09] MEDS: Losartan 25 MG TAB PO SCH (09:38)
[2020-12-09] MEDS: Saccharomyces boulardii 250 MG CAP PO SCH (09:38)
[2020-12-09] MEDS: guaiFENesin ER 600 MG TAB PO SCH ×3 (09:39→22:11)
[2020-12-09] MEDS: Multivit, Therapeutic 1 TAB PO SCH (09:39)
[2020-12-09] MEDS ORDERED: Sodium Chloride 0.9% 500 ML IVPB SCH (11:30)
[2020-12-09] MEDS: Micafungin 100 MG in Sodium Chloride 0.9% 100 ML IVPB SCH (14:47)
[2020-12-09 15:34] LABS: Actual Bicarbonate (HCO3a) 26.3 mEq/L (22-28); Base Excess (BEa) -1.2 mEq/L (-2.0 to +3.0); CO2 Tension 56.3 mmHg (35.0-45.0); Carboxyhemoglobin (COHb) 0.4 gm% (0.0-3.0); Hemoglobin (Hb) 13.1 g/dL (12.0-16.0); Potassium - ABG Lab 3.87 mmol/L (3.70-5.30); pH, Arterial 7.29 (7.35-7.45)
[2020-12-09 15:53] LABS: ALV-art Gradient 78.525 mmHg (0-20); Puncture Site RRA
[2020-12-10] MEDS: methylPREDNISolone Sod Succ 40 MG VIAL IVP SCH ×4 (00:25→17:31)
[2020-12-10] MEDS: Meropenem 2 GM in Sodium Chloride 0.9% 100 ML IVPB SCH ×4 (00:25→21:41)
[2020-12-10] MEDS: Sodium Chloride 0.65% Nasal 44 ML BOT EA NARE SCH ×6 (01:55→21:36)
[2020-12-10 02:54] LABS: Bacteria/HPF None Seen HPF (None Seen); Bilirubin Negative (Negative); Blood, Urine Trace (Negative); Clarity Turbid (Clear); Glucose, Urine (Dipstick) Normal (Negative); Ketone, Urine Trace mg/dL (Negative); Leukocyte Negative Leu/uL (Negative); Nitrite Negative (Negative); Protein, Urine (Dipstick) 50 mg/dL (Neg-Trace); RBC/HPF 0-3 HPF (0-3); Specific Gravity, Urine 1.016 (1.002-1.036); Squamous Epithelial 0-3 HPF (0-3); Urobilinogen Normal mg/dL (Less than 2); WBC/HPF 0-3 HPF (0-3); pH, Urine 5.5 (5.0-9.0)
[2020-12-10 02:56] LABS: Urine Culture Reflex No No
[2020-12-10 03:03] LABS: Potassium, Urine 16.5 mmol/L; Sodium, Urine Less than 20 mmol/L (Not Available)
[2020-12-10 03:50] LABS: Hemoglobin 12.6 g/dL (12.0-16.0); Mean Corpuscular HGB CONC 32.4 g/dL (32.0-36.0); Mean Corpuscular Hemoglobin 32.7 pg (27.0-31.0); Platelet Count 344 thou/uL (130-400); RBC Distribution Width 12.4 % (11.5-14.5); Red Blood Cell (RBC) Count 3.85 mill/uL (4.20-5.40); White Blood Cell (WBC) Count 32.9 thou/uL (4.8-10.8)
[2020-12-10 04:01] LABS: Band 49 % (5-11); MDiff Complete? YES; Monocytes 3 % (0-10); Neutrophil 48 % (42-75); Platelet Morphology Comment Appears Adequate
[2020-12-10 04:02] LABS: Anion Gap 16 mmol/L (10-20); BUN (Urea Nitrogen) 49 mg/dL (9.8-20.1); Calc. Creatinine Clearance 52 mL/min (70-130); Calcium 7.4 mg/dL (7.8-10.44); Carbon Dioxide 21 mmol/L (22-29); Chloride 98 mmol/L (98-107); Glucose 126 mg/dL (70-105); Potassium 4.5 mmol/L (3.5-5.1); Sodium 130 mmol/L (136-145); Vancomycin, Random 18.5 ug/mL (See Comment)
[2020-12-10] MEDS: Mometasone 200 MCG/Formoterol 5 MCG 120 PUFF INHALER INH SCH ×2 (08:18→18:25)
[2020-12-10] MEDS: Vancomycin 1 GM in Premix Bag 1 BAG IVPB SCH (08:42)
[2020-12-10] MEDS: Enoxaparin Sodium 30 MG/0.3 ML SYRINGE SC SCH (08:43)
[2020-12-10] MEDS: Famotidine 20 MG TAB PO SCH ×2 (08:43→21:35)
[2020-12-10] MEDS: Saccharomyces boulardii 250 MG CAP PO SCH (08:44)
[2020-12-10] MEDS: Multivit, Therapeutic 1 TAB PO SCH (08:45)
[2020-12-10] MEDS: guaiFENesin ER 600 MG TAB PO SCH ×2 (08:45→21:35)
[2020-12-10] MEDS: Gabapentin 300 MG CAP PO SCH (08:45)
[2020-12-10] MEDS: Fluticasone Propionate Nasal Spray 16 gm Bottle NASAL SCH ×2 (12:07→21:42)
[2020-12-10] MEDS: Micafungin 100 MG in Sodium Chloride 0.9% 100 ML IVPB SCH (14:04)
[2020-12-10 16:52] LABS: Sodium 130 mmol/L (136-145)
[2020-12-10] MEDS: Atorvastatin Calcium 40 MG TAB PO SCH (21:35)
[2020-12-11] MEDS: methylPREDNISolone Sod Succ 40 MG VIAL IVP SCH ×4 (00:48→17:24)
[2020-12-11] MEDS: Sodium Chloride 0.65% Nasal 44 ML BOT EA NARE SCH ×6 (01:12→20:53)
[2020-12-11] MEDS: Vancomycin 1 GM in Premix Bag 1 BAG IVPB SCH (06:07)
[2020-12-11 06:51] LABS: Anion Gap 12 mmol/L (10-20); BUN (Urea Nitrogen) 57 mg/dL (9.8-20.1); Calc. Creatinine Clearance 40 mL/min (70-130); Calcium 7.9 mg/dL (7.8-10.44); Carbon Dioxide 25 mmol/L (22-29); Chloride 97 mmol/L (98-107); Glucose 116 mg/dL (70-105); Potassium 4.4 mmol/L (3.5-5.1); Sodium 130 mmol/L (136-145)
[2020-12-11 06:53] LABS: Hemoglobin 11.8 g/dL (12.0-16.0); Mean Corpuscular HGB CONC 32.4 g/dL (32.0-36.0); Mean Corpuscular Hemoglobin 32.2 pg (27.0-31.0); Mean Corpuscular Volume 99.3 fL (78.0-98.0); Mean Platelet Volume 7.2 fL (7.4-10.4); Platelet Count 319 thou/uL (130-400); RBC Distribution Width 12.4 % (11.5-14.5); Red Blood Cell (RBC) Count 3.66 mill/uL (4.20-5.40); White Blood Cell (WBC) Count 31.1 thou/uL (4.8-10.8)
[2020-12-11] MEDS: Mometasone 200 MCG/Formoterol 5 MCG 120 PUFF INHALER INH SCH ×2 (07:45→19:25)
[2020-12-11 08:15] LABS: Band 30 % (5-11); Lymphocytes 1 % (21-51); MDiff Complete? YES; Monocytes 3 % (0-10); Neutrophil 66 % (42-75); Platelet Morphology Comment Appears Adequate; Polychromasia SLIGHT = 2-3 cells (100X) (0-2/hpf)
[2020-12-11] MEDS: Gabapentin 300 MG CAP PO SCH (08:40)
[2020-12-11] MEDS: guaiFENesin ER 600 MG TAB PO SCH ×2 (08:40→20:52)
[2020-12-11] MEDS: Famotidine 20 MG TAB PO SCH ×2 (08:40→20:52)
[2020-12-11] MEDS: Multivit, Therapeutic 1 TAB PO SCH (08:40)
[2020-12-11] MEDS: Fluticasone Propionate Nasal Spray 16 gm Bottle NASAL SCH ×2 (08:46→20:53)
[2020-12-11] MEDS: Saccharomyces boulardii 250 MG CAP PO SCH (08:46)
[2020-12-11] MEDS: Meropenem 2 GM in Sodium Chloride 0.9% 100 ML IVPB SCH ×3 (08:47→23:00)
[2020-12-11] MEDS: Enoxaparin Sodium 30 MG/0.3 ML SYRINGE SC SCH (08:48)
[2020-12-11] MEDS: Dextrose 5 % And 0.9 % NaCl 1,000 ML IV SCH ×2 (12:40→20:54)
[2020-12-11] MEDS: Micafungin 100 MG in Sodium Chloride 0.9% 100 ML IVPB SCH (15:13)
[2020-12-11] MEDS: Atorvastatin Calcium 40 MG TAB PO SCH (20:52)
[2020-12-12] MEDS: methylPREDNISolone Sod Succ 40 MG VIAL IVP SCH ×3 (00:32→20:35)
[2020-12-12] MEDS: Sodium Chloride 0.65% Nasal 44 ML BOT EA NARE SCH ×6 (00:33→20:34)
[2020-12-12 04:31] LABS: Band 25 % (5-11); Hemoglobin 11.3 g/dL (12.0-16.0); MDiff Complete? YES; Mean Corpuscular HGB CONC 32.6 g/dL (32.0-36.0); Mean Corpuscular Hemoglobin 32.1 pg (27.0-31.0); Mean Corpuscular Volume 98.4 fL (78.0-98.0); Mean Platelet Volume 7.7 fL (7.4-10.4); Metamyelocyte 1 % (0-0); Monocytes 2 % (0-10); Neutrophil 72 % (42-75); Platelet Count 279 thou/uL (130-400); Platelet Morphology Comment Appears Adequate; RBC Distribution Width 12.3 % (11.5-14.5); Red Blood Cell (RBC) Count 3.51 mill/uL (4.20-5.40); White Blood Cell (WBC) Count 27.6 thou/uL (4.8-10.8)
[2020-12-12 04:33] LABS: Anion Gap 12 mmol/L (10-20); BUN (Urea Nitrogen) 62 mg/dL (9.8-20.1); Calc. Creatinine Clearance 36 mL/min (70-130); Calcium 7.9 mg/dL (7.8-10.44); Carbon Dioxide 25 mmol/L (22-29); Chloride 98 mmol/L (98-107); Glucose 242 mg/dL (70-105); Potassium 4.3 mmol/L (3.5-5.1); Sodium 131 mmol/L (136-145)
[2020-12-12 04:37] LABS: Vancomycin, Trough 26.2 ug/mL
[2020-12-12] MEDS: Meropenem 2 GM in Sodium Chloride 0.9% 100 ML IVPB SCH (06:22)
[2020-12-12] MEDS: Mometasone 200 MCG/Formoterol 5 MCG 120 PUFF INHALER INH SCH ×2 (08:43→18:55)
[2020-12-12] MEDS ORDERED: MEROPENEM 1 GM/50 ML 1 GM in Premix Bag 1 BAG IVPB SCH (10:00)
[2020-12-12] MEDS: Famotidine 20 MG TAB PO SCH ×2 (10:10→21:50)
[2020-12-12] MEDS: Enoxaparin Sodium 30 MG/0.3 ML SYRINGE SC SCH (10:10)
[2020-12-12] MEDS: Saccharomyces boulardii 250 MG CAP PO SCH (10:10)
[2020-12-12] MEDS: Gabapentin 300 MG CAP PO SCH (10:11)
[2020-12-12] MEDS: guaiFENesin ER 600 MG TAB PO SCH ×2 (10:11→21:50)
[2020-12-12] MEDS: Multivit, Therapeutic 1 TAB PO SCH (10:11)
[2020-12-12] MEDS: Fluticasone Propionate Nasal Spray 16 gm Bottle NASAL SCH ×2 (10:13→20:34)
[2020-12-12] MEDS: MEROPENEM 1 GM/50 ML 1 GM in Premix Bag 1 BAG IVPB SCH ×2 (13:45→21:44)
[2020-12-12] MEDS: Micafungin 100 MG in Sodium Chloride 0.9% 100 ML IVPB SCH (15:38)
[2020-12-13] MEDS: Sodium Chloride 0.65% Nasal 44 ML BOT EA NARE SCH ×6 (00:24→20:18)
[2020-12-13 04:26] LABS: Anion Gap 14 mmol/L (10-20); BUN (Urea Nitrogen) 72 mg/dL (9.8-20.1); Calc. Creatinine Clearance 33 mL/min (70-130); Calcium 8.5 mg/dL (7.8-10.44); Carbon Dioxide 25 mmol/L (22-29); Chloride 100 mmol/L (98-107); Glucose 156 mg/dL (70-105); Potassium 4.6 mmol/L (3.5-5.1); Sodium 134 mmol/L (136-145)
[2020-12-13 04:31] LABS: Band 13 % (5-11); Hemoglobin 12.1 g/dL (12.0-16.0); Lymphocytes 1 % (21-51); MDiff Complete? YES; Mean Corpuscular HGB CONC 33.4 g/dL (32.0-36.0); Mean Corpuscular Hemoglobin 32.5 pg (27.0-31.0); Mean Corpuscular Volume 97.2 fL (78.0-98.0); Mean Platelet Volume 8.4 fL (7.4-10.4); Neutrophil 86 % (42-75); Platelet Count 234 thou/uL (130-400); Platelet Morphology Comment Appears Adequate; RBC Distribution Width 12.3 % (11.5-14.5); RBC Morphology Normal; Red Blood Cell (RBC) Count 3.71 mill/uL (4.20-5.40); White Blood Cell (WBC) Count 25.8 thou/uL (4.8-10.8)
[2020-12-13] MEDS: MEROPENEM 1 GM/50 ML 1 GM in Premix Bag 1 BAG IVPB SCH ×3 (05:23→21:38)
[2020-12-13] MEDS: Vancomycin HCl 750 MG in Sodium Chloride 0.9% 250 ML 250 ML IVPB SCH (06:00)
[2020-12-13] MEDS: Mometasone 200 MCG/Formoterol 5 MCG 120 PUFF INHALER INH SCH ×2 (06:35→19:11)
[2020-12-13] MEDS: guaiFENesin ER 600 MG TAB PO SCH ×2 (09:20→20:16)
[2020-12-13] MEDS: Multivit, Therapeutic 1 TAB PO SCH (09:20)
[2020-12-13] MEDS: Gabapentin 300 MG CAP PO SCH (09:20)
[2020-12-13] MEDS: Enoxaparin Sodium 30 MG/0.3 ML SYRINGE SC SCH (09:21)
[2020-12-13] MEDS: Saccharomyces boulardii 250 MG CAP PO SCH (09:21)
[2020-12-13] MEDS: Fluticasone Propionate Nasal Spray 16 gm Bottle NASAL SCH ×2 (09:26→20:18)
[2020-12-13] MEDS: methylPREDNISolone Sod Succ 40 MG VIAL IVP SCH ×2 (09:28→20:16)
[2020-12-13] MEDS ORDERED: Furosemide 40 MG/4 ML VIAL SLOW IVP SCH (15:45)
[2020-12-13] MEDS: Micafungin 100 MG in Sodium Chloride 0.9% 100 ML IVPB SCH (15:47)
[2020-12-13] MEDS: Acetaminophen 325 MG TAB PO PRN (20:16)
[2020-12-13] MEDS: Famotidine 20 MG TAB PO SCH (20:16)
[2020-12-14] MEDS: Sodium Chloride 0.65% Nasal 44 ML BOT EA NARE SCH ×6 (01:33→20:27)
[2020-12-14] MEDS: Acetaminophen 325 MG TAB PO PRN (03:02)
[2020-12-14] MEDS: Cyclobenzaprine 10 MG TAB PO PRN (03:02)
[2020-12-14 04:16] LABS: Anion Gap 14 mmol/L (10-20); BUN (Urea Nitrogen) 76 mg/dL (9.8-20.1); Calc. Creatinine Clearance 39 mL/min (70-130); Calcium 8.4 mg/dL (7.8-10.44); Carbon Dioxide 24 mmol/L (22-29); Chloride 97 mmol/L (98-107); Glucose 174 mg/dL (70-105); Potassium 4.7 mmol/L (3.5-5.1); Sodium 130 mmol/L (136-145)
[2020-12-14 04:42] LABS: Band 5 % (5-11); Hemoglobin 11.8 g/dL (12.0-16.0); Lymphocytes 2 % (21-51); MDiff Complete? YES; Mean Corpuscular HGB CONC 33.5 g/dL (32.0-36.0); Mean Corpuscular Hemoglobin 32.5 pg (27.0-31.0); Mean Platelet Volume 8.7 fL (7.4-10.4); Monocytes 1 % (0-10); Neutrophil 92 % (42-75); Platelet Count 241 thou/uL (130-400); RBC Distribution Width 12.3 % (11.5-14.5); Red Blood Cell (RBC) Count 3.64 mill/uL (4.20-5.40); White Blood Cell (WBC) Count 21.1 thou/uL (4.8-10.8)
[2020-12-14] MEDS: Vancomycin HCl 750 MG in Sodium Chloride 0.9% 250 ML 250 ML IVPB SCH (05:31)
[2020-12-14] MEDS: MEROPENEM 1 GM/50 ML 1 GM in Premix Bag 1 BAG IVPB SCH ×3 (05:31→20:28)
[2020-12-14] MEDS: Mometasone 200 MCG/Formoterol 5 MCG 120 PUFF INHALER INH SCH ×2 (06:47→19:07)
[2020-12-14] MEDS: Gabapentin 300 MG CAP PO SCH (09:13)
[2020-12-14] MEDS: Saccharomyces boulardii 250 MG CAP PO SCH (09:13)
[2020-12-14] MEDS: Enoxaparin Sodium 30 MG/0.3 ML SYRINGE SC SCH (09:14)
[2020-12-14] MEDS: Multivit, Therapeutic 1 TAB PO SCH (09:14)
[2020-12-14] MEDS: methylPREDNISolone Sod Succ 40 MG VIAL IVP SCH ×2 (09:14→20:26)
[2020-12-14] MEDS: guaiFENesin ER 600 MG TAB PO SCH ×2 (09:14→20:28)
[2020-12-14] MEDS: Fluticasone Propionate Nasal Spray 16 gm Bottle NASAL SCH ×2 (09:15→20:27)
[2020-12-14] MEDS ORDERED: Furosemide 40 MG/4 ML VIAL SLOW IVP SCH (16:15)
[2020-12-14] MEDS: Famotidine 20 MG TAB PO SCH (20:27)
[2020-12-15] MEDS: Sodium Chloride 0.65% Nasal 44 ML BOT EA NARE SCH ×7 (01:15→23:23)
[2020-12-15 05:31] LABS: Vancomycin, Trough 23.9 ug/mL
[2020-12-15] MEDS: Vancomycin HCl 750 MG in Sodium Chloride 0.9% 250 ML 250 ML IVPB SCH (06:30)
[2020-12-15] MEDS: MEROPENEM 1 GM/50 ML 1 GM in Premix Bag 1 BAG IVPB SCH ×3 (06:32→21:24)
[2020-12-15] MEDS: Mometasone 200 MCG/Formoterol 5 MCG 120 PUFF INHALER INH SCH ×2 (06:36→18:11)
[2020-12-15] MEDS: Gabapentin 300 MG CAP PO SCH (09:41)
[2020-12-15] MEDS: Enoxaparin Sodium 30 MG/0.3 ML SYRINGE SC SCH (09:42)
[2020-12-15] MEDS: methylPREDNISolone Sod Succ 40 MG VIAL IVP SCH ×2 (09:42→21:23)
[2020-12-15] MEDS: Multivit, Therapeutic 1 TAB PO SCH (09:42)
[2020-12-15] MEDS: guaiFENesin ER 600 MG TAB PO SCH ×2 (09:42→21:23)
[2020-12-15] MEDS: Fluticasone Propionate Nasal Spray 16 gm Bottle NASAL SCH ×2 (09:42→21:24)
[2020-12-15] MEDS: Saccharomyces boulardii 250 MG CAP PO SCH (09:42)
[2020-12-15 13:35] LABS: Chloride 95 mmol/L (98-107); Potassium 4.9 mmol/L (3.5-5.1); Sodium 132 mmol/L (136-145)
[2020-12-15 13:36] LABS: Calcium 8.7 mg/dL (7.8-10.44); Glucose 134 mg/dL (70-105)
[2020-12-15 13:38] LABS: Anion Gap 15 mmol/L (10-20); Carbon Dioxide 27 mmol/L (22-29)
[2020-12-15 13:40] LABS: Calc. Creatinine Clearance 42 mL/min (70-130)
[2020-12-15 13:41] LABS: BUN (Urea Nitrogen) 66 mg/dL (9.8-20.1)
[2020-12-15 13:43] LABS: Vancomycin, Random 21.3 ug/mL (See Comment)
[2020-12-15 13:48] LABS: Band 10 % (5-11); Hemoglobin 13.8 g/dL (12.0-16.0); Lymphocytes 2 % (21-51); MDiff Complete? YES; Mean Corpuscular HGB CONC 32.9 g/dL (32.0-36.0); Mean Corpuscular Hemoglobin 32.1 pg (27.0-31.0); Mean Corpuscular Volume 97.7 fL (78.0-98.0); Mean Platelet Volume 8.8 fL (7.4-10.4); Neutrophil 88 % (42-75); Platelet Count 325 thou/uL (130-400); Platelet Morphology Comment Appears Adequate; RBC Distribution Width 12.4 % (11.5-14.5); Red Blood Cell (RBC) Count 4.31 mill/uL (4.20-5.40); Target Cells SLIGHT = 2-5 cells (100X) (0-1/hpf); White Blood Cell (WBC) Count 27.4 thou/uL (4.8-10.8)
[2020-12-15] MEDS: Famotidine 20 MG TAB PO SCH (21:23)
[2020-12-15] MEDS: Acetaminophen 325 MG TAB PO PRN (23:45)
[2020-12-16] MEDS: Sodium Chloride 0.65% Nasal 44 ML BOT EA NARE SCH ×5 (03:49→20:32)
[2020-12-16 05:34] LABS: #Basophils 0.1 thou/uL (0.0-0.2); #Lymphocytes 0.5 thou/uL (1.20-3.40); #Monocytes 0.5 thou/uL (0.11-0.59); #Neutrophils 17.1 thou/uL (1.40-6.50); %Basophils 0.3 % (0.0-1.0); %Eosinophils 0.1 % (0.0-10.0); %Lymphocytes 2.9 % (21.0-51.0); %Monocytes 2.8 % (0.0-10.0); %Neutrophils 93.8 % (42.0-75.0); Hemoglobin 11.1 g/dL (12.0-16.0); Mean Corpuscular HGB CONC 33.5 g/dL (32.0-36.0); Mean Corpuscular Hemoglobin 32.5 pg (27.0-31.0); Mean Platelet Volume 8.3 fL (7.4-10.4); Platelet Count 321 thou/uL (130-400); RBC Distribution Width 12.3 % (11.5-14.5); Red Blood Cell (RBC) Count 3.43 mill/uL (4.20-5.40); White Blood Cell (WBC) Count 18.2 thou/uL (4.8-10.8)
[2020-12-16] MEDS: MEROPENEM 1 GM/50 ML 1 GM in Premix Bag 1 BAG IVPB SCH (05:46)
[2020-12-16 05:51] LABS: Vancomycin, Random 14.8 ug/mL (See Comment)
[2020-12-16 06:24] LABS: Anion Gap 12 mmol/L (10-20); BUN (Urea Nitrogen) 58 mg/dL (9.8-20.1); Calc. Creatinine Clearance 48 mL/min (70-130); Calcium 8.1 mg/dL (7.8-10.44); Carbon Dioxide 27 mmol/L (22-29); Chloride 97 mmol/L (98-107); Glucose 147 mg/dL (70-105); Potassium 5.1 mmol/L (3.5-5.1); Sodium 131 mmol/L (136-145)
[2020-12-16] MEDS ORDERED: Vancomycin HCl 750 MG in Sodium Chloride 0.9% 250 ML 250 ML IVPB SCH (06:30)
[2020-12-16] MEDS: Vancomycin HCl 750 MG in Sodium Chloride 0.9% 250 ML 250 ML IVPB SCH ×2 (06:31→06:32)
[2020-12-16] MEDS: Mometasone 200 MCG/Formoterol 5 MCG 120 PUFF INHALER INH SCH ×2 (07:33→18:17)
[2020-12-16] MEDS: methylPREDNISolone Sod Succ 40 MG VIAL IVP SCH (07:59)
[2020-12-16] MEDS: Saccharomyces boulardii 250 MG CAP PO SCH (08:00)
[2020-12-16] MEDS: Gabapentin 300 MG CAP PO SCH (08:00)
[2020-12-16] MEDS: guaiFENesin ER 600 MG TAB PO SCH ×2 (08:00→20:33)
[2020-12-16] MEDS: Multivit, Therapeutic 1 TAB PO SCH (08:01)
[2020-12-16] MEDS: Enoxaparin Sodium 30 MG/0.3 ML SYRINGE SC SCH (08:01)
[2020-12-16] MEDS: Fluticasone Propionate Nasal Spray 16 gm Bottle NASAL SCH ×2 (08:02→20:32)
[2020-12-16] MEDS: predniSONE 20 MG TAB PO SCH (08:19)
[2020-12-16] MEDS: Cefdinir 300 MG CAP PO SCH ×2 (08:19→20:31)
[2020-12-16] MEDS: Amlodipine 5 MG TAB PO SCH (09:51)
[2020-12-16] MEDS: Famotidine 20 MG TAB PO SCH (20:31)
[2020-12-17] MEDS: Sodium Chloride 0.65% Nasal 44 ML BOT EA NARE SCH ×6 (02:52→19:42)
[2020-12-17 04:49] LABS: Anion Gap 10 mmol/L (10-20); BUN (Urea Nitrogen) 47 mg/dL (9.8-20.1); Calc. Creatinine Clearance 60 mL/min (70-130); Calcium 8.1 mg/dL (7.8-10.44); Carbon Dioxide 29 mmol/L (22-29); Chloride 97 mmol/L (98-107); Glucose 154 mg/dL (70-105); Potassium 4.7 mmol/L (3.5-5.1); Sodium 131 mmol/L (136-145)
[2020-12-17 05:25] LABS: Band 7 % (5-11); Hemoglobin 10.8 g/dL (12.0-16.0); MDiff Complete? YES; Mean Corpuscular HGB CONC 32.5 g/dL (32.0-36.0); Mean Corpuscular Hemoglobin 31.7 pg (27.0-31.0); Mean Corpuscular Volume 97.5 fL (78.0-98.0); Mean Platelet Volume 8.1 fL (7.4-10.4); Monocytes 7 % (0-10); Neutrophil 86 % (42-75); Platelet Count 335 thou/uL (130-400); RBC Distribution Width 12.2 % (11.5-14.5); Red Blood Cell (RBC) Count 3.39 mill/uL (4.20-5.40); White Blood Cell (WBC) Count 18.8 thou/uL (4.8-10.8)
[2020-12-17] MEDS: Mometasone 200 MCG/Formoterol 5 MCG 120 PUFF INHALER INH SCH ×2 (06:18→18:18)
[2020-12-17] MEDS: Enoxaparin Sodium 30 MG/0.3 ML SYRINGE SC SCH (09:15)
[2020-12-17] MEDS: Multivit, Therapeutic 1 TAB PO SCH (09:16)
[2020-12-17] MEDS: Fluticasone Propionate Nasal Spray 16 gm Bottle NASAL SCH ×2 (09:16→19:42)
[2020-12-17] MEDS: Gabapentin 300 MG CAP PO SCH (09:16)
[2020-12-17] MEDS: Saccharomyces boulardii 250 MG CAP PO SCH (09:16)
[2020-12-17] MEDS: predniSONE 20 MG TAB PO SCH (09:16)
[2020-12-17] MEDS: guaiFENesin ER 600 MG TAB PO SCH ×2 (09:16→19:42)
[2020-12-17] MEDS: Cefdinir 300 MG CAP PO SCH ×2 (09:16→19:42)
[2020-12-17] MEDS: Amlodipine 5 MG TAB PO SCH (09:16)
[2020-12-17] MEDS ORDERED: Furosemide 40 MG TAB PO SCH (09:45)
[2020-12-17] MEDS: Acetaminophen 325 MG TAB PO PRN (12:23)
[2020-12-17] MEDS: ALPRAZolam 0.5 MG TAB PO PRN (17:51)
[2020-12-17] MEDS: Famotidine 20 MG TAB PO SCH (19:41)
[2020-12-18] MEDS: Sodium Chloride 0.65% Nasal 44 ML BOT EA NARE SCH ×6 (00:12→20:52)
[2020-12-18 05:23] LABS: Anion Gap 8 mmol/L (10-20); BUN (Urea Nitrogen) 39 mg/dL (9.8-20.1); Calc. Creatinine Clearance 62 mL/min (70-130); Carbon Dioxide 32 mmol/L (22-29); Chloride 96 mmol/L (98-107); Glucose 141 mg/dL (70-105); Potassium 4.4 mmol/L (3.5-5.1); Sodium 132 mmol/L (136-145)
[2020-12-18 05:45] LABS: Band 8 % (5-11); Hemoglobin 10.9 g/dL (12.0-16.0); Lymphocytes 3 % (21-51); MDiff Complete? YES; Mean Corpuscular HGB CONC 32.7 g/dL (32.0-36.0); Mean Corpuscular Hemoglobin 31.9 pg (27.0-31.0); Mean Corpuscular Volume 97.7 fL (78.0-98.0); Mean Platelet Volume 8.2 fL (7.4-10.4); Monocytes 4 % (0-10); Neutrophil 85 % (42-75); Platelet Count 372 thou/uL (130-400); RBC Distribution Width 12.2 % (11.5-14.5); Red Blood Cell (RBC) Count 3.42 mill/uL (4.20-5.40); White Blood Cell (WBC) Count 24.5 thou/uL (4.8-10.8)
[2020-12-18] MEDS: Mometasone 200 MCG/Formoterol 5 MCG 120 PUFF INHALER INH SCH ×2 (07:22→18:16)
[2020-12-18] MEDS: Saccharomyces boulardii 250 MG CAP PO SCH (09:39)
[2020-12-18] MEDS: predniSONE 20 MG TAB PO SCH (09:39)
[2020-12-18] MEDS: Cefdinir 300 MG CAP PO SCH ×2 (09:39→20:51)
[2020-12-18] MEDS: Amlodipine 5 MG TAB PO SCH (09:40)
[2020-12-18] MEDS: Gabapentin 300 MG CAP PO SCH (09:40)
[2020-12-18] MEDS: guaiFENesin ER 600 MG TAB PO SCH ×2 (09:41→20:51)
[2020-12-18] MEDS: Multivit, Therapeutic 1 TAB PO SCH (09:41)
[2020-12-18] MEDS: Enoxaparin Sodium 30 MG/0.3 ML SYRINGE SC SCH (09:41)
[2020-12-18] MEDS: Fluticasone Propionate Nasal Spray 16 gm Bottle NASAL SCH ×2 (09:41→20:52)
[2020-12-18] MEDS ORDERED: predniSONE 20 MG TAB PO SCH (12:15)
[2020-12-18] MEDS: Furosemide 40 MG TAB PO SCH (15:17)
[2020-12-18] MEDS: Famotidine 20 MG TAB PO SCH (20:51)
[2020-12-18] MEDS: Cepastat Lozenges 1 LOZ PO PRN (21:20)
[2020-12-18] MEDS: Acetaminophen 325 MG TAB PO PRN (21:20)
[2020-12-19] MEDS: Sodium Chloride 0.65% Nasal 44 ML BOT EA NARE SCH ×6 (01:34→20:43)
[2020-12-19] MEDS: Cepastat Lozenges 1 LOZ PO PRN ×2 (01:40→04:56)
[2020-12-19 05:21] LABS: Hemoglobin 10.4 g/dL (12.0-16.0); Mean Corpuscular HGB CONC 32.4 g/dL (32.0-36.0); Mean Corpuscular Hemoglobin 31.5 pg (27.0-31.0); Mean Corpuscular Volume 97.3 fL (78.0-98.0); Mean Platelet Volume 8.3 fL (7.4-10.4); Platelet Count 346 thou/uL (130-400); RBC Distribution Width 12.2 % (11.5-14.5); Red Blood Cell (RBC) Count 3.32 mill/uL (4.20-5.40); White Blood Cell (WBC) Count 26.5 thou/uL (4.8-10.8)
[2020-12-19 05:43] LABS: Anion Gap 11 mmol/L (10-20); BUN (Urea Nitrogen) 37 mg/dL (9.8-20.1); Calc. Creatinine Clearance 64 mL/min (70-130); Calcium 8.2 mg/dL (7.8-10.44); Carbon Dioxide 30 mmol/L (22-29); Chloride 94 mmol/L (98-107); Glucose 179 mg/dL (70-105); Potassium 4.3 mmol/L (3.5-5.1); Sodium 131 mmol/L (136-145)
[2020-12-19 06:18] LABS: Band 28 % (5-11); MDiff Complete? YES; Monocytes 3 % (0-10); Neutrophil 69 % (42-75)
[2020-12-19] MEDS: Mometasone 200 MCG/Formoterol 5 MCG 120 PUFF INHALER INH SCH ×2 (07:19→18:03)
[2020-12-19] MEDS: predniSONE 20 MG TAB PO SCH (09:00)
[2020-12-19] MEDS: Saccharomyces boulardii 250 MG CAP PO SCH (09:02)
[2020-12-19] MEDS: Gabapentin 300 MG CAP PO SCH (09:02)
[2020-12-19] MEDS: guaiFENesin ER 600 MG TAB PO SCH ×2 (09:02→20:41)
[2020-12-19] MEDS: Enoxaparin Sodium 30 MG/0.3 ML SYRINGE SC SCH (09:03)
[2020-12-19] MEDS: Multivit, Therapeutic 1 TAB PO SCH (09:03)
[2020-12-19] MEDS: Fluticasone Propionate Nasal Spray 16 gm Bottle NASAL SCH ×2 (09:03→20:43)
[2020-12-19] MEDS: Cefdinir 300 MG CAP PO SCH ×2 (09:03→20:41)
[2020-12-19] MEDS: Amlodipine 5 MG TAB PO SCH (09:03)
[2020-12-19] MEDS: Acetaminophen 325 MG TAB PO PRN ×2 (11:13→20:41)
[2020-12-19] MEDS: Furosemide 40 MG TAB PO SCH (14:02)
[2020-12-19] MEDS: Famotidine 20 MG TAB PO SCH (20:41)
[2020-12-20] MEDS: Piperacillin/Tazobactam 3.375 GM in Sodium Chloride 0.9% 100 ML IVPB SCH ×3 (00:02→13:05)
[2020-12-20] MEDS: Sodium Chloride 0.65% Nasal 44 ML BOT EA NARE SCH ×7 (00:06→23:31)
[2020-12-20 04:01] LABS: Anion Gap 11 mmol/L (10-20); BUN (Urea Nitrogen) 35 mg/dL (9.8-20.1); Calc. Creatinine Clearance 62 mL/min (70-130); Calcium 8.2 mg/dL (7.8-10.44); Carbon Dioxide 33 mmol/L (22-29); Chloride 92 mmol/L (98-107); Glucose 119 mg/dL (70-105); Potassium 4.2 mmol/L (3.5-5.1); Sodium 132 mmol/L (136-145)
[2020-12-20 04:02] LABS: Hemoglobin 10.9 g/dL (12.0-16.0); Mean Corpuscular HGB CONC 32.9 g/dL (32.0-36.0); Mean Corpuscular Hemoglobin 32.2 pg (27.0-31.0); Mean Corpuscular Volume 97.7 fL (78.0-98.0); Mean Platelet Volume 8.3 fL (7.4-10.4); Platelet Count 350 thou/uL (130-400); RBC Distribution Width 12.3 % (11.5-14.5); Red Blood Cell (RBC) Count 3.39 mill/uL (4.20-5.40); White Blood Cell (WBC) Count 19.1 thou/uL (4.8-10.8)
[2020-12-20 04:36] LABS: Band 38 % (5-11); Lymphocytes 5 % (21-51); MDiff Complete? YES; Metamyelocyte 1 % (0-0); Neutrophil 56 % (42-75)
[2020-12-20] MEDS: Mometasone 200 MCG/Formoterol 5 MCG 120 PUFF INHALER INH SCH ×2 (07:42→18:58)
[2020-12-20] MEDS: Enoxaparin Sodium 30 MG/0.3 ML SYRINGE SC SCH (08:35)
[2020-12-20] MEDS: Saccharomyces boulardii 250 MG CAP PO SCH (08:35)
[2020-12-20] MEDS: Gabapentin 300 MG CAP PO SCH (08:35)
[2020-12-20] MEDS: guaiFENesin ER 600 MG TAB PO SCH ×2 (08:36→23:07)
[2020-12-20] MEDS: Amlodipine 5 MG TAB PO SCH (08:36)
[2020-12-20] MEDS: predniSONE 20 MG TAB PO SCH (08:36)
[2020-12-20] MEDS: Multivit, Therapeutic 1 TAB PO SCH (08:36)
[2020-12-20] MEDS: Fluticasone Propionate Nasal Spray 16 gm Bottle NASAL SCH ×2 (08:37→21:40)
[2020-12-20] MEDS ORDERED: Cefdinir 300 MG CAP PO SCH (09:00)
[2020-12-20 11:10] LABS: Actual Bicarbonate (HCO3a) 34.4 mEq/L (22-28); CO2 Tension 50.7 mmHg (35.0-45.0); Calcium, Ionized (arterial) 1.12 mmol/L (1.12-1.30); Carboxyhemoglobin (COHb) 0.9 gm% (0.0-3.0); Hemoglobin (Hb) 11.3 g/dL (12.0-16.0); Potassium - ABG Lab 3.91 mmol/L (3.70-5.30); pH, Arterial 7.45 (7.35-7.45)
[2020-12-20 11:12] LABS: ALV-art Gradient 80.265 mmHg (0-20); Puncture Site LBA
[2020-12-20] MEDS: Acyclovir Sodium 260 MG in Sodium Chloride 0.9% 100 ML IVPB SCH ×2 (13:10→21:26)
[2020-12-20] MEDS: MEROPENEM 1 GM/50 ML 1 GM in Premix Bag 1 BAG IVPB SCH ×2 (14:34→23:06)
[2020-12-20] MEDS: Furosemide 40 MG TAB PO SCH (14:35)
[2020-12-20] MEDS ORDERED: Vancomycin HCl 750 MG in Sodium Chloride 0.9% 250 ML 250 ML IVPB SCH (15:00)
[2020-12-20] MEDS ORDERED: Cefepime 1 GM in Sodium Chloride 0.9% 100 ML IVPB SCH (21:00)
[2020-12-20] MEDS: Linezolid 600 MG in Premix Bag 1 BAG IVPB SCH (21:29)
[2020-12-20] MEDS: Famotidine 20 MG TAB PO SCH (21:29)
[2020-12-20] MEDS ORDERED: GUAIFENESIN SF SOLN 200 MG/10 ML UDCUP PO SCH (23:00)
[2020-12-20] MEDS: methylPREDNISolone Sod Succ 40 MG VIAL IVP SCH (23:31)
[2020-12-20] MEDS ORDERED: methylPREDNISolone Sod Succ/PF 125 MG/2 ML VIAL IVP SCH (23:59)
[2020-12-21 05:16] LABS: Hemoglobin 9.8 g/dL (12.0-16.0); Mean Corpuscular HGB CONC 32.7 g/dL (32.0-36.0); Mean Corpuscular Hemoglobin 31.8 pg (27.0-31.0); Mean Corpuscular Volume 97.2 fL (78.0-98.0); Mean Platelet Volume 8.7 fL (7.4-10.4); Platelet Count 293 thou/uL (130-400); RBC Distribution Width 12.3 % (11.5-14.5); Red Blood Cell (RBC) Count 3.09 mill/uL (4.20-5.40); White Blood Cell (WBC) Count 15.5 thou/uL (4.8-10.8)
[2020-12-21 05:30] LABS: Anion Gap 8 mmol/L (10-20); BUN (Urea Nitrogen) 37 mg/dL (9.8-20.1); Calc. Creatinine Clearance 61 mL/min (70-130); Carbon Dioxide 34 mmol/L (22-29); Chloride 93 mmol/L (98-107); Glucose 203 mg/dL (70-105); Potassium 4.1 mmol/L (3.5-5.1); Sodium 131 mmol/L (136-145)
[2020-12-21 05:31] LABS: Band 3 % (5-11); MDiff Complete? YES; Metamyelocyte 1 % (0-0); Monocytes 2 % (0-10); Neutrophil 94 % (42-75); Platelet Morphology Comment Appears Adequate
[2020-12-21] MEDS: Acyclovir Sodium 260 MG in Sodium Chloride 0.9% 100 ML IVPB SCH ×3 (05:36→21:19)
[2020-12-21] MEDS: methylPREDNISolone Sod Succ 40 MG VIAL IVP SCH ×3 (05:36→17:45)
[2020-12-21] MEDS: Sodium Chloride 0.65% Nasal 44 ML BOT EA NARE SCH ×5 (05:36→21:21)
[2020-12-21 05:47] LABS: Bacteria/HPF None Seen HPF (None Seen); Bilirubin Negative (Negative); Blood, Urine Negative (Negative); Clarity Turbid (Clear); Glucose, Urine (Dipstick) 30 mg/dL (Negative); Ketone, Urine Negative (Negative); Leukocyte Negative Leu/uL (Negative); Nitrite Negative (Negative); Protein, Urine (Dipstick) 30 mg/dL (Neg-Trace); RBC/HPF 0-3 HPF (0-3); Specific Gravity, Urine 1.014 (1.002-1.036); Squamous Epithelial 0-3 HPF (0-3); Urobilinogen Normal mg/dL (Less than 2); pH, Urine 5.5 (5.0-9.0)
[2020-12-21 05:49] LABS: Urine Culture Reflex Yes Yes
[2020-12-21] MEDS: MEROPENEM 1 GM/50 ML 1 GM in Premix Bag 1 BAG IVPB SCH ×3 (06:41→21:21)
[2020-12-21] MEDS: Gabapentin 300 MG CAP PO SCH (09:29)
[2020-12-21] MEDS: GUAIFENESIN SF SOLN 200 MG/10 ML UDCUP PO SCH ×2 (09:29→21:20)
[2020-12-21] MEDS: Enoxaparin Sodium 40 MG/0.4 ML SYRINGE SC SCH (09:30)
[2020-12-21] MEDS: Amlodipine 5 MG TAB PO SCH (09:30)
[2020-12-21] MEDS: Saccharomyces boulardii 250 MG CAP PO SCH (09:31)
[2020-12-21] MEDS: Linezolid 600 MG in Premix Bag 1 BAG IVPB SCH ×2 (09:31→21:20)
[2020-12-21] MEDS: Fluticasone Propionate Nasal Spray 16 gm Bottle NASAL SCH ×2 (09:31→21:21)
[2020-12-21] MEDS: Multivit, Therapeutic 1 TAB PO SCH (09:31)
[2020-12-21] MEDS: Mometasone 200 MCG/Formoterol 5 MCG 120 PUFF INHALER INH SCH ×2 (12:35→19:00)
[2020-12-21] MEDS: Furosemide 40 MG TAB PO SCH (14:57)
[2020-12-21] MEDS: Famotidine 20 MG TAB PO SCH (21:19)
[2020-12-22] MEDS: Sodium Chloride 0.65% Nasal 44 ML BOT EA NARE SCH ×6 (00:53→22:00)
[2020-12-22] MEDS: methylPREDNISolone Sod Succ 40 MG VIAL IVP SCH ×3 (00:53→19:45)
[2020-12-22] MEDS: Acetaminophen 325 MG TAB PO PRN ×2 (01:01→22:17)
[2020-12-22 05:00] LABS: Anion Gap 7 mmol/L (10-20); BUN (Urea Nitrogen) 40 mg/dL (9.8-20.1); Calc. Creatinine Clearance 70 mL/min (70-130); Calcium 8.2 mg/dL (7.8-10.44); Carbon Dioxide 36 mmol/L (22-29); Chloride 93 mmol/L (98-107); Glucose 203 mg/dL (70-105); Potassium 3.7 mmol/L (3.5-5.1); Sodium 132 mmol/L (136-145)
[2020-12-22 05:02] LABS: Band 42 % (5-11); Hemoglobin 8.9 g/dL (12.0-16.0); Lymphocytes 1 % (21-51); MDiff Complete? YES; Mean Corpuscular HGB CONC 32.1 g/dL (32.0-36.0); Mean Corpuscular Hemoglobin 31.3 pg (27.0-31.0); Mean Corpuscular Volume 97.5 fL (78.0-98.0); Mean Platelet Volume 8.8 fL (7.4-10.4); Monocytes 2 % (0-10); Neutrophil 55 % (42-75); Platelet Count 301 thou/uL (130-400); Platelet Morphology Comment Appears Adequate; RBC Distribution Width 12.3 % (11.5-14.5); Red Blood Cell (RBC) Count 2.85 mill/uL (4.20-5.40); White Blood Cell (WBC) Count 15.4 thou/uL (4.8-10.8)
[2020-12-22] MEDS: MEROPENEM 1 GM/50 ML 1 GM in Premix Bag 1 BAG IVPB SCH ×3 (05:30→22:01)
[2020-12-22] MEDS: Acyclovir Sodium 260 MG in Sodium Chloride 0.9% 100 ML IVPB SCH ×3 (05:58→21:59)
[2020-12-22] MEDS: Mometasone 200 MCG/Formoterol 5 MCG 120 PUFF INHALER INH SCH ×2 (08:34→18:39)
[2020-12-22] MEDS: Amlodipine 5 MG TAB PO SCH (08:59)
[2020-12-22] MEDS: Multivit, Therapeutic 1 TAB PO SCH (08:59)
[2020-12-22] MEDS: Saccharomyces boulardii 250 MG CAP PO SCH (08:59)
[2020-12-22] MEDS: Gabapentin 300 MG CAP PO SCH (09:00)
[2020-12-22] MEDS: Linezolid 600 MG in Premix Bag 1 BAG IVPB SCH ×2 (09:03→21:59)
[2020-12-22] MEDS: Enoxaparin Sodium 40 MG/0.4 ML SYRINGE SC SCH (09:04)
[2020-12-22] MEDS: Fluticasone Propionate Nasal Spray 16 gm Bottle NASAL SCH ×2 (09:05→22:01)
[2020-12-22] MEDS: GUAIFENESIN SF SOLN 200 MG/10 ML UDCUP PO SCH ×2 (09:19→21:59)
[2020-12-22] MEDS: Ascorbic Acid 500 mg Chewable Tablet PO SCH ×2 (13:47→17:55)
[2020-12-22] MEDS: Furosemide 40 MG TAB PO SCH (13:47)
[2020-12-22] MEDS: Famotidine 20 MG TAB PO SCH (22:00)
[2020-12-23] MEDS: Ascorbic Acid 500 mg Chewable Tablet PO SCH ×4 (00:03→17:56)
[2020-12-23] MEDS: Sodium Chloride 0.65% Nasal 44 ML BOT EA NARE SCH ×6 (00:09→22:07)
[2020-12-23 04:54] LABS: SARS-CoV-2 PCR by NAA Not Detected (NotDetected)
[2020-12-23] MEDS: Acyclovir Sodium 260 MG in Sodium Chloride 0.9% 100 ML IVPB SCH ×3 (05:13→22:05)
[2020-12-23] MEDS: MEROPENEM 1 GM/50 ML 1 GM in Premix Bag 1 BAG IVPB SCH ×3 (06:09→22:05)
[2020-12-23] MEDS: Amlodipine 5 MG TAB PO SCH (08:20)
[2020-12-23] MEDS: Enoxaparin Sodium 40 MG/0.4 ML SYRINGE SC SCH (08:20)
[2020-12-23] MEDS: Gabapentin 300 MG CAP PO SCH (08:20)
[2020-12-23] MEDS: Saccharomyces boulardii 250 MG CAP PO SCH (08:20)
[2020-12-23] MEDS: Multivit, Therapeutic 1 TAB PO SCH (08:20)
[2020-12-23] MEDS: Linezolid 600 MG in Premix Bag 1 BAG IVPB SCH ×2 (08:21→22:05)
[2020-12-23] MEDS: GUAIFENESIN SF SOLN 200 MG/10 ML UDCUP PO SCH ×2 (08:21→22:06)
[2020-12-23] MEDS: Fluticasone Propionate Nasal Spray 16 gm Bottle NASAL SCH ×2 (08:23→22:07)
[2020-12-23] MEDS: Mometasone 200 MCG/Formoterol 5 MCG 120 PUFF INHALER INH SCH ×2 (08:26→19:07)
[2020-12-23] MEDS: Furosemide 40 MG TAB PO SCH (14:02)
[2020-12-23 15:12] LABS: Ref Lab Test Ordered KARIUS; Reference Lab Name KARIUS
[2020-12-23] MEDS ORDERED: Furosemide 40 MG/4 ML VIAL SLOW IVP SCH (18:15)
[2020-12-23] MEDS: Acetaminophen 325 MG TAB PO PRN (18:27)
[2020-12-23] MEDS: Famotidine 20 MG TAB PO SCH (22:06)
[2020-12-24] MEDS: Sodium Chloride 0.65% Nasal 44 ML BOT EA NARE SCH ×6 (01:45→21:21)
[2020-12-24] MEDS: Ascorbic Acid 500 mg Chewable Tablet PO SCH ×5 (02:28→23:35)
[2020-12-24] MEDS: MEROPENEM 1 GM/50 ML 1 GM in Premix Bag 1 BAG IVPB SCH ×3 (05:50→21:22)
[2020-12-24] MEDS: Acyclovir Sodium 260 MG in Sodium Chloride 0.9% 100 ML IVPB SCH ×3 (05:51→21:16)
[2020-12-24] MEDS: Mometasone 200 MCG/Formoterol 5 MCG 120 PUFF INHALER INH SCH ×2 (07:15→19:26)
[2020-12-24] MEDS: Linezolid 600 MG in Premix Bag 1 BAG IVPB SCH (09:33)
[2020-12-24] MEDS: GUAIFENESIN SF SOLN 200 MG/10 ML UDCUP PO SCH ×2 (09:36→21:19)
[2020-12-24] MEDS: Enoxaparin Sodium 40 MG/0.4 ML SYRINGE SC SCH (09:36)
[2020-12-24] MEDS: Furosemide 40 MG/4 ML VIAL SLOW IVP SCH (09:36)
[2020-12-24] MEDS: Saccharomyces boulardii 250 MG CAP PO SCH (09:36)
[2020-12-24] MEDS: Multivit, Therapeutic 1 TAB PO SCH (09:36)
[2020-12-24] MEDS: Amlodipine 5 MG TAB PO SCH (09:37)
[2020-12-24] MEDS: Gabapentin 300 MG CAP PO SCH (09:37)
[2020-12-24] MEDS: Fluticasone Propionate Nasal Spray 16 gm Bottle NASAL SCH ×2 (09:38→21:23)
[2020-12-24] MEDS ORDERED: Furosemide 20 MG/2 ML VIAL SLOW IVP SCH (15:00)
[2020-12-24] MEDS: Famotidine 20 MG TAB PO SCH (21:16)
[2020-12-25 00:12] LABS: HSV-2 IgG Type Specific Less than 0.91 index (0.00-0.90)
[2020-12-25] MEDS: Sodium Chloride 0.65% Nasal 44 ML BOT EA NARE SCH ×6 (00:43→21:00)
[2020-12-25 04:22] LABS: Mean Corpuscular HGB CONC 33.5 g/dL (32.0-36.0); Mean Corpuscular Volume 95.5 fL (78.0-98.0); Mean Platelet Volume 9.2 fL (7.4-10.4); Platelet Count 154 thou/uL (130-400); RBC Distribution Width 12.5 % (11.5-14.5); Red Blood Cell (RBC) Count 3.12 mill/uL (4.20-5.40); White Blood Cell (WBC) Count 11.5 thou/uL (4.8-10.8)
[2020-12-25 04:34] LABS: Anion Gap 12 mmol/L (10-20); BUN (Urea Nitrogen) 34 mg/dL (9.8-20.1); Calc. Creatinine Clearance 88 mL/min (70-130); Calcium 7.9 mg/dL (7.8-10.44); Carbon Dioxide 35 mmol/L (22-29); Chloride 90 mmol/L (98-107); Glucose 176 mg/dL (70-105); Potassium 3.4 mmol/L (3.5-5.1); Sodium 134 mmol/L (136-145)
[2020-12-25 04:59] LABS: Band 7 % (5-11); Lymphocytes 4 % (21-51); MDiff Complete? YES; Metamyelocyte 1 % (0-0); Monocytes 3 % (0-10); Neutrophil 85 % (42-75); Platelet Morphology Comment Appears Adequate
[2020-12-25 06:04] LABS: Actual Bicarbonate (HCO3a) 38.7 mEq/L (22-28); Analyzer IN Cardio OR; Base Excess (BEa) 7.3 mEq/L (-2.0 to +3.0); Calcium, Ionized (arterial) 1.16 mmol/L (1.12-1.30); Carboxyhemoglobin (COHb) 0.7 gm% (0.0-3.0); Hemoglobin (Hb) 11.1 g/dL (12.0-16.0); O2 Tension (PaO2), arterial 61.6 mmHg (80.0-100.0); Potassium - ABG Lab 3.52 mmol/L (3.70-5.30)
[2020-12-25 06:05] LABS: Puncture Site LBA; pH, Arterial 7.18 (7.35-7.45)
[2020-12-25] MEDS: Ascorbic Acid 500 mg Chewable Tablet PO SCH ×3 (06:19→17:25)
[2020-12-25] MEDS ORDERED: Potassium Chloride 20 MEQ in Premix Bag 1 BAG IVPB SCH (06:30)
[2020-12-25] MEDS: Acyclovir Sodium 260 MG in Sodium Chloride 0.9% 100 ML IVPB SCH ×3 (06:41→20:59)
[2020-12-25] MEDS: MEROPENEM 1 GM/50 ML 1 GM in Premix Bag 1 BAG IVPB SCH ×3 (06:42→20:59)
[2020-12-25] MEDS: Mometasone 200 MCG/Formoterol 5 MCG 120 PUFF INHALER INH SCH ×2 (07:30→19:03)
[2020-12-25 07:41] LABS: Actual Bicarbonate (HCO3a) 36.1 mEq/L (22-28); Base Excess (BEa) 10.2 mEq/L (-2.0 to +3.0); CO2 Tension 55.8 mmHg (35.0-45.0); Calcium, Ionized (arterial) 1.09 mmol/L (1.12-1.30); Carboxyhemoglobin (COHb) 0.7 gm% (0.0-3.0); Hemoglobin (Hb) 10.4 g/dL (12.0-16.0); O2 Tension (PaO2), arterial 61.8 mmHg (80.0-100.0); Potassium - ABG Lab 3.91 mmol/L (3.70-5.30); pH, Arterial 7.43 (7.35-7.45)
[2020-12-25 07:45] LABS: Puncture Site RRA
[2020-12-25] MEDS: Saccharomyces boulardii 250 MG CAP PO SCH (09:11)
[2020-12-25] MEDS: Gabapentin 300 MG CAP PO SCH (09:11)
[2020-12-25] MEDS: Multivit, Therapeutic 1 TAB PO SCH (09:11)
[2020-12-25] MEDS: GUAIFENESIN SF SOLN 200 MG/10 ML UDCUP PO SCH ×3 (09:14→21:05)
[2020-12-25] MEDS: Enoxaparin Sodium 40 MG/0.4 ML SYRINGE SC SCH (09:14)
[2020-12-25] MEDS: Furosemide 40 MG/4 ML VIAL SLOW IVP SCH (09:14)
[2020-12-25] MEDS: Fluticasone Propionate Nasal Spray 16 gm Bottle NASAL SCH ×2 (09:16→21:00)
[2020-12-25] MEDS: Amlodipine 5 MG TAB PO SCH (09:18)
[2020-12-25] MEDS: ALPRAZolam 0.5 MG TAB PO PRN (09:25)
[2020-12-25] MEDS: Levofloxacin 750 mg/D5W 500 MG in Premix Bag 1 BAG IVPB SCH (10:05)
[2020-12-25] MEDS: Famotidine 20 MG TAB PO SCH (21:00)
[2020-12-25] MEDS: Acetaminophen 325 MG TAB PO PRN (21:13)
[2020-12-26] MEDS: Sodium Chloride 0.65% Nasal 44 ML BOT EA NARE SCH ×6 (00:47→21:18)
[2020-12-26] MEDS: Ascorbic Acid 500 mg Chewable Tablet PO SCH ×4 (02:17→18:17)
[2020-12-26] MEDS: Acyclovir Sodium 260 MG in Sodium Chloride 0.9% 100 ML IVPB SCH ×3 (04:52→21:17)
[2020-12-26] MEDS: MEROPENEM 1 GM/50 ML 1 GM in Premix Bag 1 BAG IVPB SCH ×3 (06:38→21:17)
[2020-12-26] MEDS: ALPRAZolam 0.5 MG TAB PO PRN (06:42)
[2020-12-26] MEDS: Mometasone 200 MCG/Formoterol 5 MCG 120 PUFF INHALER INH SCH ×2 (08:25→20:40)
[2020-12-26] MEDS: Saccharomyces boulardii 250 MG CAP PO SCH (08:36)
[2020-12-26] MEDS: Gabapentin 300 MG CAP PO SCH (08:36)
[2020-12-26] MEDS: Multivit, Therapeutic 1 TAB PO SCH (08:36)
[2020-12-26] MEDS: Enoxaparin Sodium 40 MG/0.4 ML SYRINGE SC SCH (08:37)
[2020-12-26] MEDS: Furosemide 40 MG/4 ML VIAL SLOW IVP SCH (08:37)
[2020-12-26] MEDS: GUAIFENESIN SF SOLN 200 MG/10 ML UDCUP PO SCH ×2 (08:37→21:17)
[2020-12-26] MEDS: Amlodipine 5 MG TAB PO SCH (08:37)
[2020-12-26] MEDS: Fluticasone Propionate Nasal Spray 16 gm Bottle NASAL SCH ×2 (09:47→21:18)
[2020-12-26] MEDS: Levofloxacin 750 mg/D5W 500 MG in Premix Bag 1 BAG IVPB SCH (11:09)
[2020-12-26] MEDS: Famotidine 20 MG TAB PO SCH (21:14)
[2020-12-27] MEDS: Sodium Chloride 0.65% Nasal 44 ML BOT EA NARE SCH ×7 (00:28→23:21)
[2020-12-27] MEDS: Ascorbic Acid 500 mg Chewable Tablet PO SCH ×4 (00:28→18:03)
[2020-12-27] MEDS: Acyclovir Sodium 260 MG in Sodium Chloride 0.9% 100 ML IVPB SCH ×3 (04:52→20:54)
[2020-12-27 05:33] LABS: BUN (Urea Nitrogen) 38 mg/dL (9.8-20.1); Calc. Creatinine Clearance 95 mL/min (70-130); Calcium 8.5 mg/dL (7.8-10.44); Glucose 209 mg/dL (70-105)
[2020-12-27 05:42] LABS: Anion Gap 14 mmol/L (10-20); Band 10 % (5-11); Carbon Dioxide 39 mmol/L (22-29); Chloride 89 mmol/L (98-107); Hemoglobin 9.1 g/dL (12.0-16.0); Large Platelets SLIGHT; Lymphocytes 5 % (21-51); MDiff Complete? YES; Mean Corpuscular HGB CONC 32.7 g/dL (32.0-36.0); Mean Platelet Volume 11.5 fL (7.4-10.4); Metamyelocyte 2 % (0-0); Monocytes 2 % (0-10); Neutrophil 81 % (42-75); Platelet Count 70 thou/uL (130-400); Platelet Morphology Comment Appears Decreased; Potassium 3.7 mmol/L (3.5-5.1); RBC Distribution Width 12.9 % (11.5-14.5); Red Blood Cell (RBC) Count 2.85 mill/uL (4.20-5.40); Sodium 138 mmol/L (136-145)
[2020-12-27] MEDS: MEROPENEM 1 GM/50 ML 1 GM in Premix Bag 1 BAG IVPB SCH ×3 (06:12→20:54)
[2020-12-27] MEDS: Mometasone 200 MCG/Formoterol 5 MCG 120 PUFF INHALER INH SCH ×2 (07:28→18:31)
[2020-12-27] MEDS: GUAIFENESIN SF SOLN 200 MG/10 ML UDCUP PO SCH ×2 (08:36→20:53)
[2020-12-27] MEDS: Saccharomyces boulardii 250 MG CAP PO SCH (08:36)
[2020-12-27] MEDS: Multivit, Therapeutic 1 TAB PO SCH (08:36)
[2020-12-27] MEDS: Amlodipine 5 MG TAB PO SCH (08:36)
[2020-12-27] MEDS: Gabapentin 300 MG CAP PO SCH (08:36)
[2020-12-27] MEDS: Furosemide 40 MG/4 ML VIAL SLOW IVP SCH (08:37)
[2020-12-27] MEDS: Enoxaparin Sodium 40 MG/0.4 ML SYRINGE SC SCH (08:37)
[2020-12-27] MEDS: Famotidine 20 MG TAB PO SCH ×2 (08:37→20:53)
[2020-12-27] MEDS: Fluticasone Propionate Nasal Spray 16 gm Bottle NASAL SCH ×2 (08:38→20:53)
[2020-12-27] MEDS: acetaZOLAMIDE Sodium 500 mg Vial IVP SCH (10:42)
[2020-12-27] MEDS: Sterile Water 10 ML VIAL IVP SCH (10:42)
[2020-12-27] MEDS: Levofloxacin 750 mg/D5W 500 MG in Premix Bag 1 BAG IVPB SCH (11:16)
[2020-12-27 16:05] VITALS: BP 144/78
[2020-12-27] MEDS: BIOTENE MOUTH SPRAY 44.3 ML MM PRN (16:48)
[2020-12-27] MEDS ORDERED: ALPRAZolam 0.5 MG TAB PO PRN (18:04)
[2020-12-28] MEDS: Ascorbic Acid 500 mg Chewable Tablet PO SCH ×5 (00:43→23:13)
[2020-12-28] MEDS: Sodium Chloride 0.65% Nasal 44 ML BOT EA NARE SCH ×5 (05:20→21:51)
[2020-12-28] MEDS: MEROPENEM 1 GM/50 ML 1 GM in Premix Bag 1 BAG IVPB SCH ×3 (06:24→21:52)
[2020-12-28] MEDS: Acyclovir Sodium 260 MG in Sodium Chloride 0.9% 100 ML IVPB SCH ×3 (06:24→21:49)
[2020-12-28] MEDS: Mometasone 200 MCG/Formoterol 5 MCG 120 PUFF INHALER INH SCH ×2 (06:50→18:16)
[2020-12-28] MEDS: Sterile Water 10 ML VIAL IVP SCH (09:35)
[2020-12-28] MEDS: Gabapentin 300 MG CAP PO SCH (09:35)
[2020-12-28] MEDS: acetaZOLAMIDE Sodium 500 mg Vial IVP SCH (09:35)
[2020-12-28] MEDS: Famotidine 20 MG TAB PO SCH ×2 (09:35→21:49)
[2020-12-28] MEDS: GUAIFENESIN SF SOLN 200 MG/10 ML UDCUP PO SCH ×2 (09:35→21:49)
[2020-12-28] MEDS: Amlodipine 5 MG TAB PO SCH (09:36)
[2020-12-28] MEDS: Saccharomyces boulardii 250 MG CAP PO SCH (09:36)
[2020-12-28] MEDS: Multivit, Therapeutic 1 TAB PO SCH (09:36)
[2020-12-28] MEDS: Fluticasone Propionate Nasal Spray 16 gm Bottle NASAL SCH ×2 (09:53→21:51)
[2020-12-28] MEDS: Levofloxacin 750 mg/D5W 500 MG in Premix Bag 1 BAG IVPB SCH (11:21)
[2020-12-28 13:36] VITALS: BMI 26.3
[2020-12-28] MEDS: BIOTENE MOUTH SPRAY 44.3 ML MM PRN (14:39)
[2020-12-29] MEDS: Sodium Chloride 0.65% Nasal 44 ML BOT EA NARE SCH ×5 (01:17→18:42)
[2020-12-29 04:16] LABS: BUN (Urea Nitrogen) 45 mg/dL (9.8-20.1); Calc. Creatinine Clearance 100 mL/min (70-130); Calcium 8.7 mg/dL (7.8-10.44); Glucose 203 mg/dL (70-105)
[2020-12-29 04:24] LABS: Anion Gap 16 mmol/L (10-20); Carbon Dioxide 38 mmol/L (22-29); Chloride 93 mmol/L (98-107); Potassium 3.5 mmol/L (3.5-5.1); Sodium 143 mmol/L (136-145)
[2020-12-29 04:34] LABS: Band 32 % (5-11); Hemoglobin 8.8 g/dL (12.0-16.0); Large Platelets SLIGHT; Lymphocytes 2 % (21-51); MDiff Complete? YES; Mean Corpuscular HGB CONC 33.3 g/dL (32.0-36.0); Mean Corpuscular Hemoglobin 32.2 pg (27.0-31.0); Mean Corpuscular Volume 96.7 fL (78.0-98.0); Mean Platelet Volume 14.5 fL (7.4-10.4); Metamyelocyte 1 % (0-0); Monocytes 4 % (0-10); Myelocyte 1 % (0-0); Neutrophil 60 % (42-75); Platelet Count 55 thou/uL (130-400); Platelet Morphology Comment Appears Decreased; RBC Distribution Width 13.6 % (11.5-14.5); Red Blood Cell (RBC) Count 2.72 mill/uL (4.20-5.40); White Blood Cell (WBC) Count 8.7 thou/uL (4.8-10.8)
[2020-12-29] MEDS: Acyclovir Sodium 260 MG in Sodium Chloride 0.9% 100 ML IVPB SCH ×2 (06:03→13:40)
[2020-12-29] MEDS: Ascorbic Acid 500 mg Chewable Tablet PO SCH ×3 (06:03→18:43)
[2020-12-29] MEDS: MEROPENEM 1 GM/50 ML 1 GM in Premix Bag 1 BAG IVPB SCH ×2 (06:03→14:52)
[2020-12-29] MEDS: Mometasone 200 MCG/Formoterol 5 MCG 120 PUFF INHALER INH SCH ×2 (07:48→18:43)
[2020-12-29] MEDS: Saccharomyces boulardii 250 MG CAP PO SCH (08:03)
[2020-12-29] MEDS: GUAIFENESIN SF SOLN 200 MG/10 ML UDCUP PO SCH (08:03)
[2020-12-29] MEDS: Amlodipine 5 MG TAB PO SCH (08:03)
[2020-12-29] MEDS: Multivit, Therapeutic 1 TAB PO SCH (08:03)
[2020-12-29] MEDS: Fluticasone Propionate Nasal Spray 16 gm Bottle NASAL SCH (08:04)
[2020-12-29] MEDS: Gabapentin 300 MG CAP PO SCH (08:04)
[2020-12-29] MEDS: Famotidine 20 MG TAB PO SCH (08:06)
[2020-12-29] MEDS: acetaZOLAMIDE Sodium 500 mg Vial IVP SCH (09:40)
[2020-12-29] MEDS: Levofloxacin 750 mg/D5W 500 MG in Premix Bag 1 BAG IVPB SCH (09:41)
[2020-12-29] MEDS: Sterile Water 10 ML VIAL IVP SCH (09:41)
[2020-12-29 10:36] LABS: Actual Bicarbonate (HCO3a) 49.2 mEq/L (22-28); Base Excess (BEa) 15.7 mEq/L (-2.0 to +3.0); Calcium, Ionized (arterial) 1.28 mmol/L (1.12-1.30); Carboxyhemoglobin (COHb) 1.8 gm% (0.0-3.0); Hemoglobin (Hb) 9.6 g/dL (12.0-16.0); O2 Tension (PaO2), arterial 71.2 mmHg (80.0-100.0); Potassium - ABG Lab 3.49 mmol/L (3.70-5.30)
[2020-12-29 10:59] LABS: CO2 Tension 159.1 mmHg (35.0-45.0); pH, Arterial 7.11 (7.35-7.45)
[2020-12-29] MEDS ORDERED: Morphine 2 MG/ML VIAL SLOW IVP PRN (10:59)
[2020-12-29 11:00] LABS: ALV-art Gradient -27.655 mmHg (0-20); Puncture Site RRA
[2020-12-29] MEDS ORDERED: Lorazepam 2 MG/ML VIAL SLOW IVP PRN (11:00)
[2020-12-29 15:15] VITALS: TEMP 96
== END 2020-12-29 16:50 | disposition expired | DRG 871 ==
LOC: ERS 13:50 → T4-A 16:09 → 2SW 12-08 14:13 → IMCU/EMU 12-09 16:54 → ONC 12-16 11:28 → CCU 12-20 12:02 → 2NO 12-23 21:15 → IMCU/EMU 12-25 06:06
PROVIDERS: ADMIT Internal Medicine; ATTEND Internal Medicine
PROC: 3E0336Z Introduction of Nutritional Substance into Peripheral Vein, Percutaneous Approach (ICD-10-PCS; 2020-11-30)
PROC: 5A09357 Assistance with Respiratory Ventilation, Less than 24 Consecutive Hours, Continuous Positive Airway Pressure (ICD-10-PCS; principal; 2020-12-09)
PROC: 02HV33Z Insertion of Infusion Device into Superior Vena Cava, Percutaneous Approach (ICD-10-PCS; 2020-12-11)
PROC: 5A0945A Assistance with Respiratory Ventilation, 24-96 Consecutive Hours, High Flow/Velocity Cannula (ICD-10-PCS; 2020-12-20)
DX: A41.52 Sepsis due to Pseudomonas (principal); J85.0 Gangrene and necrosis of lung; J96.22 Acute and chronic respiratory failure with hypercapnia; E43 Unspecified severe protein-calorie malnutrition; J96.21 Acute and chronic respiratory failure with hypoxia; J15.1 Pneumonia due to Pseudomonas; B37.0 Candidal stomatitis; N17.9 Acute kidney failure, unspecified; E22.2 Syndrome of inappropriate secretion of antidiuretic hormone; R64 Cachexia; Z20.822 Contact with and (suspected) exposure to COVID-19; Z66 Do not resuscitate; Z51.5 Encounter for palliative care; Z68.25 Body mass index [BMI] 25.0-25.9, adult; B00.7 Disseminated herpesviral disease; F41.9 Anxiety disorder, unspecified; D63.1 Anemia in chronic kidney disease; F32.9 Major depressive disorder, single episode, unspecified; R65.20 Severe sepsis without septic shock; N18.30 Chronic kidney disease, stage 3 unspecified; I12.9 Hypertensive chronic kidney disease with stage 1 through stage 4 chronic kidney disease, or unspecified chronic kidney disease; J43.9 Emphysema, unspecified; D72.829 Elevated white blood cell count, unspecified; T38.0X5A Adverse effect of glucocorticoids and synthetic analogues, initial encounter; E87.5 Hyperkalemia; E83.42 Hypomagnesemia; E87.6 Hypokalemia; E83.39 Other disorders of phosphorus metabolism; R13.12 Dysphagia, oropharyngeal phase; Z99.81 Dependence on supplemental oxygen; Z88.5 Allergy status to narcotic agent; Z86.14 Personal history of Methicillin resistant Staphylococcus aureus infection; Z88.2 Allergy status to sulfonamides; Z87.891 Personal history of nicotine dependence; Z79.51 Long term (current) use of inhaled steroids; Z79.899 Other long term (current) drug therapy; D69.6 Thrombocytopenia, unspecified
CPT/HCPCS: 0240U; 36415; 36416; 36600; 71045; 71046; 71250; 74018; 74230; 80048; 80053; 80202; 81001; 82040; 82306; 82436; 82805; 83605; 83735; 83930; 83935; 84100; 84133; 84145; 84300; 84443; 84484; 84550; 85025; 86140; 86694; 86695; 86696; 87040; 87086; 87324; 87449; 87635; 93005; 94640; 94660; 96365; 96375; J0133; J0692; J1120; J1650; J1940; J1956; J2020; J2185; J2248; J2405; J2543; J2920; J2930; J3370; J3475; J3480; J3490; J7030; J7050; J7512; J7620; Q0162; U0003; U0005